=== PATIENT | male | born 1945 | race Caucasian/White ===

== ENCOUNTER 2022-06-07 16:23 | Inpatient (IN) | payer OTHER ==
--- OUTSIDE RECORDS SUMMARY | 2022-06-07 16:33 | XMS REPORT | Continuity of Care Document ---
:1945 Author Organization [facility] t Address [address] [place] [address] Care Team Providers Name Role Phone Kia Lloyd DO Primary Care Physician RAMYA WILL Attending Clinician Unavailable Tamra Kelley Attending Clinician Unavailable Ramya Will Attending Clinician Hadley David Attending Clinician Kia Lloyd Attending Clinician THEODORE POOLE Attending Clinician Unavailable ALYSIA VELASCO Attending Clinician Unavailable Jose Manuel Solitario Attending Clinician VINCENZO BISHOP M.D. Attending Clinician Unavailable VISIT, NURSE [facility] XRAY Attending Clinician Unavailable CRYSTAL NARANJO NP Attending Clinician Unavailable Raju_P Attending Clinician Unavailable Vincenzo Bishop Attending Clinician Justice Niño Attending Clinician Kamaljit [place] Attending Clinician ALYSIA VELASCO Admitting Clinician Unavailable Raju_P Admitting Clinician Unavailable Ramya Will Admitting Clinician Vincenzo Bishop Admitting Clinician Payers Payer Name Policy Type Policy Number Effective Date Expiration Date S [place] [address] [id number] Common Spi rit Life - [facility] MEDICARE MB [id number] [facility] NOVITAS - [facility] MEDICARE MB [id number] [facility] NOVITAS - [facility] MEDICARE B-[place]: [id number] 2010 NOVITAS 00:00:00 SOLUTIONS PRECIOUSMICHELLE [id number] 2011 00:00:00 Problems Condition Condition Condition Status Onset Resolution Last Treating Co mments Source Name Details Category Date Date Treatment Clinician Date I50.9 I10 I50.9 I10 Diagnosis Active 2021-052022-05-02 Memoria I25.10 I25.10 1- 08:40:00 l Active 00:00: Dario 04/07/2022 00 [facility] [place] SCREENING Diagnosis Active 2020-09-17 Memoria - Z12.11 SCREENING -14 11:40:00 l - Z12.11 00:00: Dario Active 00 09/09/2020 [facility] [place] I20.0 - I20.0 - Diagnosis Active 2017-06-07 Memoria UNSTABLE UNSTABLE 1-10 15:55:00 l ANGINA ANGINA 00:01: Dario I25.10 - I25.10 - 00 ATHSCL ATHSCL Active 06/07/2017 MH [facility] [place] I25.10, I25.10, Diagnosis Active 2016-07-05 Memoria I20.0 I20.0 - 08:37:00 l Active 00:00: Kimberly 07/05/2016 00 [place] Gastroente Gastroent Problem Active 2021-04-09 Memoria ritis eritis -14 02:39:44 l (disorder) (disorder) 00:00: Reyes jimenezann Active 00 12/09/2014 Problem 04/09/2021 Data migrated from [facility] on 12/31/14. [facility] [place] UTI UTI Diagnosis Active 2013-052014-05-29 Mem oria Active 06-29 15:43:00 l 04/28/2014 00:00: Amos dhillon [place] Urinary Urinary Problem Active 2013-052021-04-09 M reese incontinen incontinen 06-25 02:39:44 l ce ce 00:00: Dario (finding) (finding) 00 Active 04/25/2014 Problem 04/09/2021 Data migrated from [employer] on 10/25/14. [facility] [place] KNEE PAIN KNEE PAIN Diagnosis Active 2013-052014-06-17 Memoria RIGHT-719. RIGHT-719. 0- 07:03:00 l 46, 46, 00:00: Dario DEGENERATI DEGENERATI 00 VE BINTA VE BINTA Active 03/12/2014 [place] Impotence Impotence Problem Active 2022-01-09 Memoria of organic of organic 8 02:21:52 l origin origin 00:00: Dario (disorder) (disorder) 00 Active 01/21/2014 Problem 01/09/2022 Data migrated from [facility] on 10/25/14. [facility] [place] Presbyopia Presbyopi Problem Active 2022-01-09 Memoria (disorder) a 4-03 02:21:52 l (disorder) 00:00: Amos dhillon Active 00 08/29/2013 Problem 01/09/2022 Data migrated from [facility] on 10/25/14. [facility] [place] OSTEOARTHR OSTEOARTH Diagnosis Active 2012-052013-06-04 Memoria ITIS KNEE RITIS KNEE 2- 16:03:00 l LEFT-715.9 LEFT-715.9 00:00: Reyes torrez 6-SCIOP 6-SCIOP 00 Active 05/07/2013 [place] 715.96 - 715.96 - Diagnosis Active 2012-052013-05-08 Memoria OSTEOARTHR OSTEOARTHR 2- 10:49:00 l OS NO OS NO 00:01: Dario Active 00 05/06/2013 [facility] Bilateral Bilateral Problem Active 2012-052022-01-09 Memoria neural neural 0-25 02:21:52 l hearing hearing 00:00: Dario loss loss 00 (disorder) (disorder) Active 03/22/2013 Problem 01/09/2022 Data migrated from [employer] on 10/25/14. [facility] [place] Anxiety Anxiety Problem Active 2012-052022-01-09 M emoria disorder disorder 0-11 02:21:52 l (disorder) (disorder) 00:00: He rmann Active 00 03/08/2013 Problem 01/09/2022 Data migrated from [employer] on 10/25/14. [facility] [place] Cramp in Cramp in Problem Active 2021-04-09 Memoria lower limb lower limb -14 02:39:44 l (finding) (finding) 00:00: Herm fabio Active 00 11/09/2012 Problem 04/09/2021 Data migrated from [employer] on 10/25/14. [facility] [place] Arthritis Arthritis Problem Active 2022-01-09 Memoria of knee of knee 09-17 02:21:52 l (disorder) (disorder) 00:00: He rmann Active 00 09/17/2012 Problem 01/09/2022 Data migrated from [employer] on 10/25/14. [facility] [place] Benign Benign Problem Active 2022-01-09 Loyd sami prostatic prostatic 4- 02:21:52 l hyperplasi hyperplasi 00:00: He rmann a a 00 (disorder) (disorder) Active 08/31/2012 Problem 01/09/2022 Data migrated from [employer] [facility] [facility] 10[facility]25/14[facility] [place] [place] Knee pain Knee pain Problem Active 2021-04-09 Memoria (finding) (finding) 4- 02:39:44 l Active 00:00: Kimberly 08/31/2012 00 Problem 04/09/2021 Data migrated from [employer] on 10/25/14. [facility] [place] Polyp of Polyp of Problem Active 2011-052021-04-09 Memoria large large 1-19 02:39:44 l intestine intestine 00:00: Herm fabio (disorder) (disorder) 00 Active 04/16/2012 Problem 04/09/2021 Data migrated from [employer] on 10/25/14. [facility] [place] Benign Benign Problem Active 2011-052022-05-14 Loyd sami hypertensi hypertensi 0-05 11:19:31 l on on 00:00: Dario (disorder) (disorder) 00 Active 03/02/2012 Problem 05/14/2022 Data migrated from [employer] on 10/25/14. [facility] [place] Gout Gout Problem Active 2011-052022-05-14 Memor ia (disorder) (disorder) 0-05 11:19:31 l Active 00:00: Dario 03/02/2012 00 Problem 05/14/2022 Data migrated from [employer] on 10/25/14. [facility] [place] Hyperlipid Hyperlipi Problem Active 2011-052016-07-08 Memoria emia demia 0-05 03:31:09 l (disorder) (disorder) 00:00: He rmann Active 00 03/02/2012 Problem 07/08/2016 Data migrated from [employer] on 10/25/14. [place] Sleep Sleep Problem Resolve 2022-01-09 Loyd sami apnea apnea d 02:21:52 l (finding) (finding) Herm fabio Resolved Problem 01/09/2022 [facility] [place] Hyperchole Hyperchol Problem Resolve 2022-01-09 Memoria sterolemia esterolemi d 02:21:52 l (disorder) a Amos n (disorder) Resolved Problem 01/09/2022 [facility] [place] Irritable Irritable Problem Resolve 2022-01-09 Memoria colon colon d 02:21:52 l (disorder) (disorder) He rmann Resolved Problem 01/09/2022 [facility], [facility] [place] Gastroesop Gastroeso Problem Active 2022-01-09 Memoria hageal phageal 02:21:52 l reflux reflux Kimberly disease disease (disorder) (disorder) Active Problem 01/09/2022 Data migrated from [employer] on 10/25/14. [facility], [facility] [place], [facility] [place] Body mass Body mass Problem Active 2022-05-14 Memoria index 30+ index 30+ 11:19:31 l - obesity - obesity Herm fabio (finding) (finding) Active Problem 05/14/2022 [facility], [facility] [place] Bronchitis Bronchiti Problem Active 2021-04-09 Memoria (disorder) s 02:39:44 l (disorder) Amos n Active Problem 04/09/2021 [facility], [facility] [place] Coronary Coronary Problem Active 2022-05-14 Memoria arterioscl arterioscl 11:19:31 l erosis erosis Dario (disorder) (disorder) Active Problem 05/14/2022 Data migrated from [facility] on 10/25/14. 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 11:19:31 l of the of the Dario heart heart (disorder) (disorder) Active Problem 05/14/2022 [facility], [facility] [place] Drug Drug Problem Active 2021-04-09 Memor ia therapy therapy 02:39:44 l finding finding Dario (finding) (finding) Active Problem 04/09/2021 [facility], [facility] [place] Edema of Edema of Problem Active 2022-05-14 Memoria lower lower 11:19:31 l extremity extremity Herm fabio (finding) (finding) Active Problem 05/14/2022 [facility], [place] Large Large Problem Active 2021-04-09 Memor ia prostate prostate 02:39:44 l (finding) (finding) Herm fabio Active Problem 04/09/2021 [facility], [facility] [place], [facility], [place] Hand pain Hand pain Problem Active 2021-04-09 Memoria (finding) (finding) 02:39:44 l Active Dario Problem 04/09/2021 [facility], [place] Sacroiliac Sacroilia Problem Active 2021-04-09 Memoria joint c joint 02:39:44 l inflamed inflamed Amos n (disorder) (disorder) Active Problem 04/09/2021 [facility], [place] Mixed Mixed Problem Active 2022-05-14 Loyd sami hyperlipid hyperlipid 11:19:31 l abel roman Dario (disorder) (disorder) Active Problem 05/14/2022 [facility] [place] Osteoporos Osteoporo Problem Active 2022-05-14 Memoria is sis 11:19:31 l (disorder) (disorder) He rmann Active Problem 05/14/2022 [facility], [facility] [place] Pain in Pain in Problem Active 2021-04-09 Me moria elbow elbow 02:39:44 l (finding) (finding) Herm fabio Active Problem 04/09/2021 [facility], [place] Pain in Pain in Problem Active 2021-04-09 Me moria wrist wrist 02:39:44 l (finding) (finding) Herm fabio Active Problem 04/09/2021 [facility] [place] 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:39:44 l syndrome syndrome Amos n (disorder) (disorder) Active Problem 04/09/2021 [facility] [place] Screening Screening Problem Active 2022-05-14 Memoria status status 11:19:31 l (finding) (finding) Herm fabio Active Problem 05/14/2022 [facility], [facility] [place] Shoulder Shoulder Problem Active 2021-04-09 Memoria pain pain 02:39:44 l (finding) (finding) Herm fabio Active Problem 04/09/2021 [facility], [place] Skin Skin Problem Active 2021-04-09 Memor ia lesion lesion 02:39:44 l (disorder) (disorder) He rmann Active Problem 04/09/2021 [facility] [place] Finding of Finding Problem Active 2022-05-14 Memoria enzyme of enzyme 11:19:31 l level level Dario (finding) (finding) Active Problem 05/14/2022 [facility] [place] Prediabete Prediabet Problem Active 2022-05-14 Memoria s es 11:19:31 l (finding) (finding) Herm fabio Active Problem 05/14/2022 [facility] [place] Fall from Fall from Problem Active 2017-11-17 Memoria building building 02:06:33 l (finding) (finding) Herm fabio Active Problem 11/17/2017 [facility], [place] History of History Problem Active 2022-05-14 Memoria polyp of of polyp 11:19:31 l colon of colon Dario (situation (situation ) ) Active Problem 05/14/2022 [facility], [facility] [place] Parkinson' Parkinson Problem Active 2022-05-14 Memoria s disease 's disease 11:19:31 l (disorder) (disorder) He rmann Active Problem 05/14/2022 [facility], [facility] [place] Hypertensi Hypertens Problem Active 2014-06-13 Memoria ve bola 08:03:20 l disorder, disorder, Herm fabio systemic systemic arterial arterial (disorder) (disorder) Active Problem 06/13/2014 [facility] [place], [facility], [place] Acute Acute Problem Active 2022-04-09 Memor ia congestive congestive 05:07:57 l heart heart Kimberly failure failure (disorder) (disorder) Active Problem 04/09/2022 Medical Group ENCOUNTER ENCOUNTER Diagnosis Active 2020-09-17 Memoria FOR FOR 11:40:00 l SCREENING SCREENING Herm fabio FOR FOR MALIGNANT MALIGNANT NE NE Active [place] M79.605 - M79.605 - Diagnosis Active 2021-08-18 Memoria PAIN IN PAIN IN 11:00:00 l LEFT LEG LEFT LEG Amos n Active [facility] [place] URIN TRACT URIN Diagnosis Active 2014-04-29 Memoria INFECTION TRACT 16:45:00 l NOS INFECTION Kimberly NOS Active [place] JOINT JOINT Diagnosis Active 2014-06-17 Me moria PAIN-L/LEG PAIN-L/LEG 07:03:00 l Active Dario [place] ABNORMAL ABNORMAL Diagnosis Active 2022-05-02 Memoria ELECTROCAR ELECTROCAR 08:40:00 l DIOGRAM DIOGRAM Kimberly [ECG] [ECG] [EKG] [EKG] Active [place] Status Status Problem Active [facility] post left post left Phys ici knee knee ans replacemen replacemen t t Osteoarthr Osteoarthr Problem Active U T itis of itis of Physici hips, hips, ans bilateral bilateral [id number] OAB Problem Common (overactiv Spirit e bladder) [facility] [id number] Urge Problem Common incontinen Spirit ce [facility] [id number] Detrusor Problem Comm on instabilit Spirit y [facility] Frequency Frequency Problem Com mon Spirit [facility] [id number] Voiding Problem Commo n dysfunctio Spirit n [facility] Malignant Malignant Problem Com mon tumor of neoplasm Spirit prostate of [facility] prostate [facility] Incontinen Incontinen Problem C ommon ce [facility] [id number] S/P Problem Common radiation Spirit therapy [facility] [id number] Detrusor Problem Comm on dysfunctio Spirit n [facility] [id number] Bilateral Problem Comm on nephrolith Spirit iasis [facility] [id number] Functional Problem Co mmon urinary Spirit incontinen - [facility] [id number] Lower Problem Common urinary Spirit tract - [facility] symptoms ([facility] [id number] Primary Problem Common malignant Spirit neoplasm - [facility] with high Medical risk of Center recurrence due to [place] score of 8 to 10 and PSA greater than 20 [id number] Other Problem Commo n [id number] stricture Spirit of bulbous - [facility] urethra in [facility] Urinary Acute Problem Common tract lower UTI Spirit infectious - [facility] disease [facility] Essential Essential Diagnosis 2021-052022-05-14 2022-05-14 Memoria hypertensi hypertensi 07-12 11:19:31 11:19:31 l on on 20:28: Dario (disorder) (disorder) 00 05/11/2022 Diagnosis 05/14/2022 Medical Group Atheroscle Atheroscl Diagnosis 2021-052022-05-14 2022-05-14 Memoria rosis of erosis of 07-12 11:19:31 11:19:31 l coronary coronary 20:28: Amos n artery artery 00 (disorder) (disorder) 05/11/2022 Diagnosis 05/14/2022 Medical Group Angina Angina Diagnosis 2021-052022-05-142022-05-14 Memoria (disorder) (disorder) 2- 11:19:31 11:19:31 l 05/11/2022 20:28: Amos n Diagnosis 00 05/14/2022 Medical Group Diastolic Diastolic Diagnosis 2021-052022-05-14 2022-05-14 Memoria heart heart 2- 11:19:31 11:19:31 l failure failure 20:28: Dario (disorder) (disorder) 00 05/11/2022 Diagnosis 05/14/2022 [facility], [facility] [place] Localized Localized Diagnosis 2021-052022-05-14 2022-05-14 Memoria edema edema - 11:19:31 11:19:31 l (finding) (finding) 20:28: Edwin mccarthy 05/11/2022 00 Diagnosis 05/14/2022 [facility] Heart Heart Diagnosis 2021-052022-04-07 2022-04-07 Memoria failure failure 06-04 03:42:41 03:42:41 l (disorder) (disorder) 17:34: Reyes torrez 04/04/2022 00 Diagnosis 04/07/2022 Medical Group Preoperati Preoperat Problem Resolve 2022-01-09 2022-01-09 Memoria ve bola d - 02:21:52 02:21:52 l cardiovasc cardiovasc 00:00: He lore macias 00 examinatio examinatio n n (procedure (procedure ) ) Resolved 06/05/2013 Problem 01/09/2022 Data migrated from [employer] on 12/13/14. [facility] [place] Preoperati Preoperat Problem Resolve 2022-01-09 2022-01-09 Memoria ve bola d 06-05 02:21:52 02:21:52 l procedures procedures 00:00: He lore (procedure (procedure 00 ) ) Resolved 06/05/2013 Problem 01/09/2022 Data migrated from [employer] on 12/13/14. [facility], [facility] [place] Pneumonia Pneumonia Problem Resolve 2012-1 2022-01-09 2022-01-09 Memoria (disorder) (disorder) d 2- 02:21:52 02:21:52 l Resolved 00:00: Kimberly 05/14/2012 00 Problem 01/09/2022 Data migrated from [facility] on 12/13/14. [facility], [facility] [place] Fracture Fracture Problem Resolve 1964-0 2022-01-09 2022-01-09 Memoria of bone of bone d 1- 02:21:52 02:21:52 l (disorder) (disorder) 00:00: He rmann Resolved 00 05/29/1963 Problem 01/09/2022 vertebral fracture; wore brace; resolved; no issues [facility], [facility] [place] History of Past Illness Condition Condition Condition Status Onset Resolution Last Treating Co mments Source Name Details Category Date Date Treatment Clinician Date Malignant Malignant Problem 2022-01-09 2022-01-09 Memoria neoplasm neoplasm 01-06 02:21:52 02:21:52 l of of 15:29: Dario prostate prostate 00 01/06/2022 01/09/2022 Medical Group Morbid Morbid Problem 2022-01-09 2022-01-09 Memoria (severe) (severe) 01-06 02:21:52 02:21:52 l obesity obesity 15:29: Dario due to due to 00 excess excess calories calories 01/06/2022 01/09/2022 [facility], [place] Age-relate Problem 2022-01-09 2022-01-09 Memoria d Age-relate 01-06 02:21:52 02:21:52 l osteoporos d 15:29: Amos n is without osteoporos 00 current is without pathologic current al pathologic fracture al fracture 01/06/2022 01/09/2022 Medical Group Body mass Body mass Problem 2022-01-09 2022-01-09 Memoria index index 01-06 02:21:52 02:21:52 l (BMI) (BMI) 15:29: Kimberly 39.0-39.9, 39.0-39.9, 00 adult adult [facility]06/2022 [facility] [place] Gastro-eso Gastro-es Problem 2022-01-09 2022-01-09 Memoria phageal ophageal 01-06 02:21:52 02:21:52 l reflux reflux 15:25: Dario disease disease 00 without without esophagiti esophagiti s s 01/06/2022 01/09/2022 Medical Group Atheroscle Atheroscl Problem 2022-01-09 2022-01-09 Memoria rotic erotic 01-06 02:21:52 02:21:52 l heart heart 15:24: Kimberly disease of disease of 00 [place] coronary coronary artery artery without without angina angina pectoris pectoris 01/06/2022 01/09/2022 Medical Group Parkinson' Parkinson Problem 2022-01-09 2022-01-09 Memoria s disease 's disease 01-06 02:21:52 02:21:52 l 01/06/2022 15:24: Amos n 01/09/2022 00 Medical Group Mixed Mixed Problem 2022-01-09 2022-01-09 Memoria hyperlipid hyperlipid 01-06 02:21:52 02:21:52 l emia emia 15:24: Dario 01/06/2022 00 01/09/2022 Medical Group Prediabete Prediabet Problem 2022-01-09 2022-01-09 Memoria s es 01-06 02:21:52 02:21:52 l 01/06/2022 15:24: Amos n 01/09/2022 00 Medical Group Unspecifie Unspecifi Problem 2022-01-09 2022-01-09 Memoria d ed 01-06 02:21:52 02:21:52 l diastolic diastolic 15:23: Herm fabio (congestiv (congestiv 00 e) heart e) heart failure failure 01/06/2022 01/09/2022 Medical Group Essential Problem 2022-01-09 2022-01-09 Memoria (primary) Essential 01-06 02:21:52 02:21:52 l hypertensi (primary) 15:23: Her barbosa on hypertensi 00 on 01/06/2022 01/09/2022 [facility], [place] Hypertensi Hypertens Problem 2022-01-09 2022-01-09 Memoria ve heart bola heart 01-06 02:21:52 02:21:52 l disease disease 15:23: Dario with heart with heart 00 failure failure 01/06/2022 Medical Group Localized Localized Problem 2021-10-07 2021-10-07 Memoria edema edema 10-04 01:32:40 01:32:40 l 10/04/2021 16:48: Amos n 10/07/2021 00 Medical Group Cellulitis Celluliti Problem 2021-08-20 2021-08-20 Memoria of left s of left 08-17 01:10:44 01:10:44 l lower limb lower limb 16:35: He lore 08/17/2021 00 08/20/2021 Medical Group Pain in Pain in Problem 2021-08-13 2021-08-13 Memoria left leg left leg 08-10 01:02:02 01:02:02 l 08/10/2021 14:52: Amos n 08/13/2021 00 Medical Group Other Other Problem 2021-08-13 2021-08-13 M emoria specified specified 08-10 01:02:02 01:02:02 l soft soft 14:52: Dario tissue tissue 00 disorders disorders 08/10/2021 08/13/2021 Medical Group Angina Angina Problem 2020-052021-04-09 2021-04-09 Memoria pectoris, pectoris, 06-06 02:39:40 02:39:40 l unspecifie unspecifie 21:06: He lore d d 00 04/06/2021 04/09/2021 Medical Group Atheroscle Atheroscl Problem 2017-2017-09-19 2017-09-19 Memoria rotic erotic 06-24 14:20:58 14:20:58 l heart heart 05:47: Dario disease of disease of 02 [place] coronary coronary artery artery with with unstable unstable angina angina pectoris pectoris 06/24/2017 09/19/2017 [facility] [place] Allergies, Adverse Reactions, Alerts Allergy Allergy Status Severity Reaction(s) Onset Inactive Treating Comm ents Source Name Type Date Date Clinician roya pryor Active J Luis Bishop Social History Social Habit Start Date Stop Date Quantity Comments Source History of Tobacco [facility] - Use [facility] Social History 2022-05-12 2022-05-12 [facility] 23:52:45 23:52:45 Social History 2020-08-27 2020-08-27 [facility] 18:57:43 18:57:43 Smoking Status Start Date Stop Date Source Tobacco smoking consumption unknown [facility] Tobacco smoking status [facility] Medications Ordered Filled Start Stop Current Ordering Indication Dosage Frequency Signature Comments Components Source Medication Medication Date Date Medication? Clinician (SIG) Name Name Nitrofurant Nitrofurant 2021-05- No Nitrofuran oin Monohyd oin Monohyd 06-20 toin Macro 100 Macro 100 00:00: 00:00 Monohyd MG MG 00 :00 Macro 100 MG Nitrofurant Nitrofurant 2021-05- No Nitrofuran oin Monohyd oin Monohyd 06-20 toin Macro 100 Macro 100 00:00: 00:00 Monohyd MG MG 00 :00 Macro 100 MG Nitrofurant Nitrofurant 2021-05- No Nitrofuran oin Monohyd oin Monohyd 06-20 toin Macro 100 Macro 100 00:00: 00:00 Monohyd MG MG 00 :00 Macro 100 MG loperamide 2021-05 Yes 2 mg = 1 Mem oria 2 mg oral 07 tab, PO, l tablet 17:27: PRN, PRN Loose Stools, 0 Refill(s) acetaminoph 2021-05 Yes 500 mg, Mem oria en 1-07 PRN, 0 l 17:26: Refill(s) Dario 00 Cephalexin Cephalexin 2021-05- No 1{capsu TID Cephalexin 500 MG 500 MG 0-18 10-25 le} 500 MG 00:00: 00:00 00 :00 pravastatin Yes = 1 tab, Me moria 20 mg oral 9-29 PO, Daily, l tablet 21:43: # 90 tab, Amos n 00 4 Refill(s), Pharmacy: [facility], 182.88, cm, 01/06/22 9:51:00 CDT, Height, 130.455, kg, 01/06/22 10:28:00 CDT, Weight lisinopril 2021-0 Yes = 1 tab, Mem oria 10 mg oral 9-29 PO, Daily, l tablet 21:43: # 90 tab, Amos n 00 4 Refill(s), Pharmacy: [facility], 182.88, cm, 01/06/22 9:51:00 CDT, Height, 130.455, kg, 01/06/22 10:28:00 CDT, Weight Trospium Trospium 2021-0 2023- No QD Trospium Chloride ER Chloride ER 8-10 03-08 Chloride 60 MG 60 MG 00:00: 00:00 ER 60 MG 00 :00 Trospium Trospium 2021-0 2023- No QD Trospium Chloride ER Chloride ER 8-10 03-08 Chloride 60 MG 60 MG 00:00: 00:00 ER 60 MG 00 :00 Trospium Trospium 2021-0 2023- No QD Trospium Chloride ER Chloride ER 8-10 03-08 Chloride 60 MG 60 MG 00:00: 00:00 ER 60 MG 00 :00 Trospium Trospium 2-0 2023- No QD Trospium Chloride ER Chloride ER 8-10 03-08 Chloride 60 MG 60 MG 00:00: 00:00 ER 60 MG 00 :00 Trospium Trospium 2022-0 2023- No QD Trospium Chloride ER Chloride ER 8-10 03-08 Chloride 60 MG 60 MG 00:00: 00:00 ER 60 MG 00 :00 Trospium Trospium 2022-0 2023- No QD Trospium Chloride ER Chloride ER 8-10 03-08 Chloride 60 MG 60 MG 00:00: 00:00 ER 60 MG 00 :00 Trospium Trospium 2022-0 2023- No QD Trospium Chloride ER Chloride ER 8-10 03-08 Chloride 60 MG 60 MG 00:00: 00:00 ER 60 MG 00 :00 furosemide 2-0 Yes = 1 tab, Mem oria 20 mg oral 7-29 PO, Daily, l tablet 13:11: PRN Kimberly 00 NEEDED FOR EDEMA, # 90 tab, 4 Refill(s), Pharmacy: [facility], 182.88, cm, 10/04/21 11:22:00 CDT, Height, 130.909, kg, 10/04/21 11:32:00 CDT, Weight carvedilol Yes = 1 tab, Mem oria 3.125 mg 6-29 PO, BID, # l oral tablet 00:52: 180 tab, 1 Kimberly 00 Refill(s), Pharmacy: [facility], 182.88, cm, 10/04/21 11:22:00 CDT, Height, 130.909, kg, 10/04/21 11:32:00 CDT, Weight Imdur 30 mg Yes 30 mg = 1 M emoria oral 5-07 tab, PO, l tablet, 04:31: QAM, # 90 Gretta nn extended 00 tab, 3 release Refill(s), Pharmacy: [facility], 182.88, cm, 08/17/21 11:03:00 CDT, Height, 128.636, kg, 08/17/21 11:03:00 CDT, Weight VESIcare 10 VESIcare 10 2021- No 1{table QD VESIcare MG MG 4-27 10-24 t} 10 MG 00:00: 00:00 00 :00 VESIcare 10 VESIcare 10 2021- No 1{table QD VESIcare MG MG 4-27 10-24 t} 10 MG 00:00: 00:00 00 :00 VESIcare 10 VESIcare 10 2021- No 1{table QD VESIcare MG MG 4-27 10-24 t} 10 MG 00:00: 00:00 00 :00 VESIcare 10 VESIcare 10 2021- No 1{table QD VESIcare MG MG 4-27 10-24 t} 10 MG 00:00: 00:00 00 :00 VESIcare 10 VESIcare 10 2021- No 1{table QD VESIcare MG MG 4-27 10-24 t} 10 MG 00:00: 00:00 00 :00 VESIcare 10 VESIcare 10 2021- No 1{table QD VESIcare MG MG 4-27 10-24 t} 10 MG 00:00: 00:00 00 :00 VESIcare 10 VESIcare 10 2021-2021- No 1{table QD VESIcare MG MG 4-27 10-24 t} 10 MG 00:00: 00:00 00 :00 VESIcare 10 VESIcare 10 2021-2021- No 1{table QD VESIcare MG MG 4-27 10-24 t} 10 MG 00:00: 00:00 00 :00 VESIcare 10 VESIcare 10 2021- No 1{table QD VESIcare MG MG 4-27 10-24 t} 10 MG 00:00: 00:00 00 :00 VESIcare 10 VESIcare 10 2021-2021- No 1{table QD VESIcare MG MG 4-27 10-24 t} 10 MG 00:00: 00:00 00 :00 VESIcare 10 VESIcare 10 2021- No 1{table QD VESIcare MG MG 4-27 10-24 t} 10 MG 00:00: 00:00 00 :00 VESIcare 10 VESIcare 10 2021- No 1{table QD VESIcare MG MG 4-27 10-24 t} 10 MG 00:00: 00:00 00 :00 VESIcare 10 VESIcare 10 2021-0 2021- No 1{table QD VESIcare MG MG 4-27 10-24 t} 10 MG 00:00: 00:00 00 :00 VESIcare 10 VESIcare 10 2021- No 1{table QD VESIcare MG MG 4-27 10-24 t} 10 MG 00:00: 00:00 00 :00 Sulfamethox 2021-0 Yes 1 tab, PO, Memoria azole 800 3-22 Q12H, X 5 l MG / 16:36: day, # 10 Kimberly Trimethopri 00 tab, 0 m 160 MG Refill(s), Oral Tablet Pharmacy: [Bactrim] [facility], 182.88, cm, 08/17/21 11:03:00 CDT, Height, 128.636, kg, 08/17/21 11:03:00 CDT, Weight cephalexin Yes 500 mg = 1 M emoria 500 mg oral 3-15 tab, PO, l tablet 14:55: QID, X 7 Dario 00 day, # 28 tab, 0 Refill(s), Pharmacy: [facility], 182.88, cm, 08/10/21 9:25:00 CDT, Height, 130, kg, 08/10/21 9:25:00 CDT, Weight hydrochloro 0 Yes 1 tab, PO, Memoria thiazide-li 2-28 Daily, # l sinopril 19:18: 90 tab, 4 Herm fabio 12.5 mg-10 00 Refill(s), mg oral Pharmacy: tablet [facility], 182.88, cm, 07/08/21 11:25:00 OFFAL BALER, Height, 129.545, kg, 07/08/21 11:31:00 OFFAL BALER, Weight omeprazole 0 Yes = 1 cap, Mem oria 20 mg oral 2-10 PO, Daily, l delayed 18:03: # 90 cap, Gretta nn release 00 4 capsule Refill(s), Pharmacy: [facility], 182.88, cm, 07/08/21 11:25:00 OFFAL BALER, Height, 129.545, kg, 07/08/21 11:31:00 OFFAL BALER, Weight Carbidopa 2020-05 Yes 1 tab, PO, Me moria 25 MG / 09 BID, # 90 l Levodopa 20:20: tab, 0 Kimberly 100 MG Oral 00 Refill(s) Tablet carbidopa-l 2020-05 Yes 1 tab, PO, Memoria evodopa 25 - BID, # 90 l mg-100 mg 20:20: tab, 0 Amos n oral tablet 00 Refill(s) Levaquin Levaquin 2020- No 1{table QD Levaquin 500 MG 500 MG 01-20- t} 500 MG 00:00: 00:00 00 :00 Amoxicillin Amoxicillin 0 2020- No 1{table BID Amoxicilli -Pot -Pot 01-06 t} n-Pot Clavulanate Clavulanate 00:00: 00:00 Clavulanat 875-125 MG 875-125 MG 00 :00 e 875-125 MG VESIcare 5 VESIcare 5 2020-0 2021- No 2{capsu QD VESIcare 5 MG MG 5-13 09-05 les} MG 00:00: 00:00 00 :00 VESIcare 5 VESIcare 5 2020-0 2022- No 2{capsu QD VESIcare 5 MG MG 5-13 09-05 les} MG 00:00: 00:00 00 :00 VESIcare 5 VESIcare 5 2020-0 202- No 1{table QD VESIcare 5 MG MG 5-13 05-08 t} MG 00:00: 00:00 00 :00 VESIcare 5 VESIcare 5 2020-0 2021- No 1{table QD VESIcare 5 MG MG 5-13 05-08 t} MG 00:00: 00:00 00 :00 VESIcare 5 VESIcare 5 2020-0 2021- No 1{table QD VESIcare 5 MG MG 5-13 05-08 t} MG 00:00: 00:00 00 :00 Furosemide 2020-0 Yes 20 mg = 1 Me moria 20 MG Oral 5-12 tab, PO, l Tablet 16:36: Daily, PRN Gretta nn 00 Edema, # 90 tab, 3 Refill(s), Pharmacy: [facility], 182.88, cm, 10/07/20 11:07:00 CDT, Height, 135.455, kg, 10/07/20 11:07:00 CDT, Weight Nitroglycer Yes 0.4 mg = 1 Memoria in 0.4 MG 5-12 tab, SL, l Sublingual 16:34: Q5Min, PRN H ermann Tablet 00 Chest Pain, Give up to 3 doses. Call 911 if pain persists., # 100 tab, 1 Refill(s), Pharmacy: [facility], 182.88, cm, 10/07/20 11:07:00 CDT, Height, 135.455, kg, 10/07/20 11:07:00 CDT, Weight nitroglycer Yes 0.4 mg = 1 Memoria in 0.4 mg 5-12 tab, SL, l sublingual 16:34: Q5Min, PRN H ermann tablet 00 Chest Pain, Give up to 3 doses. Call 911 if pain persists., # 100 tab, 1 Refill(s), Pharmacy: [facility], 182.88, cm, 10/07/20 11:07:00 CDT, Height, 135.455, kg, 10/07/20 11:07:00 CDT, Weight carvedilol 0 Yes = 1 tab, Mem oria 3.125 mg 5-12 PO, BID, # l oral tablet 16:33: 180 tab, 3 Kimberly 00 Refill(s), Pharmacy: [facility], 182.88, cm, 10/07/20 11:07:00 CDT, Height, 135.455, kg, 10/07/20 11:07:00 CDT, Weight Imdur 30 mg Yes 30 mg = 1 M emoria oral 5-12 tab, PO, l tablet, 16:33: QAM, # 90 Gretta nn extended 00 tab, 3 release Refill(s), Pharmacy: [facility], 182.88, cm, 10/07/20 11:07:00 CDT, Height, 135.455, kg, 10/07/20 11:07:00 CDT, Weight Hydrochloro 0 Yes 1 tab, PO, Memoria thiazide 5-12 Daily, # l 12.5 MG / 16:33: 90 tab, 3 Her barbosa Lisinopril 00 Refill(s), 10 MG Oral Pharmacy: Tablet [facility], 182.88, cm, 10/07/20 11:07:00 CDT, Height, 135.455, kg, 10/07/20 11:07:00 CDT, Weight lisinopril 0 Yes = 1 tab, Mem oria 10 mg oral 5-12 PO, Daily, l tablet 16:33: # 90 tab, Amos n 00 3 Refill(s), Pharmacy: [facility], 182.88, cm, 10/07/20 11:07:00 CDT, Height, 135.455, kg, 10/07/20 11:07:00 CDT, Weight pravastatin 2021-0 Yes = 1 tab, Me moria 20 mg oral 5-12 PO, Daily, l tablet 16:33: # 90 tab, Amos n 00 3 Refill(s), Pharmacy: [facility], 182.88, cm, 10/07/20 11:07:00 CDT, Height, 135.455, kg, 10/07/20 11:07:00 CDT, Weight lidocaine No Route: IV, Me moria (ANES) 4-22 Drug form: l 17:36: INJ, ONCE, Dario 00 Stop date: 09/17/20 12:36:00 CDT propofol No Route: IV, Mem oria (ANES) 10 4-22 Drug form: l mg 17:18: INJ, Start Dario 00 date: 09/17/20 12:18:00 CDT, Stop date: 09/17/20 13:18:00 CDT Lactated No Route: IV, Mem oria Ringers 4-22 Total l Injection 17:09: Volume: Gretta nn IV (ANES) 00 1,000, 1000 mL Start date: 09/17/20 12:09:00 CDT, Stop date: 09/17/20 13:09:00 CDT Lactulose Yes 133.3333 Loyd sami 667 MG/ML 4-13 gm = 200 l Oral 16:57: mL, PO, Dario Solution 00 ONCE, drink at 4pm, day before procedure, # 200 mL, 0 Refill(s), Pharmacy: [facility], 185.42, cm, 09/08/20 11:40:00 CDT, Height, 137.727, kg, 09/08/20 11:40:00 CDT, Weight solifenacin Yes 5 mg = 1 Me moria 5 mg oral 4-01 tab, PO, l tablet 19:10: Daily, # Kimberly 00 30 tab, 1 Refill(s) allopurinol 2019-05 Yes = 1 tab, Me moria 300 mg oral 0-22 PO, Daily, l tablet 14:37: # 90 tab, Amos n 00 1 Refill(s), Pharmacy: [facility], 180.34, cm, 10/03/19 15:02:00 CDT, Height, 138.182, kg, 10/03/19 15:02:00 CDT, Weight omeprazole 2020-0 Yes = 1 cap, Mem oria 20 mg oral 7-20 PO, Daily, l delayed 23:06: # 90 cap, Gretta nn release 00 3 capsule Refill(s), Pharmacy: [facility] [place], 180.34, cm, 10/03/19 15:02:00 CDT, Height, 138.182, kg, 10/03/19 15:02:00 CDT, Weight pravastatin 2019-0 Yes = 1 tab, Me moria 20 mg oral 7-20 PO, Daily, l tablet 23:06: # 90 tab, Amos n 00 3 Refill(s), Pharmacy: [facility] [place], 180.34, cm, 10/03/19 15:02:00 CDT, Height, 138.182, kg, 10/03/19 15:02:00 CDT, Weight Nitroglycer 2019-0 Yes 0.4 mg = 1 Memoria in 0.4 MG 5-13 tab, SL, l Sublingual 14:33: Q5Min, PRN H ermann Tablet 00 Chest Pain, Give up to 3 doses. Call 911 if pain persists., # 100 tab, 1 Refill(s), Pharmacy: [facility] #[id number] lisinopril 2020-0 Yes = 1 tab, Mem oria 10 mg oral 5-13 PO, Daily, l tablet 13:46: # 90 tab, Amos n 54 Refill(s) 3, Pharmacy: [facility] #[id number] lisinopril 2020-0 No = 1 tab, Mem oria 10 mg oral 5-13 PO, Daily, l tablet 13:45: # 90 tab, Amos n 58 Refill(s) 3, Pharmacy: [facility][id number] gabapentin 2020-0 Yes 900 mg, Loyd sami 5-07 PO, 0 l 20:06: Refill(s) Dario 00 gabapentin 2020-0 Yes 600 mg, Loyd sami 5-07 PO, 0 l 20:06: Refill(s) Dario Acetaminoph 2019-1 Yes 1 tab, PO, Memoria en 300 MG / 0-17 Q4H, PRN l Codeine 21:15: Pain, X 7 Gretta nn Phosphate 00 day, # 42 30 MG Oral tab, 0 Tablet Refill(s) [Tylenol with Codeine #3] multivitami 2019-0 Yes 1 tab, PO, Memoria n with 5-01 Daily, 0 l minerals 15:24: Refill(s) Herm fabio 00 Imdur 30 mg 2019- Yes 30 mg = 1 M emoria oral 2-20 tab, PO, l tablet, 18:18: QAM, # 90 Gretta nn extended 00 tab, 3 release Refill(s), Pharmacy: [facility][id number] Alendronic 2019- Yes 70 mg = 1 Me moria acid 70 MG 1-18 tab, PO, l Oral Tablet 17:30: Q7D, take H ermann [Fosamax] 00 with 6-8 oz plain water, at least 30 minutes before first food, beverage, or medication of the day, # 12 tab, 3 Refill(s), Pharmacy: [facility] #[id number] Hydrochloro 2017-05 Yes = 1 tab, Me moria thiazide 2-13 PO, Daily, l 12.5 MG / 14:39: # 90 tab, Her barbosa Lisinopril 56 Refill(s) 10 MG Oral 3, Tablet Pharmacy: [facility] #[id number] meloxicam 2017-05 No = 1 tab, Loyd sami 7.5 mg oral 2-10 PO, Daily, l tablet 14:56: # 30 tab, Amos n 39 Pharmacy: [facility] #[id number] meloxicam 2017-05 No 7.5 mg = 1 Me moria 7.5 mg oral 1-13 tab, PO, l tablet 20:57: Daily, # Dario 00 30 tab, 0 Refill(s), Pharmacy: [facility] #[id number] {2017-05 No See Memoria (Methylpred 1-13 Instructio l nisolone 4 20:57: ns, PO, Herm fabio MG Oral 00 Take by Tablet mouth as [Medrol]) } directed Pack on label., [Medrol # 1 Pack, Dosepak] 0 Refill(s), Pharmacy: [facility][id number] Acetaminoph 2017-05 No 1 - 2 tab, Memoria en 300 MG / 1-13 PO, Q6H, l Codeine 20:57: PRN Pain, Gretta nn Phosphate 00 X 4 day, # 30 MG Oral 32 tab, 0 Tablet Refill(s) [Tylenol with Codeine #3] carvedilol 2017-05 Yes 3.125 mg = M emoria 3.13 MG 0-16 1 tab, PO, l Oral Tablet 14:25: BID, # 180 Dario [Coreg] 00 tab, 3 Refill(s), Pharmacy: [facility] #[id number] omeprazole 2017-05 Yes See Memoria 20 mg oral 0-16 Instructio l delayed 13:49: ns, # 30 Amos n release 07 unknown capsule unit, Refill(s) 11, TAKE 1 CAPSULE BY MOUTH EVERY DAY., Pharmacy: [facility] #[id number] allopurinol 2017-05 Yes See Memori a 300 mg oral 0-05 Instructio l tablet 13:57: ns, # 90 Dario 53 tab, Refill(s) 3, TAKE 1 TABLET BY MOUTH EVERY DAY, Pharmacy: [facility] #[id number] Nitroglycer Yes 0.4 mg = 1 Memoria in 0.4 MG 9-27 tab, SL, l Sublingual 17:00: Q5Min, PRN H ermann Tablet 34 Chest Pain, Give up to 3 doses. Call 911 if pain persists., # 25 tab, 10 Refill(s), Pharmacy: [facility] #[id number] pravastatin Yes See Memori a 20 mg oral 7-02 Instructio l tablet 13:58: ns, # 30 Kimberly 39 tab, Refill(s) 11, TAKE 1 TABLET BY MOUTH EVERY DAY, Pharmacy: [facility] #[id number] omeprazole No See Memoria 20 mg oral 6-26 Instructio l delayed 19:10: ns, TAKE 1 Herm fabio release 17 CAPSULE BY capsule MOUTH EVERY DAY., # 90 cap, 3 Refill(s), Pharmacy: [facility] #[id number] carvedilol Yes 3.125 mg = M emoria 3.13 MG 6-18 1 tab, PO, l Oral Tablet 13:47: BID, # 60 H ermann [Coreg] 00 tab, 3 Refill(s), Pharmacy: [facility] #[id number] lisinopril Yes 10 mg = 1 Me moria 10 mg oral 4-24 tab, PO, l tablet 19:12: Daily, # Dario 00 90 tab, 3 Refill(s), Pharmacy: [facility] #[id number] tramadol Yes 50 mg = 1 Loyd sami hydrochlori 4-23 tab, PO, l de 50 MG 20:06: Q4H, PRN Gretta nn Oral Tablet 00 Pain, X 10 day, # 60 tab, 0 Refill(s) omeprazole No See Memoria 20 mg oral 4-18 Instructio l delayed 18:54: ns, TAKE 1 Herm fabio release 00 CAPSULE BY capsule MOUTH EVERY DAY., # 30 caplet, 3 Refill(s), Pharmacy: [facility] #[id number] pravastatin No See Memori a 20 mg oral 4-18 Instructio l tablet 18:54: ns, TAKE 1 Gretta nn 00 TABLET BY MOUTH EVERY DAY, # 30 tab, 3 Refill(s), Pharmacy: [facility] #[id number] Imdur 30 mg Yes 30 mg = 1 M emoria oral 2-26 tab, PO, l tablet, 17:55: QAM, # 30 Gretta nn extended 00 tab, 11 release Refill(s), Pharmacy: [facility] [id number] lisinopril Yes 10 mg = 1 Me moria 10 mg oral 1-16 tab, PO, l tablet 16:38: Daily, # Dario 00 90 tab, 0 Refill(s), Pharmacy: [facility] [id number] carvedilol Yes 3.125 mg = M emoria 3.13 MG 1-16 1 tab, PO, l Oral Tablet 16:38: BID, # 60 H ermann [Coreg] 00 tab, 3 Refill(s), Pharmacy: [facility] [id number] loperamide Yes 2 mg = 1 Mem oria 2 mg oral 1-16 tab, PO, l tablet 14:33: Q4H, PRN Dario 00 Loose Stools, # 60 tab, 0 Refill(s) loratadine No 10 mg = 1 Me moria 10 mg oral 1-16 tab, PO, l tablet 14:33: Daily, PRN Gretta nn 00 as needed for allergy symptoms, 0 Refill(s) cetirizine No 10 mg = 1 Me moria 10 mg oral 1-16 tab, PO, l tablet 14:33: Daily, PRN Gretta nn 00 as needed for allergy symptoms, 0 Refill(s) Diphenhydra No 25 mg, PRN Memoria mine 1-16 as needed l 14:33: for Dario 00 allergy symptoms, 0 Refill(s) Valium No 5 mg, Memoria 1-16 Route: PO, l 14:32: ONCE, Kimberly 00 Dosing Weight 136.364, kg, Start date: 06/13/17 8:32:00 OFFAL BALER, Stop date: 06/13/17 8:32:00 OFFAL BALER Sodium No 1,000 mL, Memori a Chloride -16 Rate: 250 l 0.9% IV 14:32: ml/hr, Kimberly 1,000 mL 00 Infuse over: 4 hr, Route: IV, Dosing Weight 136.364 kg, Total Volume: 1,000, Start date: 06/13/17 8:32:00 OFFAL BALER, Duration: 1 doses or times, Stop date: 06/13/17 12:31:00 OFFAL BALER, 2.68, m2 Potassium 2016-05 Yes 0 Memoria Acetate 2-14 Refill(s) l 17:48: Kimberly 00 Vitamin C 2016-05 Yes Daily, 0 Loyd sami 2-14 Refill(s) l 17:48: Dario 00 Vitamin D3 2016-05 Yes 0 Memoria 2-14 Refill(s) l 17:48: Dario 00 magnesium 2016-05 Yes = 1 cap, Loyd sami carbonate 2-14 PO, Daily, l 17:48: # 30 cap, Kimberly 00 0 Refill(s) Imdur No Notes: Memoria 2-08 (Same l 15:00: as:Imdur) "Do Not Crush" Take on empty stomach/ full glass of water. Do not crush 24 HR Yes 30 mg, PO, Memori a Isosorbide 2-07 QAM, # 30 l Mononitrate 18:48: tab, 11 Her barbosa 30 MG 00 Refill(s), Extended Pharmacy: [facility] [Imdur] 20080 potassium No 1 appl, Memor ia nitrate 250 2-07 Route: l MG/ML / 18:14: TOP, ONCE, Herm fabio Silver 00 Drug form: Nitrate 750 STIC, MG/ML Priority: Medicated Stat, Pad Start date: 07/05/16 12:14:00 OFFAL BALER, Stop date: 07/05/16 12:14:00 OFFAL BALER Sodium 2016- No 250 mL, Memoria Chloride 2-07 250 ml/hr, l 0.154 16:00: Infuse Dario MEQ/ML 00 Over: 1 Injectable hr, Route: Solution IV, 250, Drug form: INJ, ONCALL, Priority: Routine, Dosing Weight 134.091 kg, Start date: 07/05/16 10:00:00 OFFAL BALER, Duration: 1 doses or times Sodium 2016- No 750 mL, Memoria Chloride 07-05 Rate: 75 l 0.154 15:17: ml/hr, Kimberly MEQ/ML 00 Infuse Injectable over: 10 Solution hr, Route: IV, Dosing Weight 134.091 kg, Total Volume: 750, Start date: 07/05/16 9:17:00 OFFAL BALER, Duration: 24 hr, Stop date: 07/06/16 9:16:00 OFFAL BALER ProAir HFA Yes 2 puff, Loyd sami 90 mcg/inh 05 INHALER, l inhalation 18:43: Q4H, PRN Her barbosa aerosol 00 wheezing, with coughing, adapter or shortness of breath, use with spacer chamber, # 1 ea, 1 Refill(s), Pharmacy: [facility] [id number] aspirin 81 Yes 81 mg = 1 Me moria mg tablet, 01-27 tab, PO, l enteric 16:34: Daily, # Amos n coated 00 90 tab, 3 Refill(s) Enoxaparin No Notes: Memor ia 1-15 (Same as: l 15:00: Lovenox) Dario 00 acetaminoph No Notes: Max Memoria en 1-15 acetaminop l 01:00: hen 4000 Kimberly 00 mg/day (4 gm/day). (Same as: Tylenol Extra Strength) K-Dur 20 No Notes: Memoria 1-14 (Same as: l 15:34: K-Dur 20) Kimberly 00 "Do Not Crush" With food and full glass of water Protonix No Notes: Memoria 1-14 Tablet l 15:00: should not Dario 00 be chewed or crushed. (Same as: Protonix) tamsulosin No Notes: Memor ia 1-14 (Same As: l 15:00: Flomax) Dario "Do Not Crush" Allopurinol No Notes: Loyd sami 1-14 (Same as: l 15:00: Zyloprim) Kimberly 00 Docusate No Notes: Memoria Sodium 100 1-14 (Same as: l MG Oral 15:00: Colace) Dario Capsule 00 (Do Not [Colace] Crush) Ondansetron No Notes: Loyd sami 1-14 (Same as: l 06:00: Zofran) Kimberly Saline No Notes: Memoria Flush 0.9% 1-14 (Same as: l 03:00: BD Kimberly 00 Posiflush) Pravastatin No Notes: Loyd sami 1-14 (Same as: l 03:00: Pravachol) Dario 00 10 ML No Notes: Memoria Cefazolin 1-14 (Same As: l 100 MG/ML 02:00: Amos Bruce Prefilled 00 Kefzol) Syringe Acetaminoph No Notes: Loyd sami en 1-14 Infuse l 01:00: over 15 minutes Do not exceed 4gm/day of acetaminop hen Albuterol No Notes: Memori a 0.833 MG/ML -14 (Same as: l / 00:23: Duoneb) Kimberly Ipratropium 00 [place] 0.167 MG/ML Inhalant Solution [DuoNeb] Hydralazine No Notes: Loyd sami 1-14 (Same as: l 00:23: Apresoline ) Push over 5 minutes Milk of No Notes: Memoria Magnesia 1-14 (Same as: l 00:23: Milk of Magnesia, MOM) Bisacodyl No Notes: Memori a 1-14 (Same As: l 00:23: Dulcolax, Dario 00 Bisco-Lax) Simethicone No Notes: Loyd sami 1-14 (Same as: l 00:23: Mylicon) Aluminum No Notes: Memoria Hydroxide 1-14 (aluminum l 40 MG/ML / 00:23: hydroxide- H ermann Magnesium 00 magnesium Hydroxide hyd-simeth 40 MG/ML / icone Simethicone 200-200-20 4 MG/ML mg/5ml 30 Oral ml ud ANNAMARIA) Suspension Ondansetron No Notes: Loyd sami 1-14 (Same as: l 00:23: Zofran) gabapentin No Notes: Memor ia 1-14 (Same as: l 00:00: Neurontin) Ketorolac No 4 days Memor ia 1-14 l 00:00: Acetaminoph No 1,000 mg, M emoria en 06-11 Route: PO, l 00:00: Q6Edwin Holden Dosing Weight 131.455, kg, Start date: 06/10/14 18:00:00, Duration: 30 day, Stop date: 07/10/14 12:00:00 Naloxone No Notes: Memoria 1-13 Same as l 23:07: Narcan Aluminum No Notes: Memoria Hydroxide 1-13 (aluminum l 40 MG/ML / 23:07: hydroxide- H ermann Magnesium 00 magnesium Hydroxide hyd-simeth 40 MG/ML / icone Simethicone 200-200-20 4 MG/ML mg/5ml 30 Oral ml ud ANNAMARIA) Suspension Nalbuphine No Notes: Memor ia 1-13 (Same As: l 23:07: Nubain) Diphenhydra No Notes: Loyd sami mine 1-13 (Same as: l 23:07: Benadryl) Bisacodyl No Notes: Memori a 1-13 (Same As: l 23:07: Dulcolax, Bisco-Lax) Celebrex No Notes: Memoria 1-13 NSAID. l 23:00: Please Kimberly 00 check indication . Not for seizure. (Same As: CeleBREX ) ferrous No Notes: Memoria sulfate 1-13 Give with l 23:00: food. "Do Not Crush" Diphenhydra No Notes: Loyd sami mine 1-13 (Same as: l 20:48: Benadryl) Ondansetron No Notes: Loyd sami 1-13 (Same as: l 20:48: Zofran) Ketorolac No 30 mg, Memori a 1- Route: l 20:48: IVP, ONCE, Dosing Weight 131.455, kg, Start date: 06/10/14 14:48:00, Duration: 1 doses or times, Stop date: 06/10/14 14:48:00 Oxycodone No Notes: Memori a 1-13 (Same as: l 20:48: Roxicodone ) Morphine No Notes: Memoria 1-13 (Same l 20:48: as:MORPhin e Sulfate) Labetalol No Notes: Memori a 1-13 (Same as: l 20:48: Normodyne, Trandate) Push over 2 minutes Give bolus over 2-3 minutes. Acetaminoph No Notes: Loyd sami en 1-13 Infuse l 20:48: over 15 minutes Do not exceed 4gm/day of acetaminop hen Naloxone No Notes: Memoria 1-13 Same as l 20:48: Narcan Meperidine No Notes: Memor ia 1-13 (Same as: l 20:48: Demerol) "Use Precaution in Elderly, Seizure disorders, and Renal impairment " Flumazenil No Notes: Memor ia 1-13 (Same as: l 20:48: Romazicon) Fentanyl No Notes: Memoria 1-13 (Same as: l 20:48: Sublimaze) Preservati ve free. ropivacaine No Notes: Loyd sami 1-13 Same as: l 20:48: Naropin Saline No Notes: Memoria Flush 0.9% 06-10 (Same as: l 20:10: BD Posiflush) Magnesium No Notes: Memori a Hydroxide - (Same as: l 20:10: Milk of Magnesia, MOM) Reglan No Notes: Memoria 1-13 (Same as: l 20:10: Reglan) Fleet Enema No 133 ml, Mem oria 06-10 Route: CA, l 20:10: Drug Form: Dario ODILIA, Dosing Weight 131.455, kg, ONCE, PRN as needed for constipati on, Start date: 06/10/14 14:10:00 D5W 1/2NS + No Notes: Loyd sami KCL 20mEq/L 06-10 PREMIX IV l 1000ml 20:10: - Do Not Kimberly (Premix) 00 Alter 1,000 mL Diphenhydra No 25 mg, 1 Me moria mine 06-10 tab, l 20:10: Route: PO, Kimberly 00 Drug form: TAB, Q6H, Dosing Weight 131.455, kg, PRN Itching, Start date: 06/10/14 14:10:00, Duration: 30 day, Stop date: 07/10/14 14:09:00 Ondansetron No Notes: Loyd sami 06-10 (Same as: l 20:10: Zofran) Temazepam No Notes: Memori a 06-10 (Same As: l 20:10: Restoril) Lidocaine No Notes: Memori a Hydrochlori 06-10 Preservati l de 10 MG/ML 18:00: ve free. He rmann Injectable (Same as: Solution Xylocaine MPF) Calcium No 1,000 mL, Memor ia Chloride 06-10 Rate: 25 l 0.0014 17:12: ml/hr, Kimberly MEQ/ML / 00 Infuse Potassium over: 40 Chloride hr, Route: 0.004 IV, Dosing MEQ/ML / Weight Sodium 126.364 Chloride kg, Total 0.103 Volume: MEQ/ML / 1,000, Sodium Start Lactate date: 0.028 06/10/14 MEQ/ML 11:12:00, Injectable Duration: Solution 30 day, Stop date: 07/10/14 11:11:00 Neurontin No Notes: Memori a 1-13 (Same as: l 12:00: Neurontin) Ancef No Notes: Memoria 1-13 Same as: l 12:00: Ancef Lactated No 1,000 mL, Loyd sami Ringers - Rate: 100 l Injection 12:00: ml/hr, Amos n IV 1,000 mL 00 Infuse over: 10 hr, Route: IV, Dosing Weight 126.364 kg, Total Volume: 1,000, Start date: 06/10/14 6:00:00, Stop date: 06/10/14 23:59:00 ropivacaine No Notes: Memoria 1-13 NOT FOR IV l 12:00: use Ropivacain e 5 mg/mL (49.25 mL) Epinephrin e 1 mg/mL (0.5 mL) Clonidine 0.1 mg/mL (0.8 mL) Ketorolac 30 mg/mL (1 mL) Normal Saline 48.45 mL Cyklokapron No Notes: Loyd sami + Sodium - (Same As: l Chloride 12:00: Cyklokapro Her barbosa 0.9% IV 100 00 n) mL BD No Notes: Memoria Posiflush - (Same as: l SF 12:00: BD Posiflush) CeleBREX No Notes: Memoria - NSAID. l 12:00: Please check indication . Not for seizure. (Same As: CeleBREX ) oxyCONTIN No Notes: Do Mem oria - not crush l 12:00: or chew. (Same as: OxyContin) Pravastatin 2013-05 No Notes: Loyd sami 2-03 (Same as: l 03:00: Pravachol) Diphenhydra 2013-05 No 25 mg, 1 Me moria mine 2-03 tab, l 03:00: Route: PO, Drug form: TAB, Bedtime, Dosing Weight 126.364, kg, Start date: 04/29/14 21:00:00, Duration: 30 day, Stop date: 05/28/14 21:00:00 Lidocaine 2013-05 No Notes: Memori a Hydrochlori -02 (Same as: l de 10 MG/ML 22:00: Xylocaine) Dario Injectable 00 Solution ertapenem 2013-05 Yes 1 gm, IV, Mem oria 313 MG/ML 2-02 Q24H, # 12 l Injectable 20:37: bag, 0 Gretta nn Solution 00 Refill(s) [Invanz] Omeprazole 2013-05 No 20 mg, Memor ia 02 Route: PO, l 15:00: Drug form: Kimberly 00 DRC, Daily, Dosing Weight 126.364, kg, Start date: 04/29/14 9:00:00, Duration: 30 day, Stop date: 05/28/14 9:00:00 Fish Oil 2013-05 No Notes: Memoria 2- (Same as: l 15:00: MaxEPA, Kimberly Ringold 3 fish oil ) Non-Formul michael Drug Hydrochloro 2013-05 No 1 tab, Loyd sami thiazide 202 Route: PO, l 12.5 MG / 15:00: Drug Form: Reyes lore Lisinopril 00 TAB, 10 MG Oral Dosing Tablet Weight 126.364, kg, Daily, Start date: 04/29/14 9:00:00, Duration: 30 day, Stop date: 05/28/14 9:00:00 Cefuroxime 2013-05 No 500 mg, 1 Me moria 500 MG Oral 2-02 tab, l Tablet 15:00: Route: PO, Gretta nn 00 Drug form: TAB, Q12H, Dosing Weight 126.364, kg, Start date: 04/29/14 9:00:00, Duration: 30 day, Stop date: 05/28/14 21:00:00 Allopurinol 2013-05 No Notes: Loyd sami 2-02 (Same as: l 15:00: Zyloprim) Kimberly 00 Prinivil 2013-05 No Notes: Memoria 2-02 (Same as: l 15:00: Prinivil, Dario 00 Zestril) hydrochloro 2013-05 No Notes: Loyd sami thiazide 25 2-02 (Same as: l mg oral 15:00: Hydrodiuri Herm fabio tablet 00 l) With food. tamsulosin 2013-05 No Notes: Memor ia 2-02 (Same As: l 15:00: Flomax) Dario 00 "Do Not Crush" Pyridium 2013-05 No Notes: Memoria 2-02 Give with l 14:30: meals. Kimberly 00 (Same as: Pyridium) Protonix 2013-05 No Notes: Memoria 2-02 Tablet l 13:30: should not Dario 00 be chewed or crushed. (Same as: Protonix) Acetaminoph 2013-05 No Notes: Do M emoria en 325 MG / 2- not exceed l Hydrocodone 03:58: 4gm/day of Kimberly Bitartrate 00 acetaminop 10 MG Oral hen. (Same Tablet as: [place] 325/10) Acetaminoph 2013-05 No Notes: Loyd sami en 325 MG / 2- (Same as: l Hydrocodone 03:58: [place] Gretta nn Bitartrate 00 325/5) Do 5 MG Oral not exceed Tablet 4gm/day of acetaminop hen. Morphine 2013-05 No Notes: Memoria 2-02 (Same l 03:58: as:MORPhin Dario 00 e Sulfate) Acetaminoph 2013-05 No Notes: Do M emoria en 2-02 not exceed l 03:58: 4 gm/day. Kimberly 00 (Same as: Tylenol) Ondansetron 2013-05 No Notes: Loyd sami 2-02 (Same as: l 03:58: Zofran) Kimberly 00 Invanz 2013-05 No Notes: Memoria 2-02 (Same as: l 00:00: INVanz) Kimberly 00 Refrigerat e. NOT COMPATIBLE WITH D5W. Stable in refrigerat or for 24 hours. 24 HR 2013-05 Yes 50 mg = 1 Memoria mirabegron 2-01 tab, PO, l 50 MG 23:50: Daily, 0 Dario Extended 00 Refill(s) Release Tablet [Myrbetriq] tamsulosin 2013-05 Yes 0.4 mg = 1 M emoria 0.4 mg oral 2-01 cap, PO, l capsule 23:48: Daily, # Amos n 00 30 cap, 0 Refill(s) Cefuroxime 2013-05 No 500 mg = 1 M emoria 500 MG Oral 1-28 tab, PO, l Tablet 23:50: Q12H, # 20 Gretta nn 00 tab, 0 Refill(s) Cyklokapron 2013-05 No Notes: Loyd sami 1-18 (Same As: l 12:00: Cyklokapro Kimberly 00 n) CeleBREX 2013-05 No Notes: Memoria 1-18 NSAID. l 12:00: Please Kimberly 00 check indication . Not for seizure. (Same As: CeleBREX ) oxyCONTIN 2013-05 No Notes: Do Mem oria -18 not crush l 12:00: or chew. Kimberly 00 (Same as: OxyContin) Neurontin 2013-05 No Notes: Memori a 1-18 (Same as: l 12:00: Neurontin) Dario 00 Ancef 2013-05 No Notes: Memoria 1-18 Same as: l 12:00: Ancef BD Normal 2013-05 No Notes: Memori a Saline -18 (Same as: l Flush 12:00: BD Dario 00 Posiflush) Lactated 2013-05 No 1,000 mL, Loyd sami Ringers 18 Rate: 100 l Injection 12:00: ml/hr, Amos n IV 1000 mL 00 Infuse over: 10 hr, Route: IV, Dosing Weight 129.091 kg, Total Volume: 1,000, Start date: 04/15/14 6:00:00, Duration: 30 day, Stop date: 07/14/14 5:59:00 ropivacaine 2013-05 No Notes: Memoria 1-18 NOT FOR IV l 12:00: use Dario 00 Ropivacain e 5 mg/mL (49.25 mL) Epinephrin e 1 mg/mL (0.5 mL) Clonidine 0.08 mg/mL (0.8 mL) Ketorolac 30 mg/mL (1 mL) Normal Saline 48.45 mL Allergy 25 2013-05 No 25 mg = 1 Me moria mg oral 1-11 tab, PO, l tablet 20:11: Bedtime, 0 Gretta nn 00 Refill(s) Hydrochloro 2013-05 Yes 1 tab, PO, Memoria thiazide 1-11 Daily, # l 12.5 MG / 19:57: 30 tab, 0 Her barbosa Lisinopril 00 Refill(s) 10 MG Oral Tablet meloxicam 2013-05 No 7.5 mg = 1 Me moria 7.5 mg oral 1-11 tab, PO, l tablet 19:56: Daily, # Kimberly 00 30 tab, 0 Refill(s) Fish Oil 2012-05 Yes 1,000 mg = Mem oria 1000 mg 2-19 1 cap, PO, l oral 21:13: Daily, 0 Kimberly capsule 00 Refill(s) Loperamide Loperamide No 1{capsu QID Loperamide HCl 2 MG HCl 2 MG le_as_n HCl 2 MG eeded} Vitamin D Vitamin D No 1{capsu QD Vitamin D 50 MCG 50 MCG le} 50 MCG (1999) (1999) (1999) Lisinopril- Lisinopril- No 1{table QD Lisinopril hydroCHLORO hydroCHLORO t} -hydroCHLO thiazide thiazide ROthiazide 10-12.5 MG 10-12.5 MG 10-12.5 MG diphenhydrA diphenhydrA No 1{capsu QD diphenhydr MINE HCl 25 MINE HCl 25 le_at_b AMINE HCl MG MG edtime_ 25 MG as_need ed} Pravastatin Pravastatin No 1{table QD Pravastati Sodium 20 Sodium 20 t} n Sodium MG MG 20 MG Loratadine Loratadine No 1{table QD Loratadine 10 MG 10 MG t} 10 MG Vitamin C Vitamin C No Vitamin C 500 MG 500 MG 500 MG Lisinopril Lisinopril No 1{table QD Lisinopril 10 MG 10 MG t} 10 MG Gabapentin Gabapentin No 1{table QD Gabapentin 600 MG 600 MG t} 600 MG Magnesium Magnesium No 1{table QD Magnesium 250 MG 250 MG t_with_ 250 MG a_meal} AZO Bladder AZO Bladder No AZO Control Control Bladder Control Carvedilol Carvedilol No 1{table BID Carvedilol 3.125 MG 3.125 MG t_with_ 3.125 MG food} Loperamide Loperamide No 1{capsu QID Loperamide HCl 2 MG HCl 2 MG le_as_n HCl 2 MG eeded} Aspirin 81 Aspirin 81 No 1{table QD Aspirin 81 81 MG 81 MG t} 81 MG Lisinopril Lisinopril No 1{table QD Lisinopril 10 MG 10 MG t} 10 MG Loratadine Loratadine No 1{table QD Loratadine 10 MG 10 MG t} 10 MG Vitamin D Vitamin D No 1{capsu QD Vitamin D 50 MCG 50 MCG le} 50 MCG (1999) (1999) (1999) Lisinopril- Lisinopril- No 1{table QD Lisinopril hydroCHLORO hydroCHLORO t} -hydroCHLO thiazide thiazide ROthiazide 10-12.5 MG 10-12.5 MG 10-12.5 MG Gabapentin Gabapentin No 1{table QD Gabapentin 600 MG 600 MG t} 600 MG Multi Multi No 1{table QD Multi Vitamin - Vitamin - t} Vitamin - Allopurinol Allopurinol No 1{table QD Allopurino 300 MG 300 MG t} l 300 MG Fish Oil Fish Oil No 1{capsu QD Fish Oil 1360 MG 1360 MG le} 1360 MG Omeprazole Omeprazole No QD Omeprazole 20 MG 20 MG 20 MG Pravastatin Pravastatin No 1{table QD Pravastati Sodium 20 Sodium 20 t} n Sodium MG MG 20 MG Isosorbide Isosorbide No 1{table QD Isosorbide Mononitrate Mononitrate t_in_th Mononitrat ER 30 MG ER 30 MG e_morni e ER 30 MG ng} Vitamin C Vitamin C No Vitamin C 500 MG 500 MG 500 MG diphenhydrA diphenhydrA No 1{capsu QD diphenhydr MINE HCl 25 MINE HCl 25 le_at_b AMINE HCl MG MG edtime_ 25 MG as_need ed} Magnesium Magnesium No 1{table QD Magnesium 250 MG 250 MG t_with_ 250 MG a_meal} Lisinopril Lisinopril No 1{table QD Lisinopril 10 MG 10 MG t} 10 MG Vitamin D Vitamin D No 1{capsu QD Vitamin D 50 MCG 50 MCG le} 50 MCG (1999) (1999) (1999) Isosorbide Isosorbide No 1{table QD Isosorbide Mononitrate Mononitrate t_in_th Mononitrat ER 30 MG ER 30 MG e_morni e ER 30 MG ng} Aspirin 81 Aspirin 81 No 1{table QD Aspirin 81 81 MG 81 MG t} 81 MG AZO Bladder AZO Bladder No AZO Control Control Bladder Control Loperamide Loperamide No 1{capsu QID Loperamide HCl 2 MG HCl 2 MG le_as_n HCl 2 MG eeded} Carvedilol Carvedilol No 1{table BID Carvedilol 3.125 MG 3.125 MG t_with_ 3.125 MG food} diphenhydrA diphenhydrA No 1{capsu QD diphenhydr MINE HCl 25 MINE HCl 25 le_at_b AMINE HCl MG MG edtime_ 25 MG as_need ed} Loratadine Loratadine No 1{table QD Loratadine 10 MG 10 MG t} 10 MG Multi Multi No 1{table QD Multi Vitamin - Vitamin - t} Vitamin - Vitamin C Vitamin C No Vitamin C 500 MG 500 MG 500 MG Fish Oil Fish Oil No 1{capsu QD Fish Oil 1360 MG 1360 MG le} 1360 MG Magnesium Magnesium No 1{table QD Magnesium 250 MG 250 MG t_with_ 250 MG a_meal} Allopurinol Allopurinol No 1{table QD Allopurino 300 MG 300 MG t} l 300 MG Pravastatin Pravastatin No 1{table QD Pravastati Sodium 20 Sodium 20 t} n Sodium MG MG 20 MG Omeprazole Omeprazole No QD Omeprazole 20 MG 20 MG 20 MG Gabapentin Gabapentin No 1{table QD Gabapentin 600 MG 600 MG t} 600 MG Lisinopril- Lisinopril- No 1{table QD Lisinopril hydroCHLORO hydroCHLORO t} -hydroCHLO thiazide thiazide ROthiazide 10-12.5 MG 10-12.5 MG 10-12.5 MG Carvedilol Carvedilol No 1{table BID Carvedilol 3.125 MG 3.125 MG t_with_ 3.125 MG food} Omeprazole Omeprazole No QD Omeprazole 20 MG 20 MG 20 MG Magnesium Magnesium No 1{table QD Magnesium 250 MG 250 MG t_with_ 250 MG a_meal} Allopurinol Allopurinol No 1{table QD Allopurino 300 MG 300 MG t} l 300 MG AZO Bladder AZO Bladder No AZO Control Control Bladder Control Fish Oil Fish Oil No 1{capsu QD Fish Oil 1360 MG 1360 MG le} 1360 MG Vitamin C Vitamin C No Vitamin C 500 MG 500 MG 500 MG Pravastatin Pravastatin No 1{table QD Pravastati Sodium 20 Sodium 20 t} n Sodium MG MG 20 MG Vitamin D Vitamin D No 1{capsu QD Vitamin D 50 MCG 50 MCG le} 50 MCG (1999) (1999) (1999) Loratadine Loratadine No 1{table QD Loratadine 10 MG 10 MG t} 10 MG Aspirin 81 Aspirin 81 No 1{table QD Aspirin 81 81 MG 81 MG t} 81 MG Gabapentin Gabapentin No 1{table QD Gabapentin 600 MG 600 MG t} 600 MG Isosorbide Isosorbide No 1{table QD Isosorbide Mononitrate Mononitrate t_in_th Mononitrat ER 30 MG ER 30 MG e_morni e ER 30 MG ng} Multi Multi No 1{table QD Multi Vitamin - Vitamin - t} Vitamin - Lisinopril Lisinopril No 1{table QD Lisinopril 10 MG 10 MG t} 10 MG Lisinopril- Lisinopril- No 1{table QD Lisinopril hydroCHLORO hydroCHLORO t} -hydroCHLO thiazide thiazide ROthiazide 10-12.5 MG 10-12.5 MG 10-12.5 MG diphenhydrA diphenhydrA No 1{capsu QD diphenhydr MINE HCl 25 MINE HCl 25 le_at_b AMINE HCl MG MG edtime_ 25 MG as_need ed} Loperamide Loperamide No 1{capsu QID Loperamide HCl 2 MG HCl 2 MG le_as_n HCl 2 MG eeded} Lisinopril- Lisinopril- No 1{table QD Lisinopril hydroCHLORO hydroCHLORO t} -hydroCHLO thiazide thiazide ROthiazide 10-12.5 MG 10-12.5 MG 10-12.5 MG Vitamin C Vitamin C No Vitamin C 500 MG 500 MG 500 MG Pravastatin Pravastatin No 1{table QD Pravastati Sodium 20 Sodium 20 t} n Sodium MG MG 20 MG AZO Bladder AZO Bladder No AZO Control Control Bladder Control Vitamin D Vitamin D No 1{capsu QD Vitamin D 50 MCG 50 MCG le} 50 MCG (1999) (1999) (1999) Aspirin 81 Aspirin 81 No 1{table QD Aspirin 81 81 MG 81 MG t} 81 MG Magnesium Magnesium No 1{table QD Magnesium 250 MG 250 MG t_with_ 250 MG a_meal} Allopurinol Allopurinol No 1{table QD Allopurino 300 MG 300 MG t} l 300 MG Fish Oil Fish Oil No 1{capsu QD Fish Oil 1360 MG 1360 MG le} 1360 MG Gabapentin Gabapentin No 1{table QD Gabapentin 600 MG 600 MG t} 600 MG diphenhydrA diphenhydrA No 1{capsu QD diphenhydr MINE HCl 25 MINE HCl 25 le_at_b AMINE HCl MG MG edtime_ 25 MG as_need ed} Carvedilol Carvedilol No 1{table BID Carvedilol 3.125 MG 3.125 MG t_with_ 3.125 MG food} Isosorbide Isosorbide No 1{table QD Isosorbide Mononitrate Mononitrate t_in_th Mononitrat ER 30 MG ER 30 MG e_morni e ER 30 MG ng} Loratadine Loratadine No 1{table QD Loratadine 10 MG 10 MG t} 10 MG Lisinopril Lisinopril No 1{table QD Lisinopril 10 MG 10 MG t} 10 MG Omeprazole Omeprazole No QD Omeprazole 20 MG 20 MG 20 MG Loperamide Loperamide No 1{capsu QID Loperamide HCl 2 MG HCl 2 MG le_as_n HCl 2 MG eeded} Multi Multi No 1{table QD Multi Vitamin - Vitamin - t} Vitamin - Lisinopril Lisinopril No 1{table QD Lisinopril 10 MG 10 MG t} 10 MG Vitamin D Vitamin D No 1{capsu QD Vitamin D 50 MCG 50 MCG le} 50 MCG (1999) (1999) (1999) Isosorbide Isosorbide No 1{table QD Isosorbide Mononitrate Mononitrate t_in_th Mononitrat ER 30 MG ER 30 MG e_morni e ER 30 MG ng} Omeprazole Omeprazole No QD Omeprazole 20 MG 20 MG 20 MG AZO Bladder AZO Bladder No AZO Control Control Bladder Control Multi Multi No 1{table QD Multi Vitamin - Vitamin - t} Vitamin - Loperamide Loperamide No 1{capsu QID Loperamide HCl 2 MG HCl 2 MG le_as_n HCl 2 MG eeded} Fish Oil Fish Oil No 1{capsu QD Fish Oil 1360 MG 1360 MG le} 1360 MG Vitamin C Vitamin C No Vitamin C 500 MG 500 MG 500 MG diphenhydrA diphenhydrA No 1{capsu QD diphenhydr MINE HCl 25 MINE HCl 25 le_at_b AMINE HCl MG MG edtime_ 25 MG as_need ed} Carvedilol Carvedilol No 1{table BID Carvedilol 3.125 MG 3.125 MG t_with_ 3.125 MG food} Gabapentin Gabapentin No 1{table QD Gabapentin 600 MG 600 MG t} 600 MG Magnesium Magnesium No 1{table QD Magnesium 250 MG 250 MG t_with_ 250 MG a_meal} Loratadine Loratadine No 1{table QD Loratadine 10 MG 10 MG t} 10 MG Pravastatin Pravastatin No 1{table QD Pravastati Sodium 20 Sodium 20 t} n Sodium MG MG 20 MG Aspirin 81 Aspirin 81 No 1{table QD Aspirin 81 81 MG 81 MG t} 81 MG Allopurinol Allopurinol No 1{table QD Allopurino 300 MG 300 MG t} l 300 MG Lisinopril- Lisinopril- No 1{table QD Lisinopril hydroCHLORO hydroCHLORO t} -hydroCHLO thiazide thiazide ROthiazide 10-12.5 MG 10-12.5 MG 10-12.5 MG Lisinopril Lisinopril No 1{table QD Lisinopril 10 MG 10 MG t} 10 MG Vitamin D Vitamin D No 1{capsu QD Vitamin D 50 MCG 50 MCG le} 50 MCG (1999) (1999) (1999) Isosorbide Isosorbide No 1{table QD Isosorbide Mononitrate Mononitrate t_in_ Mononitrat ER 30 MG ER 30 MG e_morni e ER 30 MG ng} Omeprazole Omeprazole No QD Omeprazole 20 MG 20 MG 20 MG AZO Bladder AZO Bladder No AZO Control Control Bladder Control Multi Multi No 1{table QD Multi Vitamin - Vitamin - t} Vitamin - Loperamide Loperamide No 1{capsu QID Loperamide HCl 2 MG HCl 2 MG le_as_n HCl 2 MG eeded} Fish Oil Fish Oil No 1{capsu QD Fish Oil 1360 MG 1360 MG le} 1360 MG Vitamin C Vitamin C No Vitamin C 500 MG 500 MG 500 MG diphenhydrA diphenhydrA No 1{capsu QD diphenhydr MINE HCl 25 MINE HCl 25 le_at_b AMINE HCl MG MG edtime_ 25 MG as_need ed} Carvedilol Carvedilol No 1{table BID Carvedilol 3.125 MG 3.125 MG t_with_ 3.125 MG food} Gabapentin Gabapentin No 1{table QD Gabapentin 600 MG 600 MG t} 600 MG Magnesium Magnesium No 1{table QD Magnesium 250 MG 250 MG t_with_ 250 MG a_meal} Loratadine Loratadine No 1{table QD Loratadine 10 MG 10 MG t} 10 MG Pravastatin Pravastatin No 1{table QD Pravastati Sodium 20 Sodium 20 t} n Sodium MG MG 20 MG Aspirin 81 Aspirin 81 No 1{table QD Aspirin 81 81 MG 81 MG t} 81 MG Allopurinol Allopurinol No 1{table QD Allopurino 300 MG 300 MG t} l 300 MG Lisinopril- Lisinopril- No 1{table QD Lisinopril hydroCHLORO hydroCHLORO t} -hydroCHLO thiazide thiazide ROthiazide 10-12.5 MG 10-12.5 MG 10-12.5 MG Lisinopril Lisinopril No 1{table QD Lisinopril 10 MG 10 MG t} 10 MG Vitamin D Vitamin D No 1{capsu QD Vitamin D 50 MCG 50 MCG le} 50 MCG (1999) (1999) (1999) Isosorbide Isosorbide No 1{table QD Isosorbide Mononitrate Mononitrate t_in_th Mononitrat ER 30 MG ER 30 MG e_morni e ER 30 MG ng} Omeprazole Omeprazole No QD Omeprazole 20 MG 20 MG 20 MG AZO Bladder AZO Bladder No AZO Control Control Bladder Control Multi Multi No 1{table QD Multi Vitamin - Vitamin - t} Vitamin - Loperamide Loperamide No 1{capsu QID Loperamide HCl 2 MG HCl 2 MG le_as_n HCl 2 MG eeded} Fish Oil Fish Oil No 1{capsu QD Fish Oil 1360 MG 1360 MG le} 1360 MG Vitamin C Vitamin C No Vitamin C 500 MG 500 MG 500 MG diphenhydrA diphenhydrA No 1{capsu QD diphenhydr MINE HCl 25 MINE HCl 25 le_at_b AMINE HCl MG MG edtime_ 25 MG as_need ed} Carvedilol Carvedilol No 1{table BID Carvedilol 3.125 MG 3.125 MG t_with_ 3.125 MG food} Gabapentin Gabapentin No 1{table QD Gabapentin 600 MG 600 MG t} 600 MG Magnesium Magnesium No 1{table QD Magnesium 250 MG 250 MG t_with_ 250 MG a_meal} Loratadine Loratadine No 1{table QD Loratadine 10 MG 10 MG t} 10 MG Pravastatin Pravastatin No 1{table QD Pravastati Sodium 20 Sodium 20 t} n Sodium MG MG 20 MG Aspirin 81 Aspirin 81 No 1{table QD Aspirin 81 81 MG 81 MG t} 81 MG Allopurinol Allopurinol No 1{table QD Allopurino 300 MG 300 MG t} l 300 MG Lisinopril- Lisinopril- No 1{table QD Lisinopril hydroCHLORO hydroCHLORO t} -hydroCHLO thiazide thiazide ROthiazide 10-12.5 MG 10-12.5 MG 10-12.5 MG Lisinopril Lisinopril No 1{table QD Lisinopril 10 MG 10 MG t} 10 MG Vitamin D Vitamin D No 1{capsu QD Vitamin D 50 MCG 50 MCG le} 50 MCG (1999 UT) (1999) (1999) Isosorbide Isosorbide No 1{table QD Isosorbide Mononitrate Mononitrate t_in_th Mononitrat ER 30 MG ER 30 MG e_morni e ER 30 MG ng} Omeprazole Omeprazole No QD Omeprazole 20 MG 20 MG 20 MG AZO Bladder AZO Bladder No AZO Control Control Bladder Control Multi Multi No 1{table QD Multi Vitamin - Vitamin - t} Vitamin - Loperamide Loperamide No 1{capsu QID Loperamide HCl 2 MG HCl 2 MG le_as_n HCl 2 MG eeded} Fish Oil Fish Oil No 1{capsu QD Fish Oil 1360 MG 1360 MG le} 1360 MG Vitamin C Vitamin C No Vitamin C 500 MG 500 MG 500 MG diphenhydrA diphenhydrA No 1{capsu QD diphenhydr MINE HCl 25 MINE HCl 25 le_at_b AMINE HCl MG MG edtime_ 25 MG as_need ed} Carvedilol Carvedilol No 1{table BID Carvedilol 3.125 MG 3.125 MG t_with_ 3.125 MG food} Gabapentin Gabapentin No 1{table QD Gabapentin 600 MG 600 MG t} 600 MG Magnesium Magnesium No 1{table QD Magnesium 250 MG 250 MG t_with_ 250 MG a_meal} Loratadine Loratadine No 1{table QD Loratadine 10 MG 10 MG t} 10 MG Pravastatin Pravastatin No 1{table QD Pravastati Sodium 20 Sodium 20 t} n Sodium MG MG 20 MG Aspirin 81 Aspirin 81 No 1{table QD Aspirin 81 81 MG 81 MG t} 81 MG Allopurinol Allopurinol No 1{table QD Allopurino 300 MG 300 MG t} l 300 MG Lisinopril- Lisinopril- No 1{table QD Lisinopril hydroCHLORO hydroCHLORO t} -hydroCHLO thiazide thiazide ROthiazide 10-12.5 MG 10-12.5 MG 10-12.5 MG Lisinopril Lisinopril No 1{table QD Lisinopril 10 MG 10 MG t} 10 MG Vitamin D Vitamin D No 1{capsu QD Vitamin D 50 MCG 50 MCG le} 50 MCG (1999) (1999) (1999) Isosorbide Isosorbide No 1{table QD Isosorbide Mononitrate Mononitrate t_in_th Mononitrat ER 30 MG ER 30 MG e_morni e ER 30 MG ng} Omeprazole Omeprazole No QD Omeprazole 20 MG 20 MG 20 MG AZO Bladder AZO Bladder No AZO Control Control Bladder Control Multi Multi No 1{table QD Multi Vitamin - Vitamin - t} Vitamin - Loperamide Loperamide No 1{capsu QID Loperamide HCl 2 MG HCl 2 MG le_as_n HCl 2 MG eeded} Fish Oil Fish Oil No 1{capsu QD Fish Oil 1360 MG 1360 MG le} 1360 MG Vitamin C Vitamin C No Vitamin C 500 MG 500 MG 500 MG diphenhydrA diphenhydrA No 1{capsu QD diphenhydr MINE HCl 25 MINE HCl 25 le_at_b AMINE HCl MG MG edtime_ 25 MG as_need ed} Carvedilol Carvedilol No 1{table BID Carvedilol 3.125 MG 3.125 MG t_with_ 3.125 MG food} Gabapentin Gabapentin No 1{table QD Gabapentin 600 MG 600 MG t} 600 MG Magnesium Magnesium No 1{table QD Magnesium 250 MG 250 MG t_with_ 250 MG a_meal} Loratadine Loratadine No 1{table QD Loratadine 10 MG 10 MG t} 10 MG Pravastatin Pravastatin No 1{table QD Pravastati Sodium 20 Sodium 20 t} n Sodium MG MG 20 MG Aspirin 81 Aspirin 81 No 1{table QD Aspirin 81 81 MG 81 MG t} 81 MG Allopurinol Allopurinol No 1{table QD Allopurino 300 MG 300 MG t} l 300 MG Lisinopril- Lisinopril- No 1{table QD Lisinopril hydroCHLORO hydroCHLORO t} -hydroCHLO thiazide thiazide ROthiazide 10-12.5 MG 10-12.5 MG 10-12.5 MG Lisinopril Lisinopril No 1{table QD Lisinopril 10 MG 10 MG t} 10 MG Vitamin D Vitamin D No 1{capsu QD Vitamin D 50 MCG 50 MCG le} 50 MCG (1999) (1999) (1999) Isosorbide Isosorbide No 1{table QD Isosorbide Mononitrate Mononitrate t_in_th Mononitrat ER 30 MG ER 30 MG e_morni e ER 30 MG ng} Omeprazole Omeprazole No QD Omeprazole 20 MG 20 MG 20 MG AZO Bladder AZO Bladder No AZO Control Control Bladder Control Multi Multi No 1{table QD Multi Vitamin - Vitamin - t} Vitamin - Loperamide Loperamide No 1{capsu QID Loperamide HCl 2 MG HCl 2 MG le_as_n HCl 2 MG eeded} Fish Oil Fish Oil No 1{capsu QD Fish Oil 1360 MG 1360 MG le} 1360 MG Vitamin C Vitamin C No Vitamin C 500 MG 500 MG 500 MG diphenhydrA diphenhydrA No 1{capsu QD diphenhydr MINE HCl 25 MINE HCl 25 le_at_b AMINE HCl MG MG edtime_ 25 MG as_need ed} Carvedilol Carvedilol No 1{table BID Carvedilol 3.125 MG 3.125 MG t_with_ 3.125 MG food} Gabapentin Gabapentin No 1{table QD Gabapentin 600 MG 600 MG t} 600 MG Magnesium Magnesium No 1{table QD Magnesium 250 MG 250 MG t_with_ 250 MG a_meal} Loratadine Loratadine No 1{table QD Loratadine 10 MG 10 MG t} 10 MG Pravastatin Pravastatin No 1{table QD Pravastati Sodium 20 Sodium 20 t} n Sodium MG MG 20 MG Aspirin 81 Aspirin 81 No 1{table QD Aspirin 81 81 MG 81 MG t} 81 MG Allopurinol Allopurinol No 1{table QD Allopurino 300 MG 300 MG t} l 300 MG Lisinopril- Lisinopril- No 1{table QD Lisinopril hydroCHLORO hydroCHLORO t} -hydroCHLO thiazide thiazide ROthiazide 10-12.5 MG 10-12.5 MG 10-12.5 MG Lisinopril Lisinopril No 1{table QD Lisinopril 10 MG 10 MG t} 10 MG Vitamin D Vitamin D No 1{capsu QD Vitamin D 50 MCG 50 MCG le} 50 MCG (1999) (1999) (1999) Isosorbide Isosorbide No 1{table QD Isosorbide Mononitrate Mononitrate t_in_th Mononitrat ER 30 MG ER 30 MG e_morni e ER 30 MG ng} Omeprazole Omeprazole No QD Omeprazole 20 MG 20 MG 20 MG AZO Bladder AZO Bladder No AZO Control Control Bladder Control Multi Multi No 1{table QD Multi Vitamin - Vitamin - t} Vitamin - Loperamide Loperamide No 1{capsu QID Loperamide HCl 2 MG HCl 2 MG le_as_n HCl 2 MG eeded} Fish Oil Fish Oil No 1{capsu QD Fish Oil 1360 MG 1360 MG le} 1360 MG Vitamin C Vitamin C No Vitamin C 500 MG 500 MG 500 MG diphenhydrA diphenhydrA No 1{capsu QD diphenhydr MINE HCl 25 MINE HCl 25 le_at_b AMINE HCl MG MG edtime_ 25 MG as_need ed} Carvedilol Carvedilol No 1{table BID Carvedilol 3.125 MG 3.125 MG t_with_ 3.125 MG food} Gabapentin Gabapentin No 1{table QD Gabapentin 600 MG 600 MG t} 600 MG Magnesium Magnesium No 1{table QD Magnesium 250 MG 250 MG t_with_ 250 MG a_meal} Loratadine Loratadine No 1{table QD Loratadine 10 MG 10 MG t} 10 MG Pravastatin Pravastatin No 1{table QD Pravastati Sodium 20 Sodium 20 t} n Sodium MG MG 20 MG Aspirin 81 Aspirin 81 No 1{table QD Aspirin 81 81 MG 81 MG t} 81 MG Allopurinol Allopurinol No 1{table QD Allopurino 300 MG 300 MG t} l 300 MG Lisinopril- Lisinopril- No 1{table QD Lisinopril hydroCHLORO hydroCHLORO t} -hydroCHLO thiazide thiazide ROthiazide 10-12.5 MG 10-12.5 MG 10-12.5 MG Lisinopril Lisinopril No 1{table QD Lisinopril 10 MG 10 MG t} 10 MG Vitamin D Vitamin D No 1{capsu QD Vitamin D 50 MCG 50 MCG le} 50 MCG (1999) (1999) (1999) Isosorbide Isosorbide No 1{table QD Isosorbide Mononitrate Mononitrate t_in_th Mononitrat ER 30 MG ER 30 MG e_morni e ER 30 MG ng} Omeprazole Omeprazole No QD Omeprazole 20 MG 20 MG 20 MG AZO Bladder AZO Bladder No AZO Control Control Bladder Control Multi Multi No 1{table QD Multi Vitamin - Vitamin - t} Vitamin - Loperamide Loperamide No 1{capsu QID Loperamide HCl 2 MG HCl 2 MG le_as_n HCl 2 MG eeded} Fish Oil Fish Oil No 1{capsu QD Fish Oil 1360 MG 1360 MG le} 1360 MG Vitamin C Vitamin C No Vitamin C 500 MG 500 MG 500 MG diphenhydrA diphenhydrA No 1{capsu QD diphenhydr MINE HCl 25 MINE HCl 25 le_at_b AMINE HCl MG MG edtime_ 25 MG as_need ed} Carvedilol Carvedilol No 1{table BID Carvedilol 3.125 MG 3.125 MG t_with_ 3.125 MG food} Gabapentin Gabapentin No 1{table QD Gabapentin 600 MG 600 MG t} 600 MG Magnesium Magnesium No 1{table QD Magnesium 250 MG 250 MG t_with_ 250 MG a_meal} Loratadine Loratadine No 1{table QD Loratadine 10 MG 10 MG t} 10 MG Pravastatin Pravastatin No 1{table QD Pravastati Sodium 20 Sodium 20 t} n Sodium MG MG 20 MG Aspirin 81 Aspirin 81 No 1{table QD Aspirin 81 81 MG 81 MG t} 81 MG Allopurinol Allopurinol No 1{table QD Allopurino 300 MG 300 MG t} l 300 MG Lisinopril- Lisinopril- No 1{table QD Lisinopril hydroCHLORO hydroCHLORO t} -hydroCHLO thiazide thiazide ROthiazide 10-12.5 MG 10-12.5 MG 10-12.5 MG Lisinopril Lisinopril No 1{table QD Lisinopril 10 MG 10 MG t} 10 MG Vitamin D Vitamin D No 1{capsu QD Vitamin D 50 MCG 50 MCG le} 50 MCG (1999) (1999) (1999) Isosorbide Isosorbide No 1{table QD Isosorbide Mononitrate Mononitrate t_in_th Mononitrat ER 30 MG ER 30 MG e_morni e ER 30 MG ng} Omeprazole Omeprazole No QD Omeprazole 20 MG 20 MG 20 MG AZO Bladder AZO Bladder No AZO Control Control Bladder Control Multi Multi No 1{table QD Multi Vitamin - Vitamin - t} Vitamin - Loperamide Loperamide No 1{capsu QID Loperamide HCl 2 MG HCl 2 MG le_as_n HCl 2 MG eeded} Fish Oil Fish Oil No 1{capsu QD Fish Oil 1360 MG 1360 MG le} 1360 MG Vitamin C Vitamin C No Vitamin C 500 MG 500 MG 500 MG diphenhydrA diphenhydrA No 1{capsu QD diphenhydr MINE HCl 25 MINE HCl 25 le_at_b AMINE HCl MG MG edtime_ 25 MG as_need ed} Carvedilol Carvedilol No 1{table BID Carvedilol 3.125 MG 3.125 MG t_with_ 3.125 MG food} Gabapentin Gabapentin No 1{table QD Gabapentin 600 MG 600 MG t} 600 MG Magnesium Magnesium No 1{table QD Magnesium 250 MG 250 MG t_with_ 250 MG a_meal} Loratadine Loratadine No 1{table QD Loratadine 10 MG 10 MG t} 10 MG Pravastatin Pravastatin No 1{table QD Pravastati Sodium 20 Sodium 20 t} n Sodium MG MG 20 MG Aspirin 81 Aspirin 81 No 1{table QD Aspirin 81 81 MG 81 MG t} 81 MG Allopurinol Allopurinol No 1{table QD Allopurino 300 MG 300 MG t} l 300 MG Lisinopril- Lisinopril- No 1{table QD Lisinopril hydroCHLORO hydroCHLORO t} -hydroCHLO thiazide thiazide ROthiazide 10-12.5 MG 10-12.5 MG 10-12.5 MG Magnesium Magnesium No 1{table QD Magnesium 250 MG 250 MG t_with_ 250 MG a_meal} Pravastatin Pravastatin No 1{table QD Pravastati Sodium 20 Sodium 20 t} n Sodium MG MG 20 MG Loperamide Loperamide No 1{capsu QID Loperamide HCl 2 MG HCl 2 MG le_as_n HCl 2 MG eeded} Loratadine Loratadine No 1{table QD Loratadine 10 MG 10 MG t} 10 MG Isosorbide Isosorbide No 1{table QD Isosorbide Mononitrate Mononitrate t_in_th Mononitrat ER 30 MG ER 30 MG e_morni e ER 30 MG ng} Vitamin C Vitamin C No Vitamin C 500 MG 500 MG 500 MG Lisinopril Lisinopril No 1{table QD Lisinopril 10 MG 10 MG t} 10 MG Aspirin 81 Aspirin 81 No 1{table QD Aspirin 81 81 MG 81 MG t} 81 MG Multi Multi No 1{table QD Multi Vitamin - Vitamin - t} Vitamin - Allopurinol Allopurinol No 1{table QD Allopurino 300 MG 300 MG t} l 300 MG Gabapentin Gabapentin No 1{table QD Gabapentin 600 MG 600 MG t} 600 MG Carvedilol Carvedilol No 1{table BID Carvedilol 3.125 MG 3.125 MG t_with_ 3.125 MG food} Lisinopril- Lisinopril- No 1{table QD Lisinopril hydroCHLORO hydroCHLORO t} -hydroCHLO thiazide thiazide ROthiazide 10-12.5 MG 10-12.5 MG 10-12.5 MG Omeprazole Omeprazole No QD Omeprazole 20 MG 20 MG 20 MG Fish Oil Fish Oil No 1{capsu QD Fish Oil 1360 MG 1360 MG le} 1360 MG AZO Bladder AZO Bladder No AZO Control Control Bladder Control diphenhydrA diphenhydrA No 1{capsu QD diphenhydr MINE HCl 25 MINE HCl 25 le_at_b AMINE HCl MG MG edtime_ 25 MG as_need ed} Vitamin D Vitamin D No 1{capsu QD Vitamin D 50 MCG 50 MCG le} 50 MCG (1999) (1999) (1999) Magnesium Magnesium No 1{table QD Magnesium 250 MG 250 MG t_with_ 250 MG a_meal} Pravastatin Pravastatin No 1{table QD Pravastati Sodium 20 Sodium 20 t} n Sodium MG MG 20 MG Loperamide Loperamide No 1{capsu QID Loperamide HCl 2 MG HCl 2 MG le_as_n HCl 2 MG eeded} Loratadine Loratadine No 1{table QD Loratadine 10 MG 10 MG t} 10 MG Isosorbide Isosorbide No 1{table QD Isosorbide Mononitrate Mononitrate t_in_th Mononitrat ER 30 MG ER 30 MG e_morni e ER 30 MG ng} Vitamin C Vitamin C No Vitamin C 500 MG 500 MG 500 MG Lisinopril Lisinopril No 1{table QD Lisinopril 10 MG 10 MG t} 10 MG Aspirin 81 Aspirin 81 No 1{table QD Aspirin 81 81 MG 81 MG t} 81 MG Multi Multi No 1{table QD Multi Vitamin - Vitamin - t} Vitamin - Allopurinol Allopurinol No 1{table QD Allopurino 300 MG 300 MG t} l 300 MG Gabapentin Gabapentin No 1{table QD Gabapentin 600 MG 600 MG t} 600 MG Carvedilol Carvedilol No 1{table BID Carvedilol 3.125 MG 3.125 MG t_with_ 3.125 MG food} Lisinopril- Lisinopril- No 1{table QD Lisinopril hydroCHLORO hydroCHLORO t} -hydroCHLO thiazide thiazide ROthiazide 10-12.5 MG 10-12.5 MG 10-12.5 MG Omeprazole Omeprazole No QD Omeprazole 20 MG 20 MG 20 MG Fish Oil Fish Oil No 1{capsu QD Fish Oil 1360 MG 1360 MG le} 1360 MG AZO Bladder AZO Bladder No AZO Control Control Bladder Control diphenhydrA diphenhydrA No 1{capsu QD diphenhydr MINE HCl 25 MINE HCl 25 le_at_b AMINE HCl MG MG edtime_ 25 MG as_need ed} Vitamin D Vitamin D No 1{capsu QD Vitamin D 50 MCG 50 MCG le} 50 MCG (1999) (1999) (1999) Magnesium Magnesium No 1{table QD Magnesium 250 MG 250 MG t_with_ 250 MG a_meal} Pravastatin Pravastatin No 1{table QD Pravastati Sodium 20 Sodium 20 t} n Sodium MG MG 20 MG Loperamide Loperamide No 1{capsu QID Loperamide HCl 2 MG HCl 2 MG le_as_n HCl 2 MG eeded} Loratadine Loratadine No 1{table QD Loratadine 10 MG 10 MG t} 10 MG Isosorbide Isosorbide No 1{table QD Isosorbide Mononitrate Mononitrate t_in_th Mononitrat ER 30 MG ER 30 MG e_morni e ER 30 MG ng} Vitamin C Vitamin C No Vitamin C 500 MG 500 MG 500 MG Lisinopril Lisinopril No 1{table QD Lisinopril 10 MG 10 MG t} 10 MG Aspirin 81 Aspirin 81 No 1{table QD Aspirin 81 81 MG 81 MG t} 81 MG Multi Multi No 1{table QD Multi Vitamin - Vitamin - t} Vitamin - Allopurinol Allopurinol No 1{table QD Allopurino 300 MG 300 MG t} l 300 MG Gabapentin Gabapentin No 1{table QD Gabapentin 600 MG 600 MG t} 600 MG Carvedilol Carvedilol No 1{table BID Carvedilol 3.125 MG 3.125 MG t_with_ 3.125 MG food} Lisinopril- Lisinopril- No 1{table QD Lisinopril hydroCHLORO hydroCHLORO t} -hydroCHLO thiazide thiazide ROthiazide 10-12.5 MG 10-12.5 MG 10-12.5 MG Omeprazole Omeprazole No QD Omeprazole 20 MG 20 MG 20 MG Fish Oil Fish Oil No 1{capsu QD Fish Oil 1360 MG 1360 MG le} 1360 MG AZO Bladder AZO Bladder No AZO Control Control Bladder Control diphenhydrA diphenhydrA No 1{capsu QD diphenhydr MINE HCl 25 MINE HCl 25 le_at_b AMINE HCl MG MG edtime_ 25 MG as_need ed} Vitamin D Vitamin D No 1{capsu QD Vitamin D 50 MCG 50 MCG le} 50 MCG (1999) (1999 UT) (1999 UT) Vitamin D Vitamin D No 1{capsu QD Vitamin D 50 MCG 50 MCG le} 50 MCG (1999) (1999) (2000 UT) Lisinopril- Lisinopril- No 1{table QD Lisinopril hydroCHLORO hydroCHLORO t} -hydroCHLO thiazide thiazide ROthiazide 10-12.5 MG 10-12.5 MG 10-12.5 MG Vitamin C Vitamin C No Vitamin C 500 MG 500 MG 500 MG Lisinopril Lisinopril No 1{table QD Lisinopril 10 MG 10 MG t} 10 MG Omeprazole Omeprazole No QD Omeprazole 20 MG 20 MG 20 MG Multi Multi No 1{table QD Multi Vitamin - Vitamin - t} Vitamin - Gabapentin Gabapentin No 1{table QD Gabapentin 600 MG 600 MG t} 600 MG Allopurinol Allopurinol No 1{table QD Allopurino 300 MG 300 MG t} l 300 MG Fish Oil Fish Oil No 1{capsu QD Fish Oil 1360 MG 1360 MG le} 1360 MG Isosorbide Isosorbide No 1{table QD Isosorbide Mononitrate Mononitrate t_in_th Mononitrat ER 30 MG ER 30 MG e_morni e ER 30 MG ng} AZO Bladder AZO Bladder No AZO Control Control Bladder Control Loratadine Loratadine No 1{table QD Loratadine 10 MG 10 MG t} 10 MG Pravastatin Pravastatin No 1{table QD Pravastati Sodium 20 Sodium 20 t} n Sodium MG MG 20 MG diphenhydrA diphenhydrA No 1{capsu QD diphenhydr MINE HCl 25 MINE HCl 25 le_at_b AMINE HCl MG MG edtime_ 25 MG as_need ed} Loperamide Loperamide No 1{capsu QID Loperamide HCl 2 MG HCl 2 MG le_as_n HCl 2 MG eeded} Aspirin 81 Aspirin 81 No 1{table QD Aspirin 81 81 MG 81 MG t} 81 MG Carvedilol Carvedilol No 1{table BID Carvedilol 3.125 MG 3.125 MG t_with_ 3.125 MG food} Magnesium Magnesium No 1{table QD Magnesium 250 MG 250 MG t_with_ 250 MG a_meal} Lisinopril Lisinopril No 1{table QD Lisinopril 10 MG 10 MG t} 10 MG Vitamin D Vitamin D No 1{capsu QD Vitamin D 50 MCG 50 MCG le} 50 MCG (1999) (1999) (2000 UT) Isosorbide Isosorbide No 1{table QD Isosorbide Mononitrate Mononitrate t_in_th Mononitrat ER 30 MG ER 30 MG e_morni e ER 30 MG ng} Vitamin C Vitamin C No Vitamin C 500 MG 500 MG 500 MG AZO Bladder AZO Bladder No AZO Control Control Bladder Control Loratadine Loratadine No 1{table QD Loratadine 10 MG 10 MG t} 10 MG Loperamide Loperamide No 1{capsu QID Loperamide HCl 2 MG HCl 2 MG le_as_n HCl 2 MG eeded} Allopurinol Allopurinol No 1{table QD Allopurino 300 MG 300 MG t} l 300 MG Omeprazole Omeprazole No QD Omeprazole 20 MG 20 MG 20 MG Gabapentin Gabapentin No 1{table QD Gabapentin 600 MG 600 MG t} 600 MG Multi Multi No 1{table QD Multi Vitamin - Vitamin - t} Vitamin - Aspirin 81 Aspirin 81 No 1{table QD Aspirin 81 81 MG 81 MG t} 81 MG Magnesium Magnesium No 1{table QD Magnesium 250 MG 250 MG t_with_ 250 MG a_meal} Pravastatin Pravastatin No 1{table QD Pravastati Sodium 20 Sodium 20 t} n Sodium MG MG 20 MG Carvedilol Carvedilol No 1{table BID Carvedilol 3.125 MG 3.125 MG t_with_ 3.125 MG food} diphenhydrA diphenhydrA No 1{capsu QD diphenhydr MINE HCl 25 MINE HCl 25 le_at_b AMINE HCl MG MG edtime_ 25 MG as_need ed} Fish Oil Fish Oil No 1{capsu QD Fish Oil 1360 MG 1360 MG le} 1360 MG Lisinopril- Lisinopril- No 1{table QD Lisinopril hydroCHLORO hydroCHLORO t} -hydroCHLO thiazide thiazide ROthiazide 10-12.5 MG 10-12.5 MG 10-12.5 MG Lisinopril Lisinopril No 1{table QD Lisinopril 10 MG 10 MG t} 10 MG Vitamin D Vitamin D No 1{capsu QD Vitamin D 50 MCG 50 MCG le} 50 MCG (1999 UT) (1999 UT) (1999) Isosorbide Isosorbide No 1{table QD Isosorbide Mononitrate Mononitrate t_in_th Mononitrat ER 30 MG ER 30 MG e_morni e ER 30 MG ng} Vitamin C Vitamin C No Vitamin C 500 MG 500 MG 500 MG AZO Bladder AZO Bladder No AZO Control Control Bladder Control Loratadine Loratadine No 1{table QD Loratadine 10 MG 10 MG t} 10 MG Loperamide Loperamide No 1{capsu QID Loperamide HCl 2 MG HCl 2 MG le_as_n HCl 2 MG eeded} Allopurinol Allopurinol No 1{table QD Allopurino 300 MG 300 MG t} l 300 MG Omeprazole Omeprazole No QD Omeprazole 20 MG 20 MG 20 MG Gabapentin Gabapentin No 1{table QD Gabapentin 600 MG 600 MG t} 600 MG Multi Multi No 1{table QD Multi Vitamin - Vitamin - t} Vitamin - Aspirin 81 Aspirin 81 No 1{table QD Aspirin 81 81 MG 81 MG t} 81 MG Magnesium Magnesium No 1{table QD Magnesium 250 MG 250 MG t_with_ 250 MG a_meal} Pravastatin Pravastatin No 1{table QD Pravastati Sodium 20 Sodium 20 t} n Sodium MG MG 20 MG Carvedilol Carvedilol No 1{table BID Carvedilol 3.125 MG 3.125 MG t_with_ 3.125 MG food} diphenhydrA diphenhydrA No 1{capsu QD diphenhydr MINE HCl 25 MINE HCl 25 le_at_b AMINE HCl MG MG edtime_ 25 MG as_need ed} Fish Oil Fish Oil No 1{capsu QD Fish Oil 1360 MG 1360 MG le} 1360 MG Lisinopril- Lisinopril- No 1{table QD Lisinopril hydroCHLORO hydroCHLORO t} -hydroCHLO thiazide thiazide ROthiazide 10-12.5 MG 10-12.5 MG 10-12.5 MG Lisinopril Lisinopril No 1{table QD Lisinopril 10 MG 10 MG t} 10 MG Vitamin D Vitamin D No 1{capsu QD Vitamin D 50 MCG 50 MCG le} 50 MCG (1999 UT) (1999 UT) (1999) Isosorbide Isosorbide No 1{table QD Isosorbide Mononitrate Mononitrate t_in_th Mononitrat ER 30 MG ER 30 MG e_morni e ER 30 MG ng} Vitamin C Vitamin C No Vitamin C 500 MG 500 MG 500 MG AZO Bladder AZO Bladder No AZO Control Control Bladder Control Loratadine Loratadine No 1{table QD Loratadine 10 MG 10 MG t} 10 MG Loperamide Loperamide No 1{capsu QID Loperamide HCl 2 MG HCl 2 MG le_as_n HCl 2 MG eeded} Allopurinol Allopurinol No 1{table QD Allopurino 300 MG 300 MG t} l 300 MG Omeprazole Omeprazole No QD Omeprazole 20 MG 20 MG 20 MG Gabapentin Gabapentin No 1{table QD Gabapentin 600 MG 600 MG t} 600 MG Multi Multi No 1{table QD Multi Vitamin - Vitamin - t} Vitamin - Aspirin 81 Aspirin 81 No 1{table QD Aspirin 81 81 MG 81 MG t} 81 MG Magnesium Magnesium No 1{table QD Magnesium 250 MG 250 MG t_with_ 250 MG a_meal} Pravastatin Pravastatin No 1{table QD Pravastati Sodium 20 Sodium 20 t} n Sodium MG MG 20 MG Carvedilol Carvedilol No 1{table BID Carvedilol 3.125 MG 3.125 MG t_with_ 3.125 MG food} diphenhydrA diphenhydrA No 1{capsu QD diphenhydr MINE HCl 25 MINE HCl 25 le_at_b AMINE HCl MG MG edtime_ 25 MG as_need ed} Fish Oil Fish Oil No 1{capsu QD Fish Oil 1360 MG 1360 MG le} 1360 MG Lisinopril- Lisinopril- No 1{table QD Lisinopril hydroCHLORO hydroCHLORO t} -hydroCHLO thiazide thiazide ROthiazide 10-12.5 MG 10-12.5 MG 10-12.5 MG Isosorbide Isosorbide No 1{table QD Isosorbide Mononitrate Mononitrate t_in_th Mononitrat ER 30 MG ER 30 MG e_morni e ER 30 MG ng} Magnesium Magnesium No 1{table QD Magnesium 250 MG 250 MG t_with_ 250 MG a_meal} Fish Oil Fish Oil No 1{capsu QD Fish Oil 1360 MG 1360 MG le} 1360 MG Allopurinol Allopurinol No 1{table QD Allopurino 300 MG 300 MG t} l 300 MG Potassium Potassium No 1{table QD Potassium 99 MG 99 MG t} 99 MG Omeprazole Omeprazole No QD Omeprazole 20 MG 20 MG 20 MG Aspirin 81 Aspirin 81 No 1{table QD Aspirin 81 81 MG 81 MG t} 81 MG Carvedilol Carvedilol No 1{table BID Carvedilol 3.125 MG 3.125 MG t_with_ 3.125 MG food} AZO Bladder AZO Bladder No AZO Control Control Bladder Control Loperamide Loperamide No 1{capsu QID Loperamide HCl 2 MG HCl 2 MG le_as_n HCl 2 MG eeded} Vitamin D Vitamin D No 1{capsu QD Vitamin D 50 MCG 50 MCG le} 50 MCG (1999) (1999) (1999) Lisinopril- Lisinopril- No 1{table QD Lisinopril hydroCHLORO hydroCHLORO t} -hydroCHLO thiazide thiazide ROthiazide 10-12.5 MG 10-12.5 MG 10-12.5 MG diphenhydrA diphenhydrA No 1{capsu QD diphenhydr MINE HCl 25 MINE HCl 25 le_at_b AMINE HCl MG MG edtime_ 25 MG as_need ed} Vitamin C Vitamin C No Vitamin C 500 MG 500 MG 500 MG Loratadine Loratadine No 1{table QD Loratadine 10 MG 10 MG t} 10 MG Multi Multi No 1{table QD Multi Vitamin - Vitamin - t} Vitamin - Lisinopril Lisinopril No 1{table QD Lisinopril 10 MG 10 MG t} 10 MG Gabapentin Gabapentin No 1{table QD Gabapentin 600 MG 600 MG t} 600 MG Pravastatin Pravastatin No 1{table QD Pravastati Sodium 20 Sodium 20 t} n Sodium MG MG 20 MG Potassium Potassium No 1{table QD Potassium 99 MG 99 MG t} 99 MG Isosorbide Isosorbide No 1{table QD Isosorbide Mononitrate Mononitrate t_in_th Mononitrat ER 30 MG ER 30 MG e_morni e ER 30 MG ng} Aspirin 81 Aspirin 81 No 1{table QD Aspirin 81 81 MG 81 MG t} 81 MG Allopurinol Allopurinol No 1{table QD Allopurino 300 MG 300 MG t} l 300 MG Fish Oil Fish Oil No 1{capsu QD Fish Oil 1360 MG 1360 MG le} 1360 MG Omeprazole Omeprazole No QD Omeprazole 20 MG 20 MG 20 MG Multi Multi No 1{table QD Multi Vitamin - Vitamin - t} Vitamin - Carvedilol Carvedilol No 1{table BID Carvedilol 3.125 MG 3.125 MG t_with_ 3.125 MG food} AZO Bladder AZO Bladder No AZO Control Control Bladder Control Immunizations Ordered Immunization Filled Immunization Date Status Commen ts Source Name Name Janeth 2021-04-21 Completed [facility] [id number] 00:00:00 [facility] influenza virus 2021-02-15 Completed [facility], inactivated 00:00:00 [facility] fabio [id number] 2020-07-25 Completed [facility] [id number]<kelley 20:22:00 [facility] fabio p>1</sup> [id number] 2020-06-27 Completed [facility] [id number]<kelley 21:53:00 [facility] fabio p>2</sup> influenza virus 2019-04-04 Completed [facility], inactivated 18:18:00 [facility] fabio influenza virus 2018-03-02 Completed [facility], inactivated 19:15:00 [facility] fabio influenza virus 2018-02-28 Completed [facility], 16:08:00 [facility] inactivated<sup>1</s up> influenza virus 2018-02-28 Completed [facility], 16:08:00 [facility] inactivated<sup>3</s up> influenza virus 2018-02-28 Completed [facility], 16:01:00 [facility] inactivated<sup>2</s up> influenza virus 2018-02-28 Completed [facility], 16:01:00 [facility] inactivated<sup>4</s up> influenza virus 2017-04-07 Completed [facility], inactivated 17:32:00 [facility] fabio influenza virus 2016-02-10 Completed [facility], inactivated 16:31:00 [facility] fabio influenza virus 2015-03-18 Completed [facility], inactivated 17:02:00 [facility] fabio pneumococcal 2014-04-01 Completed [facility] 23-valent 06:00:00 [facility] vaccine<sup>5</sup> influenza virus 2014-04-01 Completed [facility], 06:00:00 [facility] inactivated<sup>3</s up> pneumococcal 2014-04-01 Completed [facility] 23-valent 06:00:00 [facility] vaccine<sup>3</sup> influenza virus 2014-04-01 Completed [facility], 06:00:00 [facility] inactivated<sup>1</s up> pneumococcal 2014-04-01 Completed [facility] 23-valent 06:00:00 [facility] vaccine<sup>4</sup> influenza virus 2014-04-01 Completed [facility] vaccine, 06:00:00 [facility] inactivated<sup>2</s up> influenza virus 2014-04-01 Completed [facility], 06:00:00 [facility] inactivated<sup>5</s up> pneumococcal 2014-04-01 Completed [facility] 23-valent 06:00:00 [facility] vaccine<sup>7</sup> influenza virus 2013-03-08 Completed [facility] vaccine, 05:00:00 [facility] inactivated<sup>4</s up> influenza virus 2013-03-08 Completed [facility], 05:00:00 [facility] inactivated<sup>2</s up> influenza virus 2013-03-08 Completed [facility], 05:00:00 [facility] inactivated<sup>3</s up> influenza virus 2013-03-08 Completed [facility], 05:00:00 [facility] inactivated<sup>6</s up> diphtheria/pertussis 2012-03-02 Completed [facility] , acel/tetanus 15:14:59 [facility] adult<sup>6</sup> diphtheria/pertussis 2012-03-02 Completed [facility] , acel/tetanus 15:14:59 [facility] adult<sup>4</sup> diphtheria/pertussis 2012-03-02 Completed [facility] , acel/tetanus 15:14:59 [facility] adult<sup>1</sup> diphtheria/pertussis 2012-03-02 Completed [facility] , acel/tetanus 15:14:59 [facility] adult<sup>8</sup> tetanus-diphtheria 2012-03-02 Completed [facility] toxoids<sup>7</sup> 14:55:11 Gretta nn tetanus-diphtheria 2012-03-02 Completed [facility] toxoids<sup>5</sup> 14:55:11 Gretta nn tetanus-diphtheria 2012-03-02 Completed [facility] toxoids<sup>9</sup> 14:55:11 Gretta nn Vital Signs Vital Name Observation Time Observation Value Comments Source height 2022-01-05 10:00:00 71 [in_i] [facility] weight 2022-01-05 10:00:00 289.8 [lb_av] [facility] temperature 2022-01-05 10:00:00 97.3 [degF] [facility] bmi 2022-01-05 10:00:00 40.41 kg/m2 [facility] oximetry 2022-01-05 10:00:00 98 % [facility] respiratory rate 2022-01-05 10:00:00 16 /min [facility] blood pressure 2022-01-05 10:00:00 145 mm[Hg] [facility] - systolic [facility] blood pressure 2022-01-05 10:00:00 78 mm[Hg] [facility] - diastolic [facility] height 2021-08-04 11:15:00 71 [in_i] [facility] weight 2021-08-04 11:15:00 285 [lb_av] [facility] temperature 2021-08-04 11:15:00 98.0 [degF] [facility] bmi 2021-08-04 11:15:00 39.75 kg/m2 [facility] oximetry 2021-08-04 11:15:00 92 % [facility] respiratory rate 2021-08-04 11:15:00 18 /min [facility] blood pressure 2021-08-04 11:15:00 123 mm[Hg] [facility] blood pressure 2021-08-04 11:15:00 67 mm[Hg] [facility] - diastolic [facility] height 2021-05-06 11:00:00 71 [in_i] [facility] weight 2021-05-06 11:00:00 285 [lb_av] [facility] - [facility] temperature 2021-05-06 11:00:00 97.6 [degF] [facility] bmi 2021-05-06 11:00:00 39.75 kg/m2 [facility] oximetry 2021-05-06 11:00:00 96 % [facility] 2021-05-06 11:00:00 18 /min [facility] blood pressure 2021-05-06 11:00:00 128 mm[Hg] [facility] - systolic [facility] blood pressure 2021-05-06 11:00:00 66 mm[Hg] [facility] - diastolic [facility] height 2021-01-28 10:00:00 71 [in_i] [facility] weight 2021-01-28 10:00:00 295.0 [lb_av] [facility] temperature 2021-01-28 10:00:00 97 [degF] [facility] bmi 2021-01-28 10:00:00 41.14 kg/m2 [facility] oximetry 2021-01-28 10:00:00 93 % [facility] 2021-01-28 10:00:00 136 mm[Hg] [facility] - systolic [facility] blood pressure 2021-01-28 10:00:00 66 mm[Hg] [facility] - diastolic [facility] height 2021-01-06 13:30:00 71 [in_i] [facility] 2021-01-06 13:30:00 289.4 [lb_av] [facility] temperature 2021-01-06 13:30:00 97.7 [degF] [facility] bmi 2021-01-06 13:30:00 40.36 kg/m2 [facility] oximetry 2021-01-06 13:30:00 93 % [facility] - [facility] blood pressure 2021-01-06 13:30:00 137 mm[Hg] [facility] - systolic [facility] blood pressure 2021-01-06 13:30:00 72 mm[Hg] [facility] - diastolic [facility] Heart Rate 2022-05-11 20:05:00 [facility] Systolic (mm Hg) 2022-05-11 20:05:00 [facility] Diastolic (mm Hg) 2022-05-11 20:05:00 [facility] D[facility] Height 2022-05-11 20:05:00 6 [ft_i] [facility] Weight 2022-05-11 20:05:00 [facility] BMI Calculated 2022-05-11 20:05:00 [facility] Heart Rate 2022-04-04 17:23:00 [facility] Systolic (mm Hg) 2022-04-04 17:23:00 [facility] Dario Diastolic (mm Hg) 2022-04-04 17:23:00 [facility] D[facility] Height 2022-04-04 17:23:00 6 [ft_i] [facility] Weight 2022-04-04 17:23:00 [facility] BMI Calculated 2022-04-04 17:23:00 [facility] Weight 2022-01-06 14:51:00 [facility] BMI Calculated 2022-01-06 14:51:00 [facility] Height 2022-01-06 14:51:00 182.88 cm [facility] Heart Rate 2022-01-06 14:51:00 [facility] Respitory Rate 2022-01-06 14:51:00 [facility] Systolic (mm Hg) 2022-01-06 14:51:00 [facility] rial Dario Diastolic (mm Hg) 2022-01-06 14:51:00 [facility] D[facility] Height 2021-10-04 16:22:00 182.88 cm [facility] Weight 2021-10-04 16:22:00 [facility] BMI Calculated 2021-10-04 16:22:00 [facility] Heart Rate 2021-10-04 16:22:00 [facility] Systolic (mm Hg) 2021-10-04 16:22:00 [facility] rial Dario Diastolic (mm Hg) 2021-10-04 16:22:00 [facility] Heart Rate 2021-08-17 16:03:00 [facility] Respitory Rate 2021-08-17 16:03:00 [facility] Systolic (mm Hg) 2021-08-17 16:03:00 [facility] rial Dario Diastolic (mm Hg) 2021-08-17 16:03:00 [facility] Height 2021-08-17 16:03:00 182.88 cm [facility] Weight 2021-08-17 16:03:00 [facility] BMI Calculated 2021-08-17 16:03:00 [facility] Heart Rate 2021-08-10 14:25:00 [facility] Respitory Rate 2021-08-10 14:25:00 [facility] Systolic (mm Hg) 2021-08-10 14:25:00 [facility] rial Dario Diastolic (mm Hg) 2021-08-10 14:25:00 [facility] D[facility] Height 2021-08-10 14:25:00 182.88 cm [facility] Weight 2021-08-10 14:25:00 [facility] BMI Calculated 2021-08-10 14:25:00 [facility] Height 2021-07-08 17:25:00 182.88 cm [facility] Heart Rate 2021-07-08 17:25:00 [facility] Respitory Rate 2021-07-08 17:25:00 [facility] Systolic (mm Hg) 2021-07-08 17:25:00 L[facility] rial Dario Diastolic (mm Hg) 2021-07-08 17:25:00 [facility] D[facility] Weight 2021-07-08 17:25:00 [facility] BMI Calculated 2021-07-08 17:25:00 [facility] Heart Rate 2021-04-06 20:15:00 [facility] Systolic (mm Hg) 2021-04-06 20:15:00 L[facility] rial Dario Diastolic (mm Hg) 2021-04-06 20:15:00 [facility] D[facility] Height 2021-04-06 20:15:00 182.88 cm [facility] Weight 2021-04-06 20:15:00 [facility] BMI Calculated 2021-04-06 20:15:00 [facility] Systolic (mm Hg) 2020-10-07 16:07:00 [facility] rial Dario Diastolic (mm Hg) 2020-10-07 16:07:00 [facility] Dario Heart Rate 2020-10-07 16:07:00 [facility] Height 2020-10-07 16:07:00 182.88 cm [facility] Weight 2020-10-07 16:07:00 [facility] BMI Calculated 2020-10-07 16:07:00 [facility] Height 2020-09-15 16:34:00 185.42 cm [facility] Weight 2020-09-15 16:34:00 [facility] BMI Calculated 2020-09-15 16:34:00 [facility] Systolic (mm Hg) 2020-09-08 16:40:00 Loyd rial Kimberly Diastolic (mm Hg) 2020-09-08 16:40:00 [facility] Dario Heart Rate 2020-09-08 16:40:00 [facility] Height 2020-09-08 16:40:00 185.42 cm [facility] Weight 2020-09-08 16:40:00 [facility] BMI Calculated 2020-09-08 16:40:00 [facility] Systolic (mm Hg) 2020-08-27 19:05:00 L[facility] rial Dario Diastolic (mm Hg) 2020-08-27 19:05:00 [facility] Dario Heart Rate 2020-08-27 19:05:00 [facility] Respitory Rate 2020-08-27 19:05:00 [facility] Height 2020-08-27 19:05:00 182.88 cm [facility] Weight 2020-08-27 19:05:00 [facility] BMI Calculated 2020-08-27 19:05:00 [facility] Systolic (mm Hg) 2020-04-08 17:20:00 Loyd rial Dario Diastolic (mm Hg) 2020-04-08 17:20:00 [facility] Heart Rate 2020-04-08 17:20:00 [facility] Height 2020-04-08 17:20:00 185.42 cm [facility] Weight 2020-04-08 17:20:00 [facility] BMI Calculated 2020-04-08 17:20:00 [facility] Systolic (mm Hg) 2019-10-03 20:02:00 Loyd rial Kimberly Diastolic (mm Hg) 2019-10-03 20:02:00 [facility] D[facility] Heart Rate 2019-10-03 20:02:00 [facility] Height 2019-10-03 20:02:00 180.34 cm [facility] Weight 2019-10-03 20:02:00 [facility] BMI Calculated 2019-10-03 20:02:00 [facility] Systolic (mm Hg) 2019-04-04 17:53:00 Loyd rial Kimberly Diastolic (mm Hg) 2019-04-04 17:53:00 [facility] Dario Heart Rate 2019-04-04 17:53:00 [facility] Height 2019-04-04 17:53:00 180.34 cm [facility] Weight 2019-04-04 17:53:00 [facility] BMI Calculated 2019-04-04 17:53:00 [facility] Systolic (mm Hg) 2019-03-14 20:01:00 Loyd rial Kimberly Diastolic (mm Hg) 2019-03-14 20:01:00 [facility] Heart Rate 2019-03-14 20:01:00 [facility] Temperature Oral (F) 2019-03-14 20:01:00 98.0 F [facility] Weight 2019-03-14 20:01:00 [facility] Weight 2018-09-26 15:18:00 [facility] BMI Calculated 2018-09-26 15:18:00 [facility] Height 2018-09-26 15:18:00 180.34 cm [facility] Temperature Oral (F) 2018-09-26 15:18:00 97.8 F [facility] Heart Rate 2018-09-26 15:18:00 [facility] Systolic (mm Hg) 2018-09-26 15:18:00 Loyd rial Dario Diastolic (mm Hg) 2018-09-26 15:18:00 [facility] BMI Calculated 2018-08-23 16:31:00 [facility] Weight 2018-08-23 16:31:00 [facility] Systolic (mm Hg) 2018-08-23 16:31:00 Loyd [facility] Dario Diastolic (mm Hg) 2018-08-23 16:31:00 [facility] Height 2018-08-23 16:31:00 180.34 cm [facility] Heart Rate 2018-08-23 16:31:00 [facility] Weight 2018-06-15 17:07:00 [facility] Heart Rate 2018-06-15 17:07:00 [facility] Respitory Rate 2018-06-15 17:07:00 [facility] Temperature Oral (F) 2018-06-15 17:07:00 98.3 F [facility] Systolic (mm Hg) 2018-06-15 17:07:00 Loyd rial Kimberly Diastolic (mm Hg) 2018-06-15 17:07:00 [facility]ario Weight 2018-04-10 20:18:00 [facility] Height 2018-04-10 20:18:00 181.61 cm [facility] BMI Calculated 2018-04-10 20:18:00 Memori al Kimberly Temperature Oral (F) 2018-04-10 20:18:00 98.3 F [facility] Heart Rate 2018-04-10 20:18:00 [facility] Respitory Rate 2018-04-10 20:18:00 [facility] Kimberly Systolic (mm Hg) 2018-04-10 20:18:00 Loyd rial Dario Diastolic (mm Hg) 2018-04-10 20:18:00 [facility] Dario BMI Calculated 2018-02-22 16:51:00 [facility] al Kimberly Height 2018-02-22 16:51:00 185.42 cm [facility] Weight 2018-02-22 16:51:00 [facility] Heart Rate 2018-02-22 16:51:00 [facility] Systolic (mm Hg) 2018-02-22 16:51:00 Loyd rial Kimberly Diastolic (mm Hg) 2018-02-22 16:51:00 Mem o[facility] Kimberly BMI Calculated 2017-09-18 18:25:00 Memori al Kimberly Weight 2017-09-18 18:25:00 [facility] Height 2017-09-18 18:25:00 185.42 cm [facility] Heart Rate 2017-09-18 18:25:00 [facility] Respitory Rate 2017-09-18 18:25:00 Mem[facility] al Dario Temperature Oral (F) 2017-09-18 18:25:00 98.2 F [facility] Systolic (mm Hg) 2017-09-18 18:25:00 Loyd rial Dario Diastolic (mm Hg) 2017-09-18 18:25:00 Mem o[facility] Kimberly BMI Calculated 2017-06-29 18:36:00 Memori al Kimberly Weight 2017-06-29 18:36:00 [facility] Systolic (mm Hg) 2017-06-29 18:36:00 Loyd rial Dario Diastolic (mm Hg) 2017-06-29 18:36:00 Mem orial Kimberly Heart Rate 2017-06-29 18:36:00 [facility] Height 2017-06-29 18:36:00 185.42 cm [facility] BMI Calculated 2017-06-13 14:12:00 [facility] Kimberly Weight 2017-06-13 14:12:00 [facility] Height 2017-06-13 14:12:00 185.42 cm [facility] Systolic (mm Hg) 2017-06-13 14:11:00 Loyd rial Dario Diastolic (mm Hg) 2017-06-13 14:11:00 Mem o[facility] Kimberly Respitory Rate 2017-06-13 14:11:00 Memori al Dario Heart Rate 2017-06-13 14:11:00 [facility] Temperature Oral (F) 2017-06-13 14:11:00 97.6 F [facility] Weight 2017-05-11 17:44:00 [facility] Temperature Oral (F) 2017-05-11 17:44:00 98.1 F [facility] Heart Rate 2017-05-11 17:44:00 [facility] Systolic (mm Hg) 2017-05-11 17:44:00 Loyd rial Dario Diastolic (mm Hg) 2017-05-11 17:44:00 Mem orial Kimberly Temperature Oral (F) 2016-07-05 14:50:00 97.6 F [facility] Respitory Rate 2016-07-05 14:50:00 [facility] Kimberly Systolic (mm Hg) 2016-07-05 14:50:00 Loyd rial Kimberly Diastolic (mm Hg) 2016-07-05 14:50:00 [facility] o[facility] Dario Weight 2016-07-05 14:47:00 [facility] Height 2016-07-05 14:47:00 185.42 cm [facility] BMI Calculated 2016-07-05 14:47:00 Mem[facility] Dario Systolic (mm Hg) 2014-06-11 21:12:00 Loyd rial Kimberly Respitory Rate 2014-06-11 21:12:00 Memori al Dario Heart Rate 2014-06-11 21:12:00 [facility] Diastolic (mm Hg) 2014-06-11 21:12:00 Mem orial Kimberly Heart Rate 2014-06-11 17:13:00 [facility] Respitory Rate 2014-06-11 17:13:00 Memori al Dario Systolic (mm Hg) 2014-06-11 17:13:00 Loyd rial Dario Diastolic (mm Hg) 2014-06-11 17:13:00 Mem orial Kimberly Temperature Oral (F) 2014-06-11 17:13:00 98.4 F [facility] Temperature Oral (F) 2014-06-11 14:03:00 97.6 F [facility] Diastolic (mm Hg) 2014-06-11 14:03:00 Mem orial Kimberly Systolic (mm Hg) 2014-06-11 14:03:00 Loyd rial Kimberly Respitory Rate 2014-06-11 14:03:00 Memori al Kimberly Heart Rate 2014-06-11 14:03:00 [facility] Temperature Oral (F) 2014-06-11 09:41:00 97.8 F [facility] BMI Calculated 2014-06-10 23:14:00 Mem[facility] al Kimberly Weight 2014-06-10 23:14:00 [facility] Height 2014-06-10 23:14:00 185.42 cm [facility] BMI Calculated 2014-06-10 18:43:00 Memori al Kimberly Weight 2014-06-10 18:43:00 [facility] Diastolic (mm Hg) 2014-04-30 22:43:00 Mem orial Kimberly Heart Rate 2014-04-30 22:43:00 [facility] Temperature Oral (F) 2014-04-30 22:43:00 97.6 F [facility] Respitory Rate 2014-04-30 22:43:00 Memori al Dario Systolic (mm Hg) 2014-04-30 22:43:00 Loyd rial Dario Respitory Rate 2014-04-30 18:31:00 Memori al Dario Systolic (mm Hg) 2014-04-30 18:31:00 Loyd rial Kimberly Heart Rate 2014-04-30 18:31:00 [facility] Diastolic (mm Hg) 2014-04-30 18:31:00 Mem orial Kimberly Temperature Oral (F) 2014-04-30 18:31:00 98.3 F [facility] Diastolic (mm Hg) 2014-04-30 14:24:00 Mem orial Dario Systolic (mm Hg) 2014-04-30 14:24:00 Loyd rial Dario Heart Rate 2014-04-30 14:24:00 [facility] Temperature Oral (F) 2014-04-30 14:24:00 97.4 F [facility] Respitory Rate 2014-04-30 14:24:00 Mem[facility] al Dario BMI Calculated 2014-04-28 23:23:00 Mem[facility] al Kimberly Weight 2014-04-28 23:23:00 [facility] Height 2014-04-28 23:23:00 185.42 cm [facility] Height 2014-04-08 19:28:00 185.42 cm [facility] Procedures Procedure Date / Time Performed Performing Clinician Braden timmy Cardiac catheterisation, 2017-06-13 06:00:00 Mem orial Dario left heart Arthroplasty of 2014-06-10 06:00:00 [facility] knee<sup>1</sup> Lithotripsy of kidney 2014-02-26 05:00:00 Memori al Dario Arthroplasty of knee 2013-06-11 06:00:00 Nolviaoria l Kimberly Stent placement [facility] Kimberly Arthroscopy of shoulder [facility] Appendectomy [facility] Kimberly Arthroscopy of knee [facility] Plan of Care Planned Activity Planned Date Details Comments Source Future Scheduled 2022-05-12 Hepatitis C screening [facility] Test 01:19:24 (procedure) [code = 380857974] Future Scheduled 2022-05-12 COLONOSCOPY SCREENING [facility] Test 01:19:24 [code = COLONOSCOPY SCREENING] Future Scheduled 2022-05-12 SHINGLES VACCINES (1 [facility] Test 01:19:24 of 2) [code = SHINGLES VACCINES (1 of 2)] Future Scheduled 2022-05-12 65+ [facility] 01:19:24 VACCINE (1 - PCV) [code = 65+ PNEUMOCOCCAL VACCINE (1 - PCV)] Future Scheduled 2022-05-12 COVID-19 VACCINE (3 - [facility] Test 01:19:24 Booster for Moderna series) [code = COVID-19 VACCINE (3 - Booster for Moderna series)] Future Scheduled 2022-05-12 INFLUENZA VACCINE [facility] Test 01:19:24 [code = INFLUENZA VACCINE] Future Scheduled 2022-03-31 SHINGLES VACCINES (1 [facility] Test 05:11:40 of 2) [code = SHINGLES VACCINES (1 of 2)] Future Scheduled 2022-03-31 65+ [facility] Test 05:11:40 VACCINE (1 - PCV) [code = 65+ PNEUMOCOCCAL VACCINE (1 - PCV)] Future Scheduled 2022-03-31 COVID-19 VACCINE (3 - [facility] Test 05:11:40 Booster for Moderna series) [code = COVID-19 VACCINE (3 - Booster for Moderna series)] Future Scheduled 2022-03-31 INFLUENZA VACCINE Method [facility] Test 05:11:40 [code = INFLUENZA VACCINE] Future Scheduled 2022-03-31 HEPATITIS B VACCINES [facility] Test 05:11:40 (1 of 3 - 3-dose series) [code = HEPATITIS B VACCINES (1 of 3 - 3-dose series)] Future Scheduled 2022-03-[address] [facility] Test 05:11:40 (procedure) [code = [id number]] Future Scheduled 2022-03-[address] [facility] Test 05:11:40 [code = COLONOSCOPY SCREENING] Future Scheduled 2022-03-31 SHINGLES VACCINES (1 [facility] Test 05:11:40 of 2) [code = SHINGLES VACCINES (1 of 2)] Future Scheduled 2022-03-31 65+ [facility] Test 05:11:40 VACCINE (1 - PCV) [code = 65+ PNEUMOCOCCAL VACCINE (1 - PCV)] Future Scheduled 2022-03-31 COVID-19 VACCINE (3 - [facility] Test 05:11:40 Booster for Moderna series) [code = COVID-19 VACCINE (3 - Booster for Moderna series)] Future Scheduled 2022-03-31 [facility]FLUENZA VACCINE [facility] Test 05:11:40 [code = INFLUENZA VACCINE] Future Scheduled 2022-03-31 HEPATITIS B VACCINES [facility] Test 05:11:40 (1 of 3 - 3-dose series) [code = HEPATITIS B VACCINES (1 of 3 - 3-dose series)] Future Scheduled 2022-03-31 Hepatitis C screening [facility] Test 05:11:40 (procedure) [code = [id number]] Future Scheduled 2022-03-31 COLONOSCOPY SCREENING [facility] Test 05:11:40 [code = COLONOSCOPY SCREENING] Encounters Start End Encounter Admission Attending Care Care Encounter Source Date/Time Date/Time Type Type Clinicians Facility Department ID 2022-06-07 Preadmit nullFlavo [id number] Memoria 16:26:09 r [place] 00 l Dario 2022-04-29 Outpatient YANG, RIKI CAR [id number] MH FB 09:43:18 MAJID 2022-04-18 Outpatient STLMLC STLMLC [id number] Common 12:06:01 [id number] [facility] 2021-06-23 Outpatient STLMLC STLMLC [id number] Common 12:35:51 [id number] [facility] 2021-06-23 Outpatient Tamra Kelley STLMLC STLMLC [id number] Common 11:57:26 [id number] [facility] 2022-11-11 2022-11-11 Outpatient JOCELINE CAR [id number] Memoria 11:45:00 11:45:00 52 l Dario 2022-07-11 2022-07-11 Outpatient JOCELINE CAR [id number] Memoria 11:00:00 11:00:00 49 l Dario 2022-05-11 2022-05-12 Outpatient JOCELINE CALIXTO [id number] Memoria 20:15:00 05:59:59 [facility]iology 50 l [place] [facility] 2022-05-11 Outpatient DURGA Will [id number] 14:15:00 23:59:59 Majid Salomón 51 2022-05-11 2022-05-11 Outpatient MHIE JOSSEIE [id number] Memoria 14:15:00 14:15:00 51 l Dario 2022-04-18 2022-04-18 [facility]ICE [facility] [id number] Co mmon 00:00:00 00:00:00 VISIT Lei JIMENEZ PT - CHI LEVEL 1 [facility] 2022-04-06 2022-04-07 [place] [id number] Memoria 19:30:00 05:59:59 r Cardiology 49 l [place] Gretta [facility] 2022-04-06 2022-04-06 Outpatient Yang, MG MG [id number] 13:30:00 23:59:59 Ramya Lorenzana 50 2022-04-05 2022-04-06 Between nullFlavo MG [id number] Memoria 14:11:23 14:11:23 Visit r Cardiology 39 l [place] Gretta [facility] 2022-04-05 2022-04-06 Between nullFlavo MG [id number] Memoria 13:57:24 13:57:24 Visit r Primary 38 l Care Sugar Gretta [facility] 2022-04-06 2022-04-06 Outpatient JOSSEIE JOSSEIE [id number] Memoria 13:30:00 13:30:00 50 cesilia Bishop 2022-04-05 2022-04-06 Outpatient MG MG [id number] 08:11:23 08:11:23 39 2022-04-05 2022-04-06 Outpatient MG MG [id number] 07:57:24 07:57:24 39 2022-04-04 2022-04-05 [place] [id number] Memoria 17:15:00 05:59:59 r Cardiology 48 l [place] Gretta [facility] 2022-04-04 2022-04-04 Outpatient Yang, MG MG [id number] 11:15:00 23:59:59 Ramya Lorenzana 47 2022-04-04 2022-04-04 Outpatient MHIE JOSSEIE [id number] Memoria 11:15:00 11:15:00 48 cesilia Bishop 2022-03-10 2022-03-10 ([place]) Nurse STLMLC STLMLC [id number] Common 00:00:00 00:00:00 Visit [facility] 2022-01-06 2022-01-07 Outpatient nullFlavo [facility] [id number] Memoria 15:00:00 04:59:59 r Primary 44 l Care [place] 2022-01-06 2022-01-06 Outpatient David, MG [facility] [id number] 10:00:00 23:59:59 Hadley 45 2022-01-06 2022-01-06 Outpatient MHIE [facility] [id number] Memoria 10:00:00 10:00:00 45 l Dario 2022-01-05 2022-01-05 OFFICE STLMLC STLMLC [id number] Co mmon 00:00:00 00:00:00 VISIT EST Spir it PT LEVEL 3 [facility] 2021-12-29 2021-12-29 ([place]) Nurse STLMLC STLMLC [id number] Common 00:00:00 00:00:00 Visit [facility] 2021-12-21 2021-12-21 ([place]) Nurse STLMLC STLMLC [id number] Common 00:00:00 00:00:00 Visit [facility] 2021-12-15 2021-12-15 OFFICE STLMLC STLMLC [id number] Co mmon 00:00:00 00:00:00 VISIT [facility] PT [facility] LEVEL 1 [facility] 2021-12-07 2021-12-07 ([place]) Nurse STLMLC STLMLC [id number] Common 00:00:00 00:00:00 Visit [facility] 2021-11-02 2021-11-02 ([place]) Nurse STLMLC STLMLC [id number] Common 00:00:00 00:00:00 Visit [facility] 2021-10-26 2021-10-26 ([place]) Nurse STLMLC STLMLC [id number] Common 00:00:00 00:00:00 Visit [facility] 2021-10-20 2021-10-20 ([place]) Nurse STLMLC STLMLC [id number] Common 00:00:00 00:00:00 Visit [facility] 2021-10-12 2021-10-12 OFFICE STLMLC STLC [id number] Co mmon 00:00:00 00:00:[address] [facility] 1 [facility] 2021-10-04 2021-10-05 Outpatient nullFlavo [facility] [id number] Memoria 16:15:00 04:59:59 r Cardiology 42 l [place] Gretta [facility] 2021-10-05 2021-10-05 ([place]) [facility] [id number] Common 00:00:00 00:00:00 Visit [facility] 2021-10-04 2021-10-04 Outpatient Yang, [facility] [id number] 11:15:00 23:59:59 Majid Salomón 43 2021-10-04 2021-10-04 Outpatient JOSSEIE [facility] [id number] Memoria 11:15:00 11:15:00 43 l Kimberly 2021-09-28 2021-09-28 ([place]) Nurse [facility] [id number] Common 00:00:00 00:00:00 Visit [facility] 2021-09-21 2021-09-21 (TEL) STLMLC [facility] [id number] Co mmon 00:00:00 00:00:00 [facility] 2021-09-21 2021-09-21 ([place] Nurse [facility] [id number] Common 00:00:00 00:00:00 Visit [facility] 2021-09-14 2021-09-14 ([place] Nurse [facility] STLC [id number] Common 00:00:00 00:00:00 Visit [facility] 2021-09-07 2021-09-07 ([place] Nurse [facility] [id number] Common 00:00:00 00:00:00 Visit [facility] 2021-08-17 2021-08-18 Outpatient nullFlavo [facility] [id number] Memoria 16:00:00 04:59:59 r Primary 46 l Care [place] 2021-08-17 2021-08-17 Outpatient David, [facility] [id number] 11:00:00 23:59:59 Hadley 46 2021-08-17 2021-08-17 Outpatient JOSSENICOL [facility] [id number] Memoria 11:00:00 11:00:00 47 l Dario 2021-08-10 2021-08-11 Between nullFlavo [facility] [id number] Memoria 23:20:30 23:20:30 Visit r Primary 37 l Care Sugar Gretta [facility] 2021-08-10 2021-08-11 Outpatient [facility] [id number] 18:20:30 18:20:30 38 2021-08-10 2021-08-11 Outpatient nullFlavo [facility] [id number] Memoria 14:20:00 04:59:59 r Primary 45 l Care Sugar Gretta [facility] 2021-08-10 2021-08-11 Outpt Diag nullFlavo [facility] [id number] Memoria 20:58:00 04:59:00 Services r Outpatient 06 l Imaging Dario [place] 2021-08-10 2021-08-11 Outpt Diag nullFlavo [facility] [id number] Memoria 15:31:00 04:59:00 Services r Outpatient 05 l Imaging Dario [place] 2021-08-10 2021-08-10 Outpatient Joann, [facility] [id number] 09:20:00 23:59:59 Hadley 45 2021-08-10 2021-08-10 Outpatient David, MH29 [id number] 15:58:00 23:59:00 Hadley 06 2021-08-10 2021-08-10 Outpatient David, MH29 29 [id number] 10:31:00 23:59:00 Hadley 05 2021-08-10 2021-08-10 Outpatient NICOL [facility] [id number] Memoria 09:20:00 09:20:00 46 l Kimberly 2021-08-04 2021-08-04 OFFICE STLMLC STLMLC [id number] Co mmon 00:00:00 00:00:00 VISIT Spirit ESTAB PT - CHI LEVEL 2 [facility] 2021-07-08 2021-07-09 Outpatient nullFlavo [facility] [id number] Memoria 17:00:00 05:59:59 r Primary 43 l Care Sugar Gretta [facility] 2021-07-08 2021-07-08 Outpatient Gabino, [facility] [id number] 11:00:00 23:59:59 Kia 43 Aries 2021-07-08 2021-07-08 Outpatient JOCELINE CAR [id number] Memoria 11:00:00 11:00:00 44 l Dario 2021-05-06 2021-05-06 OFFICE STLMLC STLMLC [id number] Co mmon 00:00:00 00:00:00 VISIT EST Spir it PT LEVEL 3 - CHI [facility] 2021-04-06 2021-04-07 Outpatient nullFlavo [facility] [id number] Memoria 20:15:00 05:59:59 r Cardiology 41 l [place] Gretta [facility] 2021-04-06 2021-04-07 Outpatient nullFlavo [facility] [id number] Memoria 19:30:00 05:59:59 r Cardiology 40 l [place] Gretta [facility] 2021-04-06 2021-04-06 Outpatient Yang, [facility] [id number] 14:15:00 23:59:59 Majid Salomón 42 2021-04-06 2021-04-06 Outpatient Yang, [facility] [id number] 13:30:00 23:59:59 Majid Salomón 40 2021-04-06 2021-04-06 Outpatient JOCELINE CAR [id number] Memoria 14:15:00 14:15:00 42 l Dario 2021-04-06 2021-04-06 Outpatient JOCELINE CAR [id number] Memoria 13:30:00 13:30:00 41 l Dario 2021-03-24 2021-03-24 [facility] [id number] [place] 00:00:00 00:00:00 THEODORE [address] 2021-03-24 2021-03-24 [facility] [id number] [place] [id number] 00:00:00 00:00:00 THEODORE [address] 2021-01-28 2021-01-28 OFFICE STLMLC STLMLC [id number] Co mmon 00:00:00 00:00:00 VISIT Spirit ESTAB PT - CHI LEVEL 1 [facility] 2021-01-20 2021-01-20 (TEL) STLMLC STLMLC [id number] Co mmon 00:00:00 00:00:00 Spirit - CHI [facility] 2021-01-06 2021-01-06 OFFICE STLMLC STLMLC [id number] Co mmon 00:00:00 00:00:00 VISIT Spirit ESTAB PT - CHI LEVEL 4 [facility] 2020-10-07 2020-10-08 Outpatient nullFlavo [facility] [id number] Memoria 16:15:00 04:59:59 r Cardiology 37 l [place] Gretta [facility] 2020-10-08 2020-10-08 Outpatient STLMLC STLC [id number] Common 00:00:00 00:00:00 Spirit - CHI [facility] 2020-10-07 2020-10-07 Outpatient Yang, MHMG [facility] [id number] 11:15:00 23:59:59 Majid Salomón 37 2020-10-07 2020-10-07 Outpatient MHIE [facility] [id number] Memoria 11:15:00 11:15:00 38 l Dario 2020-09-17 2020-09-17 Bedded [facility] [id number] Memoria 15:55:00 18:26:00 Outpatient r Dario 36 l [place] Gretta 2020-09-17 2020-09-17 Outpatient KRISTA, MHFB MHFB [id number] [id number] 10:55:00 13:26:00 NADIM 2020-09-17 2020-09-17 Outpatient MHSL MHSL [id number] 10:55:00 13:26:00 36 2020-09-17 2020-09-17 Outpatient MHSL MHSL [id number] 10:55:00 13:26:00 36 2020-09-08 2020-09-09 Outpatient nullFlavo [facility] [id number] Memoria 16:10:00 04:59:59 r Gastroenter 39 l ology Sugar Herm fabio [facility] 2020-09-08 2020-09-08 Outpatient Yang, MG [facility] [id number] 11:10:00 23:59:59 Majid Salomón 39 2020-09-08 2020-09-08 Outpatient JOCELINE CAR [id number] Memoria 11:10:00 11:10:00 39 l Dario 2020-08-28 2020-08-29 Between nullFlavo MG [id number] Memoria 12:59:46 12:59:46 Visit r Primary 35 l Care Sugar Gretta [facility] 2020-08-28 2020-08-29 Outpatient MG [facility] [id number] 07:59:46 07:59:46 35 2020-08-27 2020-08-28 Outpatient nullFlavo [facility] [id number] Memoria 19:00:00 04:59:59 r Primary 38 l Care Sugar Gretta [facility] 2020-08-27 2020-08-27 Outpatient Gabino, [facility] [id number] 14:00:00 23:59:59 Kia 38 Guitar 2020-08-27 2020-08-27 Outpatient JOCELINE CAR [id number] Memoria 14:00:00 14:00:00 39 l Dario 2020-08-27 2020-08-27 Outpatient STLMLC STLMLC [id number] Common 00:00:00 00:00:00 [facility] 2020-07-30 2020-07-30 Outpatient STLMLC STLMLC [id number] Common 00:00:00 00:00:00 [facility] 2020-04-08 2020-04-09 Outpatient nullFlavo [facility] [id number] Memoria 17:15:00 05:59:59 r Cardiology 36 l [place] Gretta [facility] 2020-04-08 2020-04-08 Outpatient Yang, MG [facility] [id number] 11:15:00 23:59:59 Majid Salomón 36 2020-04-08 2020-04-08 Outpatient JOCELINE CAR [id number] Memoria 11:15:00 11:15:00 37 l Dario 2020-03-18 2020-03-18 Outpatient STLMLC STLMLC [id number] Common 00:00:00 00:00:00 [facility] 2020-03-16 2020-03-16 Outpatient MHIE MHIE [id number] Memoria 13:00:00 13:00:00 36 cesilia Bishop 2019-12-16 2019-12-18 Phone nullFlavo [id number] Memoria 13:25:19 04:59:59 Message r Medicine 17 cesilia Bishop 2019-12-16 2019-12-17 Outpatient MHMG MHMG [id number] 08:25:19 23:59:59 16 2019-10-07 2019-10-09 Phone nullFlavo MG [id number] Memoria 17:07:51 04:59:59 Message r Cardiology 15 cesilia Bishop 2019-10-07 2019-10-08 Outpatient MHMG MHMG [id number] 12:07:51 23:59:59 15 2019-10-03 2019-10-04 [place] [id number] Memoria 20:00:00 04:59:59 r Cardiology 34 cesilia Bishop 2019-10-03 2019-10-03 Outpatient Yang, MHMG MG [id number] 15:00:00 23:59:59 Majid Salomón 33 2019-10-03 2019-10-03 Outpatient MHIE MHIE [id number] Memoria 15:00:00 15:00:00 34 cesilia Bishop 2019-09-21 2019-09-22 Between nullFlavo [facility] [id number] Memoria 20:05:57 20:05:57 Visit r Medicine 30 cesilia Bishop 2019-09-21 2019-09-22 Outpatient MHMG MG [id number] 15:05:57 15:05:57 30 2019-09-12 2019-09-13 Outpatient nullFlavo [facility] Family 3 [id number] Memoria 16:00:00 04:59:59 r Medicine 35 cesilia Bishop 2019-09-12 2019-09-12 Outpatient Gabino, MHMG MG [id number] 11:00:00 23:59:59 Kia 34 Mosesitar 2019-09-12 2019-09-12 Ambulatory nullFlavo [facility] Family 3 [id number] Memoria 16:00:00 16:00:00 Pre-Reg r Medicine 33 cesilia Bishop 2019-09-12 2019-09-12 Outpatient MHIE MHIE [id number] Memoria 11:00:00 11:00:00 33 cesilia Bishop 2019-09-12 2019-09-12 Outpatient MHIE MHIE [id number] Memoria 11:00:00 11:00:00 35 cesilia Bishop 2019-09-12 2019-09-12 Outpatient Gabino, JOSSEMG MG [id number] 11:00:00 11:00:00 Kia Leyva Rogerviki 2019-04-04 2019-04-05 [place] [id number] Memoria 17:30:00 05:59:59 r Cardiology 30 cesilia Pinedaann 2019-04-04 2019-04-04 Outpatient Gabino, JOSSEMG MG [id number] 11:30:00 23:59:59 Kia Lopesniharikaviki 2019-04-04 2019-04-04 Ambulatory nullFlavo [facility] 3 [id number] Memoria 19:00:00 19:00:00 Pre-Reg r Medicine 30 cesilia Bishop 2019-04-04 2019-04-04 Outpatient Gabino, MG MG [id number] 13:00:00 13:00:00 Kia Carolyn Duranviki 2019-04-04 2019-04-04 Outpatient MHIE MHIE [id number] Memoria 11:30:00 11:30:00 30 cesilia PinedaKimberly 2019-04-02 2019-04-02 Outpatient MHIE MHIE [id number] Memoria 11:00:00 11:00:00 31 cesilia Dario 2019-03-14 2019-03-15 Outpatient nullFlavo [facility] 3 [id number] Memoria 20:15:00 04:59:59 r Medicine 31 cesilia Reaves Dario 2019-03-14 2019-03-14 Outpatient Gabino, MG MG [id number] 15:15:00 23:59:59 Kia Linh Aries 2019-03-14 2019-03-14 Outpatient MHIE MHIE [id number] Memoria 15:15:00 15:15:00 32 cesilia Dario 2019-03-04 2019-03-05 Between nullFlavo [facility] Family [id number] Memoria 21:22:53 21:22:53 Visit r Medicine 27 cesilia Bishop 2019-03-04 2019-03-05 Between nullFlavo [facility] Family [id number] Memoria 21:22:45 21:22:45 Visit r Medicine 26 cesilia Bishop 2019-03-04 2019-03-05 Outpatient MHMG MHMG [id number] 16:22:53 16:22:53 27 2019-03-04 2019-03-05 Outpatient MHMG MG [id number] 16:22:45 16:22:45 26 2019-01-10 2019-01-12 Phone nullFlavo [facility] Family [id number] Memoria 17:25:15 04:59:59 Message r Medicine 14 cesilia Bishop 2019-01-10 2019 Outpatient MHMG MG [id number] 12:25:15 23:59:59 14 2018-09-26 2018-09-27 Outpatient nullFlavo [facility] Family 3 [id number] Memoria 15:30:00 04:59:59 r Medicine 18 cesilia Bishop 2018-09-26 2018-09-26 Outpatient [place], [place] MG [id number] 10:30:00 23:59:59 Kia Chris 2018-09-26 2018-09-26 Outpatient MHIE MHIE [id number] Memoria 10:30:00 10:30:00 18 cesilia Bishop 2018-08-23 2018-08-24 [place] [id number] Memoria 16:30:00 04:59:59 r Cardiology 26 cesilia Bishop 2018-08-23 2018-08-23 Outpatient Yang, MG MG [id number] 11:30:00 23:59:59 Majid Salomón 26 2018-08-23 2018-08-23 Outpatient MHIE MHIE [id number] Memoria 11:30:00 11:30:00 26 cesilia Bishop 2018-07-18 2018-07-20 Phone nullFlavo MG [id number] Memoria 15:42:00 05:59:59 Message r Cardiology 13 [facility] 2018-07-18 2018-07-19 Outpatient MHMG MHMG [id number] 09:42:00 23:59:59 13 2018-06-15 2018-06-16 Outpatient nullFlavo MG Family 3 [id number] Memoria 17:00:00 05:59:59 r Medicine 28 cesilia Bishop 2018-06-15 2018-06-15 [facility] [id number] 11:00:00 23:59:59 Jose Manuel P 28 2018-06-15 2018-06-15 Outpatient MHIE MHIE [id number] Memoria 11:00:00 11:00:00 28 cesilia Bishop 2018-05-10 2018-05-12 Phone nullFlavo [facility] Family [id number] Memoria 14:04:00 05:59:59 Message r Medicine 12 cesilia Bishop 2018-05-10 2018-05-11 Outpatient [facility] [id number] 08:04:00 23:59:59 12 2018-04-10 2018-04-11 Outpatient nullFlavo MG Family 3 [id number] Memoria 20:15:00 05:59:59 r Medicine 27 cesilia Bishop 2018-04-10 2018-04-10 Outpatient Altaf [facility] [id number] 14:15:00 23:59:59 Jose Manuel P 27 2018-04-10 2018-04-10 Outpatient MHIE MHIE [id number] Memoria 14:15:00 14:15:00 27 cesilia Bishop 2018-03-12 2018-03-14 Phone nullFlavo MG [id number] Memoria 19:14:00 04:59:59 Message r Cardiology 11 cesilia Bishop 2018-03-12 2018-03-13 Outpatient [facility] [id number] 14:14:00 23:59:59 11 2018-03-02 2018-03-04 Phone nullFlavo [facility] Family [id number] Memoria 12:43:00 04:59:59 Message r Medicine 10 cesilia Bishop 2018-03-02 2018-03-03 Outpatient [facility] [id number] 07:43:00 23:59:59 10 2018-02-28 2018-03-02 Phone nullFlavo MG [id number] Memoria 15:52:00 04:59:59 Message r Cardiology 09 [place] G[facility] 2018-02-28 2018-03-01 Outpatient MHMG MHMG [id number] 10:52:00 23:59:59 2018-02-22 2018-02-23 [place] [id number] Memoria 16:30:00 04:59:59 r Cardiology 25 l Jelly Bishop 2018-02-22 2018-02-22 Outpatient Yang, MHMG MG [id number] 11:30:00 23:59:59 Majid Salomón 2018-02-22 2018-02-22 Outpatient MHIE MHIE [id number] Memoria 11:30:00 11:30:00 25 cesilia Bishop 2018-02-15 2018-02-15 [place] [id number] Memoria 18:30:00 18:30:00 Pre-Reg r Cardiology 24 l Jelly Bishop 2018-02-15 2018-02-15 Outpatient MHIE MHIE [id number] Memoria 13:30:00 13:30:00 24 cesilia Bishop 2018-02-15 2018-02-15 Outpatient Yang, MG MG [id number] 13:30:00 13:30:00 Majid Salomón 24 2017-11-13 2017-11-15 Phone nullFlavo MG [id number] Memoria 13:37:00 04:59:59 Message r Cardiology 08 cesilia Bishop 2017-11-13 2017-11-14 Outpatient MHMG MG [id number] 08:37:00 23:59:59 08 2017-11-01 2017-11-01 DONI Slade UTP [id number] [place] 14:15:00 14:15:00 t; VINCENZO BISHOP Phys ici MICHAEL, M.D. ans M.D. 2017-10-04 2017-10-04 DONI Slade UTP [id number] [place] 14:45:00 14:45:00 t; VINCENZO BISHOP Phys ici MICHAEL, M.D. ans M.D. 2017-09-19 2017-09-21 Phone nullFlavo MHMG [id number] Memoria 18:59:00 04:59:59 Message r Cardiology 07 cesilia Bishop 2017-09-19 2017-09-20 Outpatient MHMG MHMG [id number] 13:59:00 23:59:59 07 2017-09-20 2017-09-20 Appointmen DONI BISHOP UTP [id number] [place] 14:45:00 14:45:00 t; VINCENZO BISHOP Phys ici MICHAEL, M.D. ans M.D. 2017-09-18 2017-09-19 [place] [id number] Memoria 19:00:00 04:59:59 r Radiology 23 l Jelly Bishop 2017-09-18 2017-09-19 Outpatient nullFlavo MHMG Family 3 [id number] Memoria 18:30:00 04:59:59 r Medicine 21 l Jelly Bishop 2017-09-18 2017-09-18 Outpatient [facility], [facility] [id number] 14:00:00 23:59:[address] 23 XRAY 2017-09-18 2017-09-18 Outpatient Altaf, [facility] [id number] 13:30:00 23:59:59 Jose Manuel P 21 2017-09-18 2017-09-18 [place] [id number] Memoria 19:00:00 19:00:00 Pre-Reg r Radiology 22 l Jelly Bishop 2017-09-18 2017-09-18 Outpatient MHIE IE [id number] Memoria 14:00:00 14:00:00 22 cesilia Bishop 2017-09-18 2017-09-18 Outpatient MHIE MHIE [id number] Memoria 14:00:00 14:00:00 23 cesilia Bishop 2017-09-18 2017-09-18 Outpatient V[facility], [facility] [id number] 14:00:00 14:00:00 NURSE [address]WH 22 XRAY 2017-09-18 2017-09-18 Outpatient MHIE MHIE [id number] Memoria 13:30:00 13:30:00 21 cesilia Bishop 2017-07-24 2017-07-26 Phone nullFlavo MG [id number] Memoria 17:51:00 05:59:59 Message r Cardiology 06 cesilia Glynn [facility] 2017-07-24 2017-07-25 Outpatient MHMG MG [id number] 11:51:00 23:59:59 06 2017-07-24 2017-07-24 AppointDONI Delgado UTP [id number] [place] 10:45:00 10:45:00 t; 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, 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 NARANJO, ans 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, 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 2017-07-18 2017-07-18 Outpatient Raju_P MMG MMG [id number] [place] 03:18:00 03:18:00 [facility] 2017-06-29 2017-06-30 Outpatient nullFlavo [facility] [id number] Memoria 18:30:00 05:59:59 r Cardiology 20 l Jelly Bishop 2017-06-29 2017-06-29 Outpatient Yang, MG [facility] [id number] 12:30:00 23:59:59 Majfay Lorenzana 20 2017-06-29 2017-06-29 Outpatient IE IE [id number] Memoria 12:30:00 12:30:00 20 l Kimberly 2017-06-13 2017-06-13 Bedded nullFlavo [facility] [id number] Memoria 13:50:11 20:15:00 Outpatient r Kimberly 14 l [place] [facility] 2017-06-13 2017-06-13 Outpatient Yang, MHSL SL [id number] 07:50:11 14:15:00 Majid Salomón 14 2017-06-07 2017-06-08 Outpt Diag nullFlavo [facility] [id number] Memoria 21:45:00 05:59:00 Services r Outpatient 04 l [facility] Dario [place] 2017-06-07 2017-06-07 Outpatient Yang, MH29 [facility] [id number] 15:45:00 23:59:00 Majid Salomón 04 2017-05-11 2017-05-12 Outpatient nullFlavo [facility] [id number] Memoria 17:45:00 05:59:59 r Cardiology 19 l Jelly Dario 2017-05-11 2017-05-11 Outpatient Yang, MG [facility] [id number] 11:45:00 23:59:59 Majid Salomón 19 2017-05-11 2017-05-11 Outpatient MHIE IE [id number] Memoria 11:45:00 11:45:00 19 cesilia Bishop 2017-04-07 2017-04-07 Outpatient IE IE [id number] Memoria 11:00:00 11:00:00 17 cesilia Bishop 2017-01-26 2017-01-26 Outpatient MHIE MHIE [id number] Memoria 13:00:00 13:00:00 07 cesilia Bishop 2016-10-18 2016-10-18 Outpatient MHIE MHIE [id number] Memoria 13:15:00 13:15:00 16 cesilia Bishop 2016-07-12 2016-07-12 Outpatient MHIE MHIE [id number] Memoria 12:45:00 12:45:00 15 cesilia Bishop 2016-07-05 2016-07-05 Bedded [facility] [id number] Memoria 14:29:04 19:55:00 Outpatient r Dario 10 l [place] Gretta nn 2016-07-05 2016-07-05 Outpatient Yang, MHSL SL [id number] 08:29:04 13:55:00 Ramya Lorenzana 10 2016-06-30 2016-06-30 Outpatient MHIE MHIE [id number] Memoria 16:30:00 16:30:00 14 cesilia Bishop 2016-06-30 2016-06-30 Outpatient MHIE MHIE [id number] Memoria 16:30:00 16:30:00 13 cesilia Bishop 2016-06-30 2016-06-30 Outpatient MHIE MHIE [id number] Memoria 15:30:00 15:30:00 12 cesilia Bishop 2016-06-30 2016-06-30 Outpatient MHIE MHIE [id number] Memoria 15:00:00 15:00:00 11 cesilia Bishop 2016-06-02 2016-06-02 Outpatient MHIE MHIE [id number] Memoria 13:00:00 13:00:00 10 cesilia Bishop 2016-06-02 2016-06-02 Outpatient MHIE MHIE [id number] Memoria 13:00:00 13:00:00 09 cesilia Bishop 2016-06-02 2016-06-02 Outpatient MHIE MHIE [id number] Memoria 11:15:00 11:15:00 08 cesilia Bishop 2016-02-10 2016-02-10 Outpatient MHIE MHIE [id number] Memoria 11:00:00 11:00:00 06 cesilia Bishop 2016-01-28 2016-01-28 Outpatient MHIE MHIE [id number] Memoria 11:45:00 11:45:00 05 cesilia Bishop 2015-07-22 2015-07-22 Outpatient IE IE [id number] Memoria 10:45:00 10:45:00 01 cesilia Bishop 2015-05-26 2015-05-26 Outpatient MHIE MHIE [id number] Memoria 16:00:00 16:00:00 03 cesilia Bishop 2015-05-26 2015-05-26 Outpatient MHIE IE [id number] Memoria 16:00:00 16:00:00 04 cesilia Bishop 2015-05-26 2015-05-26 Outpatient MHIE MHIE [id number] Memoria 14:45:00 14:45:00 02 cesilia Bishop 2015-03-18 2015-03-18 Outpatient MHIE MHIE [id number] Memoria 10:45:00 10:45:00 00 cesilia Bishop 2014-06-10 2014-06-11 Inpatient [facility] [id number] Memoria 16:57:00 23:26:00 r Dario 01 l [place] Gretta nn 2014-06-10 2014-06-11 Outpatient Dario, 2.16.840. 2.16.840.1. 3 [id number] 10:57:00 17:26:00 Vincenzo 1.072032. [id number] 01 Fish 3.615.0.1 5.0.216 13 3973-12-01 2014-04-30 [id number] Memoria 23:00:00 23:55:00 Observatio r Dario 38 l n Patient [place] barbosa 2014-04-28 2014-04-30 Outpatient Niño, 2.16.840. 2.16.840.1. 3 [id number] 17:00:00 17:55:00 Justice R [id number]. [id number] 38 3.615.0.1 5.0.412 26 8018-11-11 2014-04-09 Outpt Diag [facility] [id number] Memoria 20:49:00 05:59:00 Services r Outpatient 03 l Imaging Dario [place] 2014-04-08 2014-04-08 Outpatient Ludy, 2.16.840. 2.16.840.1. 3 [id number] 14:49:00 23:59:00 Kamaljit 1.788560. [id number] 03 Hung 3.615.0.1 5.0.783 89 9584-09-15 2014-02-11 Outpt Diag nullFlavo [facility] [id number] Memoria 13:23:00 04:59:00 Services r Outpatient 02 l Imaging Kimberly [place] 2014-02-10 2014-02-10 Outpatient Mucher, 2.16.840. 2.16.840.1. 3 [id number] 08:23:00 23:59:00 Kamaljit 1.895783. [id number] 02 Hung 3.615.0.1 5.0.817 20 2460-08-20 2014-01-16 Outpt Diag nullFlavo [facility] [id number] Memoria 18:05:00 04:59:00 Services r Outpatient 01 l Imaging Soham Sebastian 2014-01-15 2014-01-15 Outpatient Dario, 2.16.840. 2.16.840.1. 3 [id number] 13:05:00 23:59:00 Vincenzo 1.628906. [id number] 01 Fish 3.615.0.1 5.0.652 83 4013-12-11 2013-05-08 Outpatient 2.16.840. 2.16.840.1. 3 [id number] [facility] 10:40:00 23:59:00 1.580233. [id number] 00 Outpati 3.615.0.1 5.0.101 ent 01 German ha 2013-05-08 2013-05-08 OD [facility] [id number] Memoria 10:40:00 10:40:00 00 l Kimberly Results Test Description Test Time Test Comments Results Result Comments Source CHEMISTRY 2022-04-04 18:04:00 Test Item Value Reference Range Interpretation Comme nts Glucose Lvl (test code = Glucose Lvl) 96 65-139 [facility] 18:04:00 Test Item Value Reference Range Interpretation Comments BUN (test code = BUN) 22 7-25 [facility]EnypsshIMGLLXKWQ2277-83-56 18:04:00 Test Item Value Reference Range Interpretation Comments Creatinine Lvl (test code = Creatinine 1.11 0.70-1.28 Lvl) [facility]supkbqSHKHHHLZZ7024-85-52 18:04:00 Test Item Value Reference Range Interpretation Comments eGFR (test code = eGFR) 69 [facility]TgjlwjkABBHOGXTY8521-85-66 18:04:00 Test Item Value Reference Range Interpretation Comments B/C Ratio (test code = B/C NOT APPLICABLE 622 Ratio) [place] 965082-11-07 18:04:00 Test Item Value Reference Range Interpretation Comments Sodium Lvl (test code = Sodium Lvl) 141 135-146 [place] 965082-11-07 18:04:00 Test Item Value Reference Range Interpretation Comments Potassium Lvl (test code = Potassium 4.3 3.5-5.3 Lvl) [facility]KlfehscXEBYEACNP0671-77-14 18:04:00 Test Item Value Reference Range Interpretation Comments Chloride Lvl (test code = Chloride Lvl) 100 98-110 [facility]CfszaztIRQBMTMYT6685-38-91 18:04:00 Test Item Value Reference Range Interpretation Comments CO2 (test code = CO2) 29 20-32 [place] 965082-11-07 18:04:00 Test Item Value Reference Range Interpretation Comments Calcium Lvl (test code = Calcium Lvl) 9.8 8.6-10.3 [facility]FsibtnbHVAWONOVZ9217-70-71 18:04:00 Test Item Value Reference Range Interpretation Comments Total Protein (test code = Total 7.3 6.1-8.1 Protein) [facility]ZfmfiweUEBVRLQIN7929-72-99 18:04:00 Test Item Value Reference Range Interpretation Comments Albumin Lvl (test code = Albumin Lvl) 4.3 3.6-5.1 [place] 965082-11-07 18:04:00 Test Item Value Reference Range Interpretation Comments Globulin (test code = Globulin) 3.0 1.9-3.7 [place] 578[address]-11-07 18:04:00 Test Item Value Reference Range Interpretation Comments A/G Ratio (test code = A/G Ratio) 1.4 1.0-2.5 [place] 965082-11-07 18:04:00 Test Item Value Reference Range Interpretation Comments Bili Total (test code = Bili Total) 0.6 0.2-1.2 [facility]OnubhupSQCZOGWAD8177-64-51 18:04:00 Test Item Value Reference Range Interpretation Comments Alk Phos (test code = Alk Phos) 124 35-144 [facility]XqyrxfsUMHYBDFZT5935-74-81 18:04:00 Test Item Value Reference Range Interpretation Comments ASPARTATE TRANSAMINASE (test code = 33 10-35 ASPARTATE TRANSAMINASE) [facility]UlgwcyaPJPQNPMHR6969-99-05 18:04:00 Test Item Value Reference Range Interpretation Comments ALANINE AMINOTRANSFERASE (test code = 25 9-46 ALANINE AMINOTRANSFERASE) [facility]ynxuztBVUXGJMIFQ1337-85-94 18:04:00 Test Item Value Reference Range Interpretation Comments WBC X 10x3 (test code = WBC X 10x3) 4.0 3.8-10.8 [place] 739952-11-07 18:04:00 Test Item Value Reference Range Interpretation Comments RBC X 10x6 (test code = RBC X 10x6) 4.16 4.20-5.80 [place] 739952-11-07 18:04:00 Test Item Value Reference Range Interpretation Comments Hgb (test code = Hgb) 13.5 13.2-17.1 [facility] HospitalCdsjtmhGMTHUZYLWZ6010-98-83 18:04:00 Test Item Value Reference Range Interpretation Comments Hct (test code = Hct) 39.7 38.5-50.0 [place] 739952-11-07 18:04:00 Test Item Value Reference Range Interpretation Comments MCV (test code = MCV) 95.4 80.0-100.0 [place] 739952-11-07 18:04:00 Test Item Value Reference Range Interpretation Comments MCH (test code = MCH) 32.5 pg 27.0-33.0 [place] 739952-11-07 18:04:00 Test Item Value Reference Range Interpretation Comments MCHC (test code = MCHC) 34.0 32.0-36.0 [place] 739952-11-07 18:04:00 Test Item Value Reference Range Interpretation Comments RDW (test code = RDW) 13.2 11.0-15.0 [place] 739952-11-07 18:04:00 Test Item Value Reference Range Interpretation Comments Platelet (test code = Platelet) 140 140-400 [facility] HospitalMjzkjzfLASMFPFWOR2423-72-02 18:04:00 Test Item Value Reference Range Interpretation Comments MPV (test code = MPV) 12.2 7.5-12.5 [facility] HospitalIcnrhilNVHHITTAYT7325-64-64 18:04:00 Test Item Value Reference Range Interpretation Comments Neutrophils # (test code = Neutrophils 2196 3554-6933 #) [facility] HospitalBpmspnyGCFQTYQXSR4195-97-33 18:04:00 Test Item Value Reference Range Interpretation Comments Lymphocytes # (test code = Lymphocytes 4257 422-4802 #) [facility] HospitalUnrmgnuDCXALSUDRM3013-44-94 18:04:00 Test Item Value Reference Range Interpretation Comments Monocytes # (test code = Monocytes #) 440 200-950 [facility] HospitalHayqsyoBMWQSVETVU1196-15-82 18:04:00 Test Item Value Reference Range Interpretation Comments Eosinophils # (test code = Eosinophils 180 15-500 #) [facility] HospitalLsyrpyqEVYPIWVCHI6303-41-30 18:04:00 Test Item Value Reference Range Interpretation Comments Basophils # (test code 32 See_Comment [Aut omated message] The = Basophils #) system which generated this result tra nsmitted reference range : <=200. The reference r ramiro was not used to int erpret this result as normal/abnormal . [facility] HospitalCdozbdbVDDXQMROJB8986-73-58 18:04:00 Test Item Value Reference Range Interpretation Comments Segs (test code = Segs) 54.9 [facility] HospitalIgdejfzPBTBUCMWTL5908-28-42 18:04:00 Test Item Value Reference Range Interpretation Comments Lymphocytes (test code = Lymphocytes) 28.8 [facility] HospitalMrshobaKACYAOWHKC8996-24-74 18:04:00 Test Item Value Reference Range Interpretation Comments Monocytes (test code = Monocytes) 11.0 [facility] HospitalPqqgwtzRZYHSNQSBO2563-09-07 18:04:00 Test Item Value Reference Range Interpretation Comments Eosinophils (test code = Eosinophils) 4.5 [facility] HospitalIhwfkqpERGBOSZMQC0104-21-12 18:04:00 Test Item Value Reference Range Interpretation Comments Basophils (test code = Basophils) 0.8 [facility]OUXYAZKJPL6854-56-53 16:38:00 Test Item Value Reference Range Interpretation Comments Coronavirus (COVID-19) Not Detected (09/15/20 DOROTHY (test code = 11:38 AM) Coronavirus (COVID-19) DOROTHY) [facility]2021-04-01 05:00:00 Test Item Value Reference Range Interpretation Comments Glucose Lvl (test code = Glucose Lvl) 107 65-139 [facility]2021-04-01 05:00:00 Test Item Value Reference Range Interpretation Comments BUN (test code = BUN) 17 7-25 [facility]2021-04-01 05:00:00 Test Item Value Reference Range Interpretation Comments Creatinine Lvl (test code = Creatinine 1.04 0.70-1.18 Lvl) [facility]2021-04-01 05:00:00 Test Item Value Reference Range Interpretation Comments eGFR NON-AFR. CENTRAL AFRICAN (test code = 70 eGFR NON-AFR. CENTRAL AFRICAN) [facility]2021-04-01 05:00:00 Test Item Value Reference Range Interpretation Comments eGFR (test code = eGFR 82 ) [facility]2021-04-01 05:00:00 Test Item Value Reference Range Interpretation Comments B/C Ratio (test code = B/C NOT APPLICABLE 6-22 Ratio) [facility]2021-04-01 05:00:00 Test Item Value Reference Range Interpretation Comments Sodium Lvl (test code = Sodium Lvl) 139 135-146 [facility]2021-04-01 05:00:00 Test Item Value Reference Range Interpretation Comments Potassium Lvl (test code = Potassium 4.7 3.5-5.3 Lvl) [facility]2021-04-01 05:00:00 Test Item Value Reference Range Interpretation Comments Chloride Lvl (test code = Chloride Lvl) 99 98-110 [facility]2021-04-01 05:00:00 Test Item Value Reference Range Interpretation Comments CO2 (test code = CO2) 25 20-32 [facility]2021-04-01 05:00:00 Test Item Value Reference Range Interpretation Comments Calcium Lvl (test code = Calcium Lvl) 9.6 8.6-10.3 [facility]2021-04-01 05:00:00 Test Item Value Reference Range Interpretation Comments Total Protein (test code = Total 7.2 6.1-8.1 Protein) [facility]2021-04-01 05:00:00 Test Item Value Reference Range Interpretation Comments Albumin Lvl (test code = Albumin Lvl) 4.3 3.6-5.1 [facility] [id number] 05:00:00 Test Item Value Reference Range Interpretation Comments Globulin (test code = Globulin) 2.9 1.9-3.7 [facility] [id number] 05:00:00 Test Item Value Reference Range Interpretation Comments A/G Ratio (test code = A/G Ratio) 1.5 1.0-2.5 [facility] IWUUE4419-03-12 05:00:00 Test Item Value Reference Range Interpretation Comments Bili Total (test code = Bili Total) 0.8 0.2-1.2 [facility] HPODP8300-18-78 05:00:00 Test Item Value Reference Range Interpretation Comments Alk Phos (test code = Alk Phos) 137 35-144 [facility] WCUXW1523-40-51 05:00:00 Test Item Value Reference Range Interpretation Comments ASPARTATE TRANSAMINASE (test code = 56 10-35 ASPARTATE TRANSAMINASE) [facility] [id number] 05:00:00 Test Item Value Reference Range Interpretation Comments ALANINE AMINOTRANSFERASE (test code = 46 9-46 ALANINE AMINOTRANSFERASE) [facility] HospitalPosxcqySEVIII6003-67-62 05:00:00 Test Item Value Reference Range Interpretation Comments Chol (test code = Chol) 125 [facility] HospitalHtihfgeGMZUTO0364-71-92 05:00:00 Test Item Value Reference Range Interpretation Comments HDL (test code = HDL) 35 [facility] HospitalZvewszoLTQVPX3514-89-15 05:00:00 Test Item Value Reference Range Interpretation Comments Trig (test code = Trig) 295 [facility] HospitalDhljhnoLAQEAI4329-74-94 05:00:00 Test Item Value Reference Range Interpretation Comments LDL (Calculated) (test code = LDL 59 (Calculated)) [facility] HospitalJzboebpVLYABN8020-74-30 05:00:00 Test Item Value Reference Range Interpretation Comments CHD Risk (test code = CHD Risk) 3.6 [facility] HospitalThuwexeFVTMND0998-12-04 05:00:00 Test Item Value Reference Range Interpretation Comments Non HDL Chol (test code = Non HDL Chol) 90 [facility] HSFOCQOKD6195-48-74 05:00:00 Test Item Value Reference Range Interpretation Comments Hgb A1C (test code = Hgb A1C) 6.4 [facility]jeuEMQUZHPPJPPN0514-92-12 14:36:00 Test Item Value Reference Range Interpretation Comments AGAP (test code = AGAP) 13.7 10.0-20.0 [facility] HospitalEyvcpotILGSRWXWDQUU0093-45-75 14:36:00 Test Item Value Reference Range Interpretation Comments eGFR (test code = eGFR) 66 [facility] HospitalPgxowdgLUUGHVEZDBBO3779-10-32 14:36:00 Test Item Value Reference Range Interpretation Comments Calcium Lvl (test code = Calcium Lvl) 9.0 8.5-10.5 [facility] HospitalAthacasINZCAPDWGGQC1341-61-33 14:36:00 Test Item Value Reference Range Interpretation Comments Sodium Lvl (test code = Sodium Lvl) 138 135-145 [facility] HospitalOkdqifpOVLNGEQFKHON8128-17-13 14:36:00 Test Item Value Reference Range Interpretation Comments CO2 (test code = CO2) 29 24-32 [facility] HospitalEyqviphIAEDOCBFJOLF2575-84-10 14:36:00 Test Item Value Reference Range Interpretation Comments Chloride Lvl (test code = Chloride Lvl) 99 95-109 [facility] HospitalPktuiplZTFWCTQFGOSI7329-49-88 14:36:00 Test Item Value Reference Range Interpretation Comments Potassium Lvl (test code = Potassium 3.7 3.5-5.1 Lvl) [facility] HospitalNehzsnfRNPBUMITAPHU0872-81-77 14:36:00 Test Item Value Reference Range Interpretation Comments Creatinine Lvl (test code = Creatinine 1.11 0.50-1.40 Lvl) [facility] HospitalYntbadmPRENXSWTMNFE6397-09-79 14:36:00 Test Item Value Reference Range Interpretation Comments BUN (test code = BUN) 16 7-22 [facility] HospitalPqttgdzHGJEBXPRBPGN7747-65-32 14:36:00 Test Item Value Reference Range Interpretation Comments Glucose Lvl (test code = Glucose Lvl) 123 70-99 [facility] HospitalGomvdylQUACYYMGYO0053-50-11 14:36:00 Test Item Value Reference Range Interpretation Comments Lymphocytes (test code = Lymphocytes) 14.5 20.0-40.0 [facility] HospitalWhsbcdwSMHQZXSKVD1345-59-86 14:36:00 Test Item Value Reference Range Interpretation Comments Monocytes (test code = Monocytes) 16.4 2.0-12.0 [facility] HospitalHvddktpTJZZTUPHUD7720-34-98 14:36:00 Test Item Value Reference Range Interpretation Comments Lymphocytes # (test code = Lymphocytes 0.4 1.0-5.5 #) [facility] HospitalCjziltwZZLEQFTNBF5600-51-21 14:36:00 Test Item Value Reference Range Interpretation Comments Basophils (test code = 0.4 See_Comment [Aut omated message] The Basophils) system which ge nerated this result tra nsmitted reference range : <=1.0. The reference r ramiro was not used to int erpret this result as normal/abnormal . [facility] HospitalSccrrzuOOUJPSGJXO9021-12-58 14:36:00 Test Item Value Reference Range Interpretation Comments Eosinophils (test code = 3.6 See_Comment [A utomated message] The Eosinophils) system which ge nerated this result tra nsmitted reference range : <=4.0. The reference r ramiro was not used to int erpret this result as normal/abnormal . [facility] HospitalFgitaeqEVKNYVHILL5080-59-86 14:36:00 Test Item Value Reference Range Interpretation Comments Monocytes # (test code 0.5 See_Comment [Aut omated message] The = Monocytes #) system which generated this result tra nsmitted reference range : <=0.8. The reference r ramiro was not used to int erpret this result as normal/abnormal . [facility] HospitalFgtbuxpJAIWJIYYIX4716-08-24 14:36:00 Test Item Value Reference Range Interpretation Comments Segs-Bands # (test code = Segs-Bands #) 1.9 1.5-8.1 [facility] HospitalJnsbacvVAQPMSBITS5505-41-09 14:36:00 Test Item Value Reference Range Interpretation Comments Basophils # (test code 0.0 See_Comment [Aut omated message] The = Basophils #) system which generated this result tra nsmitted reference range : <=0.2. The reference r ramiro was not used to int erpret this result as normal/abnormal . [id number] 14:36:00 Test Item Value Reference Range Interpretation Comments Eosinophils # (test code 0.1 See_Comment [A utomated message] The = Eosinophils #) system whic h generated this result tra nsmitted reference range : <=0.5. The reference r ramiro was not used to int erpret this result as normal/abnormal . [facility] Hospit[id number] 14:36:00 Test Item Value Reference Range Interpretation Comments Segs (test code = Segs) 65.1 45.0-75.0 [facility] HospitalVfaznhuSYRTVJPYLI1491-90-73 14:36:00 Test Item Value Reference Range Interpretation Comments PTT (test code = PTT) 32.5 s 22.9-35.8 [facility] HospitalQfphnwhNKDEZTJJPD3499-23-95 14:36:00 Test Item Value Reference Range Interpretation Comments PT (test code = PT) 14.8 s 12.0-14.7 [facility] HospitalRjbucqbRAQVBFRYJL9462-24-28 14:36:00 Test Item Value Reference Range Interpretation Comments INR (test code = INR) 1.16 1 0.85-1.17 [facility] HospitalUiwvztvWSAUXGTOGO7387-40-80 14:36:00 Test Item Value Reference Range Interpretation Comments RBC (test code = RBC) 4.22 4.70-6.10 [facility] HospitalXjajmyjMFDQVEQBRV5363-84-38 14:36:00 Test Item Value Reference Range Interpretation Comments WBC (test code = WBC) 2.9 3.7-10.4 [facility] HospitalExaikvxYJZSKYFSDD4091-31-77 14:36:00 Test Item Value Reference Range Interpretation Comments Hgb (test code = Hgb) 13.4 14.0-18.0 [facility] HospitalDsydczmBJQKKALPQZ5362-19-50 14:36:00 Test Item Value Reference Range Interpretation Comments Hct (test code = Hct) 39.8 42.0-54.0 [facility] HospitalIzjfrzhNZLSDNOIER5741-75-61 14:36:00 Test Item Value Reference Range Interpretation Comments MPV (test code = MPV) 8.6 7.4-10.4 [facility] HospitalCyjnpddUXXLASVKVV2559-76-70 14:36:00 Test Item Value Reference Range Interpretation Comments RDW (test code = RDW) 13.3 11.5-14.5 [facility] HospitalJexyfjkRONYWMKQDC1768-64-11 14:36:00 Test Item Value Reference Range Interpretation Comments Platelet (test code = Platelet) 143 133-450 [facility] HospitalEddjtwhALTXRBUVSS1951-71-31 14:36:00 Test Item Value Reference Range Interpretation Comments MCV (test code = MCV) 94.3 80.0-94.0 [facility] HospitalJgidinhZPFGNWCGIV9328-34-07 14:36:00 Test Item Value Reference Range Interpretation Comments MCH (test code = MCH) 31.8 pg 27.0-31.0 [facility] HospitalIfalqgeQWGHZRIUGB2400-85-83 14:36:00 Test Item Value Reference Range Interpretation Comments MCHC (test code = MCHC) 33.7 32.0-36.0 [facility] HospitalMovwagwRFPNQBMWLB4777-36-44 14:50:00 Test Item Value Reference Range Interpretation Comments WBC (test code = WBC) 5.7 3.7-10.4 [facility] HospitalPemufafNMFJYCEXPQ7700-62-98 14:50:00 Test Item Value Reference Range Interpretation Comments RBC (test code = RBC) 4.00 4.70-6.10 [facility] HospitalOyvzwvhMPRHKJPUKE7159-86-48 14:50:00 Test Item Value Reference Range Interpretation Comments Hct (test code = Hct) 36.5 42.0-54.0 [facility] HospitalIlwtjjgZZNSLDWUIF4936-67-28 14:50:00 Test Item Value Reference Range Interpretation Comments MCV (test code = MCV) 91.2 80.0-94.0 [facility] HospitalGksrewsHVLLINLWDY4246-85-37 14:50:00 Test Item Value Reference Range Interpretation Comments MCHC (test code = MCHC) 33.7 32.0-36.0 [facility] HospitalSetfsepLRTTYRDPNA7163-83-27 14:50:00 Test Item Value Reference Range Interpretation Comments RDW (test code = RDW) 14.0 11.5-14.5 [facility] HospitalLkxsrscWGBDSFFCWG5271-67-08 14:50:00 Test Item Value Reference Range Interpretation Comments MCH (test code = MCH) 30.8 pg 27.0-31.0 [facility] HospitalNtqqxdbNTZSZKAWQE6596-62-62 14:50:00 Test Item Value Reference Range Interpretation Comments MPV (test code = MPV) 9.2 7.4-10.4 [facility] HospitalJromuurHPAOVGCDFN8513-99-60 14:50:00 Test Item Value Reference Range Interpretation Comments Platelet (test code = Platelet) 137 133-450 [facility] HospitalGwspdisSMWMIDOCEB7347-58-63 14:50:00 Test Item Value Reference Range Interpretation Comments Hgb (test code = Hgb) 12.3 14.0-18.0 [facility]2015-01-14 14:50:00 Test Item Value Reference Range Interpretation Comments eGFR (test code = eGFR) 56 [facility]2015-01-14 14:50:00 Test Item Value Reference Range Interpretation Comments Glucose Lvl (test code = Glucose Lvl) 132 70-99 [facility]2015-01-14 14:50:00 Test Item Value Reference Range Interpretation Comments Creatinine Lvl (test code = Creatinine 1.3 0.5-1.4 Lvl) [facility]2015-01-14 14:50:00 Test Item Value Reference Range Interpretation Comments BUN (test code = BUN) 14 7-22 [facility]2015-01-14 14:50:00 Test Item Value Reference Range Interpretation Comments Calcium Lvl (test code = Calcium Lvl) 8.0 8.5-10.5 [facility]2015-01-14 14:50:00 Test Item Value Reference Range Interpretation Comments Sodium Lvl (test code = Sodium Lvl) 135 135-145 [facility]2015-01-14 14:50:00 Test Item Value Reference Range Interpretation Comments Potassium Lvl (test code = Potassium 3.4 3.5-5.1 Lvl) [facility]2015-01-14 14:50:00 Test Item Value Reference Range Interpretation Comments CO2 (test code = CO2) 28 24-32 [facility]2015-01-14 14:50:00 Test Item Value Reference Range Interpretation Comments Chloride Lvl (test code = Chloride Lvl) 99 95-109 [facility]2015-01-14 14:50:00 Test Item Value Reference Range Interpretation Comments AGAP (test code = AGAP) 11.4 10.0-20.0 [facility] HospitalFkuqmanIFCNPNHKBT9850-32-24 14:50:00 Test Item Value Reference Range Interpretation Comments Lymphocytes # (test code = Lymphocytes 1.0 1.0-5.5 #) [facility] HospitalHsferxnIIECTBEOYL2456-79-21 14:50:00 Test Item Value Reference Range Interpretation Comments Eosinophils # (test code 0.2 See_Comment [A utomated message] The = Eosinophils #) system whic h generated this result tra nsmitted reference range : <=0.5. The reference r ramiro was not used to int erpret this result as normal/abnormal . [facility] HospitalZgvlznlXDKXCJLHKX0493-15-79 14:50:00 Test Item Value Reference Range Interpretation Comments Monocytes # (test code 0.7 See_Comment [Aut omated message] The = Monocytes #) system which generated this result tra nsmitted reference range : <=0.8. The reference r ramiro was not used to int erpret this result as normal/abnormal . [facility] HospitalXgwbrnwOFVGDSIKZP5218-94-74 14:50:00 Test Item Value Reference Range Interpretation Comments Basophils # (test code 0.0 See_Comment [Aut omated message] The = Basophils #) system which generated this result tra nsmitted reference range : <=0.2. The reference r ramiro was not used to int erpret this result as normal/abnormal . [facility] HospitalIrqrkceYFOGHBJAUL4808-67-10 14:50:00 Test Item Value Reference Range Interpretation Comments Segs (test code = Segs) 67.7 45.0-75.0 [facility] HospitalAakdfumXXDDJELHOO9294-12-04 14:50:00 Test Item Value Reference Range Interpretation Comments Monocytes (test code = Monocytes) 11.7 2.0-12.0 [facility] HospitalTcudfqnQMHBKOJWPV0240-99-65 14:50:00 Test Item Value Reference Range Interpretation Comments Lymphocytes (test code = Lymphocytes) 17.0 20.0-40.0 [facility] HospitalOvggbotXXUTLLKBDM7359-81-68 14:50:00 Test Item Value Reference Range Interpretation Comments Segs-Bands # (test code = Segs-Bands #) 3.8 1.5-8.1 [facility] HospitalN[id number] 14:50:00 Test Item Value Reference Range Interpretation Comments Eosinophils (test code = 3.1 See_Comment [A utomated message] The Eosinophils) system which ge nerated this result tra nsmitted reference range : <=4.0. The reference r ramiro was not used to int erpret this result as normal/abnormal . [facility] HospitalWcsqfajAFROAJXVLM2852-80-14 14:50:00 Test Item Value Reference Range Interpretation Comments Basophils (test code = 0.5 See_Comment [Aut omated message] The Basophils) system which ge nerated this result tra nsmitted reference range : <=1.0. The reference r ramiro was not used to int erpret this result as normal/abnormal . [facility] [id number] 21:32:00 Test Item Value Reference Range Interpretation Comments MRSA by PCR (test Negative 8(06/09/14 3:32 code = MRSA by PCR) PM) [facility] [id number] 21:32:00 Test Item Value Reference Range Interpretation Comments UA Bacteria (test code = UA Occasional /HPF Bacteria) [facility] AND [id number] 21:32:00 Test Item Value Reference Range Interpretation Comments UA RBC (test code = 0-2 /HPF See_Comment [Automa brandy message] The UA RBC) system which ge nerated this result tra nsmitted reference range : <=2. The reference range was not used to interpr et this result as lizbeth l/abnormal. [facility] AND [id number] 21:32:00 Test Item Value Reference Range Interpretation Comments UA Mucus (test code = None Seen (06/09/14 UA Mucus) 3:32 PM) [facility] AND [id number] 21:32:00 Test Item Value Reference Range Interpretation Comments UA Color (test code = Yellow *NA*(06/09/14 UA Color) 3:32 PM) [facility] AND [id number] 21:32:00 Test Item Value Reference Range Interpretation Comments UA WBC (test code = UA WBC) 0-2 /HPF [facility] AND [id number] 21:32:00 Test Item Value Reference Range Interpretation Comments UA Spec Grav (test code = UA Spec 1.020 1 Grav) [facility] AND [id number] 21:32:00 Test Item Value Reference Range Interpretation Comments UA pH (test code = UA pH) 6.5 1 5.0-8.0 [facility] AND [id number] 21:32:00 Test Item Value Reference Range Interpretation Comments UA Turbidity (test code = Clear (06/09/14 3:32 UA Turbidity) PM) [facility] AND [id number] 21:32:00 Test Item Value Reference Range Interpretation Comments UA Protein (test code Negative (06/09/14 3:32 = UA Protein) PM) [facility] AND [id number] 21:32:00 Test Item Value Reference Range Interpretation Comments UA Bili (test code = Negative *NA*(06/09/14 UA Bili) 3:32 PM) [facility] AND [id number] 21:32:00 Test Item Value Reference Range Interpretation Comments UA Urobilinogen (test code = UA 0.2 0.1-1.0 Urobilinogen) [facility] AND [id number] 21:32:00 Test Item Value Reference Range Interpretation Comments UA Blood (test code = Trace *ABN*(06/09/14 UA Blood) 3:32 PM) [facility] AND [id number] 21:32:00 Test Item Value Reference Range Interpretation Comments UA Glucose (test code Negative (06/09/14 3:32 = UA Glucose) PM) [facility] AND [id number] 21:32:00 Test Item Value Reference Range Interpretation Comments UA Ketones (test code Negative *NA*(06/09/14 = UA Ketones) 3:32 PM) [facility] AND [id number] 21:32:00 Test Item Value Reference Range Interpretation Comments UA Nitrite (test code Negative (06/09/14 3:32 = UA Nitrite) PM) [facility] AND [id number] 21:32:00 Test Item Value Reference Range Interpretation Comments UA Sq Epi (test code = UA Sq Occasional /LPF Epi) [facility] AND [id number] 21:32:00 Test Item Value Reference Range Interpretation Comments UA Leuk Est (test Negative (06/09/14 3:32 code = UA Leuk Est) PM) [facility]2015-01-12 21:29:00 Test Item Value Reference Range Interpretation Comments A/G Ratio (test code = A/G Ratio) 1.2 0.7-1.6 [facility]2015-01-12 21:29:00 Test Item Value Reference Range Interpretation Comments AGAP (test code = AGAP) 11.7 10.0-20.0 [facility]2015-01-12 21:29:00 Test Item Value Reference Range Interpretation Comments B/C Ratio (test code = B/C Ratio) 10 6-25 [facility]2015-01-12 21:29:00 Test Item Value Reference Range Interpretation Comments Globulin (test code = Globulin) 3.3 2.0-4.0 [facility]2015-01-12 21:29:00 Test Item Value Reference Range Interpretation Comments eGFR (test code = eGFR) 56 [facility]2015-01-12 21:29:00 Test Item Value Reference Range Interpretation Comments Total Protein (test code = Total 7.3 6.4-8.4 Protein) [facility]2015-01-12 21:29:00 Test Item Value Reference Range Interpretation Comments Calcium Lvl (test code = Calcium Lvl) 8.8 8.5-10.5 [place] [id number] 21:29:00 Test Item Value Reference Range Interpretation Comments CO2 (test code = CO2) 30 24-32 [facility]2015-01-12 21:29:00 Test Item Value Reference Range Interpretation Comments Chloride Lvl (test code = Chloride Lvl) 101 95-109 [facility]2015-01-12 21:29:00 Test Item Value Reference Range Interpretation Comments Alk Phos (test code = Alk Phos) 134 39-136 [facility]2015-01-12 21:29:00 Test Item Value Reference Range Interpretation Comments AST (test code = AST) 36 See_Comment [Auto mated message] The system which ge nerated this result transmit brandy reference range : <=37. The reference range was not used to interpr et this result as lizbeth l/abnormal. [facility]2015-01-12 21:29:00 Test Item Value Reference Range Interpretation Comments Albumin Lvl (test code = Albumin Lvl) 4.0 3.5-5.0 [facility]2015-01-12 21:29:00 Test Item Value Reference Range Interpretation Comments ALT (test code = ALT) 51 See_Comment [Auto mated message] The system which ge nerated this result transmit brandy reference range : <=65. The reference range was not used to interpr et this result as lizbeth l/abnormal. [facility]2015-01-12 21:29:00 Test Item Value Reference Range Interpretation Comments Bili Total (test code = Bili Total) 0.6 0.2-1.3 [facility]2015-01-12 21:29:00 Test Item Value Reference Range Interpretation Comments Creatinine Lvl (test code = Creatinine 1.3 0.5-1.4 Lvl) [facility]2015-01-12 21:29:00 Test Item Value Reference Range Interpretation Comments BUN (test code = BUN) 13 7-22 [facility]2015-01-12 21:29:00 Test Item Value Reference Range Interpretation Comments Glucose Lvl (test code = Glucose Lvl) 100 70-99 [facility]2015-01-12 21:29:00 Test Item Value Reference Range Interpretation Comments Potassium Lvl (test code = Potassium 3.7 3.5-5.1 Lvl) [facility]2015-01-12 21:29:00 Test Item Value Reference Range Interpretation Comments Sodium Lvl (test code = Sodium Lvl) 139 135-145 [facility] Hos[id number] 21:29:00 Test Item Value Reference Range Interpretation Comments INR (test code = INR) 0.98 0.85-1.17 [facility] H[id number] 21:29:00 Test Item Value Reference Range Interpretation Comments PT (test code = PT) 13.0 s 12.0-14.7 [facility] H[id number] 21:29:00 Test Item Value Reference Range Interpretation Comments PTT (test code = PTT) 35.2 s 22.9-35.8 [facility] HospitalHbontobIDZXVIPJNX9280-17-05 21:29:00 Test Item Value Reference Range Interpretation Comments WBC (test code = WBC) 6.2 3.7-10.4 [facility] Hos[id number] 21:29:00 Test Item Value Reference Range Interpretation Comments RBC (test code = RBC) 5.13 4.70-6.10 [facility] HospitalWcpkszyHZZINFXZDG0695-55-51 21:29:00 Test Item Value Reference Range Interpretation Comments Hgb (test code = Hgb) 15.6 14.0-18.0 [facility] HospitalIkfgaaoQGVKQGQJWV8742-13-21 21:29:00 Test Item Value Reference Range Interpretation Comments Hct (test code = Hct) 46.4 42.0-54.0 [facility] HospitalBwjarbsTPDVUTSWDY8939-81-03 21:29:00 Test Item Value Reference Range Interpretation Comments RDW (test code = RDW) 13.6 11.5-14.5 [facility] Hospit[id number] 21:29:00 Test Item Value Reference Range Interpretation Comments Platelet (test code = Platelet) 181 133-450 [facility] Hospit[id number] 21:29:00 Test Item Value Reference Range Interpretation Comments MCV (test code = MCV) 90.3 80.0-94.0 [facility] HospitalIunkhndDBEIYLCSBC6884-44-01 21:29:00 Test Item Value Reference Range Interpretation Comments MCH (test code = MCH) 30.4 pg 27.0-31.0 [facility] HospitalQlljvwaCGXIRBETYS4614-92-71 21:29:00 Test Item Value Reference Range Interpretation Comments MCHC (test code = MCHC) 33.6 32.0-36.0 [facility] Hospit[id number] 21:29:00 Test Item Value Reference Range Interpretation Comments MPV (test code = MPV) 9.2 7.4-10.4 [facility] Ho[id number] 21:29:00 Test Item Value Reference Range Interpretation Comments Segs (test code = Segs) 57.9 45.0-75.0 [facility] Hos[id number] 21:29:00 Test Item Value Reference Range Interpretation Comments Eosinophils (test code = 3.0 See_Comment [A utomated message] The Eosinophils) system which ge nerated this result tra nsmitted reference range : <=4.0. The reference r ramiro was not used to int erpret this result as normal/abnormal . [facility] Hospit[id number] 21:29:00 Test Item Value Reference Range Interpretation Comments Monocytes (test code = Monocytes) 12.4 2.0-12.0 [facility] HospitalSfubeluTXLAGAWWWX6498-52-61 21:29:00 Test Item Value Reference Range Interpretation Comments Monocytes # (test code 0.8 See_Comment [Aut omated message] The = Monocytes #) system which generated this result tra nsmitted reference range : <=0.8. The reference r ramiro was not used to int erpret this result as normal/abnormal . [facility] Hos[id number] 21:29:00 Test Item Value Reference Range Interpretation Comments Segs-Bands # (test code = Segs-Bands #) 3.6 1.5-8.1 [facility] H[id number] 21:29:00 Test Item Value Reference Range Interpretation Comments Basophils # (test code 0.0 See_Comment [Aut omated message] The = Basophils #) system which generated this result tra nsmitted reference range : <=0.2. The reference r ramiro was not used to int erpret this result as normal/abnormal . [facility] HospitalSbqgwinBCCBBAPYNB6020-96-29 21:29:00 Test Item Value Reference Range Interpretation Comments Eosinophils # (test code 0.2 See_Comment [A utomated message] The = Eosinophils #) system whic h generated this result tra nsmitted reference range : <=0.5. The reference r ramiro was not used to int erpret this result as normal/abnormal . [facility] HospitalTaoccziGMSZBOELFO7765-62-25 21:29:00 Test Item Value Reference Range Interpretation Comments Lymphocytes # (test code = Lymphocytes 1.6 1.0-5.5 #) [facility] H[id number] 21:29:00 Test Item Value Reference Range Interpretation Comments Basophils (test code = 0.3 See_Comment [Aut omated message] The Basophils) system which ge nerated this result tra nsmitted reference range : <=1.0. The reference r ramiro was not used to int erpret this result as normal/abnormal . [facility] Hospit[id number] 21:29:00 Test Item Value Reference Range Interpretation Comments Lymphocytes (test code = Lymphocytes) 26.4 20.0-40.0 [facility] AND [id number] 15:00:00 Test Item Value Reference Range Interpretation Comments Micro? (test code = Performed (04/29/14 9:00 Micro?) AM) [facility] AND [id number] 15:00:00 Test Item Value Reference Range Interpretation Comments UA RBC (test code = 3-5 /HPF See_Comment [Automa brandy message] The UA RBC) system which ge nerated this result tra nsmitted reference range : <=2. The reference range was not used to interpr et this result as lizbeth l/abnormal. [facility] AND [id number] 15:00:00 Test Item Value Reference Range Interpretation Comments UA WBC (test code = UA WBC) >100 /HPF [facility] AND [id number] 15:00:00 Test Item Value Reference Range Interpretation Comments UA Sq Epi (test code = UA Sq Occasional /LPF Epi) [facility] AND [id number] 15:00:00 Test Item Value Reference Range Interpretation Comments UA Mucus (test code = UA Mucus) Rare /LPF [facility] AND [id number] 15:00:00 Test Item Value Reference Range Interpretation Comments UA Bacteria (test code = UA Few /HPF Bacteria) [facility] AND [id number] 15:00:00 Test Item Value Reference Range Interpretation Comments UA Blood (test code = Small *ABN*(04/29/14 UA Blood) 9:00 AM) [facility] AND [id number] 15:00:00 Test Item Value Reference Range Interpretation Comments UA Urobilinogen (test code = UA 0.2 0.1-1.0 Urobilinogen) [facility] AND [id number] 15:00:00 Test Item Value Reference Range Interpretation Comments UA Leuk Est (test Moderate *ABN*(04/29/14 code = UA Leuk Est) 9:00 AM) [facility] AND [id number] 15:00:00 Test Item Value Reference Range Interpretation Comments UA Nitrite (test code Negative (04/29/14 9:00 = UA Nitrite) AM) [facility] AND [id number] 15:00:00 Test Item Value Reference Range Interpretation Comments UA Glucose (test code Negative (04/29/14 9:00 = UA Glucose) AM) [facility] AND [id number] 15:00:00 Test Item Value Reference Range Interpretation Comments UA Protein (test code Negative (04/29/14 9:00 = UA Protein) AM) [facility] AND [id number] 15:00:00 Test Item Value Reference Range Interpretation Comments UA Bili (test code = Negative *NA*(04/29/14 UA Bili) 9:00 AM) [facility] AND [id number] 15:00:00 Test Item Value Reference Range Interpretation Comments UA Ketones (test code Negative *NA*(04/29/14 = UA Ketones) 9:00 AM) [facility] AND [id number] 15:00:00 Test Item Value Reference Range Interpretation Comments UA Turbidity (test code = Clear (04/29/14 9:00 UA Turbidity) AM) [facility] AND [id number] 15:00:00 Test Item Value Reference Range Interpretation Comments UA Spec Grav (test code = UA Spec 1.015 1 Grav) [facility]2014-12-02 15:00:00 Test Item Value Reference Range Interpretation Comments UA pH (test code = UA pH) 6.0 1 5.0-8.0 [facility]2014-12-02 15:00:00 Test Item Value Reference Range Interpretation Comments UA Color (test code = Yellow *NA*(04/29/14 UA Color) 9:00 AM) [id number] 05:04:00 Test Item Value Reference Range Interpretation Comments AGAP (test code = AGAP) 11.4 10.0-20.0 [facility] HospitalFuqlztrHUBEHNWRVMNX2098-44-30 05:04:00 Test Item Value Reference Range Interpretation Comments eGFR (test code = eGFR) 56 [facility] HospitalPrumzncMUOWUIZXUBBA1083-38-78 05:04:00 Test Item Value Reference Range Interpretation Comments BUN (test code = BUN) 12 7-22 [facility] HospitalZxcpvtjDNKNMDMGWEMY6692-76-66 05:04:00 Test Item Value Reference Range Interpretation Comments Glucose Lvl (test code = Glucose Lvl) 104 70-99 [facility] HospitalQwfcfewCXEAHDTPKQTC5980-41-75 05:04:00 Test Item Value Reference Range Interpretation Comments Creatinine Lvl (test code = Creatinine 1.3 0.5-1.4 Lvl) [facility] HospitalFtfehqtUMBNAZHWJJTW3645-02-48 05:04:00 Test Item Value Reference Range Interpretation Comments Calcium Lvl (test code = Calcium Lvl) 8.7 8.5-10.5 [facility] HospitalZovfxgrXEYYPVYYLLIK8472-07-85 05:04:00 Test Item Value Reference Range Interpretation Comments Sodium Lvl (test code = Sodium Lvl) 138 135-145 [facility] HospitalUjuocnlLFAEIOVXDXAA9362-60-18 05:04:00 Test Item Value Reference Range Interpretation Comments Potassium Lvl (test code = Potassium 3.4 3.5-5.1 Lvl) [facility] Ho[id number] 05:04:00 Test Item Value Reference Range Interpretation Comments Chloride Lvl (test code = Chloride Lvl) 102 95-109 [facility][id number] 05:04:00 Test Item Value Reference Range Interpretation Comments CO2 (test code = CO2) 28 24-32 [id number] 05:04:00 Test Item Value Reference Range Interpretation Comments RDW (test code = RDW) 14.4 11.5-14.5 [id number] 05:04:00 Test Item Value Reference Range Interpretation Comments Platelet (test code = Platelet) 174 133-450 [facility]IesrirmJTSNDVYXNW0958-77-54 05:04:00 Test Item Value Reference Range Interpretation Comments MPV (test code = MPV) 8.9 7.4-10.4 [facility] Hospit[id number] 05:04:00 Test Item Value Reference Range Interpretation Comments MCHC (test code = MCHC) 34.4 32.0-36.0 [facility] H[id number] 05:04:00 Test Item Value Reference Range Interpretation Comments MCH (test code = MCH) 31.4 pg 27.0-31.0 [facility] Hospit[id number] 05:04:00 Test Item Value Reference Range Interpretation Comments MCV (test code = MCV) 91.3 80.0-94.0 [facility] Hospit[id number] 05:04:00 Test Item Value Reference Range Interpretation Comments Hct (test code = Hct) 42.1 42.0-54.0 [facility] H[id number] 05:04:00 Test Item Value Reference Range Interpretation Comments Hgb (test code = Hgb) 14.5 14.0-18.0 [facility] Hospit[id number] 05:04:00 Test Item Value Reference Range Interpretation Comments RBC (test code = RBC) 4.61 4.70-6.10 [facility] Hos[id number] 05:04:00 Test Item Value Reference Range Interpretation Comments WBC (test code = WBC) 6.0 3.7-10.4 [facility] Hos[id number] 05:04:00 Test Item Value Reference Range Interpretation Comments Basophils # (test code 0.0 See_Comment [Aut omated message] The = Basophils #) system which generated this result tra nsmitted reference range : <=0.2. The reference r ramiro was not used to int erpret this result as normal/abnormal . [facility] Hospit[id number] 05:04:00 Test Item Value Reference Range Interpretation Comments Eosinophils # (test code 0.2 See_Comment [A utomated message] The = Eosinophils #) system whic h generated this result tra nsmitted reference range : <=0.5. The reference r ramiro was not used to int erpret this result as normal/abnormal . [facility] Ho[id number] 05:04:00 Test Item Value Reference Range Interpretation Comments Monocytes # (test code 0.8 See_Comment [Aut omated message] The = Monocytes #) system which generated this result tra nsmitted reference range : <=0.8. The reference r ramiro was not used to int erpret this result as normal/abnormal . [facility] Hospit[id number] 05:04:00 Test Item Value Reference Range Interpretation Comments Lymphocytes # (test code = Lymphocytes 1.8 1.0-5.5 #) [facility] H[id number] 05:04:00 Test Item Value Reference Range Interpretation Comments Segs-Bands # (test code = Segs-Bands #) 3.2 1.5-8.1 [facility] Hospit[id number] 05:04:00 Test Item Value Reference Range Interpretation Comments Eosinophils (test code = 2.8 See_Comment [A utomated message] The Eosinophils) system which ge nerated this result tra nsmitted reference range : <=4.0. The reference r ramiro was not used to int erpret this result as normal/abnormal . [facility] H[id number] 05:04:00 Test Item Value Reference Range Interpretation Comments Basophils (test code = 0.4 See_Comment [Aut omated message] The Basophils) system which ge nerated this result tra nsmitted reference range : <=1.0. The reference r ramiro was not used to int erpret this result as normal/abnormal . [facility] H[id number] 05:04:00 Test Item Value Reference Range Interpretation Comments Segs (test code = Segs) 53.5 45.0-75.0 [facility] H[id number] 05:04:00 Test Item Value Reference Range Interpretation Comments Lymphocytes (test code = Lymphocytes) 30.1 20.0-40.0 [facility] Hos[id number] 05:04:00 Test Item Value Reference Range Interpretation Comments Monocytes (test code = Monocytes) 13.2 2.0-12.0 [facility] HospitalBACTERIAL - [id number] 20:00:12 Test Item Value Reference Range Interpretation Comments MRSA by PCR (test Negative 9(04/08/14 2:00 code = MRSA by PCR) PM) [facility] Hospital[facility] Ultrasound-CompleteRenal Ultrasound-Complete
[2022-06-07 17:08] LABS: Protime INR 1.27
[2022-06-07 17:09] LABS: Absolute Lymphocytes (CBC) 0.8 K/uL (0.7-4.9); Hematocrit 35.9 % (39.6-49.0); Lymphocytes % 13.8 % (15.3-44.8); MCV 93.5 fL (80-100); MPV 9.3 fL (7.6-11.3); RBC Red Blood Cell Count 3.84 M/uL (4.33-5.43)
[2022-06-07 17:19] LABS: SARS-CoV-2 Antigen Rapid Res Negative (Negative)
--- NOTE | 2022-06-07 17:22 | RAD REPORT ---
EXAM DESCRIPTION: RAD - Chest Single View - 06/07/2022 5:06 pm CLINICAL HISTORY: Generalized weakness COMPARISON: None TECHNIQUE: AP portable chest image was obtained 06/07/2022 5:06 pm . FINDINGS: No peripheral mass or consolidation. Prominent interstitial pattern is present with the ba seline the patient unknown. This could be chronic interstitial lung disease, interstitial edema, inte rstitial infiltrate or a combination. Heart and vasculature are normal. No measurable pleural effusion and no pneumothorax. No acute bony abnormality seen. No acute aortic findings suspected. IMPRESSION: Baseline examination showing prominent interstitial lung pattern. Chronic lung disease, edema and infiltrate are all possible alone or in combination.
[2022-06-07 17:24] LABS: Albumin 2.9 g/dL (3.4-5.0); Bilirubin Direct 0.3 mg/dL (0-0.2); Bilirubin Total 0.9 mg/dL (0.2-1.0); Potassium 3.7 mmol/L (3.5-5.1); Troponin High Sensitivity 10.6 pg/mL (<58.9)
--- NOTE | 2022-06-07 17:26 | RAD REPORT ---
EXAM DESCRIPTION: CT - Head Brain Wo Cont - 06/07/2022 5:14 pm CLINICAL HISTORY: Weakness COMPARISON: No comparisons TECHNIQUE: Axial 5 mm thick images of the head were obtained without IV contrast. All CT scans are performed using dose optimization technique as appropriate and may include automated exposure control or mA/KV adjustment according to patient size. FINDINGS: No intracranial hemorrhage, mass, edema or shift of mid-line structures. No acute infarcti on changes seen. No cortical edema or sulcal effacement. Mild for age atrophy changes are present wit h ventricles in proportion to volume loss. Chronic ischemic changes are minimal. Ventricles are in pr oportion to volume loss. Arterial and physiologic calcifications are present. Mastoid air cells and visualized portions of the paranasal sinuses are clear. No acute bony findings. IMPRESSION: Negative non-contrast CT head examination for acute finding. Atrophy and chronic ischemic changes are mild. Ventricles are in proportion to any volume loss.
[2022-06-07] MEDS ORDERED: NA CHLORIDE 0.9% 500 ML ONE (17:33)
--- NOTE | 2022-06-07 17:41 | RAD REPORT ---
EXAM DESCRIPTION: CT - Chest Abd Pelvis Wo Con - 06/07/2022 5:13 pm CLINICAL HISTORY: Left posterior back and flank pain s/p fall COMPARISON: Lumbar Spine Wo Con dated 05/15/2019; Renal Ultrasound-Complete dated 04/29/2021 TECHNIQUE: Axial 5 millimeter thick images of the chest, abdomen and pelvis were obtained without IV contrast. No oral contrast was administered. All CT scans are performed using dose optimization technique as appropriate and may include automated exposure control or mA/KV adjustment according to patient size. FINDINGS: The lungs are clear of mass and infiltrate. No pneumothorax or pleural effusion. No ches t wall mass or abnormal axillary lymphadenopathy seen. Mediastinal and hilar regions show no mass or lymphadenopathy. No significant cardiac finding. The liver, spleen and pancreas show no significant findings for non contrast imaging. A 3 centimeter cyst of the right lobe liver is present. Well filled gallbladder is present with no wall thickening or edema seen. No pericholecystic fluid. No biliary tree dilatation. Duct stones and gallstones can b e occult. No hydronephrosis of either kidney. Bilateral nonobstructing 2-5 mm calyx calculi seen. A 2.[address] partially exophytic rounded masses present posterior mid left kidney that is isodense to slightly hyperdense to the adjacent renal parenchyma. Hemorrhagic or high protein content cyst is possible. A solid mass of the kidney is not excluded. No mass or cyst was detailed on a 2020 renal ultrasound. I sodense masses and pyelonephritis cannot be excluded on non contrast imaging. No adrenal abnormalitie s. No urinary bladder abnormalities. No dilated bowel loops or focal ball bowel wall thickening. No appendicitis findings. No free air, fr ee fluid or inflammatory stranding. No hernia, mass or bulky lymphadenopathy. There is partial collapse of the superior endplate L5. Peripheral wall height is maintained. This was not present on the 2019 lumbar spine MRI study. Age of this partial collapse is uncertain. There is degenerative gas in the disc spaces of L3-4, L4-5 and L5-S1. Cervical, thoracic and lumbar vertebrae are otherwise normal in height. Right ischium fracture is present. There does appear to be some callu s formation present suggesting it is not acute. No proximal femur fracture. SI joint degenerative deandra nges mild for age. No fracture of the sacrum or sacral ala confirmed. No soft tissue hematoma or mass . No skeletal muscle abnormality. IMPRESSION: CT chest imaging shows no posttraumatic change or significant finding. No acute injury to the soft tissues of the abdomen and pelvis. The 2.5 centimeter partially exophytic posterior mid left renal mass is present. This could be a charley d mass or a high protein content cyst.Follow-up outpatient contrast CT imaging could be performed or outpatient renal ultrasound if the patient cannot undergo a contrast-enhanced study. Partial collapse superior endplate L5 body uncertain age. Acute fracture of L5 cannot be excluded. Phil sawyer also has a subacute right ischium fracture.
--- NOTE | 2022-06-07 18:50 | ER ---
Nurse's Notes [facility] [place] Name: Abel Brasher Age: 77 yrs Sex: Male : 1945 Arrival Date: 06/07/2022 Time: 16:32 Bed 26 Private MD: Diagnosis: Dehydration;Hypotension, unspecified;Repeated falls Presentation: 06/07 16:35 Chief complaint: EMS states: toned out for generalized weakness, EMS states the patient joshua has been sick x 3 days with today becoming weak and unable to function without assistance. Coronavirus screen: Vaccine status: Patient reports receiving the 2nd dose of the covid vaccine. Ebola Screen: Patient denies travel to an Ebola-affected area in the 21 days before illness onset. Initial Sepsis Screen: Does the patient meet any 2 criteria? No. Patient's initial sepsis screen is negative. Does the patient have a suspected source of infection? No. Patient's initial sepsis screen is negative. Risk Assessment: Do you want to hurt yourself or someone else? Patient reports no desire to harm self or others. Onset of symptoms was June 04, 2022. 16:35 Method Of Arrival: EMS kr3 16:35 Acuity: BETTYE 3 kr3 Triage Assessment: 20:39 General: Appears in no apparent distress. Behavior is calm, cooperative. Pain: Denies aa9 pain. Historical: - PMHx: 16:39 Hyperlipidemia; Hypertension; Kidney stones; kr3 - Immunization history:: Adult Immunizations. - Social history:: Smoking status: Patient denies any tobacco usage or history of. Screenin:24 Abuse screen: Denies threats or abuse. Denies injuries from another. Nutritional aa9 screening: No deficits noted. Tuberculosis screening: No symptoms or risk factors identified. 20:39 [facility] ED Fall Risk Assessment (Adult) History of falling in the last 3 months, aa9 including since admission No falls in past 3 months (0 pts). Vital Signs: 16:35 BP 97 / 57; Pulse 68; Resp 18; Pulse Ox 95% on 2 lpm NC; kr3 18:09 BP 106 / 69; Pulse 83; Resp 18; Pulse Ox 98% on R/A; kr3 19:23 Pulse 69; Resp 19 S; Temp 98.2(O); Pulse Ox 100% on 2 lpm NC; Weight 82.55 kg (R); aa9 Height 6 ft. 1 in. (185.42 cm) (R); Pain 0/10; 19:23 Body Mass Index 24.01 (82.55 kg, 185.42 cm) aa9 ED Course: 16:32 Patient arrived in ED. ss 16:32 Agustin Narayan NP is PHCP. pm1 16:32 Daya Vasques MD is Attending Physician. pm1 16:34 Mikki Ramirez, GUILLE is Primary Nurse. kr3 16:39 Triage completed. kr3 16:39 Arm band placed on right wrist. Patient placed in an exam room, on a stretcher. kr3 16:52 Initial lab(s) drawn, by me, sent to lab. COVID swab sent to lab. tm3 17:08 XRAY Chest (1 view) In Process Unspecified. EDMS 17:15 CT Chest Abdomen Pelvis W/O Contrast In Process Unspecified. EDMS 17:15 CT Head Brain wo Cont In Process Unspecified. EDMS 18:31 EKG done, by ED staff. tm3 18:49 Lindsey Rush PA-C is Hospitalizing Provider. pm1 19:19 Primary Nurse role handed off by Mikki Ramirez RN mw2 19:25 Parish Graham is Hospitalizing Provider. pm1 20:39 Patient has correct armband on for positive identification. Call light in reach. Side aa9 rails up X2. 20:39 No provider procedures requiring assistance completed. Patient admitted, IV remains in aa9 place. 06/08 01:14 Claribel santos RN is Primary Nurse. pf1 07:12 Primary Nurse role handed off by Claribel santos RN bd Administered Medications: 06/07 17:54 Drug: NS 0.9% 500 ml Volume: 500 ml; Route: IV; Rate: 1 bolus; Site: right forearm; kr3 Medication: 20:39 VIS not applicable for this client. aa9 Outcome: 18:50 Decision to Hospitalize by Provider. pm1 20:39 Admitted to ER Hold. Please see [facility] for further documentation. aa9 20:39 Condition: stable 20:39 Instructed on the need for admit. 06/08 15:39 Patient left the ED. ss Signatures: Dispatcher [employer] EDMS Shelbie Beatty Toni tm3 Leslie Tolliver, RN RN ss Agustin Narayan, SALES AND RETAIL MANAGEMENT RECRUITER SALES AND RETAIL MANAGEMENT RECRUITER pm1 Gab, Omid mw2 Rosenda Degroot, RN RN aa9 Mikki Ramirez, RN RN kr3 Claribel santos, RN RN pf1
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
--- NOTE | 2022-06-07 20:01 | P.HP ---
Certification for Inpatient Patient admitted to: Inpatient With expected LOS: <2 Midnights Patient will require the following post-hospital care: None Practitioner: I am a practitioner with admitting privileges, knowledge of patient current condition, hospital course, and medical plan of care. Services: Services provided to patient in accordance with Admission requirements found in Title 42 Section 412.3 of the Code of Federal Regulations Patient History Date of Service: 06/07/22 Primary Care Provider: Ember Reason for admission: Recurrent Falls, Dehydration History of Present Illness: Patient is a 77 year old male with past medical history of hypertension, hyperlipidemia, and parkinson's who presented to the emergency department with via EMS with complaints of recurrent falls and generalized weakness x 3 days. reports that he does have issues with falls secondary to his neuropathy and parkinsons, but he has been falling more often recently. He sees Dr. Carrillo and was recently started on new medication which reports has helped. He has had decreased p.o. intake the past few days. he was initially hypotensive, with systolic in the 70s, but improved with IV fluids. Labs are significant for hemoglobin 12.4, hematocrit 35.9, BUN 34, creatinine 2.12, BNP 1000, albumin 2.9. Head CT negative. Chest abdomen pelvis CT showed no acute injury but did find an incidental/nonemergent 2.5 cm left renal mass. Also found a partial collapse superior endplate L5 body uncertain age and subacute right i schium fracture. ED provider wishes to admit patient for further management. Allergies No Known Allergies Allergy (Unverified 09/09/16 17:17) - Past Medical/Surgical History Diabetic: No -: Parkinsons -: Hypertension -: Hyperlipidemia Psychosocial/ Personal History: Patient is . - Family History Family History: Reviewed- Non-Contributory - Social History Smoking Status: Never smoker Alcohol use: No CD- Drugs: No Caffeine use: No Place of Residence: Home Review of Systems General: Weakness Physical Examination - Vital Signs Temperature: 98.2 F Blood Pressure: 106/69 Pulse: 69 Respirations: 19 Pulse Ox (%): 100 - Physical Exam General: Alert, In no apparent distress HEENT: Atraumatic, PERRLA, EOMI, Sclerae nonicteric Neck: Supple, 2+ carotid pulse no bruit Respiratory: Clear to auscultation bilaterally, Normal air movement Cardiovascular: Regular rate/rhythm, Normal S1 S2 Gastrointestinal: Normal bowel sounds, No tenderness Musculoskeletal: No tenderness Integumentary: No rashes Neurological: Normal speech, Sensation intact - Studies Laboratory Data (last 24 hrs) 06/07/22 16:45: PT 14.0 H, INR 1.27 06/07/22 16:45: WBC 6.00, Hgb 12.4 L, Hct 35.9 L, Plt Count 116 L 06/07/22 16:45: Sodium 135 L, Potassium 3.7, BUN 34 H, Creatinine 2.12 H, Glucose 99, Total Bilirubin 0.9, AST 17, ALT 21, Alkaline Phosphatase 109 Assessment and Plan - Problems (Diagnosis) (1) Recurrent falls Current Visit: Yes Status: Acute (2) Dehydration Current Visit: Yes Status: Acute (3) Hypertension Current Visit: Yes Status: Chronic Qualifiers: Hypertension type: primary hypertension Qualified Code(s): I10 - Essential (primary) hypertension (4) Hyperlipidemia Current Visit: Yes Status: Chronic Qualifiers: Hyperlipidemia type: mixed hyperlipidemia Qualified Code(s): E78.2 - Mixed hyperlipidemia (5) Parkinsons Current Visit: Yes Status: Chronic - Plan Patient is admitted for further management of recurrent falls/dehydration. Continue IV hydration and recheck labs in the morning. Fall precautions in place. Physical therapy and neurology consult. Patient will likely need group home placement on discharge. Per chart review, Dr. Hall has been following the renal cyst. Encourage PO intake. Ensures ordered. Monitor and replete electrolytes per protocol. Reconcile and continue home medications. VTE prophylaxis. Full code. Discharge Plan: Other (SNF) Plan to discharge in: 48 Hours - Advance Directives Does patient have a Living Will: No Does patient have a Durable POA for Healthcare: No - Code Status/Comfort Care Code Status Assessed: Yes Code Status: Full Code Physician Review: Patient Assessed, Agree with Above Assessment and Plan Critical Care: No Time Spent Managing Pts Care (In Minutes): 50
[2022-06-07] MEDS ORDERED: ONDANSETRON 4 MG/2 ML VIAL IV PRN (20:33)
[2022-06-07] MEDS: NA CHLORIDE 0.9% 1,000 ML IV SCH (20:33)
[2022-06-07] MEDS ORDERED: ACETAMINOPHEN 500 MG TAB PO PRN (20:33)
[2022-06-07] MEDS ORDERED: NA CHLORIDE 0.9% 1,000 ML ONE (22:37)
[2022-06-08 02:50] LABS: Absolute Lymphocytes (CBC) 0.6 K/uL (0.7-4.9); MCV 93.2 fL (80-100); MPV 9.9 fL (7.6-11.3); RBC Red Blood Cell Count 3.97 M/uL (4.33-5.43)
[2022-06-08 03:16] LABS: Phosphorus 3.4 mg/dL (2.5-4.9); Potassium 3.4 mmol/L (3.5-5.1); Thyroid Stimulating Hormone 1.36 uIU/mL (0.358-3.740)
[2022-06-08 03:42] LABS: Blood Morphology Comment NOT SEEN (NOT SEEN); Platelet Estimate DECR
[2022-06-08] MEDS: KCL 20 MEQ/100 mL IVPB 20 MEQ/100 ML BAG IV SCH ×2 (06:22→09:00)
[2022-06-08 06:36] LABS: Urine Blood 3+ (Negative); Urine Glucose Negative (Negative); Urine Protein 1+ (Negative)
[2022-06-08 06:54] LABS: Specific Gravity 1.012 (1.005-1.030); Urine Bacteria <20 /HPF (<20); Urine Bilirubin NEGATIVE (Negative); Urine Blood 3+ (OVER) (Negative); Urine Clarity Turbid (Clear); Urine Color Light-Yellow (Yellow); Urine Glucose NEGATIVE (Negative); Urine Protein TRACE (Negative); Urine RBC >50 /HPF (None Seen); Urine Urobilinogen Normal (Normal)
[2022-06-08] MEDS ORDERED: PNEUMOCOCCAL VACCINE 0.5 ML IMVAC ONE (08:00)
[2022-06-08] MEDS ORDERED: POTASSIUM CL SA 10 MEQ TAB PO ONE (08:38)
[2022-06-08] MEDS: NA CHLORIDE 0.9% 1,000 ML IV SCH ×2 (09:53→11:45)
[2022-06-08] MEDS: POTASSIUM CL SA 10 MEQ TAB PO SCH (11:00)
[2022-06-08] MEDS ORDERED: CEFTRIAXONE 1000 MG/VIAL ONE (11:34)
[2022-06-08] MEDS ORDERED: NA CHLORIDE 0.9% 1,000 ML ONE (11:35)
[2022-06-08] MEDS ORDERED: NA CHLORIDE 0.9% 50 ML IV ONE (11:35)
--- NOTE | 2022-06-08 14:54 | EKG ---
Test Date: 2022-06-07 Test Time: 18:28:18 Distributing Clerk: DAVID MEASUREMENT RESULTS: Intervals: Rate: 68 IL: 178 QRSD: 154 QT: 468 QTc: 497 [place]: P: IL: 178 QRS: -46 T: 62 INTERPRETIVE STATEMENTS: Normal sinus rhythm Right bundle branch block Left anterior fascicular block Bifascicular block Abnormal ECG Compared to ECG 10/15/1998 21:59:00 Right bundle-branch block now present Left anterior fascicular block now present Bifascicular block now present Electronically Signed On 06-08-22 14:53:14 [facility] by Shar Calvert
--- NOTE | 2022-06-08 17:14 | P.PN ---
Subjective Date of Service: 06/08/22 Primary Care Provider: Ember Chief Complaint: Recurrent Falls, Dehydration Patient has no new complaint. He is complaining of generalized weakness and unable to move. He has had no fever. Physical Examination - Vital Signs Temperature: 97.3 F Blood Pressure: 106/66 Pulse: 73 Respirations: 18 Pulse Ox (%): 95 - Studies Laboratory Data (last 24 hrs) 06/07/22 16:45: WBC 6.00, Hgb 12.4 L, Hct 35.9 L, Plt Count 116 L 06/07/22 16:45: Sodium 135 L, Potassium 3.7, BUN 34 H, Creatinine 2.12 H, Glucose 99, Total Bilirubin 0.9, AST 17, ALT 21, Alkaline Phosphatase 109 Assessment And Plan - Current Problems (Diagnosis) (1) UTI (urinary tract infection) Current Visit: Yes Status: Acute (2) Recurrent falls Current Visit: Yes Status: Acute (3) Hyperlipidemia Current Visit: Yes Status: Chronic Qualifiers: Hyperlipidemia type: mixed hyperlipidemia Qualified Code(s): E78.2 - Mixed hyperlipidemia (4) Hypertension Current Visit: Yes Status: Chronic Qualifiers: Hypertension type: primary hypertension Qualified Code(s): I10 - Essential (primary) hypertension (5) Parkinsons Current Visit: Yes Status: Chronic (6) Compression fracture of L5 vertebra Current Visit: Yes Status: Acute (7) Right ischial fracture Current Visit: Yes Status: Acute Qualifiers: Encounter type: initial encounter Fracture type: closed - Plan Physical Exam General: Alert, In no apparent distress, morbidly obese HEENT: Atraumatic, PERRLA, EOMI, Sclerae nonicteric Neck: Supple, no elevated JVD Respiratory: Clear to auscultation bilaterally, Normal air movement Cardiovascular: Regular rate/rhythm, Normal S1 S2 Gastrointestinal: Normal bowel sounds, No tenderness, obese abdomen. Musculoskeletal: No tenderness Integumentary: No rashes Neurological: Normal speech, Sensation intact, no focal motor deficit, globally weak. Plan: Start IV Rocephin for UTI. Follow urine culture. Pain management as needed. Resume Parkinson's medications. PT and OT consult Neurology input appreciated. Inpatient rehab recommended. Social service contacted to evaluate for inpatient rehab. Validated, reconcile and continue home medications.
--- NOTE | 2022-06-08 20:52 | CON ---
Reason For Consultation: Multiple falls. History Of Present Illness: Mr. Brasher is a 77-year-old patient with Parkinson disease, hypertension , and dyslipidemia who comes to [facility] on 06/07/2022 with diffuse weakness of 1 week's d uration and mild confusion and was found to have urinary tract infection. The patient reports that hema warner ran out of his carbidopa levodopa, that is his Parkinson's medication, for over a week and has beco me significantly weak because of that. He said he was going down steps when he slipped, fell and nina t his back. He came to [facility] because he had difficulty getting up and ambulating. It should be noted he is morbidly obese and has some difficulty maintaining his upright position given h is Parkinson's and his weight. He had a chest, abdomen, and pelvis CT scan, which showed no posttrau matic changes or significant findings. There was degenerative disk disease seen at L3-4, L4-5, and L 5-S1. The thoracic and lumbar vertebrae were of normal height. There was a right ischium fracture p resent. There was some callus formation in the area suggesting it was not acute. No proximal femur fracture seen. No fracture of sacrum or sacral ala was confirmed. SI joint degeneration changes wer e mild for age. His head CT scan showed no acute ischemic or hemorrhagic changes. Atrophy and chron ic ischemic changes were mild and ventricles were enlarged in proportion. Past Medical History: As indicated above. Allergies: NO KNOWN DRUG ALLERGIES. Family History: Noncontributory. Social History: No alcohol, tobacco, or IV drug use. Medications: Tylenol 500 mg every 4 hours, Rocephin he received 1 g IV piggyback, Zofran 4 mg every 6 hours, and potassium 20 mEq daily. He received 1 L of fluid, normal saline and pneumonia vaccine. He has not yet restarted on his carbidopa levodopa, which he was taking 2 tablets of the carbidopa l evodopa 25/100 twice daily and again he reports not having medication for about 1-2 weeks. Review of Systems: Diffuse weakness and mild confusion, which is clearing up as he is receiving IV hydration and Rocephi n. Otherwise, no significant changes such as fevers or chills. There is mild myalgias and arthralgi as. No rash or headache. No active psychiatric complaints or dermatological issues. Physical Examination: Vital Signs: Blood pressure 106/66, pulse of 73, respiratory rate 16, temperature 97.3, oxygen satur ation 95%. General: Mr. Brasher is resting in bed. He is in no significant distress. HEENT: He appears normocephalic, atraumatic. His sclerae are anicteric. His oropharynx is moist an d pink. Neck: Supple. Chest: Clear. Abdomen: Soft, but obese. Extremities: No significant edema or cyanosis. Neurologic: At the time of my evaluation, he is alert and oriented to situation, place, and person. Follows commands appropriately. Cranial nerves show no focal deficits. On motor examination, mild weakness 4+/5 in upper and lower extremities. Coordination is slow, but intact in upper and lower ex tremities. Reflexes depressed in all extremities. He was evaluated by Physical Therapy and found to have generalized weakness with tendency to fall, unsafe to return home. He required moderate assist ance to do a [id number] transfer, ambulated 40 feet with a rolling walker with minimum assistance. Laboratory Studies: Complete blood count with differential shows white blood cell count 4.5, hemoglo bin 12.6, and platelets 92. INR 1.27. Chemistry: Sodium 132, potassium 3.4, chloride 99, carbon di oxide 27, BUN 35, creatinine 1.7, glucose 118, calcium 8.2, and magnesium 2.0. TSH 1.36. HDL 26, LD L 51, triglycerides 126. Liver function studies are normal. Direct bilirubin is slightly elevated, however, at 2.3. Urinalysis shows positive nitrites, 3+ esterase, greater than 50 white blood cells and red blood cell, 3+ blood, was turbid, and trace protein. COVID-19 test was negative. His chest x-ray showed prominent interstitial lung pattern of chronic lung disease. There is edema and infiltr ates were possible, noted to be alone or in combination possibly. His electrocardiogram showed lizbeth l sinus rhythm, right bundle-branch block, and left anterior fascicular block. Assessment: Mr. Brasher is a 77-year-old patient with hypertension, dyslipidemia, urinary tract infec tion, diffuse weakness, obesity, and Parkinson disease being off medication. He is debilitated over the last week and a half. Plan: Continue with IV antibiotics as appropriate. Continue with aggressive management of hypertens ion and dyslipidemia. He should make an excellent candidate for inpatient rehabilitation given his m edical comorbid conditions and very significant debility as well as being off his Parkinson medicatio n and needing to be back on them with titration as needed and that is strongly recommended. Inpatien t rehabilitation as if he were to be discharged home. He would likely fall and suffer another fractu re, which he seems to have had, a subacute right ischium fracture was identified. PELON/RADHA Voice ID: [id number] Report ID: [id number]
[2022-06-09 01:07] VITALS: O2SAT 94
[2022-06-09 01:16] VITALS: BMI 22.7
[2022-06-09] MEDS: NA CHLORIDE 0.9% 1,000 ML IV SCH (03:09)
[2022-06-09] MEDS: POTASSIUM CL SA 10 MEQ TAB PO SCH (08:40)
[2022-06-09] MEDS ORDERED: CEFTRIAXONE 1,000 MG in NA CHLORIDE 0.9% 50 ML IVPB SCH (09:00)
[2022-06-09 12:49] VITALS: BP 109/73; TEMP 97.2
[2022-06-09] MEDS ORDERED: CARBIDOPA/LEVODOPA 25/100 TAB PO SCH (13:00)
[2022-06-09] MEDS ORDERED: allopurinoL 300 MG TAB PO SCH (13:00)
--- NOTE | 2022-06-09 13:11 | P.DS ---
Admission Date: 06/07/22 Discharge Date: 06/09/22 Primary Care Provider: Ember Disposition: TRANSFER TO INPATIENT REHAB Discharge Condition: FAIR Reason for Admission: Recurrent Falls, Dehydration - Problems (1) UTI (urinary tract infection) Current Visit: Yes Status: Acute (2) Recurrent falls Current Visit: Yes Status: Acute (3) Hyperlipidemia Current Visit: Yes Status: Chronic Qualifiers: Hyperlipidemia type: mixed hyperlipidemia Qualified Code(s): E78.2 - Mixed hyperlipidemia (4) Hypertension Current Visit: Yes Status: Chronic Qualifiers: Hypertension type: primary hypertension Qualified Code(s): I10 - Essential (primary) hypertension (5) Parkinsons Current Visit: Yes Status: Chronic (6) Compression fracture of L5 vertebra Current Visit: Yes Status: Acute (7) Right ischial fracture Current Visit: Yes Status: Acute Qualifiers: Encounter type: initial encounter Fracture type: closed (8) Renal mass Current Visit: Yes Status: Acute (9) Acute renal failure Current Visit: Yes Status: Acute Brief History of Present Illness: Patient is a 77 year old male with past medical history of hypertension, hyperlipidemia, and parkinson's who presented to the emergency department with via EMS with complaints of recurrent falls and generalized weakness x 3 days. reports that he does have issues with falls secondary to his neuropathy and parkinsons, but he has been falling more often recently. He sees Dr. Carrillo and was recently started on new medication which reports has helped. He has had decreased p.o. intake. He was initially hypotensive, with systolic in the 70s, but improved with IV fluids. Labs were significant for hemoglobin 12.4, hematocrit 35.9, BUN 34, creatinine 2.12, BNP 1000, albumin 2.9. Head CT negative. Chest, abdomen pelvis CT showed no acute injury but did find an incidental/nonemergent 2.5 cm left renal mass. Also found a partial collapse superior endplate L5 body uncertain age and subacute right ischium fracture. UA suggested UTI. Patient admitted for further management. Hospital Course: Patient admitted to the medical floor and started on IV Rocephin for UTI. He was also hydrated with IV fluid given acute renal failure. His renal function improved with IV hydration. He was seen and evaluated by neurology Dr. Carrillo who recommended inpatient rehab. His Parkinson's medications were resumed. Urine culture grew gram-negative rods, organism identification and antibiotic sensitivities pending to be followed. Noted patient has a renal mass that need to be followed as an outpatient, with a CT scan with IV contrast showed his renal function improve or renal ultrasound. Patient vitals are related to be stable. He has been accepted to inpatient rehab and deemed stable for discharge. Vital Signs/Physical Exam: Temp Pulse Resp BP Pulse Ox 97.2 F 76 14 109/73 93 06/09/22 12:00 06/09/22 12:00 06/09/22 12:00 06/09/22 12:00 06/09/22 12:00 General: Alert, In no apparent distress, Oriented x3 HEENT: Mucous membr. moist/pink Neck: Supple, JVD not distended Respiratory: Clear to auscultation bilaterally, Normal air movement Cardiovascular: No edema, Regular rate/rhythm, Normal S1 S2, No murmurs Gastrointestinal: Normal bowel sounds, Soft and benign, Non-distended, No tenderness Musculoskeletal: No tenderness Integumentary: No rashes, No cyanosis Neurological: Normal strength at 5/5 x4 extr Laboratory Data at Discharge: WBC 4.50 K/uL (4.3-10.9) 06/08/22 02:22 Hgb 12.6 g/dL (13.6-17.9) L 06/08/22 02:22 Hct 37.0 % (39.6-49.0) L 06/08/22 02:22 Plt Count 92 K/uL (152-406) L 06/08/22 02:22 PT 14.0 SECONDS (9.5-12.5) H 06/07/22 16:45 INR 1.27 06/07/22 16:45 Sodium 132 mmol/L (136-145) L 06/08/22 02:22 Potassium 3.4 mmol/L (3.5-5.1) L 06/08/22 02:22 BUN 35 mg/dL (7-18) H 06/08/22 02:22 Creatinine 1.71 mg/dL (0.70-1.30) H 06/08/22 02:22 Glucose 118 mg/dL (74-106) H 06/08/22 02:22 Phosphorus 3.4 mg/dL (2.5-4.9) 06/08/22 02:22 Magnesium 2.0 mg/dL (1.6-2.4) 06/08/22 02:22 Total Bilirubin 0.9 mg/dL (0.2-1.0) 06/07/22 16:45 AST 17 U/L (15-37) 06/07/22 16:45 ALT 21 U/L (16-61) 06/07/22 16:45 Alkaline Phosphatase 109 U/L (45-117) 06/07/22 16:45 Triglycerides 126 mg/dL (<150) 06/08/22 02:22 Cholesterol 102 mg/dL (<200) 06/08/22 02:22 HDL Cholesterol 26 mg/dL (40-60) L 06/08/22 02:22 Cholesterol/HDL Ratio 3.92 06/08/22 02:22 Home Medications: Allopurinol 300 tab PO DAILY 06/09/22 Carbidopa/Levodopa [Carbidopa-Levodopa 25-100 Tab] 25 - 100 tab PO BID 06/09/22 Carvedilol [Coreg] 3.125 mg PO DAILY 06/09/22 Duloxetine HCl 20 mg PO BID 06/09/22 Furosemide 20 mg PO DAILY 06/09/22 Gabapentin 600 mg PO BID 06/09/22 Isosorbide Mononitrate [Isosorbide Mononitrate ER] 30 mg PO DAILY 06/09/22 Lisinopril/Hydrochlorothiazide [Lisinopril-Hctz 10-12.5 mg Tab] 1 each PO DAILY 06/09/22 Omeprazole 20 mg PO DAILY 06/09/22 Potassium Oral Tab [Klor-Con 10 mEq Tab*] 20 meq PO DAILY #0 tab 06/09/22 Pravastatin Sodium 20 mg PO DAILY 06/09/22 levoFLOXacin [Levaquin] 750 mg PO DAILY #10 tab 06/09/22 New Medications: levoFLOXacin [Levaquin] 750 mg PO DAILY #10 tab Diet: AHA Activity: Fall precautions Followup: Kia Lloyd DO [Primary Care Provider] - Time spent managing pt's care (in minutes): 33
[2022-06-10] MEDS ORDERED: ISOSORBIDE MONO SR 30 MG TAB PO SCH (09:00)
[2022-06-14] MEDS ORDERED: CEFTRIAXONE 1,000 MG in NA CHLORIDE 0.9% 50 ML IVPB SCH (11:00)
== END 2022-06-09 14:13 | DRG 690 ==
LOC: ER 16:23 → ERHOLD 19:53 → 2ND 06-08 15:00 → 4TH 06-08 15:28
PROVIDERS: ADMIT Internal Medicine; ATTEND Internal Medicine
DX: N39.0 Urinary tract infection, site not specified (principal); S32.059A Unspecified fracture of fifth lumbar vertebra, initial encounter for closed fracture; S32.601A Unspecified fracture of right ischium, initial encounter for closed fracture; N17.9 Acute kidney failure, unspecified; I10 Essential (primary) hypertension; E78.2 Mixed hyperlipidemia; E86.0 Dehydration; E66.09 Other obesity due to excess calories; G62.9 Polyneuropathy, unspecified; G20 Parkinson's disease; N28.89 Other specified disorders of kidney and ureter; R29.6 Repeated falls; Z91.81 History of falling; Z68.24 Body mass index [BMI] 24.0-24.9, adult; Z20.822 Contact with and (suspected) exposure to COVID-19
CPT/HCPCS: 36415; 70450; 71045; 71250; 74176; 80048; 80061; 80076; 81001; 81003; 82550; 82947; 83735; 83880; 84100; 84443; 84484; 85025; 85610; 87077; 87086; 87088; 87186; 87811; 93005; 97116; 97161; 97165; 99285; J3480; J7030; J7040

== ENCOUNTER 2022-06-09 13:17 | Inpatient (IN) | payer OTHER ==
--- OUTSIDE RECORDS SUMMARY | 2022-06-09 14:29 | XMS REPORT | Continuity of Care Document ---
:1945 Author Organization [facility] t Address [facility] [place] [address] Care Team Providers Name Role Phone Kia Lloyd DO Primary Care Physician RAMYA WILL Attending Clinician Unavailable Tamra Kelley Attending Clinician Unavailable Ramya Will Attending Clinician Hadley David Attending Clinician Kia Lloyd Attending Clinician THEODORE POOLE Attending Clinician Unavailable ALYSIA VELASCO Attending Clinician Unavailable Jose Manuel Solitario Attending Clinician VINCENZO BISHOP M.D. Attending Clinician Unavailable VISIT, NURSE [facility] XRAY Attending Clinician Unavailable CRYSTAL NARANJO NP Attending Clinician Unavailable Raju_P Attending Clinician Unavailable Vincenzo Bishop Attending Clinician Justice Niño Attending Clinician Kamaljit Boston Attending Clinician ALYSIA VELASCO Admitting Clinician Unavailable Raju_P Admitting Clinician Unavailable Ramya Will Admitting Clinician Vincenzo Bishop Admitting Clinician Payers Payer Name Policy Type Policy Number Effective Date Expiration Date S [place] [address] [id number] [facility] - [facility] MEDICARE MB [id number] [facility] NOVITAS - [facility] MEDICARE MB [id number] [facility] N[facility]ITAS - [facility] MEDICARE B-[place]: [id number] 2010 NOVITAS 00:00:00 SOLUTIONS TALITA [id number] 2011 00:00:00 Problems Condition Condition Condition Status Onset Resolution Last Treating Co mments Source Name Details Category Date Date Treatment Clinician Date I50.9 I10 I50.9 I10 Diagnosis Active 2021-052022-05-02 Memoria I25.10 I25.10 1- 08:40:00 l Active 00:00: [place] 04/07/2022 00 [facility] [place] SCREENING Diagnosis Active 2020-09-17 Memoria - Z12.11 SCREENING -14 11:40:00 l - Z12.11 00:00: Dario Active 00 09/09/2020 [facility] [place] I20.0 - I20.0 - Diagnosis Active 2017-06-07 Memoria UNSTABLE UNSTABLE 1-10 15:55:00 l ANGINA ANGINA 00:01: Dario I25.10 - I25.10 - 00 ATHSCL ATHSCL Active 06/07/2017 MH [facility] [place] I25.10, I25.10, Diagnosis Active 2016-07-05 Memoria I20.0 I20.0 - 08:37:00 l Active 00:00: [place] 07/05/2016 00 [place] Gastroente Gastroent Problem Active 2021-04-09 Memoria ritis eritis -14 02:39:44 l (disorder) (disorder) 00:00: Reyes jimenezann Active 00 12/09/2014 Problem 04/09/2021 Data migrated from [facility] on 12/31/14. [facility] [place] UTI UTI Diagnosis Active 2013-052014-05-29 Mem oria Active 06-29 15:43:00 l 04/28/2014 00:00: Amos dhillon [place] Urinary Urinary Problem Active 2013-052021-04-09 M reese incontinen incontinen 06-25 02:39:44 l ce ce 00:00: Dario (finding) (finding) 00 Active 04/25/2014 Problem 04/09/2021 Data migrated from [facility] on 10/25/14. [facility] [place] KNEE PAIN KNEE PAIN Diagnosis Active 2013-052014-06-17 Memoria RIGHT-719. RIGHT-719. 0-15 07:03:00 l 46, 46, 00:00: Dario DEGENERATI DEGENERATI 00 VE BINTA VE BINTA Active 03/12/2014 [place] Impotence Impotence Problem Active 2022-01-09 Memoria of organic of organic 8 02:21:52 l origin origin 00:00: [place]ario (disorder) (disorder) 00 Active 01/21/2014 Problem 01/09/2022 Data migrated from [facility] on 10/25/14. [facility] [place] Presbyopia Presbyopi Problem Active 2022-01-09 Memoria (disorder) a 4-03 02:21:52 l (disorder) 00:00: Amos dhillon Active 00 08/29/2013 Problem 01/09/2022 Data migrated from [facility] on 10/25/14. [facility] [place] OSTEOARTHR OSTEOARTH Diagnosis Active 2012-052013-06-04 Memoria ITIS KNEE RITIS KNEE 2- 16:03:00 l LEFT-715.9 LEFT-715.9 00:00: Reyes torrez 6-SCIOP 6-SCIOP 00 Active 05/07/2013 [place] 715.96 - 715.96 - Diagnosis Active 2012-052013-05-08 Memoria OSTEOARTHR OSTEOARTHR 2- 10:49:00 l OS NO OS NO 00:01: Dario Active 00 05/06/2013 [facility] Bilateral Bilateral Problem Active 2012-052022-01-09 Memoria neural neural 0-25 02:21:52 l hearing hearing 00:00: Dario loss loss 00 (disorder) (disorder) Active 03/22/2013 Problem 01/09/2022 Data migrated from [employer] on 10/25/14. [facility] [place] Anxiety Anxiety Problem Active 2012-052022-01-09 M emoria disorder disorder 0-11 02:21:52 l (disorder) (disorder) 00:00: He rmann Active 00 03/08/2013 Problem 01/09/2022 Data migrated from [employer] [facility] on 10/25/14. [facility] [place] Cramp in Cramp in Problem Active 2021-04-09 Memoria lower limb lower limb -14 02:39:44 l (finding) (finding) 00:00: Herm fabio Active 00 11/09/2012 Problem 04/09/2021 Data migrated from [employer] on 10/25/14. [facility] [place] Arthritis Arthritis Problem Active 2022-01-09 Memoria of knee of knee 09-17 02:21:52 l (disorder) (disorder) 00:00: He rmann Active 00 09/17/2012 Problem 01/09/2022 Data migrated from [employer] on 10/25/14. [facility] [place] Benign Benign Problem Active 2022-01-09 Loyd sami prostatic prostatic 4- 02:21:52 l hyperplasi hyperplasi 00:00: He rmann a a 00 (disorder) (disorder) Active 08/31/2012 Problem 01/09/2022 Data migrated from [employer] [facility] on 10/25/14. [facility] [place] Knee pain Knee pain Problem Active 2021-04-09 Memoria (finding) (finding) 4- 02:39:44 l Active 00:00: [place] 08/31/2012 00 Problem 04/09/2021 Data migrated from [employer] on 10/25/14. [facility] [place] Polyp of Polyp of Problem Active 2011-052021-04-09 Memoria large large 1-19 02:39:44 l intestine intestine 00:00: Herm fabio (disorder) (disorder) 00 Active 04/16/2012 Problem 04/09/2021 Data migrated from [employer] on 10/25/14. [facility] [place] Benign Benign Problem Active 2011-052022-05-14 Loyd sami hypertensi hypertensi 0-05 11:19:31 l on on 00:00: [place] (disorder) (disorder) 00 Active 03/02/2012 Problem 05/14/2022 Data migrated from [employer] on 10/25/14. [facility] [place] Gout Gout Problem Active 2011-052022-05-14 Memor ia (disorder) (disorder) 0-05 11:19:31 l Active 00:00: Dario 03/02/2012 00 Problem 05/14/2022 Data migrated from [employer] on 10/25/14. [facility] [place] Hyperlipid Hyperlipi Problem Active 2011-052016-07-08 Memoria emia demia 0-05 03:31:09 l (disorder) (disorder) 00:00: He rmann Active 00 03/02/2012 Problem 07/08/2016 Data migrated from [employer] on 10/25/14. 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 [facility] prostate of [facility] prostate [facility] Incontinen Incontinen Problem C ommon ce [facility] [id number] S/P Problem Common radiation Spirit therapy [facility] [id number] Detrusor Problem Comm on dysfunctio Spirit n [facility] [id number] Bilateral Problem Comm on nephrolith Spirit iasis [facility] [id number] Functional Problem Co mmon urinary Spirit incontinen - [facility] ce [facility] [id number] Lower Problem Common urinary Spirit [facility] - [id number] 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 Urinary Acute Problem Common tract lower UTI Spirit infectious - [facility] disease [facility] Sleep Sleep Problem Resolve 2022-01-09 Loyd sami apnea apnea d 02:21:52 l (finding) (finding) Herm fabio Resolved Problem 01/09/2022 [facility] [place] Hyperchole Hyperchol Problem Resolve 2022-01-09 Memoria sterolemia esterolemi d 02:21:52 l (disorder) a Amos n (disorder) Resolved Problem 01/09/2022 [facility] [place] Irritable Problem Resolve 2022-01-09 M emoria colon Irritable d 02:21:52 l (disorder) colon Amos n (disorder) Resolved Problem 01/09/2022 [facility] [place] Gastroesop Problem Active 2022-01-09 M emoria hageal Gastroesop 02:21:52 l reflux hageal [place] disease reflux (disorder) disease (disorder) Active Problem 01/09/2022 Data migrated from [facility] on 10/25/14. [facility], [facility] [place], [facility], [place] Body mass Body mass Problem Active 2022-05-14 Memoria index 30+ index 30+ 11:19:31 l - obesity - obesity Herm fabio (finding) (finding) Active Problem 05/14/2022 [facility] [place] Bronchitis Bronchiti Problem Active 2021-04-09 Memoria (disorder) s 02:39:44 l (disorder) Amos n Active Problem 04/09/2021 [facility] [place] Coronary Coronary Problem Active 2022-05-14 Memoria arterioscl arterioscl 11:19:31 l erosis erosis Dario (disorder) (disorder) Active Problem 05/14/2022 Data migrated from [facility] on 10/25/14. 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 11:19:31 l of the of the Dario heart heart (disorder) (disorder) Active Problem 05/14/2022 [facility] [place] Drug Drug Problem Active 2021-04-09 Memor ia therapy therapy 02:39:44 l finding finding [place] (finding) (finding) Active Problem 04/09/2021 [facility] [place] Edema of Edema of Problem Active 2022-05-14 Memoria lower lower 11:19:31 l extremity extremity Herm fabio (finding) (finding) Active Problem 05/14/2022 [facility], [place] Large Large Problem Active 2021-04-09 Memor ia prostate prostate 02:39:44 l (finding) (finding) Herm faboi Active Problem 04/09/2021 [facility], [facility] [place], [facility], [place] Hand pain Hand pain Problem Active 2021-04-09 Mem[facility] (finding) (finding) 02:39:44 l Active Dario Problem 04/09/2021 [facility], [place] Sacroiliac Problem Active 2021-04-09 M emoria joint Sacroiliac 02:39:44 l inflamed joint Dario (disorder) inflamed (disorder) Active Problem 04/09/2021 [facility], [place] Mixed Mixed Problem Active 2022-05-14 Memor ia hyperlipid hyperlipid 11:19:31 l emia emia Dairo (disorder) (disorder) Active Problem 05/14/2022 [facility] [place] Osteoporos Osteoporo Problem Active 2022-05-14 Memoria is sis 11:19:31 l (disorder) (disorder) He rmann Active Problem 05/14/2022 [facility] [place] Pain in Pain in Problem Active 2021-04-09 Me moria elbow elbow 02:39:44 l (finding) (finding) Herm fabio Active Problem 04/09/2021 [facility], [place] Pain in Pain in Problem Active 2021-04-09 Me moria wrist wrist 02:39:44 l (finding) (finding) Herm fabio Active Problem 04/09/2021 [facility], [place] 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:39:44 l syndrome syndrome Amos n (disorder) (disorder) Active Problem 04/09/2021 [facility] [place] Screening Screening Problem Active 2022-05-14 Memoria status status 11:19:31 l (finding) (finding) Herm faibo Active Problem 05/14/2022 [facility] [place] Shoulder Shoulder Problem Active 2021-04-09 Memoria pain pain 02:39:44 l (finding) (finding) Herm fabio Active Problem 04/09/2021 [facility], [place] Skin Skin Problem Active 2021-04-09 Memor ia lesion lesion 02:39:44 l (disorder) (disorder) He lore Active Problem 04/09/2021 [facility] [place] Finding of Finding Problem Active 2022-05-14 Memoria enzyme of enzyme 11:19:31 l level level Dario (finding) (finding) Active Problem 05/14/2022 [facility] [place] Prediabete Prediabet Problem Active 2022-05-14 Memoria s es 11:19:31 l (finding) (finding) Herm fabio Active Problem 05/14/2022 [facility] [place] Fall from Fall from Problem Active 2017-11-17 Memoria building building 02:06:33 l (finding) (finding) Herm fabio Active Problem 11/17/2017 [facility], [place] History of History Problem Active 2022-05-14 Memoria polyp of of polyp 11:19:31 l colon of colon Dario (situation (situation ) ) Active Problem 05/14/2022 [facility], [facility] [place] Parkinson' Parkinson Problem Active 2022-05-14 Memoria s disease 's disease 11:19:31 l (disorder) (disorder) He lore Active Problem 05/14/2022 [facility], [facility] [place] Hypertensi Problem Active 2014-06-13 M emoria ve Hypertensi 08:03:20 l disorder, ve Dario systemic disorder, arterial systemic (disorder) arterial (disorder) Active Problem 06/13/2014 [facility] [place], [facility], [place] Acute Acute Problem Active 2022-04-09 Memor ia congestive congestive 05:07:57 l heart heart Dario failure failure (disorder) (disorder) Active Problem 04/09/2022 [facility] Group ENCOUNTER Diagnosis Active 2020-09-17 Memoria FOR ENCOUNTER 11:40:00 l SCREENING FOR Dario FOR SCREENING MALIGNANT FOR NE MALIGNANT NE Active [place] M79.605 - M79.605 - Diagnosis Active 2021-08-18 Memoria PAIN IN PAIN IN 11:00:00 l LEFT LEG LEFT LEG Amos n Active [facility] [place] URIN TRACT URIN Diagnosis Active 2014-04-29 Memoria INFECTION TRACT 16:45:00 l NOS INFECTION Dario NOS Active [place] JOINT JOINT Diagnosis Active 2014-06-17 Me moria PAIN-L/LEG PAIN-L/LEG 07:03:00 l Active Dario [place] ABNORMAL ABNORMAL Diagnosis Active 2022-05-02 Memoria ELECTROCAR ELECTROCAR 08:40:00 l DIOGRAM DIOGRAM [place] [ECG] [ECG] [EKG] [EKG] Active [place] Status Status Problem Active [facility] post left post left Phys ici knee knee ans replacemen replacemen t t Osteoarthr Osteoarthr Problem Active [facility] Physici hips, hips, ans bilateral bilateral Essential Essential Diagnosis 2021-052022-05-14 2022-05-14 Memoria hypertensi hypertensi 2-14 11:19:31 11:19:31 l on on 20:28: Dario (disorder) (disorder) 00 05/11/2022 Diagnosis 05/14/2022 Medical Group Atheroscle Atheroscl Diagnosis 2021-052022-05-14 2022-05-14 Memoria rosis of erosis of -14 11:19:31 11:19:31 l coronary coronary 20:28: Amos n artery artery 00 (disorder) (disorder) 05/11/2022 Diagnosis 05/14/2022 [facility] Group Angina Angina Diagnosis 2021-052022-05-14 2022-05-14 Memoria (disorder) (disorder) - 11:19:31 11:19:31 l 05/11/2022 20:28: Amos n Diagnosis 00 05/14/2022 [facility] Group Diastolic Diastolic Diagnosis 2021-052022-05-14 2022-05-14 Memoria heart heart - 11:19:31 11:19:31 l failure failure 20:28: [place] (disorder) (disorder) 00 05/11/2022 Diagnosis 05/14/2022 [facility], [facility] [place] Localized Localized Diagnosis 2021-052022-05-14 2022-05-14 Memoria edema edema 07-12 11:19:31 11:19:31 l (finding) (finding) 20:28: Edwin mccarthy 05/11/2022 00 Diagnosis 05/14/2022 [facility] Group Heart Heart Diagnosis 2021-052022-04-07 2022-04-07 Memoria failure failure 06-04 03:42:41 03:42:41 l (disorder) (disorder) 17:34: He lore 04/04/2022 00 Diagnosis 04/07/2022 [facility] Preoperati Preoperat Problem Resolve 2022-01-09 2022-01-09 Memoria ve bola d 06-05 02:21:52 02:21:52 l cardiovasc cardiovasc 00:00: He lore ulgiovana ular 00 examinatio examinatio n n (procedure (procedure ) ) Resolved 06/05/2013 Problem 01/09/2022 Data migrated from [facility] on 12/13/14. [facility] [place] Preoperati Preoperat Problem Resolve 2022-01-09 2022-01-09 Memoria ve bola d 06-05 02:21:52 02:21:52 l procedures procedures 00:00: He rmann (procedure (procedure 00 ) ) Resolved 06/05/2013 Problem 01/09/2022 Data migrated from [facility] on 12/13/14. [facility] [place] Pneumonia Pneumonia Problem Resolve 2011-052022-01-09 2022-01-09 Memoria (disorder) (disorder) d 2- 02:21:52 02:21:52 l Resolved 00:00: Dario 05/14/2012 00 Problem 01/09/2022 Data migrated from [facility] on 12/13/14. [facility] [place] Fracture Fracture Problem Resolve 1964-0 2022-01-09 2022-01-09 Memoria of bone of bone d 05-29 02:21:52 02:21:52 l (disorder) (disorder) 00:00: He rmann Resolved 00 05/29/1963 Problem 01/09/2022 vertebral fracture; wore brace; resolved; no issues [facility] [place] History of Past Illness Condition Condition Condition [...] excess calories calories 01/06/2022 01/09/2022 [facility], [place] Age-relate Age-relat Problem 2022-01-09 2022-01-09 Memoria d ed 01-06 02:21:52 02:21:52 l osteoporos osteoporos 15:29: He rmann is without is without 00 current current pathologic pathologic al al fracture fracture 01/06/2022 01/09/2022 Medical Group Body mass Body mass Problem 2022-01-09 2022-01-09 Memoria index index 01-06 02:21:52 02:21:52 l (BMI) (BMI) 15:29: Dario 39.0-39.9, 39.0-39.9, 00 adult adult 01/06/2022 [facility], [place] Gastro-eso Gastro-es Problem 2022-01-09 2022-01-09 Memoria phageal ophageal 01-06 02:21:52 02:21:52 l reflux reflux 15:25: [place] disease disease 00 without without esophagiti esophagiti s s 01/06/2022 01/09/2022 Medical Group Parkinson' Parkinson Problem 2022-01-09 2022-01-09 Memoria s disease 's disease 01-06 02:21:52 02:21:52 l 15:24: Amos n 2 00 01/09/2022 Medical Group Mixed Mixed Problem 2022-01-09 2022-01-09 M emoria hyperlipid hyperlipid 01-06 02:21:52 02:21:52 l emia emia 15:24: Dario 01/06/2022 00 Medical Group Prediabete Prediabet Problem 2022-01-09 2022-01-09 Memoria s es 01-06 02:21:52 02:21:52 l 01/06/2022 15:24: Amos n 2 [facility] Group Atheroscle Atheroscl Problem 2022-01-09 2022-01-09 Memoria rotic erotic 01-06 02:21:52 02:21:52 l heart heart 15:24: [place] disease of disease of 00 samish samish coronary coronary artery artery without without angina angina pectoris pectoris 01/06/2022 01/09/2022 Medical Group Unspecifie Unspecifi Problem 2022-01-09 2022-01-09 Memoria d ed 01-06 02:21:52 02:21:52 l diastolic diastolic 15:23: Herm fabio (congestiv (congestiv 00 e) heart e) heart failure failure 01/06/2022 01/09/2022 Medical Group Essential Problem 2022-01-09 2022-01-09 Memoria (primary) Essential 01-06 02:21:52 02:21:52 l hypertensi (primary) 15:23: Her barbosa on hypertensi 00 on 01/06/2022 01/09/2022 [facility], [place] Hypertensi Hypertens Problem 2022-01-09 2022-01-09 Memoria ve heart bola heart 01-06 02:21:52 02:21:52 l disease disease 15:23: [place] with heart with heart 00 failure failure [...] 06-24 14:20:58 14:20:58 l heart heart 05:47: [place] disease of disease of 02 samish samish coronary coronary artery artery with with unstable unstable angina angina pectoris pectoris 06/24/2017 09/19/2017 [facility] [place] Allergies, Adverse Reactions, Alerts Allergy Allergy Status Severity Reaction(s) Onset Inactive Treating Comm ents Source Name Type Date Date Clinician roya pryor Active J Luis Bishop Social History Social Habit Start Date Stop Date Quantity Comments Source History of Tobacco [facility] - Use [facility] Social History 2022-05-12 2022-05-12 [facility] 23:52:45 23:52:45 Social History 2020-08-27 2020-08-27 [facility] 18:57:43 18:57:43 Smoking Status Start Date Stop Date Source Tobacco smoking consumption unknown [facility] Tobacco smoking status [facility] Medications Ordered Filled Start Stop Current Ordering [...] tab, PO, l tablet 17:27: PRN, PRN Dario 00 Loose Stools, 0 Refill(s) loperamide 2021-05 Yes 2 mg = 1 Mem oria 2 mg oral -07 tab, PO, l tablet 17:27: PRN, PRN Dario 00 Loose Stools, 0 Refill(s) acetaminoph 2021-05 Yes 500 mg, Mem oria en -07 PRN, 0 l 17:26: Refill(s) Dario 00 acetaminoph 2021-05 Yes 500 mg, Mem oria en 07 PRN, 0 l 17:26: Refill(s) [place] 00 Cephalexin Cephalexin 2021-05- No 1{capsu TID Cephalexin 500 MG 500 MG 0-18 10-25 le} 500 MG 00:00: 00:00 00 :00 pravastatin 2021-0 Yes = 1 tab, Me moria 20 mg oral 9-29 PO, Daily, l tablet 21:43: # 90 tab, Amos n 00 4 Refill(s), Pharmacy: [facility], 182.88, cm, 01/06/22 9:51:00 CDT, Height, 130.455, kg, 01/06/22 10:28:00 CDT, Weight lisinopril 2021-0 Yes = 1 tab, Mem oria 10 mg oral 9-29 PO, Daily, l tablet 21:43: # 90 tab, Amos n 00 4 Refill(s), Pharmacy: [facility], 182.88, cm, 01/06/22 9:51:00 CDT, Height, 130.455, kg, 01/06/22 10:28:00 CDT, Weight pravastatin 2-0 Yes = 1 tab, Me moria 20 mg oral 9-29 PO, Daily, l tablet 21:43: # 90 tab, Amos n 00 4 Refill(s), Pharmacy: [facility], 182.88, cm, 01/06/22 9:51:00 CDT, Height, 130.455, kg, 01/06/22 10:28:00 CDT, Weight lisinopril 2021-0 Yes = 1 tab, Mem oria 10 mg oral 9-29 PO, Daily, l tablet 21:43: # 90 tab, Amos n 00 4 Refill(s), Pharmacy: [facility], 182.88, cm, 01/06/22 9:51:00 CDT, Height, 130.455, kg, 01/06/22 10:28:00 CDT, Weight Trospium Trospium 2022- No QD Trospium Chloride ER Chloride ER 8-10 03-08 Chloride 60 MG 60 MG 00:00: 00:00 ER 60 MG 00 :00 Trospium Trospium 2021-2022- No QD Tro[facility] Chloride ER Chloride ER [...] 00:00 ER 60 MG 00 :00 furosemide 2021-0 Yes = 1 tab, Mem oria 20 mg oral 7-29 PO, Daily, l tablet 13:11: PRN [place] 00 NEEDED FOR EDEMA, # 90 tab, 4 Refill(s), Pharmacy: [facility], 182.88, cm, 10/04/21 11:22:00 CDT, Height, 130.909, kg, 10/04/21 11:32:00 CDT, Weight furosemide 2021-0 Yes = 1 tab, Mem oria 20 mg oral 7-29 PO, Daily, l tablet 13:11: PRN Dario 00 NEEDED FOR EDEMA, # 90 tab, 4 Refill(s), Pharmacy: [facility], 182.88, cm, 10/04/21 11:22:00 CDT, Height, 130.909, kg, 10/04/21 11:32:00 CDT, Weight carvedilol 2021-0 Yes = 1 tab, Mem oria 3.125 mg 6-29 PO, BID, # l oral tablet 00:52: 180 tab, 1 Dario 00 Refill(s), Pharmacy: [facility], 182.88, cm, 10/04/21 11:22:00 CDT, Height, 130.909, kg, 10/04/21 11:32:00 CDT, Weight carvedilol 2021-0 Yes = 1 tab, Mem oria 3.125 mg 6-29 PO, BID, # l oral tablet 00:52: 180 tab, 1 [place] 00 Refill(s), Pharmacy: [facility], 182.88, cm, 10/04/21 11:22:00 CDT, Height, 130.909, kg, 10/04/21 11:32:00 CDT, Weight Imdur 30 mg 2021-0 Yes 30 mg = 1 M emoria oral 5-07 tab, PO, l tablet, 04:31: QAM, # 90 Gretta nn extended 00 tab, 3 release Refill(s), Pharmacy: [facility], 182.88, cm, 08/17/21 11:03:00 CDT, Height, 128.636, kg, 08/17/21 11:03:00 CDT, Weight Imdur 30 mg 2021-0 Yes 30 mg = 1 M emoria oral 5-07 tab, PO, l tablet, 04:31: QAM, # 90 Gretta nn extended 00 tab, 3 release Refill(s), Pharmacy: [facility], 182.88, cm, 08/17/21 11:03:00 CDT, [...] 00:00 00 :00 VESIcare 10 VESIcare 10 2022-0 2022- No 1{table QD VESIcare MG MG 4-27 10-24 t} 10 MG 00:00: 00:00 00 :00 VESIcare 10 VESIcare 10 2021-0 2022- No 1{table QD VESIcare MG MG 4-27 10-24 t} 10 MG 00:00: 00:00 00 :00 VESIcare 10 VESIcare 10 2021-0 2022- No 1{table QD VESIcare MG MG 4-27 10-24 t} 10 MG 00:00: 00:00 00 :00 VESIcare 10 VESIcare 10 2021-0 2022- No 1{table QD VESIcare MG MG 4-27 10-24 t} 10 MG 00:00: 00:00 00 :00 VESIcare 10 VESIcare 10 2021-0 2- No 1{table QD VESIcare MG MG 4-27 10-24 t} 10 MG 00:00: 00:00 00 :00 VESIcare 10 VESIcare 10 2021-0 2- No 1{table QD VESIcare MG MG 4-27 10-24 t} 10 MG 00:00: 00:00 00 :00 VESIcare 10 VESIcare 10 2021-0 2- No 1{table QD VESIcare MG MG 4-27 10-24 t} 10 MG 00:00: 00:00 00 :00 VESIcare 10 VESIcare 10 2021-0 2022- No 1{table QD VESIcare MG MG 4-27 10-24 t} 10 MG 00:00: 00:00 00 :00 VESIcare 10 VESIcare 10 2021-0 2- No 1{table QD VESIcare MG MG 4-27 10-24 t} 10 MG 00:00: 00:00 00 :00 VESIcare 10 VESIcare 10 2021-0 2022- No 1{table QD VESIcare MG MG 4-27 10-24 t} 10 MG 00:00: 00:00 00 :00 VESIcare 10 VESIcare 10 2021-0 2022- No 1{table QD VESIcare MG MG 4-27 10-24 t} 10 MG 00:00: 00:00 00 :00 Sulfamethox 2021-0 Yes 1 tab, PO, Memoria azole 800 3-22 Q12H, X 5 l MG / 16:36: day, # 10 [place] Trimethopri 00 tab, 0 m 160 MG Refill(s), Oral Tablet Pharmacy: [Bactrim] [facility], 182.88, cm, 08/17/21 11:03:00 CDT, Height, 128.636, kg, 08/17/21 11:03:00 CDT, Weight Sulfamethox 2021-0 Yes 1 tab, PO, Memoria azole 800 3-22 Q12H, X 5 l MG / 16:36: day, # 10 Dario Trimethopri 00 tab, 0 m 160 MG Refill(s), Oral Tablet Pharmacy: [Bactri] [facility], 182.88, cm, 08/17/21 11:03:00 CDT, Height, 128.636, kg, 08/17/21 11:03:00 CDT, Weight cephalexin 2021-0 Yes 500 mg = 1 M emoria 500 mg oral 3-15 tab, PO, l tablet 14:55: QID, X 7 Dario 00 day, # 28 tab, 0 Refill(s), Pharmacy: [facility], 182.88, cm, 08/10/21 9:25:00 CDT, Height, 130, kg, 08/10/21 9:25:00 CDT, Weight cephalexin 2021-0 Yes 500 mg = 1 M emoria 500 mg oral 3-15 tab, PO, l tablet 14:55: QID, X 7 [place] 00 day, # 28 tab, 0 Refill(s), Pharmacy: [facility], 182.88, cm, 08/10/21 9:25:00 CDT, Height, 130, kg, 08/10/21 9:25:00 CDT, Weight hydrochloro 2-0 Yes 1 tab, PO, Memoria thiazide-li 2-28 Daily, # l sinopril 19:18: 90 tab, 4 Herm fabio 12.5 mg-10 00 Refill(s), mg oral Pharmacy: tablet [facility], 182.88, cm, 07/08/21 11:25:00 [employer], Height, 129.545, kg, 07/08/21 11:31:00 [employer], Weight hydrochloro 2021-0 Yes 1 tab, PO, Memoria thiazide-li 2-28 Daily, # l sinopril 19:18: 90 tab, 4 Herm fabio 12.5 mg-10 00 Refill(s), mg oral Pharmacy: tablet [facility], 182.88, cm, 07/08/21 11:25:00 [employer], Height, 129.545, kg, 07/08/21 11:31:00 [employer], Weight omeprazole 0 Yes = 1 cap, Mem oria 20 mg oral 2-10 PO, Daily, l delayed 18:03: # 90 cap, Gretta nn release 00 4 capsule Refill(s), Pharmacy: [facility], 182.88, cm, 07/08/21 11:25:00 [employer], Height, 129.545, kg, 07/08/21 11:31:00 [employer], Weight omeprazole 2021-0 Yes = 1 cap, Mem oria 20 mg oral 2-10 PO, Daily, l delayed 18:03: # 90 cap, Gretta nn release 00 4 capsule Refill(s), Pharmacy: [facility], 182.88, cm, 07/08/21 11:25:00 [employer], Height, 129.545, kg, 07/08/21 11:31:00 [employer], Weight Carbidopa 2020-05 Yes 1 tab, PO, Me moria 25 MG / 06-06 BID, # 90 l Levodopa 20:20: tab, 0 Dario 100 MG Oral 00 Refill(s) Tablet carbidopa-l 2020-05 Yes 1 tab, PO, Memoria evodopa 25 - BID, # 90 l mg-100 mg 20:20: tab, 0 Amos n oral tablet 00 Refill(s) Carbidopa 2020-05 Yes 1 tab, PO, Me moria 25 MG / 1-09 BID, # 90 l Levodopa 20:20: tab, 0 [place] 100 MG Oral 00 Refill(s) Tablet carbidopa-l 2020-05 Yes 1 tab, PO, Memoria evodopa 25 - BID, # 90 l mg-100 mg 20:20: tab, 0 Amos n oral tablet 00 Refill(s) Levaquin Levaquin 2020-2020- No 1{table QD Levaquin 500 MG 500 MG 01-2004 t} 500 MG 00:00: 00:00 00 :00 Amoxicillin Amoxicillin 2020-2020- No 1{table BID Amoxicilli -Pot -Pot 01-06 t} n-Pot Clavulanate Clavulanate 00:00: 00:00 Clavulanat 875-125 MG 875-125 MG 00 :00 e 875-125 MG VESIcare 5 VESIcare 5 2021- No 2{capsu QD VESIcare 5 MG MG 5-13 09-05 les} MG 00:00: 00:00 00 :00 VESIcare 5 VESIcare 5 2020-2021- No 2{capsu QD VESIcare 5 MG MG 5-13 09-05 les} MG 00:00: 00:00 00 :00 VESIcare 5 VESIcare 5 2020-2021- No 1{table QD VESIcare 5 MG MG 5-13 05-08 t} MG 00:00: 00:00 00 :00 VESIcare 5 VESIcare 5 2020-2021- No 1{table QD VESIcare 5 MG MG 5-13 05-08 t} MG 00:00: 00:00 00 :00 VESIcare 5 VESIcare 5 2020-2021- No 1{table QD VESIcare 5 MG MG 5-13 05-08 t} MG 00:00: 00:00 00 :00 Furosemide 2020-0 Yes 20 mg = 1 Me moria 20 MG Oral 5-12 tab, PO, l Tablet 16:36: Daily, PRN Gretta nn 00 Edema, # 90 tab, 3 Refill(s), Pharmacy: [facility], 182.88, cm, 10/07/20 11:07:00 CDT, Height, 135.455, kg, 10/07/20 11:07:00 CDT, Weight Furosemide 2020- Yes 20 mg = 1 Me moria 20 MG Oral 5-12 tab, PO, l Tablet 16:36: Daily, PRN Gretta nn 00 Edema, # 90 tab, 3 Refill(s), Pharmacy: [facility], 182.88, cm, 10/07/20 11:07:00 CDT, Height, 135.455, kg, 10/07/20 11:07:00 CDT, Weight Nitroglycer 1-0 Yes 0.4 mg = 1 Memoria in 0.4 MG 5-12 tab, SL, l Sublingual 16:34: Q5Min, PRN H ermann Tablet 00 Chest Pain, Give up to 3 doses. Call 911 if pain persists., # 100 tab, 1 Refill(s), Pharmacy: [facility], 182.88, cm, 10/07/20 11:07:00 CDT, Height, 135.455, kg, 10/07/20 11:07:00 CDT, Weight nitroglycer 1-0 Yes 0.4 mg = 1 Memoria in 0.4 mg 5-12 tab, SL, l sublingual 16:34: Q5Min, PRN H ermann tablet 00 Chest Pain, Give up to 3 doses. Call 911 if pain persists., # 100 tab, 1 Refill(s), Pharmacy: [facility], 182.88, cm, 10/07/20 11:07:00 CDT, Height, 135.455, kg, 10/07/20 11:07:00 CDT, Weight Nitroglycer 1-0 Yes 0.4 mg = 1 Memoria in 0.4 MG 5-12 tab, SL, l Sublingual 16:34: Q5Min, PRN H ermann Tablet 00 Chest Pain, Give up to 3 doses. Call 911 if pain persists., # 100 tab, 1 Refill(s), Pharmacy: [facility], 182.88, cm, 10/07/20 11:07:00 CDT, Height, 135.455, kg, 10/07/20 11:07:00 CDT, Weight nitroglycer 1-0 Yes 0.4 mg = 1 Memoria in 0.4 mg 5-12 tab, SL, l sublingual 16:34: Q5Min, PRN H ermann tablet 00 Chest Pain, Give up to 3 doses. Call 911 if pain persists., # 100 tab, 1 Refill(s), Pharmacy: [facility], 182.88, cm, 10/07/20 11:07:00 CDT, Height, 135.455, kg, 10/07/20 11:07:00 CDT, Weight carvedilol 0 Yes = 1 tab, Mem oria 3.125 mg 5-12 PO, BID, # l oral tablet 16:33: 180 tab, 3 Dario 00 Refill(s), Pharmacy: [facility], 182.88, cm, 10/07/20 11:07:00 CDT, Height, 135.455, kg, 10/07/20 11:07:00 CDT, Weight Imdur 30 mg 0 Yes 30 mg = 1 M emoria oral 5-12 tab, PO, l tablet, 16:33: QAM, # 90 Gretta nn extended 00 tab, 3 release Refill(s), Pharmacy: [facility], 182.88, cm, 10/07/20 11:07:00 CDT, Height, 135.455, kg, 10/07/20 11:07:00 CDT, Weight Hydrochloro 0 Yes 1 tab, PO, Memoria thiazide 5-12 Daily, # l 12.5 MG / 16:33: 90 tab, 3 Her barbosa Lisinopril 00 Refill(s), 10 MG Oral Pharmacy: Tablet [facility], 182.88, cm, 10/07/20 11:07:00 CDT, Height, 135.455, kg, 10/07/20 11:07:00 CDT, Weight lisinopril 0 Yes = 1 tab, Mem oria 10 mg oral 5-12 PO, Daily, l tablet 16:33: # 90 tab, Amos n 00 3 Refill(s), Pharmacy: [facility], 182.88, cm, 10/07/20 11:07:00 CDT, Height, 135.455, kg, 10/07/20 11:07:00 CDT, Weight pravastatin 0 Yes = 1 tab, Me moria 20 mg oral 5-12 PO, Daily, l tablet 16:33: # 90 tab, Amos n 00 3 Refill(s), Pharmacy: [facility], 182.88, cm, 10/07/20 11:07:00 CDT, Height, 135.455, kg, 10/07/20 11:07:00 CDT, Weight carvedilol 0 Yes = 1 tab, Mem oria 3.125 mg 5-12 PO, BID, # l oral tablet 16:33: 180 tab, 3 [place] 00 Refill(s), Pharmacy: [facility], 182.88, cm, 10/07/20 11:07:00 CDT, Height, 135.455, kg, 10/07/20 11:07:00 CDT, Weight Imdur 30 mg 0 Yes 30 mg = 1 M emoria oral 5-12 tab, PO, l tablet, 16:33: QAM, # 90 Gretta nn extended 00 tab, 3 release Refill(s), Pharmacy: [facility], 182.88, cm, 10/07/20 11:07:00 CDT, Height, 135.455, kg, 10/07/20 11:07:00 CDT, Weight Hydrochloro 2020-0 Yes 1 tab, PO, Memoria thiazide 5-12 Daily, # l 12.5 MG / 16:33: 90 tab, 3 Her barbosa Lisinopril 00 Refill(s), 10 MG Oral Pharmacy: Tablet [facility], 182.88, cm, 10/07/20 11:07:00 CDT, Height, 135.455, kg, 10/07/20 11:07:00 CDT, Weight lisinopril 0 Yes = 1 tab, Mem oria 10 mg oral 5-12 PO, Daily, l tablet 16:33: # 90 tab, Amos n 00 3 Refill(s), Pharmacy: [facility], 182.88, cm, 10/07/20 11:07:00 CDT, Height, 135.455, kg, 10/07/20 11:07:00 CDT, Weight pravastatin 0 Yes = 1 tab, Me moria 20 mg oral 5-12 PO, Daily, l tablet 16:33: # 90 tab, Amos n 00 3 Refill(s), Pharmacy: [facility], 182.88, cm, 10/07/20 11:07:00 CDT, Height, 135.455, kg, 10/07/20 11:07:00 CDT, Weight lidocaine No Route: IV, Me moria (ANES) 09-17 Drug form: l 17:36: INJ, ONCE, Dario Stop date: 09/17/20 12:36:00 CDT lidocaine 2020-0 No Route: IV, Me moria (ANES) 4- Drug form: l 17:36: INJ, ONCE, [place] Stop date: 09/17/20 12:36:00 CDT propofol 0 No Route: IV, Mem oria (ANES) 10 09-17 Drug form: l mg 17:18: INJ, Start [place] date: 09/17/20 12:18:00 CDT, Stop date: 09/17/20 13:18:00 CDT propofol 2020-0 No Route: IV, Mem oria (ANES) 10 09-17 Drug form: l mg 17:18: INJ, Start Dario date: 09/17/20 12:18:00 CDT, Stop date: 09/17/20 13:18:00 CDT Lactated 0 No Route: IV, Mem oria Ringers 4-22 Total l Injection 17:09: Volume: Gretta nn IV (ANES) 00 1,000, 1000 mL Start date: 09/17/20 12:09:00 CDT, Stop date: 09/17/20 13:09:00 CDT Lactated 0 No Route: IV, Mem oria Ringers -22 Total l Injection 17:09: Volume: Gretta nn IV (ANES) 00 1,000, 1000 mL Start date: 09/17/20 12:09:00 CDT, Stop date: 09/17/20 13:09:00 CDT Lactulose 2020- Yes 133.3333 Loyd sami 667 MG/ML 4-13 gm = 200 l Oral 16:57: mL, PO, [place] Solution 00 ONCE, drink at 4pm, day before procedure, # 200 mL, 0 Refill(s), Pharmacy: [facility], 185.42, cm, 09/08/20 11:40:00 CDT, Height, 137.727, kg, 09/08/20 11:40:00 CDT, Weight Lactulose 2020-0 Yes 133.3333 Loyd sami 667 MG/ML 4-13 gm = 200 l Oral 16:57: mL, PO, [place] Solution 00 ONCE, drink at 4pm, day before procedure, # 200 mL, 0 Refill(s), Pharmacy: [facility], 185.42, cm, 09/08/20 11:40:00 CDT, Height, 137.727, kg, 09/08/20 11:40:00 CDT, Weight solifenacin 2020-0 Yes 5 mg = 1 Me moria 5 mg oral 4-01 tab, PO, l tablet 19:10: Daily, # [place] 00 30 tab, 1 Refill(s) solifenacin 1-0 Yes 5 mg = 1 Me moria 5 mg oral 4-01 tab, PO, l tablet 19:10: Daily, # Dario 00 30 tab, 1 Refill(s) allopurinol 2019-05 Yes = 1 tab, Me moria 300 mg oral 0-22 PO, Daily, l tablet 14:37: # 90 tab, Amos n 00 1 Refill(s), Pharmacy: [facility], 180.34, cm, 10/03/19 15:02:00 CDT, Height, 138.182, kg, 10/03/19 15:02:00 CDT, Weight allopurinol 2019- Yes = 1 tab, Me moria 300 mg oral 0-22 PO, Daily, l tablet 14:37: # 90 tab, Amos n 00 1 Refill(s), Pharmacy: [facility], 180.34, cm, 10/03/19 15:02:00 CDT, Height, 138.182, kg, 10/03/19 15:02:00 CDT, Weight omeprazole 2019- Yes = 1 cap, Mem oria 20 mg oral 7-20 PO, Daily, l delayed 23:06: # 90 cap, Gretta nn release 00 3 capsule Refill(s), Pharmacy: [facility], 180.34, cm, 10/03/19 15:02:00 CDT, Height, 138.182, kg, 10/03/19 15:02:00 CDT, Weight pravastatin 2020-0 Yes = 1 tab, Me moria 20 mg oral 7-20 PO, Daily, l tablet 23:06: # 90 tab, Amos n 00 3 Refill(s), Pharmacy: [facility], 180.34, cm, 10/03/19 15:02:00 CDT, Height, 138.182, kg, 10/03/19 15:02:00 CDT, Weight omeprazole 2020-0 Yes = 1 cap, Mem oria 20 mg oral 7-20 PO, Daily, l delayed 23:06: # 90 cap, Gretta nn release 00 3 capsule Refill(s), Pharmacy: [facility], 180.34, cm, 10/03/19 15:02:00 CDT, Height, 138.182, kg, 10/03/19 15:02:00 CDT, Weight pravastatin 2020-0 Yes = 1 tab, Me moria 20 mg oral 7-20 PO, Daily, l tablet 23:06: # 90 tab, Amos n 00 3 Refill(s), Pharmacy: [facility], 180.34, cm, 10/03/19 15:02:00 CDT, Height, 138.182, kg, 10/03/19 15:02:00 CDT, Weight Nitroglycer 2020-0 Yes 0.4 mg = 1 Memoria in 0.4 MG 5-13 tab, SL, l Sublingual 14:33: Q5Min, PRN H ermann Tablet 00 Chest Pain, Give up to 3 doses. Call 911 if pain persists., # 100 tab, 1 Refill(s), Pharmacy: [facility] #[id number] Nitroglycer 2020-0 Yes 0.4 mg = 1 Memoria in 0.4 MG 5-13 tab, SL, l Sublingual 14:33: Q5Min, PRN H ermann Tablet 00 Chest Pain, Give up to 3 doses. Call 911 if pain persists., # 100 tab, 1 Refill(s), Pharmacy: [facility] #[id number] lisinopril 2020-0 Yes = 1 tab, Mem oria 10 mg oral 5-13 PO, Daily, l tablet 13:46: # 90 tab, Amos n 54 Refill(s) 3, Pharmacy: [facility] #[id number] lisinopril 2020-0 Yes = 1 tab, Mem oria 10 mg oral 5-13 PO, Daily, l tablet 13:46: # 90 tabEdwinan n 54 Refill(s) 3, Pharmacy: [facility] #[id number] lisinopril 2020-0 No = 1 tab, Mem oria 10 mg oral 5-13 PO, Daily, l tablet 13:45: # 90 tab, Amos n 58 Refill(s) 3, Pharmacy: [facility] #[id number] lisinopril 2020-0 No = 1 tab, Mem oria 10 mg oral 5-13 PO, Daily, l tablet 13:45: # 90 tab, Amos n 58 Refill(s) 3, Pharmacy: [facility] #[id number] gabapentin 2020-0 Yes 900 mg, Loyd sami 5-07 PO, 0 l 20:06: Refill(s) Dario gabapentin 2020-0 Yes 600 mg, Loyd sami 5-07 PO, 0 l 20:06: Refill(s) Dario gabapentin 2020-0 Yes 900 mg, Loyd sami 5-07 PO, 0 l 20:06: Refill(s) [place] gabapentin 2020-0 Yes 600 mg, Loyd sami 5-07 PO, 0 l 20:06: Refill(s) Dario Acetaminoph 2018-05 Yes 1 tab, PO, Memoria en 300 MG / 0-17 Q4H, PRN l Codeine 21:15: Pain, X 7 Gretta nn Phosphate 00 day, # 42 30 MG Oral tab, 0 Tablet Refill(s) [Tylenol with Codeine #3] Acetaminoph 2018-05 Yes 1 tab, PO, Memoria en 300 MG / 0-17 Q4H, PRN l Codeine 21:15: Pain, X 7 Gretta nn Phosphate 00 day, # 42 30 MG Oral tab, 0 Tablet Refill(s) [Tylenol with Codeine #3] multivitami Yes 1 tab, PO, Memoria n with 5-01 Daily, 0 l minerals 15:24: Refill(s) Herm fabio multivitami 2018- Yes 1 tab, PO, Memoria n with 5-01 Daily, 0 l minerals 15:24: Refill(s) Herm fbaio 00 Imdur 30 mg 2019-0 Yes 30 mg = 1 M emoria oral 2-20 tab, PO, l tablet, 18:18: QAM, # 90 Gretta nn extended 00 tab, 3 release Refill(s), Pharmacy: [facility] #[id number] Imdur 30 mg 2018-0 Yes 30 mg = 1 M emoria oral 2-20 tab, PO, l tablet, 18:18: QAM, # 90 Gretta nn extended 00 tab, 3 release Refill(s), Pharmacy: [id number] Alendronic 2019-0 Yes 70 mg = 1 Me moria acid 70 MG 1-18 tab, PO, l Oral Tablet 17:30: Q7D, take H ermann [Fosamax] 00 with 6-8 oz plain water, at least 30 minutes before first food, beverage, or medication of the day, # 12 tab, 3 Refill(s), Pharmacy: [facility] #[id number] Alendronic 0 Yes 70 mg = 1 Me moria acid 70 MG 1-18 tab, PO, l Oral Tablet 17:30: Q7D, take H ermann [Fosamax] 00 with 6-8 oz plain water, at least 30 minutes before first food, beverage, or medication of the day, # 12 tab, 3 Refill(s), Pharmacy: [facility] #[id number] Hydrochloro 2017-05 Yes = 1 tab, Me moria thiazide 2-13 PO, Daily, l 12.5 MG / 14:39: # 90 tab, Her barbosa Lisinopril 56 Refill(s) 10 MG Oral 3, Tablet Pharmacy: [facility] #[id number] Hydrochloro 2017-05 Yes = 1 tab, Me moria thiazide 2-13 PO, Daily, l 12.5 MG / 14:39: # 90 tab, Her barbosa Lisinopril 56 Refill(s) 10 MG Oral 3, Tablet Pharmacy: [facility] #[id number] meloxicam 2017-05 No = 1 tab, Loyd sami 7.5 mg oral 2-10 PO, Daily, l tablet 14:56: # 30 tab, Amos n 39 Pharmacy: [email or web address] #[id number] meloxicam 2017-05 No = 1 tab, Loyd sami 7.5 mg oral 2-10 PO, Daily, l tablet 14:56: # 30 tab, Amos n 39 Pharmacy: [id number] meloxicam 2017-05 No 7.5 mg = 1 Me moria 7.5 mg oral 1-13 tab, PO, l tablet 20:57: Daily, # [place] 00 30 tab, 0 Refill(s), Pharmacy: [id number] {2017-05 No See Memoria (Methylpred 1-13 Instructio l nisolone 4 20:57: ns, PO, Herm fabio MG Oral 00 Take by Tablet mouth as [Medrol]) } directed Pack on label., [Medrol # 1 Pack, Dosepak] 0 Refill(s), Pharmacy: [id number] Acetaminoph 2017-05 No 1 - 2 tab, Memoria en 300 MG / 1-13 PO, Q6H, l Codeine 20:57: PRN Pain, Gretta nn Phosphate 00 X 4 day, # 30 MG Oral 32 tab, 0 Tablet Refill(s) [Tylenol with Codeine #3] meloxicam 2017-05 No 7.5 mg = 1 Me moria 7.5 mg oral 1-13 tab, PO, l tablet 20:57: Daily, # Dario 00 30 tab, 0 Refill(s), Pharmacy: [facility] #[id number] {2017-05 No See Memoria (Methylpred 1-13 Instructio l nisolone 4 20:57: ns, PO, Herm fabio MG Oral 00 Take by Tablet mouth as [Medrol]) } directed Pack on label., [Medrol # 1 Pack, Dosepak] 0 Refill(s), Pharmacy: [id number] Acetaminoph 2017-05 No 1 - 2 tab, Memoria en 300 MG / 1-13 PO, Q6H, l Codeine 20:57: PRN Pain, Gretta nn Phosphate 00 X 4 day, # 30 MG Oral 32 tab, 0 Tablet Refill(s) [Tylenol with Codeine #3] carvedilol 2017-05 Yes 3.125 mg = M emoria 3.13 MG 0-16 1 tab, PO, l Oral Tablet 14:25: BID, # 180 [place] [Coreg] 00 tab, 3 Refill(s), [facility]acy: [id number] carvedilol 2017-05 Yes 3.125 mg = M emoria 3.13 MG 0-16 1 tab, PO, l Oral Tablet 14:25: BID, # 180 Dario [Coreg] 00 tab, 3 Refill(s), Pharmacy: [email or web address] #[id number] omeprazole 2017-05 Yes See Memoria 20 mg oral 0-16 Instructio l delayed 13:49: ns, # 30 Amos n release 07 unknown capsule unit, Refill(s) 11, TAKE 1 CAPSULE BY MOUTH EVERY DAY., [id number] omeprazole 2017-05 Yes See Memoria 20 mg oral 0-16 Instructio l delayed 13:49: ns, # 30 Amos n release 07 unknown capsule unit, Refill(s) 11, TAKE 1 CAPSULE BY MOUTH EVERY DAY., Pharmacy: [email or web address] #[id number] allopurinol 2017-05 Yes See Memori a 300 mg oral 0-05 Instructio l tablet 13:57: ns, # 90 Dario 53 tab, Refill(s) 3, TAKE 1 TABLET BY MOUTH EVERY DAY, Pharmacy: [email or web address] #[id number] allopurinol 2017-05 Yes See Memori a 300 mg oral 0-05 Instructio l tablet 13:57: ns, # 90 Dario 53 tab, Refill(s) 3, TAKE 1 TABLET BY MOUTH EVERY DAY, Pharmacy: [email or web address] #[id number] Nitroglycer Yes 0.4 mg = 1 Memoria in 0.4 MG 9-27 tab, SL, l Sublingual 17:00: Q5Min, PRN H ermann Tablet 34 Chest Pain, Give up to 3 doses. Call 911 if pain persists., # 25 tab, 10 Refill(s), Pharmacy: [email or web address] #[id number] Nitroglycer Yes 0.4 mg = 1 Memoria in 0.4 MG 9-27 tab, SL, l Sublingual 17:00: Q5Min, PRN H ermann Tablet 34 Chest Pain, Give up to 3 doses. Call 911 if pain persists., # 25 tab, 10 Refill(s), Pharmacy: [email or web address] #[id number] pravastatin Yes See Memori a 20 mg oral 7-02 Instructio l tablet 13:58: ns, # 30 [place] 39 tab, Refill(s) 11, TAKE 1 TABLET BY MOUTH EVERY DAY, [id number] pravastatin 2017-0 Yes See Memori a 20 mg oral 7-02 Instructio l tablet 13:58: ns, # 30 [place] 39 tab, Refill(s) 11, TAKE 1 TABLET BY MOUTH EVERY DAY, [id number] omeprazole 2017-0 No See Memoria 20 mg oral 6-26 Instructio l delayed 19:10: ns, TAKE 1 Herm fabio release 17 CAPSULE BY capsule MOUTH EVERY DAY., # 90 cap, 3 Refill(s), Pharmacy: [facility] #[id number] omeprazole 2017-0 No See Memoria 20 mg oral 6-26 Instructio l delayed 19:10: ns, TAKE 1 Herm fabio release 17 CAPSULE BY capsule MOUTH EVERY DAY., # 90 cap, 3 Refill(s), Pharmacy: [facility] #[id number] carvedilol 2018-0 Yes 3.125 mg = M emoria 3.13 MG 6-18 1 tab, PO, l Oral Tablet 13:47: BID, # 60 H ermann [Coreg] 00 tab, 3 Refill(s), Pharmacy: [facility] #[id number] carvedilol 2018-0 Yes 3.125 mg = M emoria 3.13 MG 6-18 1 tab, PO, l Oral Tablet 13:47: BID, # 60 H ermann [Coreg] 00 tab, 3 Refill(s), Pharmacy: [facility] #[id number] lisinopril 2018-0 Yes 10 mg = 1 Me moria 10 mg oral 4-24 tab, PO, l tablet 19:12: Daily, # [place] 00 90 tab, 3 Refill(s), Pharmacy: [facility] #[id number] lisinopril 2018-0 Yes 10 mg = 1 Me moria 10 mg oral 4-24 tab, PO, l tablet 19:12: Daily, # [place] 00 90 tab, 3 Refill(s), Pharmacy: [facility] #[id number] tramadol 2017-0 Yes 50 mg = 1 Loyd sami hydrochlori 4-23 tab, PO, l de 50 MG 20:06: Q4H, PRN Gretta nn Oral Tablet 00 Pain, X 10 day, # 60 tab, 0 Refill(s) tramadol 2018-0 Yes 50 mg = 1 Loyd sami hydrochlori 4-23 tab, PO, l de 50 MG 20:06: Q4H, PRN Gretta nn Oral Tablet 00 Pain, X 10 day, # 60 tab, 0 Refill(s) omeprazole No See Memoria 20 mg oral 4-18 Instructio l delayed 18:54: ns, TAKE 1 Herm fabio release 00 CAPSULE BY capsule MOUTH EVERY DAY., # 30 caplet, 3 Refill(s), Pharmacy: [facility] #[id number] pravastatin No See Memori a 20 mg oral 4-18 Instructio l tablet 18:54: ns, TAKE 1 Gretta nn 00 TABLET BY MOUTH EVERY DAY, # 30 tab, 3 Refill(s), Pharmacy: [facility] #[id number] omeprazole No See Memoria 20 mg oral 4-18 Instructio l delayed 18:54: ns, TAKE 1 Herm fabio release 00 CAPSULE BY capsule MOUTH EVERY DAY., # 30 caplet, 3 Refill(s), Pharmacy: [facility] #[id number] pravastatin No See Memori a 20 mg oral 4-18 Instructio l tablet 18:54: ns, TAKE 1 Gretta nn 00 TABLET BY MOUTH EVERY DAY, # 30 tab, 3 Refill(s), Pharmacy: [facility] #[id number] Imdur 30 mg Yes 30 mg = 1 M emoria oral 2-26 tab, PO, l tablet, 17:55: QAM, # 30 Gretta nn extended 00 tab, 11 release Refill(s), Pharmacy: [id number] Imdur 30 mg Yes 30 mg = 1 M emoria oral 2-26 tab, PO, l tablet, 17:55: QAM, # 30 Gretta nn extended 00 tab, 11 release Refill(s), Pharmacy: [id number] lisinopril Yes 10 mg = 1 Me moria 10 mg oral 1-16 tab, PO, l tablet 16:38: Daily, # Dario 00 90 tab, 0 Refill(s), Pharmacy: [facility] [id number] carvedilol Yes 3.125 mg = M emoria 3.13 MG 1-16 1 tab, PO, l Oral Tablet 16:38: BID, # 60 H ermann [Coreg] 00 tab, 3 Refill(s), Pharmacy: [facility] [id number] lisinopril Yes 10 mg = 1 Me moria 10 mg oral 1-16 tab, PO, l tablet 16:38: Daily, # [place] 00 90 tab, 0 Refill(s), Pharmacy: [facility] [id number] carvedilol Yes 3.125 mg = M emoria 3.13 MG 1-16 1 tab, PO, l Oral Tablet 16:38: BID, # 60 H ermann [Coreg] 00 tab, 3 Refill(s), Pharmacy: [facility] [id number] loperamide Yes 2 mg = 1 Mem [...] for Dario 00 allergy symptoms, 0 Refill(s) loperamide Yes 2 mg = 1 Mem [...] needed for allergy symptoms, 0 Refill(s) Diphenhydra 2018-0 No 25 mg, PRN Memoria mine 1-16 as needed l 14:33: for [place] allergy symptoms, 0 Refill(s) Valium 2018-0 No 5 mg, Memoria 1-16 Route: PO, l 14:32: ONCE, [place] 00 Dosing Weight 136.364, kg, Start date: 06/13/17 8:32:00 [employer], Stop date: 06/13/17 8:32:00 [employer] Sodium 2018-0 No 1,000 mL, Memori a Chloride 1-16 Rate: 250 l 0.9% IV 14:32: ml/hr, Dario 1,000 mL 00 Infuse over: 4 hr, Route: IV, Dosing Weight 136.364 kg, Total Volume: 1,000, Start date: 06/13/17 8:32:00 [employer], Duration: 1 doses or times, Stop date: 06/13/17 12:31:00 [employer], 2.68, m2 Valium 2018-0 No 5 mg, Memoria 1-16 Route: PO, l 14:32: ONCE, Dosing Weight 136.364, kg, Start date: 06/13/17 8:32:00 [employer], Stop date: 06/13/17 8:32:00 [employer] Sodium 2018-0 No 1,000 mL, Memori a Chloride 1-16 Rate: 250 l 0.9% IV 14:32: ml/hr, Dario 1,000 mL 00 Infuse over: 4 hr, Route: IV, Dosing Weight 136.364 kg, Total Volume: 1,000, Start date: 06/13/17 8:32:00 [employer], Duration: 1 doses or times, Stop date: 06/13/17 12:31:00 [employer], 2.68, m2 Potassium 2016- Yes 0 Memoria Acetate 2-14 Refill(s) l 17:48: [place] 00 Vitamin C 2016-05 Yes Daily, 0 Loyd sami 2-14 Refill(s) l 17:48: [place] 00 Vitamin D3 2016-05 Yes 0 Memoria 2-14 Refill(s) l 17:48: [place] 00 magnesium 2016-05 Yes = 1 cap, Loyd sami carbonate 2-14 PO, Daily, l 17:48: # 30 cap, [place] 00 0 Refill(s) Potassium 2016-05 Yes 0 Memoria Acetate 2-14 Refill(s) l 17:48: [place] 00 Vitamin C 2016-05 Yes Daily, 0 Loyd sami 2-14 Refill(s) l 17:48: [place] 00 Vitamin D3 2016-05 Yes 0 Memoria 2-14 Refill(s) l 17:48: [place] 00 magnesium 2016-05 Yes = 1 cap, Loyd sami carbonate 2-14 PO, Daily, l 17:48: # 30 cap, [place] 00 0 Refill(s) Imdur No Notes: Memoria 2-08 (Same l 15:00: as:Imdur) [place] 00 "Do Not Crush" Take on empty stomach/ full glass of water. Do not crush Imdur No Notes: Memoria 2-08 (Same l 15:00: as:Imdur) [place] 00 "Do Not Crush" Take on empty stomach/ full glass of water. Do not crush 24 HR Yes 30 mg, PO, Memori a Isosorbide 2-07 QAM, # 30 l Mononitrate 18:48: tab, 11 Her barbosa 30 MG 00 Refill(s), Extended Pharmacy: Release [facility] [Imdur] [id number] 24 HR Yes 30 mg, PO, Memori a Isosorbide 2-07 QAM, # 30 l Mononitrate 18:48: tab, 11 Her barbosa 30 MG 00 Refill(s), Extended Pharmacy: Release [facility] [Imdur] [id number] potassium No 1 appl, Memor ia nitrate 250 2-07 Route: l MG/ML / 18:14: TOP, ONCE, Herm fabio Silver 00 Drug form: Nitrate 750 STIC, MG/ML Priority: Medicated Stat, Pad Start date: 07/05/16 12:14:00 [employer], Stop date: 07/05/16 12:14:00 [employer] potassium No 1 appl, Memor ia nitrate 250 2-07 Route: l MG/ML / 18:14: TOP, ONCE, Herm fabio Silver 00 Drug form: Nitrate 750 STIC, MG/ML Priority: Medicated Stat, Pad Start date: 07/05/16 12:14:00 [employer], Stop date: 07/05/16 12:14:00 [employer] Sodium 2017-0 No 250 mL, Memoria Chloride 2-07 250 ml/hr, l 0.154 16:00: Infuse [place] MEQ/ML 00 Over: 1 Injectable hr, Route: Solution IV, 250, Drug form: INJ, ONCALL, Priority: Routine, Dosing Weight 134.091 kg, Start date: 07/05/16 10:00:00 [employer], Duration: 1 doses or times Sodium 2017-0 No 250 mL, Memoria Chloride 2-07 250 ml/hr, l 0.154 16:00: Infuse Dario MEQ/ML 00 Over: 1 Injectable hr, Route: Solution IV, 250, Drug form: INJ, ONCALL, Priority: Routine, Dosing Weight 134.091 kg, Start date: 07/05/16 10:00:00 [employer], Duration: 1 doses or times Sodium 2017-0 No 750 mL, Memoria Chloride 2-07 Rate: 75 l 0.154 15:17: ml/hr, [place] MEQ/ML 00 Infuse Injectable over: 10 Solution hr, Route: IV, Dosing Weight 134.091 kg, Total Volume: 750, Start date: 07/05/16 9:17:00 [employer], Duration: 24 hr, Stop date: 07/06/16 9:16:00 [employer] Sodium 2017-0 No 750 mL, Memoria Chloride 2-07 Rate: 75 l 0.154 15:17: ml/hr, Dario MEQ/ML 00 Infuse Injectable over: 10 Solution hr, Route: IV, Dosing Weight 134.091 kg, Total Volume: 750, Start date: 07/05/16 9:17:00 [employer], Duration: 24 hr, Stop date: 07/06/16 9:16:00 [employer] ProAir HFA 2017-0 Yes 2 puff, Loyd sami 90 mcg/inh 1-05 INHALER, l inhalation 18:43: Q4H, PRN Her barbosa aerosol 00 wheezing, with coughing, adapter or shortness of breath, use with spacer chamber, # 1 ea, 1 Refill(s), Pharmacy: [facility] [id number] ProAir HFA 2017-0 Yes 2 puff, Loyd sami 90 mcg/inh 1-05 INHALER, l inhalation 18:43: Q4H, PRN Her barbosa aerosol 00 wheezing, with coughing, adapter or shortness of breath, use with spacer chamber, # 1 ea, 1 Refill(s), Pharmacy: [facility] [id number] aspirin 81 Yes 81 mg = 1 Me moria mg tablet, 01-27 tab, PO, l enteric 16:34: Daily, # Amos n coated 00 90 tab, 3 Refill(s) aspirin 81 Yes 81 mg = 1 Me moria mg tablet, 01-27 tab, PO, l enteric 16:34: Daily, # Amos n coated 00 90 tab, 3 Refill(s) Enoxaparin No Notes: Memor ia 1-15 (Same as: l 15:00: Lovenox) Dario Enoxaparin No Notes: Memor ia 1-15 (Same as: l 15:00: Lovenox) Dario 00 acetaminoph No Notes: Max Memoria en 1-15 acetaminop l 01:00: hen 4000 Dario 00 mg/day (4 gm/day). (Same as: Tylenol Extra Strength) acetaminoph No Notes: Max Memoria en 1-15 acetaminop l 01:00: hen 4000 Dario 00 mg/day (4 gm/day). (Same as: Tylenol Extra Strength) K-Dur 20 No Notes: Memoria 1-14 (Same as: l 15:34: K-Dur 20) Dario 00 "Do Not Crush" With food and full glass of water K-Dur 20 No Notes: Memoria 1-14 (Same as: l 15:34: K-Dur 20) [place] 00 "Do Not Crush" With food and full glass of water Protonix No Notes: Memoria 1-14 Tablet l 15:00: should not Dario 00 be chewed or crushed. (Same as: Protonix) tamsulosin No Notes: Memor ia 1-14 (Same As: l 15:00: Flomax) Dario "Do Not Crush" Allopurinol No Notes: Loyd sami 1-14 (Same as: l 15:00: Zyloprim) [place] 00 Docusate No Notes: Memoria Sodium 100 1-14 (Same as: l MG Oral 15:00: Colace) Dario Capsule 00 (Do Not [Colace] Crush) Protonix No Notes: Memoria 1-14 Tablet l 15:00: should not [place] 00 be chewed or crushed. (Same as: Protonix) tamsulosin No Notes: Memor ia 1-14 (Same As: l 15:00: Flomax) [place] "Do Not Crush" Allopurinol No Notes: Loyd sami 1-14 (Same as: l 15:00: Zyloprim) [place] Docusate No Notes: Memoria Sodium 100 1-14 (Same as: l MG Oral 15:00: Colace) Dario Capsule 00 (Do Not [Colace] Crush) Ondansetron No Notes: Loyd sami 1-14 (Same as: l 06:00: Zofran) [place] 00 Ondansetron No Notes: Loyd sami 1-14 (Same as: l 06:00: Zofran) [place] Saline No Notes: Memoria Flush 0.9% 1-14 (Same as: l 03:00: BD Dario Posiflush) Pravastatin No Notes: Loyd sami 1-14 (Same as: l 03:00: Pravachol) Dario Saline No Notes: Memoria Flush 0.9% 1-14 (Same as: l 03:00: BD [place] Posiflush) Pravastatin No Notes: Loyd sami 1-14 (Same as: l 03:00: Pravachol) Dario 00 10 ML No Notes: Memoria Cefazolin 1-14 (Same As: l 100 MG/ML 02:00: Ancef, Amos n Prefilled 00 Kefzol) Syringe 10 ML No Notes: Memoria Cefazolin 1-14 (Same As: l 100 MG/ML 02:00: Ancef, Amos n Prefilled 00 Kefzol) Syringe Acetaminoph No Notes: Loyd sami en 1-14 Infuse l 01:00: over 15 Dario 00 minutes Do not exceed 4gm/day of acetaminop hen Acetaminoph No Notes: Loyd saim en 1-14 Infuse l 01:00: over 15 [place] 00 minutes Do not exceed 4gm/day of acetaminop hen Albuterol No Notes: Memori a 0.833 MG/ML 1-14 (Same as: l / 00:23: Duoneb) Dario Ipratropium 00 [place] 0.167 MG/ML Inhalant Solution [DuoNeb] Hydralazine No Notes: Loyd sami 1-14 (Same as: l 00:23: Apresoline [place] 00 ) Push over 5 minutes Milk of No Notes: Memoria Magnesia 1-14 (Same as: l 00:23: Milk of Dario Magnesia, MOM) Bisacodyl No Notes: Memori a 1-14 (Same As: l 00:23: Dulcolax, [place] 00 Bisco-Lax) Simethicone No Notes: Loyd sami 1-14 (Same as: l 00:23: Mylicon) Dario 00 Aluminum No Notes: Memoria Hydroxide 1-14 (aluminum l 40 MG/ML / 00:23: hydroxide- H ermann Magnesium 00 magnesium Hydroxide hyd-simeth 40 MG/ML / icone Simethicone 200-200-20 4 MG/ML mg/5ml 30 Oral ml ud ANNAMARIA) Suspension Ondansetron No Notes: Loyd sami 1-14 (Same as: l 00:23: Zofran) [place] 00 Albuterol No Notes: Memori a 0.833 MG/ML 1-14 (Same as: l / 00:23: Duoneb) [place] Ipratropium 00 [place] 0.167 MG/ML Inhalant Solution [DuoNeb] Hydralazine No Notes: Loyd sami 1-14 (Same as: l 00:23: Apresoline [place] 00 ) Push over 5 minutes Milk of No Notes: Memoria Magnesia 1-14 (Same as: l 00:23: Milk of Dario 00 Magnesia, MOM) Bisacodyl No Notes: Memori a 1-14 (Same As: l 00:23: Dulcolax, [place]isco-Lax) Simethicone No Notes: Loyd sami 1-14 (Same as: l 00:23: Mylicon) Aluminum No Notes: Memoria Hydroxide 1-14 (aluminum l 40 MG/ML / 00:23: hydroxide- H ermann Magnesium magnesium Hydroxide hyd-simeth 40 MG/ML / icone Simethicone 200-200-20 4 MG/ML mg/5ml 30 Oral ml ud ANNAMARIA) Suspension Ondansetron No Notes: Loyd sami 1-14 (Same as: l 00:23: Zofran) gabapentin No Notes: Memor ia 1-14 (Same as: l 00:00: Neurontin) Ketorolac No 4 days Memor ia 1-14 l 00:00: Acetaminoph No 1,000 mg, M emoria en 1-14 Route: PO, l 00:00: Q6Hnow, Dosing Weight 131.455, kg, Start date: 06/10/14 18:00:00, Duration: 30 day, Stop date: 07/10/14 12:00:00 gabapentin No Notes: Memor ia 1-14 (Same as: l 00:00: Neurontin) Ketorolac No 4 days Memor ia 1-14 l 00:00: Acetaminoph No 1,000 mg, M emoria en -14 Route: PO, l 00:00: Q6Hnow, Dosing Weight 131.455, kg, Start date: 06/10/14 18:00:00, Duration: 30 day, Stop date: 07/10/14 12:00:00 Naloxone No Notes: Memoria 1-13 Same as l 23:07: Narcan Aluminum No Notes: Memoria Hydroxide 1-13 (aluminum l 40 MG/ML / 23:07: hydroxide- H erm Magnesium magnesium Hydroxide hyd-simeth 40 MG/ML / icone Simethicone 200-200-20 4 MG/ML mg/5ml 30 Oral ml ud ANNAMARIA) Suspension Nalbuphine No Notes: Memor ia 1-13 (Same As: l 23:07: Nubain) Dario Diphenhydra No Notes: Loyd sami mine 1-13 (Same as: l 23:07: Benadryl) [place] Bisacodyl No Notes: Memori a 1-13 (Same As: l 23:07: Dulcolax, Dario 00 Bisco-Lax) Naloxone No Notes: Memoria 1-13 Same as l 23:07: Narcan Dario 00 Aluminum No Notes: Memoria Hydroxide 1-13 (aluminum l 40 MG/ML / 23:07: hydroxide- H ermann Magnesium 00 magnesium Hydroxide hyd-simeth 40 MG/ML / icone Simethicone 200-200-20 4 MG/ML mg/5ml 30 Oral ml ud ANNAMARIA) Suspension Nalbuphine No Notes: Memor ia 1-13 (Same As: l 23:07: Nubain) Dario 00 Diphenhydra No Notes: Loyd sami mine 1-13 (Same as: l 23:07: Benadryl) Dario Bisacodyl No Notes: Memori a 1-13 (Same As: l 23:07: Dulcolax, Dario 00 [place]-Lax) Celebrex No Notes: Memoria 1-13 NSAID. l 23:00: Please [place] 00 check indication . Not for seizure. (Same As: CeleBREX ) ferrous No Notes: Memoria sulfate 1-13 Give with l 23:00: food. "Do [place] 00 Not Crush" Celebrex No Notes: Memoria 1-13 NSAID. l 23:00: Please Dario 00 check indication . Not for seizure. (Same As: CeleBREX ) ferrous No Notes: Memoria sulfate 1-13 Give with l 23:00: food. "Do Dario 00 Not Crush" Diphenhydra No Notes: Loyd sami mine 1-13 (Same as: l 20:48: Benadryl) [place] Ondansetron No Notes: Loyd sami 1-13 (Same as: l 20:48: Zofran) Ketorolac No 30 mg, Memori a 1-13 Route: l 20:48: IVP, ONCE, Dosing Weight [...] sami 1-13 Same as: l 20:48: Naropin Diphenhydra No Notes: Loyd sami mine 1-13 (Same as: l 20:48: Benadryl) Ondansetron No Notes: Loyd sami 1-13 (Same as: l 20:48: Zofran) Ketorolac No 30 mg, Memori a 1-13 Route: l 20:48: IVP, ONCE, Dosing Weight [...] minutes. Acetaminoph No Notes: Loyd sami en -13 Infuse l 20:48: over 15 minutes Do [...] Naropin Saline No Notes: Memoria Flush 0.9% 1-13 (Same as: l 20:10: BD Posiflush) Magnesium No Notes: Memori a Hydroxide 1-13 (Same as: l 20:10: Milk of Magnesia, MOM) Reglan No Notes: Memoria 1-13 (Same as: l 20:10: Reglan) Fleet Enema No 133 ml, Mem oria 1-13 Route: CT, l 20:10: Drug Form: ODILIA, Dosing Weight 131.455, kg, ONCE, PRN as needed for constipati on, Start date: 06/10/14 14:10:00 D5W 1/2NS + No Notes: Loyd sami KCL 20mEq/L 1-13 PREMIX IV l 1000ml 20:10: - Do Not [place] (Premix) 00 Alter 1,000 mL Diphenhydra No 25 mg, 1 Me moria mine 1-13 tab, l 20:10: Route: PO, Dario Drug form: TAB, Q6H, Dosing Weight 131.455, kg, PRN Itching, Start date: 06/10/14 14:10:00, Duration: 30 day, Stop date: 07/10/14 14:09:00 Ondansetron No Notes: Loyd sami 1-13 (Same as: l 20:10: Zofran) Temazepam No Notes: Memori a 1-13 (Same As: l 20:10: Restoril) Saline No Notes: Memoria Flush 0.9% - (Same as: l 20:10: BD Posiflush) Magnesium No Notes: Memori a Hydroxide -13 (Same as: l 20:10: Milk of Magnesia, MOM) Reglan No Notes: Memoria 1-13 (Same as: l 20:10: Reglan) Fleet Enema No 133 ml, Mem oria - Route: CT, l 20:10: Drug Form: [place] ODILIA, Dosing Weight 131.455, kg, ONCE, PRN as needed for constipati on, Start date: 06/10/14 14:10:00 D5W 1/2NS + No Notes: Loyd sami KCL 20mEq/L 1-13 PREMIX IV l 1000ml 20:10: - Do Not [place] (Premix) 00 Alter 1,000 mL Diphenhydra No 25 mg, 1 Me moria mine 1-13 tab, l 20:10: Route: PO, [place] 00 Drug form: TAB, Q6H, Dosing Weight 131.455, kg, PRN Itching, Start date: 06/10/14 14:10:00, Duration: 30 day, Stop date: 07/10/14 14:09:00 Ondansetron No Notes: Loyd sami -13 (Same as: l 20:10: Zofran) Temazepam No Notes: Memori a 1-13 (Same As: l 20:10: Restoril) Lidocaine No Notes: Memori a Hydrochlori 1-13 Preservati l de 10 MG/ML 18:00: ve free. He rmann Injectable 00 (Same as: Solution Xylocaine MPF) Lidocaine No Notes: Memori a Hydrochlori 1-13 Preservati l de 10 MG/ML 18:00: ve free. He rmann Injectable 00 (Same as: Solution Xylocaine MPF) Calcium No 1,000 mL, Memor ia Chloride 06-10 Rate: 25 l 0.0014 17:12: ml/hr, [place] MEQ/ML / 00 Infuse Potassium over: 40 Chloride hr, Route: 0.004 IV, Dosing MEQ/ML / Weight Sodium 126.364 Chloride kg, Total 0.103 Volume: MEQ/ML / 1,000, Sodium Start Lactate date: 0.028 06/10/14 MEQ/ML 11:12:00, Injectable Duration: Solution 30 day, Stop date: 07/10/14 11:11:00 Calcium No 1,000 mL, Memor ia Chloride 06-10 Rate: 25 l 0.0014 17:12: ml/hr, [place] MEQ/ML / 00 Infuse Potassium over: 40 Chloride hr, Route: 0.004 IV, Dosing MEQ/ML / Weight Sodium 126.364 Chloride kg, Total 0.103 Volume: MEQ/ML / 1,000, Sodium Start Lactate date: 0.028 06/10/14 MEQ/ML 11:12:00, Injectable Duration: Solution 30 day, Stop date: 07/10/14 11:11:00 oxyCONTIN No Notes: Do Mem oria 1-13 not crush l 12:00: or chew. [place] (Same as: OxyContin) Neurontin No Notes: Memori a 1-13 (Same as: l 12:00: Neurontin) [place] Ancef No Notes: Memoria 1-13 Same as: l 12:00: Ancef [place] Lactated No 1,000 mL, Loyd sami Ringers 1-13 Rate: 100 l Injection 12:00: ml/hr, Amos n IV 1,000 mL 00 Infuse over: 10 hr, Route: IV, Dosing Weight 126.364 kg, Total Volume: 1,000, Start date: 06/10/14 6:00:00, Stop date: 06/10/14 23:59:00 ropivacaine No Notes: Memoria 1-13 NOT FOR IV l 12:00: use [place] 00 Ropivacain e 5 mg/mL (49.25 mL) Epinephrin e 1 mg/mL (0.5 mL) Clonidine 0.1 mg/mL (0.8 mL) Ketorolac 30 mg/mL (1 mL) Normal Saline 48.45 mL Cyklokapron No Notes: Loyd sami + Sodium 1-13 (Same As: l Chloride 12:00: Cyklokapro Her barbosa 0.9% IV 100 00 n) mL BD No Notes: Memoria Posiflush 1-13 (Same as: l SF 12:00: BD Posiflush) CeleBREX No Notes: Memoria 1-13 NSAID. l 12:00: Please [place] 00 check indication . Not for seizure. (Same As: CeleBREX ) oxyCONTIN No Notes: Do Mem oria 1-13 not crush l 12:00: or chew. (Same as: OxyContin) Neurontin No Notes: Memori a 1-13 (Same as: l 12:00: Neurontin) [place] 00 Ancef No Notes: Memoria 1-13 Same as: l 12:00: Ancef Dario 00 Lactated No 1,000 mL, Loyd sami Ringers 1-13 Rate: 100 l Injection 12:00: ml/hr, Amos n IV 1,000 mL 00 Infuse over: 10 hr, Route: IV, Dosing Weight 126.364 kg, Total Volume: 1,000, Start date: 06/10/14 6:00:00, Stop date: 06/10/14 23:59:00 ropivacaine No Notes: Memoria 1-13 NOT FOR IV l 12:00: use Dario [...] - (Same as: l SF 12:00: BD Dario 00 Posiflush) CeleBREX No Notes: Memoria 06-10 NSAID. l 12:00: Please [place] 00 check indication . Not for seizure. (Same As: CeleBREX ) Pravastatin 2013-05 No Notes: Loyd sami 2-03 (Same as: l 03:00: Pravachol) Diphenhydra 2013-05 No 25 mg, 1 Me moria mine 2-03 tab, l 03:00: Route: PO, [place] 00 Drug form: TAB, Bedtime, Dosing Weight 126.364, kg, Start date: 04/29/14 21:00:00, Duration: 30 day, Stop date: 05/28/14 21:00:00 Pravastatin 2013-05 No Notes: Loyd sami 2-03 (Same as: l 03:00: Pravachol) Diphenhydra 2013-05 No 25 mg, 1 Me moria mine 2-03 tab, l 03:00: Route: PO, [place] 00 Drug form: TAB, Bedtime, Dosing Weight 126.364, kg, Start date: 04/29/14 21:00:00, Duration: 30 day, Stop date: 05/28/14 21:00:00 Lidocaine 2013-05 No Notes: Memori a Hydrochlori 2-02 (Same as: l de 10 MG/ML 22:00: Xylocaine) Dario Injectable 00 Solution Lidocaine 2013-05 No Notes: Memori a Hydrochlori 2-02 (Same as: l de 10 MG/ML 22:00: Xylocaine) Dario Injectable 00 Solution ertapenem 2013-05 Yes 1 gm, IV, Mem oria 313 MG/ML 2-02 Q24H, # 12 l Injectable 20:37: bag, 0 Gretta nn Solution 00 Refill(s) [Invanz] ertapenem 2013-05 Yes 1 gm, IV, Mem oria 313 MG/ML 2-02 Q24H, # 12 l Injectable 20:37: bag, 0 Gretta nn Solution 00 Refill(s) [Invanz] Omeprazole 2013-05 No 20 mg, Memor ia 202 Route: PO, l 15:00: Drug form: Dario 00 DRC, Daily, Dosing Weight 126.364, kg, Start date: 04/29/14 9:00:00, Duration: 30 day, Stop date: 05/28/14 9:00:00 Fish Oil 2013-05 No Notes: Memoria 2-02 (Same as: l 15:00: MaxEPA, Dario 00 [place] 3 fish oil ) Non-Formul [facility] Hydrochloro 2013-05 No 1 tab, Loyd sami thiazide 2-02 Route: PO, l 12.5 MG / 15:00: Drug Form: tonyann Lisinopril 00 TAB, 10 MG Oral Dosing [...] sami 2-02 (Same as: l 15:00: Zyloprim) [place] 00 Prinivil 2013-05 No Notes: Memoria 2-02 (Same as: l 15:00: Prinivil, [place] 00 Zestril) hydrochloro 2013-05 No Notes: Loyd sami thiazide 25 2-02 (Same as: l mg oral 15:00: Hydrodiuri Herm fabio tablet 00 l) With food. tamsulosin 2013-05 No Notes: Memor ia 2-02 (Same As: l 15:00: Flomax) Dario 00 "Do Not Crush" Omeprazole 2013-05 No 20 mg, Memor ia 2-02 Route: PO, l 15:00: Drug form: [place] 00 DRC, Daily, Dosing Weight 126.364, kg, Start date: 04/29/14 9:00:00, Duration: 30 day, Stop date: 05/28/14 9:00:00 Fish Oil 2013-05 No Notes: Memoria 2-02 (Same as: l 15:00: MaxEPA, [place] 00 [place] 3 fish oil ) Non-Formul [facility] Hydrochloro 2013-05 No 1 tab, Loyd sami thiazide 2-02 Route: PO, l 12.5 MG / 15:00: Drug Form: tonyann Lisinopril 00 TAB, 10 MG Oral Dosing [...] sami 2-02 (Same as: l 15:00: Zyloprim) [place] Prinivil 2013-05 No Notes: Memoria 2-02 (Same as: l 15:00: Prinivil, [place] 00 Zestril) hydrochloro 2013-05 No Notes: Loyd sami thiazide 25 2-02 (Same as: l mg oral 15:00: Hydrodiuri Herm fabio tablet 00 l) With food. tamsulosin 2013-05 No Notes: Memor ia 2-02 (Same As: l 15:00: Flomax) [place] "Do Not Crush" Pyridium 2013-05 No Notes: Memoria 2-02 Give with l 14:30: meals. Dario (Same as: Pyridium) Pyridium 2013-05 No Notes: Memoria 2-02 Give with l 14:30: meals. Dario 00 (Same as: Pyridium) Protonix 2013-05 No Notes: Memoria 2-02 Tablet l 13:30: should not [place] 00 be chewed or crushed. (Same as: Protonix) Protonix 2013-05 No Notes: Memoria 2-02 Tablet l 13:30: should not [place] 00 be chewed or crushed. (Same as: Protonix) Acetaminoph 2013-05 No Notes: Do M emoria en 325 MG / 2-02 not exceed l Hydrocodone 03:58: 4gm/day of Dario Bitartrate 00 acetaminop 10 MG Oral hen. (Same Tablet as: [place] 325/10) Acetaminoph 2013-05 No Notes: Loyd sami en 325 MG / 2-02 (Same as: l Hydrocodone 03:58: [place] Gretta nn Bitartrate 00 325/5) Do 5 MG Oral not exceed Tablet 4gm/day of acetaminop hen. Morphine 2013-05 No Notes: Memoria 2-02 (Same l 03:58: as:MORPhin [place] 00 e Sulfate) Acetaminoph 2013-05 No Notes: Do M emoria en 2-02 not exceed l 03:58: 4 gm/day. [place] 00 (Same as: Tylenol) Ondansetron 2013-05 No Notes: Loyd sami 2-02 (Same as: l 03:58: Zofran) [place] 00 Acetaminoph 2013-05 No Notes: Do M emoria en 325 MG / 2-02 not exceed l Hydrocodone 03:58: 4gm/day of Dario Bitartrate 00 acetaminop 10 MG Oral hen. (Same Tablet as: [place] 325/10) Acetaminoph 2013-05 No Notes: Loyd sami en 325 MG / 2-02 (Same as: l Hydrocodone 03:58: [place] Gretta nn Bitartrate 00 325/5) Do 5 MG Oral not exceed Tablet 4gm/day of acetaminop hen. Morphine 2013-05 No Notes: Memoria 2-02 (Same l 03:58: as:MORPhin Dario 00 e Sulfate) Acetaminoph 2013-05 No Notes: Do M emoria en 2-02 not exceed l 03:58: 4 gm/day. [place] 00 (Same as: Tylenol) Ondansetron 2013-05 No Notes: Loyd sami 2-02 (Same as: l 03:58: Zofran) Dario 00 Invanz 2013-05 No Notes: Memoria 2-02 (Same as: l 00:00: INVanz) [place] 00 Refrigerat e. NOT COMPATIBLE WITH D5W. Stable in refrigerat or for 24 hours. Invanz 2013-05 No Notes: Memoria 2-02 (Same as: l 00:00: INVanz) Dario 00 Refrigerat e. NOT COMPATIBLE WITH D5W. Stable in refrigerat or for 24 hours. 24 HR 2013-05 Yes 50 mg = 1 Memoria mirabegron 2-01 tab, PO, l 50 MG 23:50: Daily, 0 [place] Extended 00 Refill(s) Release Tablet [Myrbetriq] 24 HR 2013-05 Yes 50 mg = 1 Memoria mirabegron 2-01 tab, PO, l 50 MG 23:50: Daily, 0 Dario Extended 00 Refill(s) Release Tablet [Myrbetriq] tamsulosin 2013-05 Yes 0.4 mg = 1 M emoria 0.4 mg oral 2-01 cap, PO, l capsule 23:48: Daily, # Amos n 00 30 cap, 0 Refill(s) tamsulosin 2013-05 Yes 0.4 mg = 1 M emoria 0.4 mg oral 2-01 cap, PO, l capsule 23:48: Daily, # Amos n 00 30 cap, 0 Refill(s) Cefuroxime 2013-05 No 500 mg = 1 M emoria 500 MG Oral 1-28 tab, PO, l Tablet 23:50: Q12H, # 20 Gretta nn 00 tab, 0 Refill(s) Cefuroxime 2013-05 No 500 mg = 1 M emoria 500 MG Oral 1-28 tab, PO, l Tablet 23:50: Q12H, # 20 Gretta nn 00 tab, 0 Refill(s) Cyklokapron 2013-05 No Notes: Loyd sami 1-18 (Same As: l 12:00: Cyklokapro [place] 00 n) CeleBREX 2013-05 No Notes: Memoria 1-18 NSAID. l 12:00: Please Dario 00 check indication . Not for seizure. (Same As: CeleBREX ) oxyCONTIN 2013-05 No Notes: Do Mem oria 1-18 not crush l 12:00: or chew. [place] 00 (Same as: OxyContin) Neurontin 2013-05 No Notes: Memori a 1-18 (Same as: l 12:00: Neurontin) Dario 00 Ancef 2013-05 No Notes: Memoria 1-18 Same as: l 12:00: Ancef Dario 00 BD Normal 2013-05 No Notes: Memori a Saline -18 (Same as: l Flush 12:00: BD Posiflush) Lactated 2013-05 No 1,000 mL, Loyd sami Ringers -18 Rate: 100 l Injection 12:00: ml/hr, Amos n IV 1000 mL 00 Infuse over: 10 hr, Route: IV, Dosing Weight 129.091 kg, Total Volume: 1,000, Start date: 04/15/14 6:00:00, Duration: 30 day, Stop date: 07/14/14 5:59:00 ropivacaine 2013-05 No Notes: Memoria 1-18 NOT FOR IV l 12:00: use Ropivacain e 5 mg/mL (49.25 mL) Epinephrin e 1 mg/mL (0.5 mL) Clonidine 0.08 mg/mL (0.8 mL) Ketorolac 30 mg/mL (1 mL) Normal Saline 48.45 mL Cyklokapron 2013-05 No Notes: Loyd sami 1-18 (Same As: l 12:00: Cyklokapro n) CeleBREX 2013-05 No Notes: Memoria 1-18 NSAID. l 12:00: Please Dario 00 check indication . Not for seizure. (Same As: CeleBREX ) oxyCONTIN 2013-05 No Notes: Do Mem oria 1-18 not crush l 12:00: or chew. Dario 00 (Same as: OxyContin) Neurontin 2013-05 No Notes: Memori a 1-18 (Same as: l 12:00: Neurontin) [place] Ancef 2013-05 No Notes: Memoria 1-18 Same as: l 12:00: Ancef Dario 00 BD Normal 2013-05 No Notes: Memori a Saline 18 (Same as: l Flush 12:00: BD Dario 00 Posiflush) Lactated 2013-05 No 1,000 mL, Loyd sami Ringers 06-15 Rate: 100 l Injection 12:00: ml/hr, Amos n IV 1000 mL 00 Infuse over: 10 hr, Route: IV, Dosing Weight 129.091 kg, Total Volume: 1,000, Start date: 04/15/14 6:00:00, Duration: 30 day, Stop date: 07/14/14 5:59:00 ropivacaine 2013-05 No Notes: Memoria 06-15 NOT FOR IV l 12:00: use Dario 00 Ropivacain e 5 mg/mL (49.25 mL) Epinephrin e 1 mg/mL (0.5 mL) Clonidine 0.08 mg/mL (0.8 mL) Ketorolac 30 mg/mL (1 mL) Normal Saline 48.45 mL Allergy 2013-05 No 25 mg = 1 Me moria mg oral 1-11 tab, PO, l tablet 20:11: Bedtime, 0 Gretta nn 00 Refill(s) Allergy 2013-05 No 25 mg = 1 Me moria mg oral 1-11 tab, PO, l tablet 20:11: Bedtime, 0 Gretta nn 00 Refill(s) Hydrochloro 2013-05 Yes 1 tab, PO, Memoria thiazide 1-11 Daily, # l 12.5 MG / 19:57: 30 tab, 0 Her barbosa Lisinopril 00 Refill(s) 10 MG Oral Tablet Hydrochloro 2013-05 Yes 1 tab, PO, Memoria thiazide 1-11 Daily, # l 12.5 MG / 19:57: 30 tab, 0 Her barbosa Lisinopril 00 Refill(s) 10 MG Oral Tablet meloxicam 2013-05 No 7.5 mg = 1 Me moria 7.5 mg oral 1-11 tab, PO, l tablet 19:56: Daily, # [place] 00 30 tab, 0 Refill(s) meloxicam 2013-05 No 7.5 mg = 1 Me moria 7.5 mg oral 1-11 tab, PO, l tablet 19:56: Daily, # [place] 00 30 tab, 0 Refill(s) Fish Oil 2012-05 Yes 1,000 mg = Mem oria 1000 mg 2-19 1 cap, PO, l oral 21:13: Daily, 0 [place] capsule 00 Refill(s) Fish Oil 2012-05 Yes 1,000 mg = Mem oria 1000 mg 2-19 1 cap, PO, l oral 21:13: Daily, 0 [place] capsule 00 Refill(s) Omeprazole Omeprazole No QD Omeprazole 20 MG [...] 50 MCG (1999 UT) (1999 UT) (1999) Loratadine Loratadine No 1{table QD Loratadine [...] 50 MCG (1999 UT) (1999 UT) (1999) Aspirin 81 Aspirin 81 No 1{table [...] 50 MCG (1999 UT) (1999 UT) (1999) Magnesium Magnesium No 1{table QD Magnesium [...] 50 MCG (1999 UT) (1999 UT) (1999) Magnesium Magnesium No 1{table QD Magnesium [...] 50 MCG le} 50 MCG (1999) (1999) (1999 UT) Vitamin D Vitamin D No 1{capsu QD Vitamin D 50 MCG 50 MCG le} 50 MCG (1999) (1999) (1999 UT) Lisinopril- Lisinopril- No 1{table QD Lisinopril [...] MG 300 MG t} l 300 MG Immunizations Ordered Immunization Filled Immunization Date Status Commen ts Source Name Name [id number] 2021-04-21 Completed [facility] NA-1273vaxMODERNA 00:00:00 [facility] [id number] 2021-04-21 Completed [facility] NA-1273vaxMODERNA 00:00:00 [facility] influenza virus 2021-02-15 [facility]00 [facility] influenza virus 2021-02-15 [facility]pleted [facility], inactivated 00:00:00 [facility] [id number] 2020-07-25 Completed [facility] NA-1273vaxMODERNA<kelley 20:22:00 [facility] fab[facility] p>1</sup> [id number] 2020-07-25 Completed [facility] NA-1273vaxMODERNA<kelley 20:22:00 [facility] p>1</sup> [id number] 2020-06-27 Completed [facility] NA-1273vaxMODERNA<kelley 21:53:00 [facility] p>2</sup> [id number] 2020-06-27 Completed [facility] NA-1273vaxMODERNA<kelley 21:53:00 [facility] p>2</sup> influenza virus 2019-04-04 [facility]pleted [facility], inactivated 18:18:00 [facility] fab[facility] influenza virus 2019-04-04 Completed [facility], inactivated 18:18:00 [facility] fab[facility] influenza virus 2018-03-02 Completed [facility] vaccine, inactivated 19:15:00 [facility] fab[facility] influenza virus 2018-03-02 Completed [facility] vaccine, inactivated 19:15:00 [facility] fab[facility] influenza virus 2018-02-28 [facility]pleted [facility], 16:08:00 [facility] inactivated<sup>1</s up> influenza virus 2018-02-28 Completed [facility], 16:08:00 [facility] inactivated<sup>3</s up> influenza virus 2018-02-28 Completed [facility] vaccine, 16:08:00 [facility] inactivated<sup>1</s up> influenza virus 2018-02-28 Completed [facility] vaccine, 16:08:00 [facility] inactivated<sup>3</s up> influenza virus 2018-02-28 Completed [facility] vaccine, 16:01:00 [facility] inactivated<sup>2</s up> influenza virus 2018-02-28 Completed [facility] vaccine, 16:01:00 [place] inactivated<sup>4</s up> influenza virus 2018-02-28 Completed [facility] vaccine, 16:01:00 [place] inactivated<sup>2</s up> influenza virus 2018-02-28 Completed [facility] vaccine, 16:01:00 [place] inactivated<sup>4</s up> influenza virus 2017-04-07 Completed [facility] vaccine, inactivated 17:32:00 [facility] fab[facility] influenza virus 2017-04-07 Completed [facility] vaccine, inactivated 17:32:00 [facility] fab[facility] influenza virus 2016-02-10 Completed [facility] vaccine, inactivated 16:31:00 [facility] fab[facility] influenza virus 2016-02-10 Completed [facility] vaccine, inactivated 16:31:00 [facility] fab[facility] influenza virus 2015-03-18 Completed [facility] vaccine, inactivated 17:02:00 [facility] influenza virus 2015-03-18 Completed [facility] vaccine, inactivated 17:02:00 [facility] fabio pneumococcal 2014-04-01 Completed [facility] 23-valent 06:00:00 [place] vaccine<sup>5</sup> influenza virus 2014-04-01 Completed [facility] vaccine, 06:00:00 [place] inactivated<sup>3</s up> pneumococcal 2014-04-01 Completed [facility] 23-valent 06:00:00 [place] vaccine<sup>3</sup> influenza virus 2014-04-01 Completed [facility] vaccine, 06:00:00 [place] inactivated<sup>1</s up> pneumococcal 2014-04-01 Completed [facility] 23-valent 06:00:00 [place] vaccine<sup>4</sup> influenza virus 2014-04-01 Completed [facility] vaccine, 06:00:00 [facility] inactivated<sup>2</s up> influenza virus 2014-04-01 Completed [facility] vaccine, 06:00:00 [place] inactivated<sup>5</s up> pneumococcal 2014-04-01 Completed [facility] 23-valent 06:00:00 [place] vaccine<sup>7</sup> pneumococcal 2014-04-01 Completed [facility] 23-valent 06:00:00 [place] vaccine<sup>5</sup> influenza virus 2014-04-01 Completed [facility] vaccine, 06:00:00 [facility] inactivated<sup>3</s up> pneumococcal 2014-04-01 Completed [facility] 23-valent 06:00:00 [facility] vaccine<sup>3</sup> influenza virus 2014-04-01 Completed [facility] vaccine, 06:00:00 [place] inactivated<sup>1</s up> pneumococcal 2014-04-01 Completed [facility] 23-valent 06:00:00 [place] vaccine<sup>4</sup> influenza virus 2014-04-01 Completed [facility] vaccine, 06:00:00 [facility] inactivated<sup>2</s up> influenza virus 2014-04-01 Completed [facility] vaccine, 06:00:00 [facility] inactivated<sup>5</s up> pneumococcal 2014-04-01 Completed [facility] 23-valent 06:00:00 [place] vaccine<sup>7</sup> influenza virus 2013-03-08 Completed [facility] vaccine, 05:00:00 [place] inactivated<sup>4</s up> influenza virus 2013-03-08 Completed [facility] vaccine, 05:00:00 [facility] inactivated<sup>2</s up> influenza virus 2013-03-08 Completed [facility] vaccine, 05:00:00 [facility] inactivated<sup>3</s up> influenza virus 2013-03-08 Completed [facility] vaccine, 05:00:00 [facility] inactivated<sup>6</s up> influenza virus 2013-03-08 Completed [facility] vaccine, 05:00:00 [place] inactivated<sup>4</s up> influenza virus 2013-03-08 Completed [facility] vaccine, 05:00:00 [place] inactivated<sup>2</s up> influenza virus 2013-03-08 Completed [facility] vaccine, 05:00:00 [facility] inactivated<sup>3</s up> influenza virus 2013-03-08 Completed [facility] vaccine, 05:00:00 [place] inactivated<sup>6</s up> diphtheria/pertussis 2012-03-02 Completed [facility] , acel/tetanus 15:14:59 [place] adult<sup>6</sup> diphtheria/pertussis 2012-03-02 Completed [facility] , acel/tetanus 15:14:59 [facility] adult<sup>4</sup> diphtheria/pertussis 2012-03-02 Completed [facility] , acel/tetanus 15:14:59 [place] adult<sup>1</sup> diphtheria/pertussis 2012-03-02 Completed [facility] , acel/tetanus 15:14:59 [place] [facility] adult<sup>8</sup> diphtheria/pertussis 2012-03-02 Completed [facility] , acel/tetanus 15:14:59 [facility] adult<sup>6</sup> diphtheria/pertussis 2012-03-02 Completed [facility] , acel/tetanus 15:14:59 [place] [place] adult<sup>4</sup> diphtheria/pertussis 2012-03-02 Completed [facility] , acel/tetanus 15:14:59 [place] [facility] adult<sup>1</sup> diphtheria/pertussis 2012-03-02 Completed [facility] , acel/tetanus 15:14:59 [facility] adult<sup>8</sup> tetanus-diphtheria 2012-03-02 Completed [facility] toxoids<sup>7</sup> 14:55:11 [facility] tetanus-diphtheria 2012-03-02 Completed [facility] toxoids<sup>5</sup> 14:55:11 [facility] tetanus-diphtheria 2012-03-02 Completed [facility] toxoids<sup>9</sup> 14:55:11 [facility] tetanus-diphtheria 2012-03-02 Completed [facility] toxoids<sup>7</sup> 14:55:11 [facility] tetanus-diphtheria 2012-03-02 Completed [facility] toxoids<sup>5</sup> 14:55:11 [facility] tetanus-diphtheria 2012-03-02 Completed [facility] toxoids<sup>9</sup> 14:55:11 [facility] Vital Signs Vital Name Observation Time Observation Value Comments Source height 2022-01-05 10:00:00 71 [in_i] [facility] weight 2022-01-05 10:00:00 289.8 [lb_av] Common [facility] temperature 2022-01-05 10:00:00 97.3 [degF] [facility] bmi 2022-01-05 10:00:00 40.41 kg/m2 Common [facility] oximetry 2022-01-05 10:00:00 98 % [facility] respiratory rate 2022-01-05 10:00:00 16 /min Comm on [facility] blood pressure 2022-01-05 10:00:00 145 mm[Hg] Common [facility] - systolic [facility] blood pressure 2022-01-05 10:00:00 78 mm[Hg] [facility] height 2021-08-04 11:15:00 71 [in_i] Common [facility] weight 2021-08-04 11:15:00 285 [lb_av] [facility] temperature 2021-08-04 11:15:00 98.0 [degF] [facility] bmi 2021-08-04 11:15:00 39.75 kg/m2 [facility] S [facility] oximetry 2021-08-04 11:15:00 92 % [facility] respiratory rate 2021-08-04 11:15:00 18 /min Comm on [facility] blood pressure 2021-08-04 11:15:00 123 mm[Hg] Common [facility] - systolic [facility] blood pressure 2021-08-04 11:15:00 67 mm[Hg] Common [facility] - diastolic [facility] height 2021-05-06 11:00:00 71 [in_i] [facility] weight 2021-05-06 11:00:00 285 [lb_av] Common [facility] temperature 2021-05-06 11:00:00 97.6 [degF] Common [facility] bmi 2021-05-06 11:00:00 39.75 kg/m2 [facility] oximetry 2021-05-06 11:00:00 96 % Common [facility] respiratory rate 2021-05-06 11:00:00 18 /min Comm on [facility] blood pressure 2021-05-06 11:00:00 128 mm[Hg] [facility] blood pressure 2021-05-06 11:00:00 66 mm[Hg] [facility] height 2021-01-28 10:00:00 71 [in_i] [facility] weight 2021-01-28 10:00:00 295.0 [lb_av] Common [facility] - [facility] temperature 2021-01-28 10:00:00 97 [degF] [facility] bmi 2021-01-28 10:00:00 41.14 kg/m2 [facility] oximetry 2021-01-28 10:00:00 93 % [facility] blood pressure 2021-01-28 10:00:00 136 mm[Hg] [facility] blood pressure 2021-01-28 10:00:00 66 mm[Hg] [facility] height 2021-01-06 13:30:00 71 [in_i] Common [facility] weight 2021-01-06 13:30:00 289.4 [lb_av] Common [facility] temperature 2021-01-06 13:30:00 97.7 [degF] Common [facility] - [facility] bmi 2021-01-06 13:30:00 40.36 kg/m2 [facility] oximetry 2021-01-06 13:30:00 93 % [facility] blood pressure 2021-01-06 13:30:00 137 mm[Hg] [facility] blood pressure 2021-01-06 13:30:00 72 mm[Hg] [facility] Heart Rate 2022-05-11 20:05:00 [facility] Systolic (mm Hg) 2022-05-11 20:05:00 [facility] [place] Diastolic (mm Hg) 2022-05-11 20:05:00 Mem orial [facility] Height 2022-05-11 20:05:00 6 [ft_i] [facility] Weight 2022-05-11 20:05:00 [facility] [place] BMI Calculated 2022-05-11 20:05:00 Memori al [facility] [place] Heart Rate 2022-04-04 17:23:00 [facility] [place] [place] Systolic (mm Hg) 2022-04-04 17:23:00 [facility] Diastolic (mm Hg) 2022-04-04 17:23:00 Mem orial [facility] Height 2022-04-04 17:23:00 6 [ft_i] [facility] Weight 2022-04-04 17:23:00 [facility] BMI Calculated 2022-04-04 17:23:00 [facility] Weight 2022-01-06 14:51:00 [facility] [place] BMI Calculated 2022-01-06 14:51:00 Memori al [facility] Height 2022-01-06 14:51:00 182.88 cm [facility] Heart Rate 2022-01-06 14:51:00 [facility] Respitory Rate 2022-01-06 14:51:00 [facility] Systolic (mm Hg) 2022-01-06 14:51:00 [facility] rial [facility] Diastolic (mm Hg) 2022-01-06 14:51:00 Mem orial [facility] Height 2021-10-04 16:22:00 182.88 cm [facility] Weight 2021-10-04 16:22:00 [facility] [place] BMI Calculated 2021-10-04 16:22:00 Memori al [place] Heart Rate 2021-10-04 16:22:00 [facility] [place] [place] Systolic (mm Hg) 2021-10-04 16:22:00 Loyd rial [place] Diastolic (mm Hg) 2021-10-04 16:22:00 Mem orial [place] Heart Rate 2021-08-17 16:03:00 [facility] Respitory Rate 2021-08-17 16:03:00 [facility] Systolic (mm Hg) 2021-08-17 16:03:00 [facility] rial [place] Diastolic (mm Hg) 2021-08-17 16:03:00 Mem orial [facility] Height 2021-08-17 16:03:00 182.88 cm [facility] Weight 2021-08-17 16:03:00 [facility] BMI Calculated 2021-08-17 16:03:00 Memori al [place] Heart Rate 2021-08-10 14:25:00 [facility] Respitory Rate 2021-08-10 14:25:00 Memori al [place] Systolic (mm Hg) 2021-08-10 14:25:00 L[facility] rial [facility] Diastolic (mm Hg) 2021-08-10 14:25:00 Mem orial [facility] Height 2021-08-10 14:25:00 182.88 cm [facility] Weight 2021-08-10 14:25:00 [facility] BMI Calculated 2021-08-10 14:25:00 Memori al [place] Height 2021-07-08 17:25:00 182.88 cm [facility] [place] [facility] Heart Rate 2021-07-08 17:25:00 [facility] Respitory Rate 2021-07-08 17:25:00 [facility] Systolic (mm Hg) 2021-07-08 17:25:00 [facility] rial [facility] Diastolic (mm Hg) 2021-07-08 17:25:00 Mem orial [facility] Weight 2021-07-08 17:25:00 [facility] BMI Calculated 2021-07-08 17:25:00 [facility] Heart Rate 2021-04-06 20:15:00 [facility] Systolic (mm Hg) 2021-04-06 20:15:00 [facility] rial [facility] Diastolic (mm Hg) 2021-04-06 20:15:00 Mem orial [place] Height 2021-04-06 20:15:00 182.88 cm [facility] Weight 2021-04-06 20:15:00 [facility] [place] BMI Calculated 2021-04-06 20:15:00 [facility] Systolic (mm Hg) 2020-10-07 16:07:00 [facility] rial [place] Diastolic (mm Hg) 2020-10-07 16:07:00 Mem orial [place] Heart Rate 2020-10-07 16:07:00 [facility] [place] Height 2020-10-07 16:07:00 182.88 cm [facility] Weight 2020-10-07 16:07:00 [facility] [place] BMI Calculated 2020-10-07 16:07:00 Mem[facility] al [facility] Height 2020-09-15 16:34:00 185.42 cm [facility] Weight 2020-09-15 16:34:00 [facility] [place] BMI Calculated 2020-09-15 16:34:00 [facility] Systolic (mm Hg) 2020-09-08 16:40:00 Loyd rial [place] Diastolic (mm Hg) 2020-09-08 16:40:00 Mem orial [place] Heart Rate 2020-09-08 16:40:00 [facility] [place] Height 2020-09-08 16:40:00 185.42 cm [facility] [place] [facility] Weight 2020-09-08 16:40:00 [facility] BMI Calculated 2020-09-08 16:40:00 Memori al [place] Systolic (mm Hg) 2020-08-27 19:05:00 [facility] rial [place] Diastolic (mm Hg) 2020-08-27 19:05:00 Mem orial [place] Heart Rate 2020-08-27 19:05:00 [facility] Respitory Rate 2020-08-27 19:05:00 [facility] Height 2020-08-27 19:05:00 182.88 cm [facility] Weight 2020-08-27 19:05:00 [facility] BMI Calculated 2020-08-27 19:05:00 Memori al [place] Systolic (mm Hg) 2020-04-08 17:20:00 [facility] rial [facility] Diastolic (mm Hg) 2020-04-08 17:20:00 Mem orial [facility] Heart Rate 2020-04-08 17:20:00 [facility] [place] Height 2020-04-08 17:20:00 185.42 cm [facility] Weight 2020-04-08 17:20:00 [facility] [place] BMI Calculated 2020-04-08 17:20:00 Memori al [place] Systolic (mm Hg) 2019-10-03 20:02:00 Loyd rial [facility] Diastolic (mm Hg) 2019-10-03 20:02:00 Mem orial [place] Heart Rate 2019-10-03 20:02:00 [facility] [place] Height 2019-10-03 20:02:00 180.34 cm [facility] Weight 2019-10-03 20:02:00 [facility] BMI Calculated 2019-10-03 20:02:00 Mem[facility] Systolic (mm Hg) 2019-04-04 17:53:00 Loyd rial [place] Diastolic (mm Hg) 2019-04-04 17:53:00 Mem orial [place] Heart Rate 2019-04-04 17:53:00 [facility] [place] Height 2019-04-04 17:53:00 180.34 cm [facility] [place] [facility] Weight 2019-04-04 17:53:00 [facility] [place] BMI Calculated 2019-04-04 17:53:00 Mem[facility] al [facility] Systolic (mm Hg) 2019-03-14 20:01:00 Loyd rial [facility] Diastolic (mm Hg) 2019-03-14 20:01:00 Mem orial [facility] Heart Rate 2019-03-14 20:01:00 [facility] [place] Temperature Oral (F) 2019-03-14 20:01:00 98.0 F [facility] Weight 2019-03-14 20:01:00 [facility] [place] Weight 2018-09-26 15:18:00 [facility] BMI Calculated 2018-09-26 15:18:00 [facility] Height 2018-09-26 15:18:00 180.34 cm [facility] Temperature Oral (F) 2018-09-26 15:18:00 97.8 F [facility] [place] Heart Rate 2018-09-26 15:18:00 [facility] [place] Systolic (mm Hg) 2018-09-26 15:18:00 Loyd rial [place] Diastolic (mm Hg) 2018-09-26 15:18:00 Mem orial [place] BMI Calculated 2018-08-23 16:31:00 Memori al [place] Weight 2018-08-23 16:31:00 [facility] Systolic (mm Hg) 2018-08-23 16:31:00 Loyd rial [facility] Diastolic (mm Hg) 2018-08-23 16:31:00 Mem orial [place] Height 2018-08-23 16:31:00 180.34 cm [facility] [place] Heart Rate 2018-08-23 16:31:00 [facility] [place] Weight 2018-06-15 17:07:00 [facility] Heart Rate 2018-06-15 17:07:00 [facility] Respitory Rate 2018-06-15 17:07:00 [facility] Temperature Oral (F) 2018-06-15 17:07:00 98.3 F [facility] [place] Systolic (mm Hg) 2018-06-15 17:07:00 [facility]oyd rial [place] Diastolic (mm Hg) 2018-06-15 17:07:00 Mem orial [facility] Weight 2018-04-10 20:18:00 [facility] [place] [facility] Height 2018-04-10 20:18:00 181.61 cm [facility] BMI Calculated 2018-04-10 20:18:00 [facility] Temperature Oral (F) 2018-04-10 20:18:00 98.3 F [facility] [place] Heart Rate 2018-04-10 20:18:00 [facility] Respitory Rate 2018-04-10 20:18:00 [facility] Systolic (mm Hg) 2018-04-10 20:18:00 Loyd rial [facility] Diastolic (mm Hg) 2018-04-10 20:18:00 Mem orial [facility] BMI Calculated 2018-02-22 16:51:00 Memori al [place] Height 2018-02-22 16:51:00 185.42 cm [facility] Weight 2018-02-22 16:51:00 [facility] Heart Rate 2018-02-22 16:51:00 [facility] [place] Systolic (mm Hg) 2018-02-22 16:51:00 Loyd rial [facility] Diastolic (mm Hg) 2018-02-22 16:51:00 Mem orial [place] BMI Calculated 2017-09-18 18:25:00 Memori al [place] Weight 2017-09-18 18:25:00 [facility] [place] Height 2017-09-18 18:25:00 185.42 cm [facility] [place] [facility] Heart Rate 2017-09-18 18:25:00 [facility] Respitory Rate 2017-09-18 18:25:00 Mem[facility] al [facility] Temperature Oral (F) 2017-09-18 18:25:00 98.2 F [facility] [place] Systolic (mm Hg) 2017-09-18 18:25:00 Loyd rial [facility] Diastolic (mm Hg) 2017-09-18 18:25:00 Mem orial [place] BMI Calculated 2017-06-29 18:36:00 Mem[facility] al [facility] Weight 2017-06-29 18:36:00 [facility] [place] [facility] Systolic (mm Hg) 2017-06-29 18:36:00 Loyd rial [facility] Diastolic (mm Hg) 2017-06-29 18:36:00 Mem orial [place] Heart Rate 2017-06-29 18:36:00 [facility] Height 2017-06-29 18:36:00 185.42 cm [facility] BMI Calculated 2017-06-13 14:12:00 [facility] Weight 2017-06-13 14:12:00 [facility] Height 2017-06-13 14:12:00 185.42 cm [facility] Systolic (mm Hg) 2017-06-13 14:11:00 Loyd rial [place] Diastolic (mm Hg) 2017-06-13 14:11:00 Mem orial [place] [facility] Respitory Rate 2017-06-13 14:11:00 Mem[facility] al [facility] Heart Rate 2017-06-13 14:11:00 [facility] Temperature Oral (F) 2017-06-13 14:11:00 97.6 F [facility] Weight 2017-05-11 17:44:00 [facility] Temperature Oral (F) 2017-05-11 17:44:00 98.1 F [facility] Heart Rate 2017-05-11 17:44:00 [facility] Systolic (mm Hg) 2017-05-11 17:44:00 Loyd rial [facility] Diastolic (mm Hg) 2017-05-11 17:44:00 Mem orial [place] Temperature Oral (F) 2016-07-05 14:50:00 97.6 F [facility] Respitory Rate 2016-07-05 14:50:00 [facility] Systolic (mm Hg) 2016-07-05 14:50:00 Loyd rial [facility] Diastolic (mm Hg) 2016-07-05 14:50:00 Mem orial [facility] Weight 2016-07-05 14:47:00 [facility] Height 2016-07-05 14:47:00 185.42 cm [facility] BMI Calculated 2016-07-05 14:47:00 Memori al [place] Systolic (mm Hg) 2014-06-11 21:12:00 Loyd rial [facility] Respitory Rate 2014-06-11 21:12:00 Mem[facility] al [facility] Heart Rate 2014-06-11 21:12:00 [facility] Diastolic (mm Hg) 2014-06-11 21:12:00 Mem orial [facility] Heart Rate 2014-06-11 17:13:00 [facility] Respitory Rate 2014-06-11 17:13:00 Memori al [facility] Systolic (mm Hg) 2014-06-11 17:13:00 Loyd rial [place] Diastolic (mm Hg) 2014-06-11 17:13:00 Mem orial [facility] Temperature Oral (F) 2014-06-11 17:13:00 98.4 F [facility] Temperature Oral (F) 2014-06-11 14:03:00 97.6 F [facility] Diastolic (mm Hg) 2014-06-11 14:03:00 Mem [facility] Systolic (mm Hg) 2014-06-11 14:03:00 Loyd rial [facility] Respitory Rate 2014-06-11 14:03:00 Mem[facility] al [facility] Heart Rate 2014-06-11 14:03:00 [facility] Temperature Oral (F) 2014-06-11 09:41:00 97.8 F [facility] BMI Calculated 2014-06-10 23:14:00 Memori al [facility] Weight 2014-06-10 23:14:00 [facility] Height 2014-06-10 23:14:00 185.42 cm [facility] BMI Calculated 2014-06-10 18:43:00 Memori al [facility] Weight 2014-06-10 18:43:00 [facility] Diastolic (mm Hg) 2014-04-30 22:43:00 Mem orial [facility] Heart Rate 2014-04-30 22:43:00 [facility] Temperature Oral (F) 2014-04-30 22:43:00 97.6 F [facility] Respitory Rate 2014-04-30 22:43:00 Memori al [facility] [place] Systolic (mm Hg) 2014-04-30 22:43:00 Loyd rial [facility] Respitory Rate 2014-04-30 18:31:00 [facility] Systolic (mm Hg) 2014-04-30 18:31:00 Loyd rial [facility] Heart Rate 2014-04-30 18:31:00 [facility] Diastolic (mm Hg) 2014-04-30 18:31:00 Mem orial [facility] Temperature Oral (F) 2014-04-30 18:31:00 98.3 F [facility] Diastolic (mm Hg) 2014-04-30 14:24:00 Mem o[facility] Systolic (mm Hg) 2014-04-30 14:24:00 Loyd nidia [facility] Heart Rate 2014-04-30 14:24:00 [facility] Temperature Oral (F) 2014-04-30 14:24:00 97.4 F [facility] Respitory Rate 2014-04-30 14:24:00 Memori al [facility] [place] BMI Calculated 2014-04-28 23:23:00 Nolviaori al [facility] Weight 2014-04-28 23:23:00 [facility] Height 2014-04-28 23:23:00 185.42 cm [facility] Height 2014-04-08 19:28:00 185.42 cm [facility] D[facility] Procedures Procedure Date / Time Performed Performing Clinician [facility] timmy Cardiac catheterisation, 2017-06-13 06:00:00 Mem gio Pinedaann left heart Arthroplasty of 2014-06-10 06:00:00 [facility] knee<sup>1</sup> Lithotripsy of kidney 2014-02-26 05:00:00 [place] [facility] [facility] Arthroplasty of knee 2013-06-11 06:00:00 J Luis l Dario Stent placement [facility] Arthroscopy of shoulder [facility] [place] Plan of Care Planned Activity Planned Date Details Comments Source Future Scheduled 2022-05-[address] [facility] Test 01:19:24 (procedure) [code = [id number]] Future Scheduled 2022-05-[address] [facility] Test 01:19:24 [code = COLONOSCOPY SCREENING] Future Scheduled 2022-05-12 SHINGLES VACCINES ([address] [facility] Test 01:19:24 of 2) [code = SHINGLES VACCINES (1 of 2)] Future Scheduled 2022-05-12 65[facility] Test 01:19:24 VACCINE (1 - PCV) [code = 65+ PNEUMOCOCCAL VACCINE (1 - PCV)] Future Scheduled 2022-05-12 COVID-19 VACCINE (3 - [facility] Test 01:19:24 Booster for Moderna series) [code = COVID-19 VACCINE (3 - Booster for Moderna series)] Future Scheduled 2022-05-12 INFLUENZA VACCINE [facility] Test 01:19:24 [code = INFLUENZA VACCINE] Future Scheduled 2022-05-[address] [facility] Test 01:19:24 (procedure) [code = 232165411] Future Scheduled 2022-05-[address] [facility] Test 01:19:24 [code = COLONOSCOPY SCREENING] Future Scheduled 2022-05-12 SHINGLES VACCINES ([address] [facility] Test 01:19:24 of 2) [code = SHINGLES VACCINES (1 of 2)] Future Scheduled 2022-05-12 65+ [facility] Test 01:19:24 VACCINE (1 - PCV) [code = 65+ PNEUMOCOCCAL VACCINE (1 - PCV)] Future Scheduled 2022-05-12 COVID-19 VACCINE (3 - [facility] Test 01:19:24 Booster for Moderna series) [code = COVID-19 VACCINE (3 - Booster for Moderna series)] Future Scheduled 2022-05-12 INFLUENZA VACCINE [facility] Test 01:19:24 [code = INFLUENZA VACCINE] Future Scheduled 2022-03-31 SHINGLES VACCINES ([address] [facility] Test 05:11:40 of 2) [code = SHINGLES VACCINES (1 of 2)] Future Scheduled 2022-03-31 65+ [facility]AL [facility] Test 05:11:40 VACCINE (1 - PCV) [code = 65+ PNEUMOCOCCAL VACCINE (1 - PCV)] Future Scheduled 2022-03-31 COVID-19 VACCINE (3 - [facility] Test 05:11:40 Booster for Moderna series) [code = COVID-19 VACCINE (3 - Booster for Moderna series)] Future Scheduled 2022-03-31 INFLUENZA VACCINE [facility] Test 05:11:40 [code = INFLUENZA VACCINE] Future Scheduled 2022-03-31 HEPATITIS B VACCINES Met [facility] Test 05:11:40 (1 of 3 - 3-dose series) [code = HEPATITIS B VACCINES (1 of 3 - 3-dose series)] Future Scheduled 2022-03-[address] [facility] Test 05:11:40 (procedure) [code = [id number]] Future Scheduled 2022-03-[address] [facility] Test 05:11:40 [code = COLONOSCOPY SCREENING] Future Scheduled 2022-03-31 SHINGLES VACCINES ([address] [facility] Test 05:11:40 of 2) [code = SHINGLES VACCINES (1 of 2)] Future Scheduled 2022-03-31 65+ [facility] Test 05:11:40 VACCINE (1 - PCV) [code = 65+ PNEUMOCOCCAL VACCINE (1 - PCV)] Future Scheduled 2022-03-31 COVID-19 VACCINE (3 - [facility] Test 05:11:40 Booster for Moderna series) [code = COVID-19 VACCINE (3 - Booster for Moderna series)] Future Scheduled 2022-03-31 INFLUENZA VACCINE [facility] Test 05:11:40 [code = INFLUENZA VACCINE] Future Scheduled 2022-03-31 HEPATITIS B VACCINES Met [facility] Test 05:11:40 (1 of 3 - 3-dose series) [code = HEPATITIS B VACCINES (1 of 3 - 3-dose series)] Future Scheduled 2022-03-[address] [facility] Test 05:11:40 (procedure) [code = [id number]] Future Scheduled 2022-03-[address] [facility] Test 05:11:40 [code = COLONOSCOPY SCREENING] Encounters Start End Encounter Admission Attending Care Care Encounter Source Date/Time Date/Time Type Type Clinicians Facility Department ID 2022-06-09 Preadmit nullFlavo [id number] Memoria 14:17:53 [place] 2022-06-07 Preadmit nullFlavo [id number] Memoria 16:26:07 r [place] 00 l [place] 2022-04-29 Outpatient YANG, MHFB CAR [id number] MH FB 09:43:18 MAJID 2022-04-18 Outpatient [facility] [id number] Common 12:06:01 [id number] [facility] 2021-06-23 Outpatient [facility] [id number] Common 12:35:51 [id number] [facility] 2021-06-23 Outpatient Tamra Kelley [facility] [id number] Common 11:57:26 [id number] [facility] 2022-11-11 2022-11-11 Outpatient JOCELINE CAR [id number] Memoria 11:45:00 11:45:00 51 l Dario 2022-11-11 2022-11-11 Outpatient MHIE NICOL [id number] Memoria 11:45:00 11:45:00 52 l Dario 2022-07-11 2022-07-11 Outpatient MHIE JOCELINE [id number] Memoria 11:00:00 11:00:00 49 l Dario 2022-07-11 2022-07-11 Outpatient MHIE JOCELINE [id number] Memoria 11:00:00 11:00:00 48 l [place] 2022-05-11 2022-05-12 Outpatient MHIE [id number] Memoria 20:15:00 05:59:59 Cardiology 50 l [place] [facility] 2022-05-11 2022-05-12 Outpatient MHIE [facility] [id number] Memoria 20:15:00 05:59:59 Cardiology 50 l [place] [facility] 2022-05-11 2022-05-11 Outpatient Yang, [facility] [id number] 14:15:00 23:59:59 Majid Salomnó 50 2022-05-11 2022-05-11 Outpatient JOCELINE NICOL [id number] Memoria 14:15:00 14:15:00 50 l Dario 2022-04-18 2022-04-18 OFF[facility] [id number] Co mmon 00:00:00 00:00:00 VISIT [facility] EST[facility] PT - CHI LEVEL 1 [facility] 2022-04-06 2022-04-07 Outpatient nullFlavo [facility] [id number] Memoria 19:30:00 05:59:59 r Cardiology 49 l [place] [facility] 2022-04-06 2022-04-07 Outpatient nullFlavo [facility] [id number] Memoria 19:30:00 05:59:59 r Cardiology 49 l [place] [facility] 2022-04-06 2022-04-06 Outpatient Yang, [facility] [id number] 13:30:00 23:59:59 Majid Salomón 49 2022-04-05 2022-04-06 Between nullFlavo [facility] [id number] Memoria 14:11:23 14:11:23 Visit r Cardiology 39 l [place] [facility] 2022-04-05 2022-04-06 Between nullFlavo [facility] [id number] Memoria 14:11:23 14:11:23 Visit r Cardiology 39 l [place] [facility] 2022-04-05 2022-04-06 Between nullFlavo [facility] [id number] Memoria 13:57:24 13:57:24 Visit r Primary 38 l Care [place] [facility] 2022-04-05 2022-04-06 Between nullFlavo [facility] [id number] Memoria 13:57:24 13:57:24 Visit r Primary 38 l Care [place] [facility] 2022-04-06 2022-04-06 Outpatient JOCELINE CAR [id number] Memoria 13:30:00 13:30:00 50 cesilia Bishop 2022-04-05 2022-04-06 Outpatient [facility] [id number] 08:11:23 08:11:23 39 2022-04-05 2022-04-06 Outpatient [facility] [id number] 07:57:24 07:57:24 38 2022-04-04 2022-04-05 Outpatient nullFlavo [facility] [id number] Memoria 17:15:00 05:59:59 r Cardiology 47 l [place] [facility] 2022-04-04 2022-04-05 Outpatient nullFlavo [facility] [id number] Memoria 17:15:00 05:59:59 r Cardiology 47 l [place] [facility] 2022-04-04 2022-04-04 Outpatient Yang, [facility] [id number] 11:15:00 23:59:59 Majid Salomón 47 2022-04-04 2022-04-04 Outpatient [facility] [id number] Memoria 11:15:00 11:15:00 48 cesilia Bishop 2022-03-10 2022-03-10 ([place]) Nurse YULI STPHULC [id number] Common 00:00:00 00:00:00 Visit [facility] 2022-01-06 2022-01-07 Outpatient nullFlavo [facility] [id number] Memoria 15:00:00 04:59:59 r Primary 44 l Care [place] 2022-01-06 2022-01-07 Outpatient nullFlavo [facility] [id number] Memoria 15:00:00 04:59:59 r Primary 44 l Care [place] 2022-01-06 2022-01-06 Outpatient David, [facility] [id number] 10:00:00 23:59:59 Hadley 44 2022-01-06 2022-01-06 Outpatient [facility] [id number] Memoria 10:00:00 10:00:00 44 l [place] 2022-01-05 2022-01-05 OFFICE STLMLC STLC [id number] Co mmon 00:00:00 00:00:00 VISIT EST Spir it PT LEVEL 3 [facility] 2021-12-29 2021-12-29 ([place]) Nurse STLMLC STLMLC [id number] Common 00:00:00 00:00:00 Visit [facility] 2021-12-21 2021-12-21 ([place] Nurse STLMLC STLMLC [id number] Common 00:00:00 00:00:00 Visit [facility] 2021-12-15 2021-12-15 OFFICE STLMLC STLMLC [id number] Co mmon 00:00:00 00:00:00 VISIT [facility] PT CHI LEVEL 1 [facility] 2021-12-07 2021-12-07 ([place]) Nurse STLMLC STLMLC [id number] Common 00:00:00 00:00:00 Visit [facility] 2021-11-02 2021-11-02 ([place] Nurse STLMLC STLMLC [id number] Common 00:00:00 00:00:00 Visit [facility] 2021-10-26 2021-10-26 ([place] Nurse STLMLC STLMLC [id number] Common 00:00:00 00:00:00 Visit [facility] 2021-10-20 2021-10-20 ([place]) Nurse STLMLC STLMLC [id number] Common 00:00:00 00:00:00 Visit [facility] 2021-10-12 2021-10-12 OFFICE STLMLC STLMLC [id number] Co mmon 00:00:00 00:00:00 VISIT [facility] LEVEL 1 [facility] 2021-10-04 2021-10-05 Outpatient nullFlavo [facility] [id number] Memoria 16:15:00 04:59:59 r Cardiology 42 l [place] [facility] 2021-10-04 2021-10-05 Outpatient nullFlavo [facility] [id number] Memoria 16:15:00 04:59:59 r Cardiology 42 l [place] [facility] 2021-10-05 2021-10-05 ([place]) Nurse STLMESVIN STLC [id number] Common 00:00:00 00:00:00 Visit [facility] 2021-10-04 2021-10-04 Outpatient Yang, MHMG MG [id number] 11:15:00 23:59:59 Majid Salomón 42 2021-10-04 2021-10-04 Outpatient MHIE IE [id number] Memoria 11:15:00 11:15:00 42 l [place] 2021-09-28 2021-09-28 ([place]) Nurse STBROWN STLC [id number] Common 00:00:00 00:00:00 Visit [facility] 2021-09-21 2021-09-21 (TEL) STLMLC STLMLC [id number] Co mmon 00:00:00 00:00:00 [facility] 2021-09-21 2021-09-21 ([place] Nurse STPHULC STLMLC [id number] Common 00:00:00 00:00:00 Visit [facility] 2021-09-14 2021-09-14 ([place] Nurse STLMLC STLMLC [id number] Common 00:00:00 00:00:00 Visit [facility] 2021-09-07 2021-09-07 ([place] Nurse STLMLC STLMLC [id number] Common 00:00:00 00:00:00 Visit [facility] 2021-08-17 2021-08-18 Outpatient nullFlavo [facility] [id number] Memoria 16:00:00 04:59:59 r Primary 46 l Care [place] [facility] 2021-08-17 2021-08-18 Outpatient nullFlavo [facility] [id number] Memoria 16:00:00 04:59:59 r Primary 46 l Care [place] [facility] 2021-08-17 2021-08-17 Outpatient Joann, [facility] [id number] 11:00:00 23:59:59 Hadley 46 2021-08-17 2021-08-17 Outpatient JOCELINE [facility] [id number] Memoria 11:00:00 11:00:00 46 l [place] 2021-08-10 2021-08-11 Between nullFlavo [facility] [id number] Memoria 23:20:30 23:20:30 Visit r Primary 37 l Care [place] [facility] 2021-08-10 2021-08-11 Between nullFlavo [facility] [id number] Memoria 23:20:30 23:20:30 Visit r Primary 37 l Care [place] [facility] 2021-08-10 2021-08-11 Outpatient [facility] [id number] 18:20:30 18:20:30 37 2021-08-10 2021-08-11 Outpatient nullFlavo [facility] [id number] Memoria 14:20:00 04:59:59 r Primary 45 l Care [place] [facility] 2021-08-10 2021-08-11 Outpatient nullFlavo [facility] [id number] Memoria 14:20:00 04:59:59 r Primary 45 l Care [place] [facility] 2021-08-10 2021-08-11 Outpt Diag nullFlavo [facility] [id number] Memoria 20:58:00 04:59:00 Services r Outpatient 06 l Imaging [place] 2021-08-10 2021-08-11 Outpt Diag nullFlavo [facility] [id number] Memoria 20:58:00 04:59:00 Services r Outpatient 06 l Imaging [place] 2021-08-10 2021-08-11 Outpt Diag nullFlavo [facility] [id number] Memoria 15:31:00 04:59:00 Services r Outpatient 05 l Imaging [place] 2021-08-10 2021-08-11 Outpt Diag nullFlavo [facility] [id number] Memoria 15:31:00 04:59:00 Services r Outpatient 05 l Imaging [place] 2021-08-10 2021-08-10 Outpatient Joann, [facility] [id number] 09:20:00 23:59:59 Hadley 45 2021-08-10 2021-08-10 Outpatient Joann, MH29 29 [id number] 15:58:00 23:59:00 Hadley 06 2021-08-10 2021-08-10 Outpatient Joann, MH29 29 [id number] 10:31:00 23:59:00 [place] 05 2021-08-10 2021-08-10 Outpatient JOCELINE CAR [id number] Memoria 09:20:00 09:20:00 45 l [place] 2021-08-04 2021-08-04 OFFICE STLMLC ST[facility] [id number] Co mmon 00:00:00 00:00:00 VISIT [facility] ESTAB PT - CHI LEVEL 2 [facility] 2021-07-08 2021-07-09 Outpatient nullFlavo [facility] [id number] Memoria 17:00:00 05:59:59 r Primary 43 l Care [place] [facility] 2021-07-08 2021-07-09 Outpatient nullFlavo [facility] [id number] Memoria 17:00:00 05:59:59 r Primary 43 l Care [place] [facility] 2021-07-08 2021-07-08 Outpatient Gabino, [facility] [id number] 11:00:00 23:59:59 Kia 43 [place] 2021-07-08 2021-07-08 Outpatient JOCELINE NICOL [id number] Memoria 11:00:00 11:00:00 43 l [place] 2021-05-06 2021-05-06 OFFICE STLMLC STLMLC [id number] Co mmon 00:00:00 00:00:00 VISIT EST Spir it PT LEVEL 3 - [facility] 2021-04-06 2021-04-07 Outpatient nullFlavo [facility] [id number] Memoria 20:15:00 05:59:59 r Cardiology 41 l [place] [facility] 2021-04-06 2021-04-07 Outpatient nullFlavo [facility] [id number] Memoria 20:15:00 05:59:59 r Cardiology 41 l [place] [facility] 2021-04-06 2021-04-07 Outpatient nullFlavo [facility] [id number] Memoria 19:30:00 05:59:59 r Cardiology 40 l [place] [facility] 2021-04-06 2021-04-07 Outpatient nullFlavo [facility] [id number] Memoria 19:30:00 05:59:59 r Cardiology 40 l [place] [facility] 2021-04-06 2021-04-06 Outpatient Yang, [facility] [id number] 14:15:00 23:59:59 Majid Salomón 41 2021-04-06 2021-04-06 Outpatient Yang, [facility] [id number] 13:30:00 23:59:59 Majid Salomón 40 2021-04-06 2021-04-06 Outpatient MHIE IE [id number] Memoria 14:15:00 14:15:00 42 cesilia Bishop 2021-04-06 2021-04-06 Outpatient MHIE MHIE [id number] Memoria 13:30:00 13:30:00 41 cesilia Bishop 2021-03-24 2021-03-24 [facility] [id number] [place] 00:00:00 00:00:00 [place] [address] 2021-03-24 2021-03-24 Outpatient [facility] [id number] [place] 00:00:00 00:00:00 THEODORE [address] 2021-01-28 2021-01-28 OFFICE [facility] [id number] Co mmon 00:00:00 00:00:00 VISIT [facility] ESTAB PT - CHI LEVEL 1 [facility] 2021-01-20 2021-01-20 (TEL) STLMLC STLC [id number] Co mmon 00:00:00 00:00:00 [facility] 2021-01-06 2021-01-06 OFFICE STLMLC STLMLC [id number] Co mmon 00:00:00 00:00:00 VISIT [facility] - CHI LEVEL 4 [facility] 2020-10-07 2020-10-08 Outpatient nullFlavo [facility] [id number] Memoria 16:15:00 04:59:59 r Cardiology 37 l [place] [facility] 2020-10-07 2020-10-08 Outpatient nullFlavo [facility] [id number] Memoria 16:15:00 04:59:59 r Cardiology 37 l [place] [facility] 2020-10-08 2020-10-08 Outpatient [facility] [id number] Common 00:00:00 00:00:00 [facility] 2020-10-07 2020-10-07 Outpatient Yang, [facility] [id number] 11:15:00 23:59:59 Majid Salomón 37 2020-10-07 2020-10-07 Outpatient MHIE [facility] [id number] Memoria 11:15:00 11:15:00 37 l [place] 2020-09-17 2020-09-17 Bedded nullFlavo [facility] [id number] Memoria 15:55:00 18:26:00 Outpatient r [place] 36 l [place] 2020-09-17 2020-09-17 Bedded nullFlavo [facility] [id number] Memoria 15:55:00 18:26:00 Outpatient r [place] 36 l [place] 2020-09-17 2020-09-17 Outpatient MHSL MHSL [id number] 10:55:00 13:26:00 36 2020-09-17 2020-09-17 Outpatient MHSL MHSL [id number] 10:55:00 13:26:00 36 2020-09-17 2020-09-17 Outpatient KRISTA, MHFB FB [id number] MHFB 10:55:00 13:26:00 NADIM 2020-09-08 2020-09-09 Outpatient nullFlavo [facility] [id number] Memoria 16:10:00 04:59:59 r Gastroenter 39 l ology [place] [facility] 2020-09-08 2020-09-09 Outpatient nullFlavo [facility] [id number] Memoria 16:10:00 04:59:59 r Gastroenter 39 l ology [place] [facility] 2020-09-08 2020-09-08 Outpatient Yang [facility] [id number] 11:10:00 23:59:59 Majid Salomón 39 2020-09-08 2020-09-08 Outpatient JOCELINE CAR [id number] Memoria 11:10:00 11:10:00 39 l [place] 2020-08-28 2020-08-29 Between nullFlavo [facility] [id number] Memoria 12:59:46 12:59:46 Visit r Primary 35 l Care [place] [facility] 2020-08-28 2020-08-29 Between nullFlavo [facility] [id number] Memoria 12:59:46 12:59:46 Visit r Primary 35 l Care [place] [facility] 2020-08-28 2020-08-29 Outpatient [facility] [id number] 07:59:46 07:59:46 35 2020-08-27 2020-08-28 Outpatient nullFlavo [facility] [id number] Memoria 19:00:00 04:59:59 r Primary 38 l Care [place] [facility] 2020-08-27 2020-08-28 Outpatient nullFlavo [facility] [id number] Memoria 19:00:00 04:59:59 r Primary 38 l Care [place] [facility] 2020-08-27 2020-08-27 Outpatient Gabino, [facility] [id number] 14:00:00 23:59:59 Kia 38 [place] 2020-08-27 2020-08-27 Outpatient JOCELINE CAR [id number] Memoria 14:00:00 14:00:00 38 l [place] 2020-08-27 2020-08-27 Outpatient [facility] [id number] Common 00:00:00 00:00:00 [facility] 2020-07-30 2020-07-30 Outpatient [facility] [id number] Common 00:00:00 00:00:00 [facility] 2020-04-08 2020-04-09 Outpatient nullFlavo [facility] [id number] Memoria 17:15:00 05:59:59 r Cardiology 36 cesilia Glynn [facility] 2020-04-08 2020-04-09 Outpatient nullFlavo [facility] [id number] Memoria 17:15:00 05:59:59 r Cardiology 36 cesilia Glynn [facility] 2020-04-08 2020-04-08 Outpatient Yang, [facility] [id number] 11:15:00 23:59:59 Majid Salomón 36 2020-04-08 2020-04-08 Outpatient MHIE MHIE [id number] Memoria 11:15:00 11:15:00 37 cesilia Bishop 2020-03-18 2020-03-18 Outpatient ST[facility]ML[facility] [id number] Common 00:00:00 00:00:00 [facility] 2020-03-16 2020-03-16 Outpatient MHIE MHIE [id number] Memoria 13:00:00 13:00:00 36 cesilia Bishop 2020-03-16 2020-03-16 Outpatient MHIE MHIE [id number] Memoria 13:00:00 13:00:00 36 cesilia Bishop 2019-12-16 2019-12-18 Phone nullFlavo [facility] Family [id number] Memoria 13:25:19 04:59:59 Message r Medicine 16 cesilia Pinedaann 2019-12-16 2019-12-18 Phone nullFlavo [facility] Family [id number] Memoria 13:25:19 04:59:59 Message r Medicine 16 cesilia Bishop 2019-12-16 2019-12-17 Outpatient [facility] [id number] 08:25:19 23:59:59 16 2019-10-07 2019-10-09 Phone nullFlavo [facility] [id number] Memoria 17:07:51 04:59:59 Message r Cardiology 15 cesilia Bishop 2019-10-07 2019-10-09 Phone nullFlavo [facility] [id number] Memoria 17:07:51 04:59:59 Message r Cardiology 15 cesilia Bishop 2019-10-07 2019-10-08 Outpatient [facility] [id number] 12:07:51 23:59:59 15 2019-10-03 2019-10-04 Outpatient nullFlavo [facility] [id number] Memoria 20:00:00 04:59:59 r Cardiology 33 cesilia Bishop 2019-10-03 2019-10-04 Outpatient nullFlavo [facility] [id number] Memoria 20:00:00 04:59:59 r Cardiology 33 cesilia Bishop 2019-10-03 2019-10-03 Outpatient Yang, MG [facility] [id number] 15:00:00 23:59:59 Majid Salomón 33 2019-10-03 2019-10-03 Outpatient MHIE [facility] [id number] Memoria 15:00:00 15:00:00 34 cesilia Bishop 2019-09-21 2019-09-22 Between nullFlavo [facility] Family [id number] Memoria 20:05:57 20:05:57 Visit r Medicine 30 cesilia Bishop 2019-09-21 2019-09-22 Between nullFlavo [facility] Family [id number] Memoria 20:05:57 20:05:57 Visit r Medicine 30 cesilia Bishop 2019-09-21 2019-09-22 Outpatient [facility] [id number] 15:05:57 15:05:57 30 2019-09-12 2019-09-13 Outpatient nullFlavo [facility] Family 3 [id number] Memoria 16:00:00 04:59:59 r Medicine 35 cesilia Bishop 2019-09-12 2019-09-13 Outpatient nullFlavo [facility] Family 3 [id number] Memoria 16:00:00 04:59:59 r Medicine 34 cesilia Bishop 2019-09-12 2019-09-12 Outpatient Gabino, [facility] [id number] 11:00:00 23:59:59 Kia 34 [place]uitar 2019-09-12 2019-09-12 Ambulatory nullFlavo [facility] Family 3 [id number] Memoria 16:00:00 16:00:00 Pre-Reg r Medicine 33 cesilia Bishop 2019-09-12 2019-09-12 Ambulatory nullFlavo [facility] 3 [id number] Memoria 16:00:00 16:00:00 Pre-Reg r Medicine 33 cesilia Bishop 2019-09-12 2019-09-12 Outpatient MHIE IE [id number] Memoria 11:00:00 11:00:00 33 cesilia Bishop 2019-09-12 2019-09-12 Outpatient MHIE MHIE [id number] Memoria 11:00:00 11:00:00 35 cesilia Bishop 2019-09-12 2019-09-12 Outpatient Gabino, MG MG [id number] 11:00:00 11:00:00 Kia Gordon Chris 2019-04-04 2019-04-05 [place] [id number] Memoria 17:30:00 05:59:59 r Cardiology 30 cesilia Bishop 2019-04-04 2019-04-05 [place] [id number] Memoria 17:30:00 05:59:59 r Cardiology 29 cesilia Bishop 2019-04-04 2019-04-04 Outpatient Gabino, [facility] [id number] 11:30:00 23:59:59 Kia Jeanne Chris 2019-04-04 2019-04-04 Ambulatory nullFlavo [facility] 3 [id number] Memoria 19:00:00 19:00:00 Pre-Reg r Medicine 30 cesilia Bishop 2019-04-04 2019-04-04 Ambulatory nullFlavo [facility] 3 [id number] Memoria 19:00:00 19:00:00 Pre-Reg r Medicine 30 cesilia Bishop 2019-04-04 2019-04-04 Outpatient Gabino, [facility] [id number] 13:00:00 13:00:00 Kia Carolyn Chris 2019-04-04 2019-04-04 Outpatient MHIE IE [id number] Memoria 11:30:00 11:30:00 30 cesilia Bishop 2019-04-02 2019-04-02 Outpatient MHIE MHIE [id number] Memoria 11:00:00 11:00:00 31 cesilia Bishop 2019-03-14 2019-03-15 Outpatient nullFlavo [facility] Family 3 [id number] Memoria 20:15:00 04:59:59 r Medicine 31 cesilia Bishop 2019-03-14 2019-03-15 Outpatient nullFlavo MG Family 3 [id number] Memoria 20:15:00 04:59:59 r Medicine 31 cesilia Bishop 2019-03-14 2019-03-14 Outpatient [place], [facility] MG [id number] 15:15:00 23:59:59 Kia Linh Chirs 2019-03-14 2019-03-14 Outpatient MHIE MHIE [id number] Memoria 15:15:00 15:15:00 32 cesilia Bishop 2019-03-04 2019-03-05 Between nullFlavo MG Family [id number] Memoria 21:22:53 21:22:53 Visit r Medicine 27 cesilia Bishop 2019-03-04 2019-03-05 Between nullFlavo [facility] Family [id number] Memoria 21:22:53 21:22:53 Visit r Medicine 27 cesilia Bishop 2019-03-04 2019-03-05 Between nullFlavo [facility] Family [id number] Memoria 21:22:45 21:22:45 Visit r Medicine 26 cesilia Bishop 2019-03-04 2019-03-05 Between nullFlavo [facility] Family [id number] [id number] Memoria 21:22:45 21:22:45 Visit r Medicine 26 cesilia Bishop 2019-03-04 2019-03-05 Outpatient [facility] MH[facility] [id number] 16:22:53 16:22:53 27 2019-03-04 2019-03-05 Outpatient [facility] [id number] 16:22:45 16:22:45 26 2019-01-10 2019-01-12 Phone nullFlavo [facility] [id number] Memoria 17:25:15 04:59:59 Message r Medicine 14 cesilia Bishop 2019-01-10 2019-01-12 Phone nullFlavo [facility] [id number] Memoria 17:25:15 04:59:59 Message r Medicine 14 cesilia Bishop 2019-01-10 2019 Outpatient [facility] [id number] 12:25:15 23:59:59 14 2018-09-26 2018-09-27 Outpatient nullFlavo [facility] 3 [id number] Memoria 15:30:00 04:59:59 r Medicine 18 cesilia Bishop 2018-09-26 2018-09-27 Outpatient nullFlavo [facility] Family 3 [id number] Memoria 15:30:00 04:59:59 r Medicine 18 cesilia Bishop 2018-09-26 2018-09-26 Outpatient Gabino [facility] [id number] 10:30:00 23:59:59 Kia Jesse Chris 2018-09-26 2018-09-26 Outpatient JOSSENICOL JOSSENICOL [id number] Memoria 10:30:00 10:30:00 18 cesilia Bishop 2018-08-23 2018-08-24 Outpatient nullFlavo [facility] [id number] Memoria 16:30:00 04:59:59 r Cardiology 26 Jelly Pinedaann 2018-08-23 2018-08-24 Outpatient nullFlavo [facility] [id number] Memoria 16:30:00 04:59:59 r Cardiology 26 cesilia Pinedaann 2018-08-23 2018-08-23 Outpatient Yang [facility] [id number] 11:30:00 23:59:59 Ramya Lorenzana 26 2018-08-23 2018-08-23 Outpatient JOSSENICOL IE [id number] Memoria 11:30:00 11:30:00 26 cesilia Bishop 2018-07-18 2018-07-20 Phone nullFlavo [facility] [id number] Memoria 15:42:00 05:59:59 Message r Cardiology 13 [place]nn [facility] [place]-07-18 2018-07-20 Phone nullFlavo [facility] [id number] Memoria 15:42:00 05:59:59 Message r Cardiology 13 l [place] [facility] [place] 2018-07-18 2018-07-19 Outpatient [facility] [id number] 09:42:00 23:59:59 13 2018-06-15 2018-06-16 Outpatient nullFlavo [facility] Family 3 [id number] Memoria 17:00:00 05:59:59 r Medicine 28 ecsilia Bishop 2018-06-15 2018-06-16 Outpatient nullFlavo [facility] Family 3 [id number] Memoria 17:00:00 05:59:59 r Medicine 28 cesilia Pinedaann 2018-06-15 2018-06-15 Outpatient Altaf, [facility] [id number] 11:00:00 23:59:59 Jose Manuel P 28 2018-06-15 2018-06-15 Outpatient MHIE MHIE [id number] Memoria 11:00:00 11:00:00 28 cesilia Bsihop 2018-05-10 2018-05-12 Phone nullFlavo [facility] Family [id number] Memoria 14:04:00 05:59:59 Message r Medicine 12 cesilia Bishop 2018-05-10 2018-05-12 Phone nullFlavo [facility] [id number] Memoria 14:04:00 05:59:59 Message r Medicine 12 cesilia Bishop 2018-05-10 2018-05-11 Outpatient MG MG [id number] 08:04:00 23:59:59 12 2018-04-10 2018-04-11 Outpatient nullFlavo [facility] 3 [id number] Memoria 20:15:00 05:59:59 r Medicine 27 cesilia Bishop 2018-04-10 2018-04-11 Outpatient nullFlavo [facility] 3 [id number] Memoria 20:15:00 05:59:59 r Medicine 27 cesilia Bishop 2018-04-10 2018-04-10 [facility] [id number] 14:15:00 23:59:59 Jose Manuel Tom 27 2018-04-10 2018-04-10 Outpatient MHIE MHIE [id number] Memoria 14:15:00 14:15:00 27 cesilia Bishop 2018-03-12 2018-03-14 Phone nullFlavo MG [id number] Memoria 19:14:00 04:59:59 Message r Cardiology 11 cesilia Bishop 2018-03-12 2018-03-14 Phone nullFlavo MG [id number] Memoria 19:14:00 04:59:59 Message r Cardiology 11 cesilia Bishop 2018-03-12 2018-03-13 Outpatient MG MG [id number] 14:14:00 23:59:59 11 2018-03-02 2018-03-04 Phone nullFlavo [facility] [id number] Memoria 12:43:00 04:59:59 Message r Medicine 10 cesilia Bishop 2018-03-02 2018-03-04 Phone nullFlavo [facility] [id number] Memoria 12:43:00 04:59:59 Message r Medicine 10 l Jelly Pinedaann 2018-03-02 2018-03-03 Outpatient MHMG MG [id number] 07:43:00 23:59:59 10 2018-02-28 2018-03-02 Phone nullFlavo MG [id number] Memoria 15:52:00 04:59:59 Message r Cardiology 09 l [place] [facility] [place] 2018-02-28 2018-03-02 Phone nullFlavo MG [id number] Memoria 15:52:00 04:59:59 Message r Cardiology 09 l [place] [facility] [place] 2018-02-28 2018-03-01 Outpatient MG MG [id number] 10:52:00 23:59:59 09 2018-02-22 2018-02-23 [place] [id number] Memoria 16:30:00 04:59:59 [facility] [place] 2018-02-22 2018-02-23 [place] [id number] Memoria 16:30:00 04:59:59 [facility] [place] 2018-02-22 2018-02-22 Outpatient Yang, MG MG [id number] 11:30:00 23:59:59 Ramya Lorenzana 2018-02-22 2018-02-22 Outpatient MHIE IE [id number] Memoria 11:30:00 11:30:00 25 [facility] 2018-02-15 2018-02-15 [place] [id number] Memoria 18:30:00 18:30:00 [facility] [place] 2018-02-15 2018-02-15 [place] [id number] Memoria 18:30:00 18:30:00 [facility] [place] 2018-02-15 2018-02-15 Outpatient MHIE IE [id number] Memoria 13:30:00 13:30:00 24 [facility] 2018-02-15 2018-02-15 Outpatient Yang, MG MG [id number] 13:30:00 13:30:00 Ramya Lorenzana 2017-11-13 2017-11-15 Phone nullFlavo MHMG [id number] Memoria 13:37:00 04:59:59 Message r Cardiology 08 cesilia Bishop 2017-11-13 2017-11-15 Phone nullFlavo MHMG [id number] Memoria 13:37:00 04:59:59 Message r Cardiology 08 cesilia Bishop 2017-11-13 2017-11-14 Outpatient MHMG MG [id number] 08:37:00 23:59:59 08 2017-11-01 2017-11-01 DONI Slade UTP [id number] [place] 14:15:00 14:15:00 t; VINCENZO BISHOP Phys ici MICHAEL, M.D. ans M.D. 2017-10-04 2017-10-04 DONI Slade UTP [id number] [place] 14:45:00 14:45:00 t; VINCENZO BISHOP Phys ici MICHAEL, M.D. ans M.D. 2017-09-19 2017-09-21 Phone nullFlavo MG [id number] Memoria 18:59:00 04:59:59 Message r Cardiology 07 cesilia Bishop 2017-09-19 2017-09-21 Phone nullFlavo MG [id number] Memoria 18:59:00 04:59:59 Message r Cardiology 07 cesilia Bishop 2017-09-19 2017-09-20 Outpatient MHMG MG [id number] 13:59:00 23:59:59 07 2017-09-20 2017-09-20 DONI Slade UTP [id number] [place] 14:45:00 14:45:00 t; VINCENZO BISHOP Phys ici MICHAEL, M.D. ans M.D. 2017-09-18 2017-09-19 [place] [id number] Memoria 19:00:00 04:59:59 r Radiology 23 cesilia Bishop 2017-09-18 2017-09-19 [place] [id number] Memoria 19:00:00 04:59:59 r Radiology 23 l Jelly Bishop 2017-09-18 2017-09-19 Outpatient nullFlavo [facility] Family 3 [id number] Memoria 18:30:00 04:59:59 r Medicine 21 l Jelly Bishop 2017-09-18 2017-09-19 Outpatient nullFlavo [facility] Family 3 [id number] Memoria 18:30:00 04:59:59 r Medicine 21 cesilia Bishop 2017-09-18 2017-09-18 Outpatient VISIT, [facility] [id number] 14:00:00 23:59:59 NURSE STWH 23 XRAY 2017-09-18 2017-09-18 Outpatient Altaf, [facility] [id number] 13:30:00 23:59:59 Jose Manuel P 21 2017-09-18 2017-09-18 [place] [id number] Memoria 19:00:00 19:00:00 Pre-Reg r Radiology 22 cesilia Jellysoo Pinedaann 2017-09-18 2017-09-18 Ambulatory nullFlavo [facility] [id number] Memoria 19:00:00 19:00:00 Pre-Reg r Radiology 22 cesilia Jellysoo Pinedaann 2017-09-18 2017-09-18 Outpatient MHIE IE [id number] Memoria 14:00:00 14:00:00 22 [facility] 2017-09-18 2017-09-18 [facility] [id number] Memoria 14:00:00 14:00:00 23 cesilia [place] 2017-09-18 2017-09-18 Outpatient VISIT, [facility] [id number] 14:00:00 14:00:00 NURSE STWH 22 XRAY 2017-09-18 2017-09-18 Outpatient MHIE IE [id number] Memoria 13:30:00 13:30:00 21 [facility] 2017-07-24 2017-07-26 Phone nullFlavo [facility] [id number] Memoria 17:51:00 05:59:59 Message r Cardiology 06 l [place] [facility] [place] 2017-07-24 2017-07-26 Phone nullFlavo [facility] [id number] Memoria 17:51:00 05:59:59 Message r Cardiology 06 l [place] [facility] [place] 2017-07-24 2017-07-25 Outpatient [facility] [id number] 11:51:00 23:59:59 06 2017-07-24 2017-07-24 DONI Elliott UTP [id number] [place] 10:45:00 10:45:00 t; CRYSTAL, MAINTENANCE SHOP WEL[employer] Phys ici NARANJO, ans CRYSTAL, MAINTENANCE SH[employer] WELDER 2017-07-18 2017-07-18 Outpatient Raju_P MMG MMG [id number] [place] 03:18:00 03:18:00 [facility] 2017-06-29 2017-06-30 Outpatient nullFlavo [facility] [id number] Memoria 18:30:00 05:59:59 r Cardiology 20 l [place] 2017-06-29 2017-06-30 Outpatient nullFlavo [facility] [id number] Memoria 18:30:00 05:59:59 r Cardiology 20 l Jelly [place] 2017-06-29 2017-06-29 Outpatient Yang, [facility] [id number] 12:30:00 23:59:59 Majfay Lorenzana 2017-06-29 2017-06-29 Outpatient [facility] [id number] Memoria 12:30:00 12:30:00 20 l Dario 2017-06-13 2017-06-13 Bedded nullFlavo [facility] [id number] Memoria 13:50:11 20:15:00 Outpatient r Dario 14 l [place] 2017-06-13 2017-06-13 Bedded nullFlavo [facility] [id number] Memoria 13:50:11 20:15:00 Outpatient r Dario 14 l [place] 2017-06-13 2017-06-13 Outpatient Yang, [facility] [id number] 07:50:11 14:15:00 Majid Salomón 14 2017-06-07 2017-06-08 Outpt Diag nullFlavo [facility] [id number] Memoria 21:45:00 05:59:00 Services r Outpatient 04 l Imaging [place] 2017-06-07 2017-06-08 Outpt Diag nullFlavo [facility] [id number] Memoria 21:45:00 05:59:00 Services r Outpatient 04 l Imaging [place] 2017-06-07 2017-06-07 Outpatient Yang, [place] [id number] 15:45:00 23:59:00 Majid Salomón 04 2017-05-11 2017-05-12 Outpatient nullFlavo [facility] [id number] Memoria 17:45:00 05:59:59 r Cardiology 19 l Jelly [place] 2017-05-11 2017-05-12 Outpatient nullFlavo [facility] [id number] Memoria 17:45:00 05:59:59 r Cardiology 19 cesilia Reaves [place] 2017-05-11 2017-05-11 Outpatient Yang, [facility] MG [id number] 11:45:00 23:59:59 Majfay Lorenzana 19 2017-05-11 2017-05-11 Outpatient MHIE MHIE [id number] Memoria 11:45:00 11:45:00 19 cesilia Dario 2017-04-07 2017-04-07 Outpatient MHIE MHIE [id number] Memoria 11:00:00 11:00:00 17 cesilia Dario 2017-04-07 2017-04-07 Outpatient MHIE MHIE [id number] Memoria 11:00:00 11:00:00 17 cesilia Dario 2017-01-26 2017-01-26 Outpatient MHIE MHIE [id number] Memoria 13:00:00 13:00:00 07 cesilia Dario 2017-01-26 2017-01-26 Outpatient MHIE MHIE [id number] Memoria 13:00:00 13:00:00 07 cesilia Dario 2016-10-18 2016-10-18 Outpatient MHIE MHIE [id number] Memoria 13:15:00 13:15:00 16 cesilia Dario 2016-10-18 2016-10-18 Outpatient MHIE MHIE [id number] Memoria 13:15:00 13:15:00 16 cesilia Dario 2016-07-12 2016-07-12 Outpatient MHIE MHIE [id number] Memoria 12:45:00 12:45:00 15 cesilia Dario 2016-07-12 2016-07-12 Outpatient MHIE MHIE [id number] Memoria 12:45:00 12:45:00 15 cesilia Bishop 2016-07-05 2016-07-05 Bedded [facility]Flavo [facility] [id number] Memoria 14:29:04 19:55:00 Outpatient r Dario 10 l [place] 2016-07-05 2016-07-05 Bedded [facility]Flavo [facility] [id number] Memoria 14:29:04 19:55:00 Outpatient r Dario 10 l [place] catarina 2016-07-05 2016-07-05 Outpatient Yang, [facility] SL [id number] 08:29:04 13:55:00 Ramya Lorenzana 10 2016-06-30 2016-06-30 Outpatient MHIE MHIE [id number] Memoria 16:30:00 16:30:00 14 cesilia Dario 2016-06-30 2016-06-30 Outpatient MHIE MHIE [id number] Memoria 16:30:00 16:30:00 13 cesilia Bishop 2016-06-30 2016-06-30 Outpatient MHIE MHIE [id number] Memoria 16:30:00 16:30:00 14 cesilia [place] 2016-06-30 2016-06-30 Outpatient MHIE MHIE [id number] Memoria 16:30:00 16:30:00 13 cesilia Dario 2016-06-30 2016-06-30 Outpatient MHIE MHIE [id number] Memoria 15:30:00 15:30:00 12 cesilia Dario 2016-06-30 2016-06-30 Outpatient MHIE MHIE [id number] Memoria 15:30:00 15:30:00 12 cesilia Bishop 2016-06-30 2016-06-30 Outpatient MHIE MHIE [id number] Memoria 15:00:00 15:00:00 11 cesilia Bishop 2016-06-30 2016-06-30 Outpatient MHIE MHIE [id number] Memoria 15:00:00 15:00:00 11 cesilia Bishop 2016-06-02 2016-06-02 Outpatient MHIE MHIE [id number] Memoria 13:00:00 13:00:00 10 cesilia Bishop 2016-06-02 2016-06-02 Outpatient MHIE MHIE [id number] Memoria 13:00:00 13:00:00 09 cesilia Bishop 2016-06-02 2016-06-02 Outpatient MHIE MHIE [id number] Memoria 13:00:00 13:00:00 10 cesilia Bishop 2016-06-02 2016-06-02 Outpatient MHIE MHIE [id number] Memoria 13:00:00 13:00:00 09 cesilia Bishop 2016-06-02 2016-06-02 Outpatient MHIE MHIE [id number] Memoria 11:15:00 11:15:00 08 cesilia Bishop 2016-06-02 2016-06-02 Outpatient MHIE MHIE [id number] Memoria 11:15:00 11:15:00 08 cesilia Bishop 2016-02-10 2016-02-10 Outpatient MHIE MHIE [id number] Memoria 11:00:00 11:00:00 06 cesilia Bishop 2016-02-10 2016-02-10 Outpatient MHIE MHIE [id number] Memoria 11:00:00 11:00:00 06 cesilia Bishop 2016-01-28 2016-01-28 Outpatient MHIE MHIE [id number] Memoria 11:45:00 11:45:00 05 cesilia Bishop 2016-01-28 2016-01-28 Outpatient MHIE MHIE [id number] Memoria 11:45:00 11:45:00 05 cesilia Bishop 2015-07-22 2015-07-22 Outpatient MHIE MHIE [id number] Memoria 10:45:00 10:45:00 01 cesilia Bishop 2015-07-22 2015-07-22 Outpatient MHIE MHIE [id number] Memoria 10:45:00 10:45:00 01 cesilia Bishop 2015-05-26 2015-05-26 Outpatient MHIE MHIE [id number] Memoria 16:00:00 16:00:00 04 cesilia Bishop 2015-05-26 2015-05-26 Outpatient MHIE MHIE [id number] Memoria 16:00:00 16:00:00 03 cesilia Bishop 2015-05-26 2015-05-26 Outpatient MHIE MHIE [id number] Memoria 16:00:00 16:00:00 03 cesilia Bishop 2015-05-26 2015-05-26 Outpatient MHIE MHIE [id number] Memoria 16:00:00 16:00:00 04 cesilia Bishop 2015-05-26 2015-05-26 Outpatient MHIE MHIE [id number] Memoria 14:45:00 14:45:00 02 cesilia Bishop 2015-05-26 2015-05-26 Outpatient MHIE MHIE [id number] Memoria 14:45:00 14:45:00 02 cesilia Bishop 2015-03-18 2015-03-18 Outpatient MHIE MHIE [id number] Memoria 10:45:00 10:45:00 00 cesilia Bishop 2015-03-18 2015-03-18 Outpatient MHIE MHIE [id number] Memoria 10:45:00 10:45:00 00 cesilia Bishop 2014-06-10 2014-06-11 Inpatient nullFlavo [facility] [id number] Memoria 16:57:00 23:26:00 r Dario 01 l [place] 2014-06-10 2014-06-11 Inpatient nullFlavo [facility] [id number] Memoria 16:57:00 23:26:00 r [place] 01 l [place] G[place] 2014-06-10 2014-06-11 Outpatient Dario, 2.16.840. 2.16.840.1. 3 [id number] 10:57:00 17:26:00 Vincenzo 1.791248. [id number] 01 Fish 3.615.0.1 5.0.700 42 0118-12-01 2014-04-30 OBS nullFlavo [facility] [id number] Memoria 23:00:00 23:55:00 Observatio r [place] 38 l n Patient [place] bar[place]osa 2014-04-28 2014-04-30 OBS nullFlavo [facility] [id number] Memoria 23:00:00 23:55:00 Observatio r Dario 38 l n Patient [place] bar[place]osa 2014-04-28 2014-04-30 Outpatient Niño, 2.16.840. 2.16.840.1. 3 [id number] 17:00:00 17:55:00 Justice Carrera [id number]. [id number] 3.615.0.1 5.0.418 66 5626-11-11 2014-04-09 Outpt Diag nullFlavo [facility] [id number] Memoria 20:49:00 05:59:00 Services r Outpatient 03 l Imaging Dario [place] 2014-04-08 2014-04-09 Outpt Diag nullFlavo [facility] [id number] Memoria 20:49:00 05:59:00 Services r Outpatient 03 l Imaging [place] 2014-04-08 2014-04-08 Outpatient Mucher, 2.16.840. 2.16.840.1. 3 [id number] 14:49:00 23:59:00 Kamaljit 1.041014. [id number] 03 Hung 3.615.0.1 5.0.770 11 5687-09-15 2014-02-11 Outpt Diag nullFlavo [facility] [id number] Memoria 13:23:00 04:59:00 Services r Outpatient 02 l Imaging Dario [place] 2014-02-10 2014-02-11 Outpt Diag nullFlavo [facility] [id number] Memoria 13:23:00 04:59:00 Services r Outpatient 02 l Imaging Dario [place] 2014-02-10 2014-02-10 Outpatient Mucher, 2.16.840. 2.16.840.1. 3 [id number] 08:23:00 23:59:00 Kamaljit 1.748243. [id number] 02 Hung 3.615.0.1 5.0.703 78 6338-08-20 2014-01-16 Outpt Diag nullFlavo [facility] [id number] Memoria 18:05:00 04:59:00 Services r Outpatient 01 l [place] Sebastian 2014-01-15 2014-01-16 Outpt Diag nullFlavo [facility] [id number] Memoria 18:05:00 04:59:00 Services r Outpatient 01 l German Sebastian 2014-01-15 2014-01-15 Outpatient Dario, 2.16.840. 2.16.840.1. 3 [id number] 13:05:00 23:59:00 Vincenzo 1.126909. [id number] 01 Fish 3.615.0.1 5.0.667 51 7809-12-11 2013-05-08 Outpatient 2.16.840. 2.16.840.1. 3 [id number] [facility] 10:40:00 23:59:00 1.715489. [id number] 00 Outpati 3.615.0.1 5.0.101 ent 01 Imaging Soham ha 2013-05-08 2013-05-08 OD JOCELINE CAR [id number] Memoria 10:40:00 10:40:00 00 cesilia Bishop 2013-05-08 2013-05-08 OD JOCELINE CAR [id number] Memoria 10:40:00 10:40:00 00 cesilia Bishop Results Test Description Test Time Test Comments Results Result Comments Source CHEMISTRY 2022-04-04 18:04:00 Test Item Value Reference Range Interpretation Comme nts Glucose Lvl (test code = Glucose Lvl) 96 65-139 [facility]igex[facility]XMDIUFSKA8847-90-30 18:04:00 Test Item Value Reference Range Interpretation Comments Glucose Lvl (test code = Glucose Lvl) 96 65-139 [facility] HospitalIuybqdwIDOVCRLZW4332-42-36 18:04:00 Test Item Value Reference Range Interpretation Comments BUN (test code = BUN) 22 7-25 [facility] HospitalRjcozgyJWMKICEWZ7294-60-29 18:04:00 Test Item Value Reference Range Interpretation Comments Creatinine Lvl (test code = Creatinine 1.11 0.70-1.28 Lvl) [facility] HospitalTkbinjvZFBZCZHZE3022-62-82 18:04:00 Test Item Value Reference Range Interpretation Comments eGFR (test code = eGFR) 69 [facility] HospitalLloofcaUHDUFRTFS2803-36-19 18:04:00 Test Item Value Reference Range Interpretation Comments B/C Ratio (test code = B/C NOT APPLICABLE 6-22 Ratio) [facility] HospitalSznljfdOCWPBRPGZ0289-60-54 18:04:00 Test Item Value Reference Range Interpretation Comments Sodium Lvl (test code = Sodium Lvl) 141 135-146 [facility] HospitalKwlpnogMVLVEUTBB8627-99-63 18:04:00 Test Item Value Reference Range Interpretation Comments Potassium Lvl (test code = Potassium 4.3 3.5-5.3 Lvl) [facility] HospitalJmauycwNDIHELOKH5841-54-63 18:04:00 Test Item Value Reference Range Interpretation Comments Chloride Lvl (test code = Chloride Lvl) 100 98-110 [facility] HospitalVoeydygDZAJOARET2833-53-14 18:04:00 Test Item Value Reference Range Interpretation Comments CO2 (test code = CO2) 29 20-32 [facility] HospitalVohqdhyUPYSERUEL5193-55-48 18:04:00 Test Item Value Reference Range Interpretation Comments Calcium Lvl (test code = Calcium Lvl) 9.8 8.6-10.3 [facility] HospitalOitiakwIVPEUPSHH8325-37-10 18:04:00 Test Item Value Reference Range Interpretation Comments Total Protein (test code = Total 7.3 6.1-8.1 Protein) [facility] HospitalVgxmfqyMOVYKJTDC2773-73-29 18:04:00 Test Item Value Reference Range Interpretation Comments Albumin Lvl (test code = Albumin Lvl) 4.3 3.6-5.1 [facility] HospitalMkyufeuLSFBLWUXJ8739-56-81 18:04:00 Test Item Value Reference Range Interpretation Comments BUN (test code = BUN) 22 7-25 [place] 720572-11-07 18:04:00 Test Item Value Reference Range Interpretation Comments Globulin (test code = Globulin) 3.0 1.9-3.7 [place] 720572-11-07 18:04:00 Test Item Value Reference Range Interpretation Comments A/G Ratio (test code = A/G Ratio) 1.4 1.0-2.5 [place] [address]-11-07 18:04:00 Test Item Value Reference Range Interpretation Comments Bili Total (test code = Bili Total) 0.6 0.2-1.2 [place] 720572-11-07 18:04:00 Test Item Value Reference Range Interpretation Comments Alk Phos (test code = Alk Phos) 124 35-144 [facility] HospitalGeofehcOHKKKQMZP4029-77-55 18:04:00 Test Item Value Reference Range Interpretation Comments ASPARTATE TRANSAMINASE (test code = 33 10-35 ASPARTATE TRANSAMINASE) [facility] HospitalBcitsevPZVSHGHKF1579-93-00 18:04:00 Test Item Value Reference Range Interpretation Comments ALANINE AMINOTRANSFERASE (test code = 25 9-46 ALANINE AMINOTRANSFERASE) [facility] HospitalQovtztmLWAKZNSOVV3255-99-13 18:04:00 Test Item Value Reference Range Interpretation Comments WBC X 10x3 (test code = WBC X 10x3) 4.0 3.8-10.8 [facility] HospitalWrfajxpGFJXASITPW6266-57-56 18:04:00 Test Item Value Reference Range Interpretation Comments RBC X 10x6 (test code = RBC X 10x6) 4.16 4.20-5.80 [place] 700952-11-07 18:04:00 Test Item Value Reference Range Interpretation Comments Hgb (test code = Hgb) 13.5 13.2-17.1 [place] [address]-11-07 18:04:00 Test Item Value Reference Range Interpretation Comments Hct (test code = Hct) 39.7 38.5-50.0 [place] [address]-11-07 18:04:00 Test Item Value Reference Range Interpretation Comments MCV (test code = MCV) 95.4 80.0-100.0 [place] 700952-11-07 18:04:00 Test Item Value Reference Range Interpretation Comments MCH (test code = MCH) 32.5 pg 27.0-33.0 [facility] HospitalTcofkfoRRHCLNLUPX3646-31-28 18:04:00 Test Item Value Reference Range Interpretation Comments MCHC (test code = MCHC) 34.0 32.0-36.0 [facility] HospitalKcirksyONRPHOZNIL7645-60-23 18:04:00 Test Item Value Reference Range Interpretation Comments RDW (test code = RDW) 13.2 11.0-15.0 [facility] HospitalQqanxxwMRYCGZLMGQ0703-03-80 18:04:00 Test Item Value Reference Range Interpretation Comments Platelet (test code = Platelet) 140 140-400 [facility] HospitalBktnmovNSUFJXDDDA9795-54-28 18:04:00 Test Item Value Reference Range Interpretation Comments MPV (test code = MPV) 12.2 7.5-12.5 [facility] HospitalLifmykhSGOCJWKAAX0774-91-98 18:04:00 Test Item Value Reference Range Interpretation Comments Neutrophils # (test code = Neutrophils 2196 4729-5676 #) [facility] HospitalGmzxzuiLFODSAFYOO5898-02-10 18:04:00 Test Item Value Reference Range Interpretation Comments Lymphocytes # (test code = Lymphocytes 3880 002-1327 #) [facility] HospitalFofpgfeXQDEWNKKBC1873-51-86 18:04:00 Test Item Value Reference Range Interpretation Comments Monocytes # (test code = Monocytes #) 440 200-950 [facility] HospitalHxasaprFORLNGWMQJ8451-01-70 18:04:00 Test Item Value Reference Range Interpretation Comments Eosinophils # (test code = Eosinophils 180 15-500 #) [facility] HospitalGcpigpkOVSGGXWDSQ3118-93-93 18:04:00 Test Item Value Reference Range Interpretation Comments Basophils # (test code 32 See_Comment [Aut omated message] The = Basophils #) system which generated this result tra nsmitted reference range : <=200. The reference r ramiro was not used to int erpret this result as normal/abnormal . [facility] HospitalNhfjdhwNUKQDVDESH3836-62-31 18:04:00 Test Item Value Reference Range Interpretation Comments Segs (test code = Segs) 54.9 [place] [id number] 18:04:00 Test Item Value Reference Range Interpretation Comments Lymphocytes (test code = Lymphocytes) 28.8 [place] [id number] 18:04:00 Test Item Value Reference Range Interpretation Comments Monocytes (test code = Monocytes) 11.0 [facility] H[id number] 18:04:00 Test Item Value Reference Range Interpretation Comments Eosinophils (test code = Eosinophils) 4.5 [facility] HospitalCsenillVHOTAFYCNF2156-74-79 18:04:00 Test Item Value Reference Range Interpretation Comments Basophils (test code = Basophils) 0.8 [id number] 18:04:00 Test Item Value Reference Range Interpretation Comments Creatinine Lvl (test code = Creatinine 1.11 0.70-1.28 Lvl) [facility] HospitalEmxutsyZHGCKQYOO5523-74-66 18:04:00 Test Item Value Reference Range Interpretation Comments eGFR (test code = eGFR) 69 [facility] Hospi[id number] 18:04:00 Test Item Value Reference Range Interpretation Comments B/C Ratio (test code = B/C NOT APPLICABLE 622 Ratio) [facility] [facility]NefxwdsPIDNADFUR1168-77-64 18:04:00 Test Item Value Reference Range Interpretation Comments Sodium Lvl (test code = Sodium Lvl) 141 135-146 [facility] HospitalFxhdplxHUURAUKRJ3350-14-61 18:04:00 Test Item Value Reference Range Interpretation Comments Potassium Lvl (test code = Potassium 4.3 3.5-5.3 Lvl) [facility] HospitalEoltjcfQAITLGOAC4926-95-13 18:04:00 Test Item Value Reference Range Interpretation Comments Chloride Lvl (test code = Chloride Lvl) 100 98-110 [facility] HospitalVhrravbGKJOBPVZX1735-26-52 18:04:00 Test Item Value Reference Range Interpretation Comments CO2 (test code = CO2) 29 20-32 [facility] HospitalUrzswjnNSMCEVPZG1705-20-75 18:04:00 Test Item Value Reference Range Interpretation Comments Calcium Lvl (test code = Calcium Lvl) 9.8 8.6-10.3 [facility] HospitalGiwyquuRJFRRQGLC0616-43-40 18:04:00 Test Item Value Reference Range Interpretation Comments Total Protein (test code = Total 7.3 6.1-8.1 Protein) [facility] HospitalKleodbnDGHLEJIND8857-89-93 18:04:00 Test Item Value Reference Range Interpretation Comments Albumin Lvl (test code = Albumin Lvl) 4.3 3.6-5.1 [facility] HospitalOwsozpmHMPKSSXKB4594-70-06 18:04:00 Test Item Value Reference Range Interpretation Comments Globulin (test code = Globulin) 3.0 1.9-3.7 [facility] HospitalRvjhhmoAOYYWCFJZ0171-95-73 18:04:00 Test Item Value Reference Range Interpretation Comments A/G Ratio (test code = A/G Ratio) 1.4 1.0-2.5 [place] 720572-11-07 18:04:00 Test Item Value Reference Range Interpretation Comments Bili Total (test code = Bili Total) 0.6 0.2-1.2 [place] 720572-11-07 18:04:00 Test Item Value Reference Range Interpretation Comments Alk Phos (test code = Alk Phos) 124 35-144 [facility] HospitalTdishagBCDKRCJQP9037-95-92 18:04:00 Test Item Value Reference Range Interpretation Comments ASPARTATE TRANSAMINASE (test code = 33 10-35 ASPARTATE TRANSAMINASE) [facility] HospitalToqnbctAXBTKSFXO9771-52-20 18:04:00 Test Item Value Reference Range Interpretation Comments ALANINE AMINOTRANSFERASE (test code = 25 9-46 ALANINE AMINOTRANSFERASE) [facility] HospitalHbqmtlmRVVZWLKUYT6410-89-07 18:04:00 Test Item Value Reference Range Interpretation Comments WBC X 10x3 (test code = WBC X 10x3) 4.0 3.8-10.8 [place] 700952-11-07 18:04:00 Test Item Value Reference Range Interpretation Comments RBC X 10x6 (test code = RBC X 10x6) 4.16 4.20-5.80 [place] 700952-11-07 18:04:00 Test Item Value Reference Range Interpretation Comments Hgb (test code = Hgb) 13.5 13.2-17.1 [place] 700952-11-07 18:04:00 Test Item Value Reference Range Interpretation Comments Hct (test code = Hct) 39.7 38.5-50.0 [place] [address]-11-07 18:04:00 Test Item Value Reference Range Interpretation Comments MCV (test code = MCV) 95.4 80.0-100.0 [place] 700952-11-07 18:04:00 Test Item Value Reference Range Interpretation Comments MCH (test code = MCH) 32.5 pg 27.0-33.0 [place] 700952-11-07 18:04:00 Test Item Value Reference Range Interpretation Comments MCHC (test code = MCHC) 34.0 32.0-36.0 [facility] HospitalVlgyfcgYRFAKELRHD0091-45-21 18:04:00 Test Item Value Reference Range Interpretation Comments RDW (test code = RDW) 13.2 11.0-15.0 [facility] HospitalRxcypghSFROVGPDUR6747-28-39 18:04:00 Test Item Value Reference Range Interpretation Comments Platelet (test code = Platelet) 140 140-400 [facility] HospitalDmqfjjnVCCDXIGWJN9682-63-44 18:04:00 Test Item Value Reference Range Interpretation Comments MPV (test code = MPV) 12.2 7.5-12.5 [place] 700952-11-07 18:04:00 Test Item Value Reference Range Interpretation Comments Neutrophils # (test code = Neutrophils 2196 9490-0388 #) [facility] HospitalYeyrqolFCJQPUFZQE5206-80-76 18:04:00 Test Item Value Reference Range Interpretation Comments Lymphocytes # (test code = Lymphocytes 7515 701-1744 #) [facility] HospitalVseqjnwYDGXHDMNUK2546-44-88 18:04:00 Test Item Value Reference Range Interpretation Comments Monocytes # (test code = Monocytes #) 440 200-950 [facility] HospitalVrpwrhyITCUDAXRRB8483-53-71 18:04:00 Test Item Value Reference Range Interpretation Comments Eosinophils # (test code = Eosinophils 180 15-500 #) [facility] HospitalWgzqpmoVTMTMQRLRP4702-97-99 18:04:00 Test Item Value Reference Range Interpretation Comments Basophils # (test code 32 See_Comment [Aut omated message] The = Basophils #) system which generated this result tra nsmitted reference range : <=200. The reference r ramiro was not used to int erpret this result as normal/abnormal . [facility] HospitalTzlnsthINYPTZELPI0452-39-04 18:04:00 Test Item Value Reference Range Interpretation Comments Segs (test code = Segs) 54.9 [place] 700952-11-07 18:04:00 Test Item Value Reference Range Interpretation Comments Lymphocytes (test code = Lymphocytes) 28.8 [place] [address]-11-07 18:04:00 Test Item Value Reference Range Interpretation Comments Monocytes (test code = Monocytes) 11.0 [place] 700952-11-07 18:04:00 Test Item Value Reference Range Interpretation Comments Eosinophils (test code = Eosinophils) 4.5 [place] 700952-11-07 18:04:00 Test Item Value Reference Range Interpretation Comments Basophils (test code = Basophils) 0.8 [facility]WMDVRMRZX2406[facility] 16:38:00 Test Item Value Reference Range Interpretation Comments Coronavirus (COVID-19) Not Detected (09/15/20 DOROTHY (test code = 11:38 AM) Coronavirus (COVID-19) DOROTHY) [facility]RedhtqdTXATWHCEDI9581-14-67 16:38:00 Test Item Value Reference Range Interpretation Comments Coronavirus (COVID-19) Not Detected (09/15/20 DOROTHY (test code = 11:38 AM) Coronavirus (COVID-19) DOROTHY) [facility]2021-04-01 05:00:00 Test Item Value Reference Range Interpretation Comments Glucose Lvl (test code = Glucose Lvl) 107 65-139 [facility]2021-04-01 05:00:00 Test Item Value Reference Range Interpretation Comments BUN (test code = BUN) 17 7-25 [facility]2021-04-01 05:00:00 Test Item Value Reference Range Interpretation Comments Creatinine Lvl (test code = Creatinine 1.04 0.70-1.18 Lvl) [facility]2021-04-01 05:00:00 Test Item Value Reference Range Interpretation Comments eGFR NON-AFR. GUAMANIAN (test code = 70 eGFR NON-AFR. GUAMANIAN) [facility]2021-04-01 05:00:00 Test Item Value Reference Range Interpretation Comments eGFR (test code = eGFR 82 ) [facility]2021-04-01 05:00:00 Test Item Value Reference Range Interpretation Comments B/C Ratio (test code = B/C NOT APPLICABLE 22 Ratio) [facility]2021-04-01 05:00:00 Test Item Value Reference Range Interpretation Comments Sodium Lvl (test code = Sodium Lvl) 139 135-146 [facility] HHDOK7928-78-84 05:00:00 Test Item Value Reference Range Interpretation Comments Potassium Lvl (test code = Potassium 4.7 3.5-5.3 Lvl) [facility]2021-04-01 05:00:00 Test Item Value Reference Range Interpretation Comments Chloride Lvl (test code = Chloride Lvl) 99 98-110 [facility]2021-04-01 05:00:00 Test Item Value Reference Range Interpretation Comments CO2 (test code = CO2) 25 20-32 [facility]2021-04-01 05:00:00 Test Item Value Reference Range Interpretation Comments Calcium Lvl (test code = Calcium Lvl) 9.6 8.6-10.3 [facility]2021-04-01 05:00:00 Test Item Value Reference Range Interpretation Comments Total Protein (test code = Total 7.2 6.1-8.1 Protein) [facility]2021-04-01 05:00:00 Test Item Value Reference Range Interpretation Comments Albumin Lvl (test code = Albumin Lvl) 4.3 3.6-5.1 [facility]2021-04-01 05:00:00 Test Item Value Reference Range Interpretation Comments Globulin (test code = Globulin) 2.9 1.9-3.7 [facility]2021-04-01 05:00:00 Test Item Value Reference Range Interpretation Comments A/G Ratio (test code = A/G Ratio) 1.5 1.0-2.5 [facility]2021-04-01 05:00:00 Test Item Value Reference Range Interpretation Comments Bili Total (test code = Bili Total) 0.8 0.2-1.2 [facility]2021-04-01 05:00:00 Test Item Value Reference Range Interpretation Comments Alk Phos (test code = Alk Phos) 137 35-144 [facility]2021-04-01 05:00:00 Test Item Value Reference Range Interpretation Comments ASPARTATE TRANSAMINASE (test code = 56 10-35 ASPARTATE TRANSAMINASE) [facility]2021-04-01 05:00:00 Test Item Value Reference Range Interpretation Comments ALANINE AMINOTRANSFERASE (test code = 46 9-46 ALANINE AMINOTRANSFERASE) [facility]TxgergiCFQVFL7705-36-90 05:00:00 Test Item Value Reference Range Interpretation Comments Chol (test code = Chol) 125 [facility] CenterTqfdejbXDJAYI0820-10-88 05:00:00 Test Item Value Reference Range Interpretation Comments HDL (test code = HDL) 35 [facility] CenterIxhijubHVPICM2949-12-11 05:00:00 Test Item Value Reference Range Interpretation Comments Trig (test code = Trig) 295 [facility] CenterGnwzdddBAAJLB2511-60-37 05:00:00 Test Item Value Reference Range Interpretation Comments LDL (Calculated) (test code = LDL 59 (Calculated)) [facility] CenterFyxloivQVCPPL7222-18-64 05:00:00 Test Item Value Reference Range Interpretation Comments CHD Risk (test code = CHD Risk) 3.6 [facility] CenterBfzpxrsHIXSGN1550-80-62 05:00:00 Test Item Value Reference Range Interpretation Comments Non HDL Chol (test code = Non HDL Chol) [facility] QSUABTVCS5181-24-24 05:00:00 Test Item Value Reference Range Interpretation Comments Hgb A1C (test code = Hgb A1C) 6.4 [facility] XJGWS5565-07-58 05:00:00 Test Item Value Reference Range Interpretation Comments Glucose Lvl (test code = Glucose Lvl) 107 65-139 [facility]2021-04-01 05:00:00 Test Item Value Reference Range Interpretation Comments BUN (test code = BUN) 17 7-25 [facility]2021-04-01 05:00:00 Test Item Value Reference Range Interpretation Comments Creatinine Lvl (test code = Creatinine 1.04 0.70-1.18 Lvl) [facility] [id number] 05:00:00 Test Item Value Reference Range Interpretation Comments eGFR NON-AFR. GUAMANIAN (test code = 70 eGFR NON-AFR. GUAMANIAN) [facility] RGMEH4427-09-46 05:00:00 Test Item Value Reference Range Interpretation Comments eGFR (test code = eGFR 82 ) [facility] [id number] 05:00:00 Test Item Value Reference Range Interpretation Comments B/C Ratio (test code = B/C NOT APPLICABLE 6-22 Ratio) [facility] [id number] 05:00:00 Test Item Value Reference Range Interpretation Comments Sodium Lvl (test code = Sodium Lvl) 139 135-146 [facility] [id number] 05:00:00 Test Item Value Reference Range Interpretation Comments Potassium Lvl (test code = Potassium 4.7 3.5-5.3 Lvl) [facility] FKCZP8729-02-82 05:00:00 Test Item Value Reference Range Interpretation Comments Chloride Lvl (test code = Chloride Lvl) 99 98-110 [facility] CenterAS[facility] HOSPITALGKISO2785-49-95 05:00:00 Test Item Value Reference Range Interpretation Comments CO2 (test code = CO2) 25 20-32 [facility]2021-04-01 05:00:00 Test Item Value Reference Range Interpretation Comments Calcium Lvl (test code = Calcium Lvl) 9.6 8.6-10.3 [place] 334941-04-01 05:00:00 Test Item Value Reference Range Interpretation Comments Total Protein (test code = Total 7.2 6.1-8.1 Protein) [facility]2021-04-01 05:00:00 Test Item Value Reference Range Interpretation Comments Albumin Lvl (test code = Albumin Lvl) 4.3 3.6-5.1 [place] 334941-04-01 05:00:00 Test Item Value Reference Range Interpretation Comments Globulin (test code = Globulin) 2.9 1.9-3.7 [place] 334941-04-01 05:00:00 Test Item Value Reference Range Interpretation Comments A/G Ratio (test code = A/G Ratio) 1.5 1.0-2.5 [place] 334941-04-01 05:00:00 Test Item Value Reference Range Interpretation Comments Bili Total (test code = Bili Total) 0.8 0.2-1.2 [facility]2021-04-01 05:00:00 Test Item Value Reference Range Interpretation Comments Alk Phos (test code = Alk Phos) 137 35-144 [facility]2021-04-01 05:00:00 Test Item Value Reference Range Interpretation Comments ASPARTATE TRANSAMINASE (test code = 56 10-35 ASPARTATE TRANSAMINASE) [facility]2021-04-01 05:00:00 Test Item Value Reference Range Interpretation Comments ALANINE AMINOTRANSFERASE (test code = 46 9-46 ALANINE AMINOTRANSFERASE) [place] 144271-04-01 05:00:00 Test Item Value Reference Range Interpretation Comments Chol (test code = Chol) 125 [place] 144271-04-01 05:00:00 Test Item Value Reference Range Interpretation Comments HDL (test code = HDL) 35 [facility] CenterAmujwgdQSEYIZ6557-93-93 05:00:00 Test Item Value Reference Range Interpretation Comments Trig (test code = Trig) 295 [place] 144271-04-01 05:00:00 Test Item Value Reference Range Interpretation Comments LDL (Calculated) (test code = LDL 59 (Calculated)) [facility] CenterZlctltwHWAWKQ0155-18-12 05:00:00 Test Item Value Reference Range Interpretation Comments CHD Risk (test code = CHD Risk) 3.6 [facility] CenterSthspydNNLSVH9766-87-57 05:00:00 Test Item Value Reference Range Interpretation Comments Non HDL Chol (test code = Non HDL Chol) [facility] XJPWKCVZU4564-37-38 05:00:00 Test Item Value Reference Range Interpretation Comments Hgb A1C (test code = Hgb A1C) 6.4 [facility]NjgxcpzDBCIEYWQISDF5934-71-73 14:36:00 Test Item Value Reference Range Interpretation Comments AGAP (test code = AGAP) 13.7 10.0-20.0 [facility] HospitalZyaezhaOBIDDEZMKGMR2320-02-61 14:36:00 Test Item Value Reference Range Interpretation Comments eGFR (test code = eGFR) 66 [facility] HospitalPtdwqzcMCIHSUWIGFVF9165-57-96 14:36:00 Test Item Value Reference Range Interpretation Comments Calcium Lvl (test code = Calcium Lvl) 9.0 8.5-10.5 [facility] HospitalGddhqxpLHOYIZGFSTSP6762-66-82 14:36:00 Test Item Value Reference Range Interpretation Comments Sodium Lvl (test code = Sodium Lvl) 138 135-145 [facility] HospitalRirjrykGYNTBBKCGUOU5294-13-11 14:36:00 Test Item Value Reference Range Interpretation Comments CO2 (test code = CO2) 29 24-32 [facility] HospitalMmdagaoOAGZELXDPRIS2582-69-49 14:36:00 Test Item Value Reference Range Interpretation Comments Chloride Lvl (test code = Chloride Lvl) 99 95-109 [facility] HospitalMyqqjsrCFVRLUZDCTAW3943-01-60 14:36:00 Test Item Value Reference Range Interpretation Comments Potassium Lvl (test code = Potassium 3.7 3.5-5.1 Lvl) [facility] HospitalValwysvCRCVHBWFYGIM6588-64-35 14:36:00 Test Item Value Reference Range Interpretation Comments Creatinine Lvl (test code = Creatinine 1.11 0.50-1.40 Lvl) [facility] HospitalGwhbbvvSUETCKTJLGSC0761-12-43 14:36:00 Test Item Value Reference Range Interpretation Comments BUN (test code = BUN) 16 7-22 [facility] HospitalBynkrdoAWPYJIZPIZVT4633-19-42 14:36:00 Test Item Value Reference Range Interpretation Comments Glucose Lvl (test code = Glucose Lvl) 123 70-99 [facility] HospitalUgjqjgdMBWOTHSZFN4840-12-17 14:36:00 Test Item Value Reference Range Interpretation Comments Lymphocytes (test code = Lymphocytes) 14.5 20.0-40.0 [facility] HospitalYcwpjkjPTFUJPAFZX5912-04-57 14:36:00 Test Item Value Reference Range Interpretation Comments Monocytes (test code = Monocytes) 16.4 2.0-12.0 [facility] HospitalXwmicvuCTMUCERSIF2860-43-40 14:36:00 Test Item Value Reference Range Interpretation Comments Lymphocytes # (test code = Lymphocytes 0.4 1.0-5.5 #) [facility] HospitalVdmgzsgONVQJKLEZM6127-86-83 14:36:00 Test Item Value Reference Range Interpretation Comments Basophils (test code = 0.4 See_Comment [Aut omated message] The Basophils) system which ge nerated this result tra nsmitted reference range : <=1.0. The reference r ramiro was not used to int erpret this result as normal/abnormal . [facility] HospitalLmigwqrEAXEDKWDWB7897-70-45 14:36:00 Test Item Value Reference Range Interpretation Comments Eosinophils (test code = 3.6 See_Comment [A utomated message] The Eosinophils) system which ge nerated this result tra nsmitted reference range : <=4.0. The reference r ramiro was not used to int erpret this result as normal/abnormal . [facility] HospitalHieiuxbWMREHGCWHX0057-50-76 14:36:00 Test Item Value Reference Range Interpretation Comments Monocytes # (test code 0.5 See_Comment [Aut omated message] The = Monocytes #) system which generated this result tra nsmitted reference range : <=0.8. The reference r ramiro was not used to int erpret this result as normal/abnormal . [facility] HospitalTnjxpdvLZZPVKMDSS6500-75-22 14:36:00 Test Item Value Reference Range Interpretation Comments Segs-Bands # (test code = Segs-Bands #) 1.9 1.5-8.1 [facility] HospitalPosnarsUXBZVBIFFQ3673-11-12 14:36:00 Test Item Value Reference Range Interpretation Comments Basophils # (test code 0.0 See_Comment [Aut omated message] The = Basophils #) system which generated this result tra nsmitted reference range : <=0.2. The reference r ramiro was not used to int erpret this result as normal/abnormal . [facility] HospitalFwbtjfeJLYSLEGDCU1767-33-88 14:36:00 Test Item Value Reference Range Interpretation Comments Eosinophils # (test code 0.1 See_Comment [A utomated message] The = Eosinophils #) system whic h generated this result tra nsmitted reference range : <=0.5. The reference r ramiro was not used to int erpret this result as normal/abnormal . [facility] HospitalCfdtejxZTSWGJAPZP8033-72-03 14:36:00 Test Item Value Reference Range Interpretation Comments Segs (test code = Segs) 65.1 45.0-75.0 [facility] HospitalAtuwhbpIPNHIXCESW1439-52-28 14:36:00 Test Item Value Reference Range Interpretation Comments PTT (test code = PTT) 32.5 s 22.9-35.8 [facility] HospitalFtzebprKAJUKHBVMO3437-99-92 14:36:00 Test Item Value Reference Range Interpretation Comments PT (test code = PT) 14.8 s 12.0-14.7 [facility] HospitalXrywahpSYTOAUVMHR4406-00-34 14:36:00 Test Item Value Reference Range Interpretation Comments INR (test code = INR) 1.16 1 0.85-1.17 [facility] HospitalVhkdsjrDDYUASUFVF2121-59-84 14:36:00 Test Item Value Reference Range Interpretation Comments RBC (test code = RBC) 4.22 4.70-6.10 [facility] HospitalFvmjnttEJCHYOPCPS6056-36-69 14:36:00 Test Item Value Reference Range Interpretation Comments WBC (test code = WBC) 2.9 3.7-10.4 [facility] HospitalLdknjhxCWBOFNXZRM3021-82-30 14:36:00 Test Item Value Reference Range Interpretation Comments Hgb (test code = Hgb) 13.4 14.0-18.0 [facility] HospitalFbghzsnCJRMDQNYQK9173-14-85 14:36:00 Test Item Value Reference Range Interpretation Comments Hct (test code = Hct) 39.8 42.0-54.0 [facility] HospitalAhbganrFGRZJZXUYY3198-57-50 14:36:00 Test Item Value Reference Range Interpretation Comments MPV (test code = MPV) 8.6 7.4-10.4 [facility] HospitalWhmryydWOIBUXYKKB6589-18-09 14:36:00 Test Item Value Reference Range Interpretation Comments RDW (test code = RDW) 13.3 11.5-14.5 [facility] HospitalBkwmpetTSSABXCDGM7239-82-75 14:36:00 Test Item Value Reference Range Interpretation Comments Platelet (test code = Platelet) 143 133-450 [facility] HospitalShboystMMAKAWCIKY5688-90-74 14:36:00 Test Item Value Reference Range Interpretation Comments MCV (test code = MCV) 94.3 80.0-94.0 [facility] HospitalGqwhmwhNDKQUGURJU5394-01-93 14:36:00 Test Item Value Reference Range Interpretation Comments MCH (test code = MCH) 31.8 pg 27.0-31.0 [facility] HospitalBchehymHEFFKQQPBS3571-88-68 14:36:00 Test Item Value Reference Range Interpretation Comments MCHC (test code = MCHC) 33.7 32.0-36.0 [facility] HospitalXwlwnwxWGLZVLJMCVNN3023-75-92 14:36:00 Test Item Value Reference Range Interpretation Comments AGAP (test code = AGAP) 13.7 10.0-20.0 [facility] HospitalGrozfeeOYGPZVKXACJG1021-85-86 14:36:00 Test Item Value Reference Range Interpretation Comments eGFR (test code = eGFR) 66 [facility] HospitalTcoktvbULNXMIGGDEOT7525-83-28 14:36:00 Test Item Value Reference Range Interpretation Comments Calcium Lvl (test code = Calcium Lvl) 9.0 8.5-10.5 [facility] HospitalAduaqphGFXDZCWTXMZH8977-77-81 14:36:00 Test Item Value Reference Range Interpretation Comments Sodium Lvl (test code = Sodium Lvl) 138 135-145 [facility] HospitalBcdxasbVJUYXHXGSZEA2686-58-56 14:36:00 Test Item Value Reference Range Interpretation Comments CO2 (test code = CO2) 29 24-32 [facility] HospitalVntlhzpWWFBPDWDSSRR4258-20-49 14:36:00 Test Item Value Reference Range Interpretation Comments Chloride Lvl (test code = Chloride Lvl) 99 95-109 [facility] HospitalSfzsjgzECJTNBCRROEB4675-00-88 14:36:00 Test Item Value Reference Range Interpretation Comments Potassium Lvl (test code = Potassium 3.7 3.5-5.1 Lvl) [facility] HospitalDpxfyhiRSETMFYKDVOB2838-56-58 14:36:00 Test Item Value Reference Range Interpretation Comments Creatinine Lvl (test code = Creatinine 1.11 0.50-1.40 Lvl) [facility] HospitalStmaduaMPHQQSVPVWCE7497-71-82 14:36:00 Test Item Value Reference Range Interpretation Comments BUN (test code = BUN) 16 7-22 [facility] HospitalSqmpviuLIEHNOEEEMNW8950-00-12 14:36:00 Test Item Value Reference Range Interpretation Comments Glucose Lvl (test code = Glucose Lvl) 123 70-99 [facility] HospitalBgsngtgNWHIOQZHLE8656-82-76 14:36:00 Test Item Value Reference Range Interpretation Comments Lymphocytes (test code = Lymphocytes) 14.5 20.0-40.0 [facility] HospitalEjgpqblONAMEHSXDQ9963-86-06 14:36:00 Test Item Value Reference Range Interpretation Comments Monocytes (test code = Monocytes) 16.4 2.0-12.0 [facility] HospitalKggeqwuEGAFQVCKGY0303-90-79 14:36:00 Test Item Value Reference Range Interpretation Comments Lymphocytes # (test code = Lymphocytes 0.4 1.0-5.5 #) [facility] HospitalCkbltgxAKQQVCGCRU5687-73-47 14:36:00 Test Item Value Reference Range Interpretation Comments Basophils (test code = 0.4 See_Comment [Aut omated message] The Basophils) system which ge nerated this result tra nsmitted reference range : <=1.0. The reference r ramiro was not used to int erpret this result as normal/abnormal . [facility] HospitalEyvoganFTKWIZAGFT3620-87-26 14:36:00 Test Item Value Reference Range Interpretation Comments Eosinophils (test code = 3.6 See_Comment [A utomated message] The Eosinophils) system which ge nerated this result tra nsmitted reference range : <=4.0. The reference r ramiro was not used to int erpret this result as normal/abnormal . [facility] HospitalRuljfxkIPYEMUJXFC7299-80-34 14:36:00 Test Item Value Reference Range Interpretation Comments Monocytes # (test code 0.5 See_Comment [Aut omated message] The = Monocytes #) system which generated this result tra nsmitted reference range : <=0.8. The reference r ramiro was not used to int erpret this result as normal/abnormal . [facility] HospitalMdcdgehVSGYZFRZDA6390-10-32 14:36:00 Test Item Value Reference Range Interpretation Comments Segs-Bands # (test code = Segs-Bands #) 1.9 1.5-8.1 [facility] HospitalAhkxtnaWFUIQGTNXS7256-93-24 14:36:00 Test Item Value Reference Range Interpretation Comments Basophils # (test code 0.0 See_Comment [Aut omated message] The = Basophils #) system which generated this result tra nsmitted reference range : <=0.2. The reference r ramiro was not used to int erpret this result as normal/abnormal . [facility] [facility]W9235-99-73 14:36:00 Test Item Value Reference Range Interpretation Comments Eosinophils # (test code 0.1 See_Comment [A utomated message] The = Eosinophils #) system whic h generated this result tra nsmitted reference range : <=0.5. The reference r ramiro was not used to int erpret this result as normal/abnormal . [facility]LperyinDKYTYSKQAO2201-60-20 14:36:00 Test Item Value Reference Range Interpretation Comments Segs (test code = Segs) 65.1 45.0-75.0 [facility] HospitalXrckvmhQDKECIIKCT0475-28-46 14:36:00 Test Item Value Reference Range Interpretation Comments PTT (test code = PTT) 32.5 s 22.9-35.8 [facility] HospitalLjpqkrkXLDIXSGMLW3159-57-24 14:36:00 Test Item Value Reference Range Interpretation Comments PT (test code = PT) 14.8 s 12.0-14.7 [facility] HospitalMjylglrKEADOYKCXV9165-24-26 14:36:00 Test Item Value Reference Range Interpretation Comments INR (test code = INR) 1.16 1 0.85-1.17 [facility] HospitalUlxonyfZARMFVDFGR9605-47-51 14:36:00 Test Item Value Reference Range Interpretation Comments RBC (test code = RBC) 4.22 4.70-6.10 [facility] HospitalNydihvqAOJHUSRFQB2082-57-96 14:36:00 Test Item Value Reference Range Interpretation Comments WBC (test code = WBC) 2.9 3.7-10.4 [facility] HospitalDriutuiYJKVOYNLUI8559-83-55 14:36:00 Test Item Value Reference Range Interpretation Comments Hgb (test code = Hgb) 13.4 14.0-18.0 [facility] HospitalUldbebkKTQDOPIGBU5705-88-13 14:36:00 Test Item Value Reference Range Interpretation Comments Hct (test code = Hct) 39.8 42.0-54.0 [facility] HospitalIrjpgvkLMNEGHIUFR8149-41-35 14:36:00 Test Item Value Reference Range Interpretation Comments MPV (test code = MPV) 8.6 7.4-10.4 [facility] HospitalDpmoqjfLUIPPSMXWS5830-47-68 14:36:00 Test Item Value Reference Range Interpretation Comments RDW (test code = RDW) 13.3 11.5-14.5 [facility] HospitalXnkrovdFEAZZYVMKC9063-11-88 14:36:00 Test Item Value Reference Range Interpretation Comments Platelet (test code = Platelet) 143 133-450 [facility] HospitalQjrrkchMNVQQMGNRA4682-30-06 14:36:00 Test Item Value Reference Range Interpretation Comments MCV (test code = MCV) 94.3 80.0-94.0 [facility] HospitalEmxcfvuQUTWHKSLKV7615-84-10 14:36:00 Test Item Value Reference Range Interpretation Comments MCH (test code = MCH) 31.8 pg 27.0-31.0 [facility] HospitalHgbgewjUVVWBZGWCM9738-42-84 14:36:00 Test Item Value Reference Range Interpretation Comments MCHC (test code = MCHC) 33.7 32.0-36.0 [facility]2015-01-14 14:50:00 Test Item Value Reference Range Interpretation Comments eGFR (test code = eGFR) 56 [facility]2015-01-14 14:50:00 Test Item Value Reference Range Interpretation Comments Glucose Lvl (test code = Glucose Lvl) 132 70-99 [facility]2015-01-14 14:50:00 Test Item Value Reference Range Interpretation Comments Creatinine Lvl (test code = Creatinine 1.3 0.5-1.4 Lvl) [facility]2015-01-14 14:50:00 Test Item Value Reference Range Interpretation Comments BUN (test code = BUN) 14 7-22 [facility]2015-01-14 14:50:00 Test Item Value Reference Range Interpretation Comments Calcium Lvl (test code = Calcium Lvl) 8.0 8.5-10.5 [facility]2015-01-14 14:50:00 Test Item Value Reference Range Interpretation Comments Sodium Lvl (test code = Sodium Lvl) 135 135-145 [facility]2015-01-14 14:50:00 Test Item Value Reference Range Interpretation Comments Potassium Lvl (test code = Potassium 3.4 3.5-5.1 Lvl) [facility]2015-01-14 14:50:00 Test Item Value Reference Range Interpretation Comments CO2 (test code = CO2) 28 24-32 [facility]2015-01-14 14:50:00 Test Item Value Reference Range Interpretation Comments Chloride Lvl (test code = Chloride Lvl) 99 95-109 [facility]2015-01-14 14:50:00 Test Item Value Reference Range Interpretation Comments AGAP (test code = AGAP) 11.4 10.0-20.0 [facility] Hospit[id number] 14:50:00 Test Item Value Reference Range Interpretation Comments Lymphocytes # (test code = Lymphocytes 1.0 1.0-5.5 #) [facility] HospitalRgtyiuzNORSFHTPPM7386-65-01 14:50:00 Test Item Value Reference Range Interpretation Comments Eosinophils # (test code 0.2 See_Comment [A utomated message] The = Eosinophils #) system whic h generated this result tra nsmitted reference range : <=0.5. The reference r ramiro was not used to int erpret this result as normal/abnormal . [facility] HospitalOcjbfpbHWUPSWLQLP2025-45-49 14:50:00 Test Item Value Reference Range Interpretation Comments Monocytes # (test code 0.7 See_Comment [Aut omated message] The = Monocytes #) system which generated this result tra nsmitted reference range : <=0.8. The reference r ramiro was not used to int erpret this result as normal/abnormal . [facility] HospitalGxpkxywGLPBXNRIES9302-23-95 14:50:00 Test Item Value Reference Range Interpretation Comments Basophils # (test code 0.0 See_Comment [Aut omated message] The = Basophils #) system which generated this result tra nsmitted reference range : <=0.2. The reference r ramiro was not used to int erpret this result as normal/abnormal . [facility] HospitalDwmiysrEJXFKKLHLL1474-27-45 14:50:00 Test Item Value Reference Range Interpretation Comments Segs (test code = Segs) 67.7 45.0-75.0 [facility] HospitalSwsemyjBWHYAEYJMT7375-32-39 14:50:00 Test Item Value Reference Range Interpretation Comments Monocytes (test code = Monocytes) 11.7 2.0-12.0 [facility] HospitalAbmmvdfSCHLKOWXTF8165-11-34 14:50:00 Test Item Value Reference Range Interpretation Comments Lymphocytes (test code = Lymphocytes) 17.0 20.0-40.0 [facility] HospitalHmbmldeNRYDNOKXQM8817-91-18 14:50:00 Test Item Value Reference Range Interpretation Comments Segs-Bands # (test code = Segs-Bands #) 3.8 1.5-8.1 [facility] HospitalJjbxcnjVIPZJRFPBA1855-91-20 14:50:00 Test Item Value Reference Range Interpretation Comments Eosinophils (test code = 3.1 See_Comment [A utomated message] The Eosinophils) system which ge nerated this result tra nsmitted reference range : <=4.0. The reference r ramiro was not used to int erpret this result as normal/abnormal . [facility] HospitalCnevxlwAKSRAAJQXR4734-40-66 14:50:00 Test Item Value Reference Range Interpretation Comments Basophils (test code = 0.5 See_Comment [Aut omated message] The Basophils) system which ge nerated this result tra nsmitted reference range : <=1.0. The reference r ramiro was not used to int erpret this result as normal/abnormal . [facility] HospitalLmiuelzHRRCOTLJUW6927-68-90 14:50:00 Test Item Value Reference Range Interpretation Comments WBC (test code = WBC) 5.7 3.7-10.4 [facility] HospitalEcjaexiTVLAKRPMYP0658-32-41 14:50:00 Test Item Value Reference Range Interpretation Comments RBC (test code = RBC) 4.00 4.70-6.10 [facility] HospitalXhwiofpOMAXFAQQJJ5225-74-25 14:50:00 Test Item Value Reference Range Interpretation Comments Hct (test code = Hct) 36.5 42.0-54.0 [facility] HospitalWtwkgqtHKUINKEUWF0116-67-06 14:50:00 Test Item Value Reference Range Interpretation Comments MCV (test code = MCV) 91.2 80.0-94.0 [facility] HospitalEifpcnpJNYZNTYDBD5148-72-44 14:50:00 Test Item Value Reference Range Interpretation Comments MCHC (test code = MCHC) 33.7 32.0-36.0 [facility] HospitalCtqbfctWCCOERSTUD7315-33-43 14:50:00 Test Item Value Reference Range Interpretation Comments RDW (test code = RDW) 14.0 11.5-14.5 [facility] HospitalQqcynrdGJHCRPMLJK1619-92-92 14:50:00 Test Item Value Reference Range Interpretation Comments MCH (test code = MCH) 30.8 pg 27.0-31.0 [facility] HospitalUwhzywpYHZCGZLFMJ0015-47-25 14:50:00 Test Item Value Reference Range Interpretation Comments MPV (test code = MPV) 9.2 7.4-10.4 [facility] HospitalHhedtyeXPHKJITUIL9100-70-02 14:50:00 Test Item Value Reference Range Interpretation Comments Platelet (test code = Platelet) 137 133-450 [facility] HospitalDnoqpiwGRTHYZBJKM0407-50-45 14:50:00 Test Item Value Reference Range Interpretation Comments Hgb (test code = Hgb) 12.3 14.0-18.0 [facility]2015-01-14 14:50:00 Test Item Value Reference Range Interpretation Comments eGFR (test code = eGFR) 56 [facility]2015-01-14 14:50:00 Test Item Value Reference Range Interpretation Comments Glucose Lvl (test code = Glucose Lvl) 132 70-99 [facility]2015-01-14 14:50:00 Test Item Value Reference Range Interpretation Comments Creatinine Lvl (test code = Creatinine 1.3 0.5-1.4 Lvl) [facility]2015-01-14 14:50:00 Test Item Value Reference Range Interpretation Comments BUN (test code = BUN) 14 7-22 [facility]2015-01-14 14:50:00 Test Item Value Reference Range Interpretation Comments Calcium Lvl (test code = Calcium Lvl) 8.0 8.5-10.5 [facility]2015-01-14 14:50:00 Test Item Value Reference Range Interpretation Comments Sodium Lvl (test code = Sodium Lvl) 135 135-145 [facility]2015-01-14 14:50:00 Test Item Value Reference Range Interpretation Comments Potassium Lvl (test code = Potassium 3.4 3.5-5.1 Lvl) [facility]2015-01-14 14:50:00 Test Item Value Reference Range Interpretation Comments CO2 (test code = CO2) 28 24-32 [facility]2015-01-14 14:50:00 Test Item Value Reference Range Interpretation Comments Chloride Lvl (test code = Chloride Lvl) 99 95-109 [facility]2015-01-14 14:50:00 Test Item Value Reference Range Interpretation Comments AGAP (test code = AGAP) 11.4 10.0-20.0 [facility] HospitalRxleqttABLNUAAHVM0853-06-33 14:50:00 Test Item Value Reference Range Interpretation Comments Lymphocytes # (test code = Lymphocytes 1.0 1.0-5.5 #) [facility] HospitalZfpuflzUUDJYPKASI5743-67-77 14:50:00 Test Item Value Reference Range Interpretation Comments Eosinophils # (test code 0.2 See_Comment [A utomated message] The = Eosinophils #) system whic h generated this result tra nsmitted reference range : <=0.5. The reference r ramiro was not used to int erpret this result as normal/abnormal . [facility] HospitalJtjzzxuPHJVQXNYIB7978-08-95 14:50:00 Test Item Value Reference Range Interpretation Comments Monocytes # (test code 0.7 See_Comment [Aut omated message] The = Monocytes #) system which generated this result tra nsmitted reference range : <=0.8. The reference r ramiro was not used to int erpret this result as normal/abnormal . [facility] HospitalXknmiloQBVSHORAFE5955-15-68 14:50:00 Test Item Value Reference Range Interpretation Comments Basophils # (test code 0.0 See_Comment [Aut omated message] The = Basophils #) system which generated this result tra nsmitted reference range : <=0.2. The reference r ramiro was not used to int erpret this result as normal/abnormal . [facility] HospitalBimvyzqDWDLVOHRVG6518-32-67 14:50:00 Test Item Value Reference Range Interpretation Comments Segs (test code = Segs) 67.7 45.0-75.0 [facility] HospitalPaxusjbHZAOZGTOVN6420-93-78 14:50:00 Test Item Value Reference Range Interpretation Comments Monocytes (test code = Monocytes) 11.7 2.0-12.0 [facility] HospitalAikaialLLBQHZYBQK7065-32-27 14:50:00 Test Item Value Reference Range Interpretation Comments Lymphocytes (test code = Lymphocytes) 17.0 20.0-40.0 [facility] HospitalAkztadvUCIGMOVZAU1915-07-55 14:50:00 Test Item Value Reference Range Interpretation Comments Segs-Bands # (test code = Segs-Bands #) 3.8 1.5-8.1 [facility] HospitalGtuvorgPJEGFTQIKW7910-55-24 14:50:00 Test Item Value Reference Range Interpretation Comments Eosinophils (test code = 3.1 See_Comment [A utomated message] The Eosinophils) system which ge nerated this result tra nsmitted reference range : <=4.0. The reference r ramiro was not used to int erpret this result as normal/abnormal . [facility] HospitalCefvtbkZGAQYDWGDG2385-48-66 14:50:00 Test Item Value Reference Range Interpretation Comments Basophils (test code = 0.5 See_Comment [Aut omated message] The Basophils) system which ge nerated this result tra nsmitted reference range : <=1.0. The reference r ramiro was not used to int erpret this result as normal/abnormal . [facility] HospitalWagrawjYTWRSIVBLF9286-17-13 14:50:00 Test Item Value Reference Range Interpretation Comments WBC (test code = WBC) 5.7 3.7-10.4 [facility] HospitalYbdsgbmJQBHNISAWE4191-65-91 14:50:00 Test Item Value Reference Range Interpretation Comments RBC (test code = RBC) 4.00 4.70-6.10 [facility] HospitalYwtfiskRKFBGDWNND4655-29-84 14:50:00 Test Item Value Reference Range Interpretation Comments Hct (test code = Hct) 36.5 42.0-54.0 [facility] HospitalXvcbyjtEAHVIHWPKK0421-66-61 14:50:00 Test Item Value Reference Range Interpretation Comments MCV (test code = MCV) 91.2 80.0-94.0 [facility] HospitalNadacqrPFYPGVYLBS3145-47-44 14:50:00 Test Item Value Reference Range Interpretation Comments MCHC (test code = MCHC) 33.7 32.0-36.0 [facility] HospitalKdhaebhIDBLGRMPWV3915-88-52 14:50:00 Test Item Value Reference Range Interpretation Comments RDW (test code = RDW) 14.0 11.5-14.5 [facility] HospitalBsvyskzUKAMISWDWO0267-31-64 14:50:00 Test Item Value Reference Range Interpretation Comments MCH (test code = MCH) 30.8 pg 27.0-31.0 [facility] HospitalYycxkfqJOFCFMXAHN2199-19-96 14:50:00 Test Item Value Reference Range Interpretation Comments MPV (test code = MPV) 9.2 7.4-10.4 [facility] HospitalPnouwacTNNEPSOYQP5190-98-49 14:50:00 Test Item Value Reference Range Interpretation Comments Platelet (test code = Platelet) 137 133-450 [facility]LztvtqrQJYDQDNWIB9330-59-54 14:50:00 Test Item Value Reference Range Interpretation Comments Hgb (test code = Hgb) 12.3 14.0-18.0 [facility] CenterBACTERIAL - [id number] 21:32:00 Test Item Value Reference Range Interpretation Comments MRSA by PCR (test Negative 8(06/09/14 3:32 code = MRSA by PCR) PM) [facility] AND [id number] 21:32:00 Test Item Value Reference Range Interpretation Comments UA Bacteria (test code = UA Occasional /HPF Bacteria) [facility] AND [id number] 21:32:00 Test Item Value Reference Range Interpretation Comments UA RBC (test code = 0-2 /HPF See_Comment [Automa brandy message] The UA RBC) system which ge nerated this result tra nsmitted reference range : <=2. The reference range was not used to interpr et this result as lizbeth l/abnormal. [facility] AND [id number] 21:32:00 Test Item Value Reference Range Interpretation Comments UA Mucus (test code = None Seen (06/09/14 UA Mucus) 3:32 PM) [facility] AND [id number] 21:32:00 Test Item Value Reference Range Interpretation Comments UA Color (test code = Yellow *NA*(06/09/14 UA Color) 3:32 PM) [facility] AND [id number] 21:32:00 Test Item Value Reference Range Interpretation Comments UA WBC (test code = UA WBC) 0-2 /HPF [facility] AND [id number] 21:32:00 Test Item Value Reference Range Interpretation Comments UA Spec Grav (test code = UA Spec 1.020 1 Grav) [facility] AND [id number] 21:32:00 Test Item Value Reference Range Interpretation Comments UA pH (test code = UA pH) 6.5 1 5.0-8.0 [facility] AND [id number] 21:32:00 Test Item Value Reference Range Interpretation Comments UA Turbidity (test code = Clear (06/09/14 3:32 UA Turbidity) PM) [facility] AND [id number] 21:32:00 Test Item Value Reference Range Interpretation Comments UA Protein (test code Negative (06/09/14 3:32 = UA Protein) PM) [facility] AND [id number] 21:32:00 Test Item Value Reference Range Interpretation Comments UA Bili (test code = Negative *NA*(06/09/14 UA Bili) 3:32 PM) [facility] AND [id number] 21:32:00 Test Item Value Reference Range Interpretation Comments UA Urobilinogen (test code = UA 0.2 0.1-1.0 Urobilinogen) [facility] AND [id number] 21:32:00 Test Item Value Reference Range Interpretation Comments UA Blood (test code = Trace *ABN*(06/09/14 UA Blood) 3:32 PM) [facility] AND [id number] 21:32:00 Test Item Value Reference Range Interpretation Comments UA Glucose (test code Negative (06/09/14 3:32 = UA Glucose) PM) [facility] AND [id number] 21:32:00 Test Item Value Reference Range Interpretation Comments UA Ketones (test code Negative *NA*(06/09/14 = UA Ketones) 3:32 PM) [facility] AND [id number] 21:32:00 Test Item Value Reference Range Interpretation Comments UA Nitrite (test code Negative (06/09/14 3:32 = UA Nitrite) PM) [facility] AND [id number] 21:32:00 Test Item Value Reference Range Interpretation Comments UA Sq Epi (test code = UA Sq Occasional /LPF Epi) [facility] AND [id number] 21:32:00 Test Item Value Reference Range Interpretation Comments UA Leuk Est (test Negative (06/09/14 3:32 code = UA Leuk Est) PM) [facility]BA[facility] - [id number] 21:32:00 Test Item Value Reference Range Interpretation Comments MRSA by PCR (test Negative 8(06/09/14 3:32 code = MRSA by PCR) PM) [facility] AND [id number] 21:32:00 Test Item Value Reference Range Interpretation Comments UA Bacteria (test code = UA Occasional /HPF Bacteria) [facility] AND [id number] 21:32:00 Test Item Value Reference Range Interpretation Comments UA RBC (test code = 0-2 /HPF See_Comment [Automa brandy message] The UA RBC) system which ge nerated this result tra nsmitted reference range : <=2. The reference range was not used to interpr et this result as lizbeth l/abnormal. [facility] AND [id number] 21:32:00 Test Item Value Reference Range Interpretation Comments UA Mucus (test code = None Seen (06/09/14 UA Mucus) 3:32 PM) [facility] AND [id number] 21:32:00 Test Item Value Reference Range Interpretation Comments UA Color (test code = Yellow *NA*(06/09/14 UA Color) 3:32 PM) [facility] AND [id number] 21:32:00 Test Item Value Reference Range Interpretation Comments UA WBC (test code = UA WBC) 0-2 /HPF [facility] AND [id number] 21:32:00 Test Item Value Reference Range Interpretation Comments UA Spec Grav (test code = UA Spec 1.020 1 Grav) [facility] AND [id number] 21:32:00 Test Item Value Reference Range Interpretation Comments UA pH (test code = UA pH) 6.5 1 5.0-8.0 [facility] AND [id number] 21:32:00 Test Item Value Reference Range Interpretation Comments UA Turbidity (test code = Clear (06/09/14 3:32 UA Turbidity) PM) [facility] AND [id number] 21:32:00 Test Item Value Reference Range Interpretation Comments UA Protein (test code Negative (06/09/14 3:32 = UA Protein) PM) [facility] AND [id number] 21:32:00 Test Item Value Reference Range Interpretation Comments UA Bili (test code = Negative *NA*(06/09/14 UA Bili) 3:32 PM) [facility] AND [id number] 21:32:00 Test Item Value Reference Range Interpretation Comments UA Urobilinogen (test code = UA 0.2 0.1-1.0 Urobilinogen) [facility] AND [id number] 21:32:00 Test Item Value Reference Range Interpretation Comments UA Blood (test code = Trace *ABN*(06/09/14 UA Blood) 3:32 PM) [facility] AND [id number] 21:32:00 Test Item Value Reference Range Interpretation Comments UA Glucose (test code Negative (06/09/14 3:32 = UA Glucose) PM) [facility] AND [id number] 21:32:00 Test Item Value Reference Range Interpretation Comments UA Ketones (test code Negative *NA*(06/09/14 = UA Ketones) 3:32 PM) [facility] AND [id number] 21:32:00 Test Item Value Reference Range Interpretation Comments UA Nitrite (test code Negative (06/09/14 3:32 = UA Nitrite) PM) [facility] AND [id number] 21:32:00 Test Item Value Reference Range Interpretation Comments UA Sq Epi (test code = UA Sq Occasional /LPF Epi) [facility] AND [id number] 21:32:00 Test Item Value Reference Range Interpretation Comments UA Leuk Est (test Negative (06/09/14 3:32 code = UA Leuk Est) PM) [facility]2015-01-12 21:29:00 Test Item Value Reference Range Interpretation Comments A/G Ratio (test code = A/G Ratio) 1.2 0.7-1.6 [facility]2015-01-12 21:29:00 Test Item Value Reference Range Interpretation Comments AGAP (test code = AGAP) 11.7 10.0-20.0 [facility]2015-01-12 21:29:00 Test Item Value Reference Range Interpretation Comments B/C Ratio (test code = B/C Ratio) 10 6-25 [facility]2015-01-12 21:29:00 Test Item Value Reference Range Interpretation Comments Globulin (test code = Globulin) 3.3 2.0-4.0 [facility]2015-01-12 21:29:00 Test Item Value Reference Range Interpretation Comments eGFR (test code = eGFR) 56 [facility]2015-01-12 21:29:00 Test Item Value Reference Range Interpretation Comments Total Protein (test code = Total 7.3 6.4-8.4 Protein) [facility]2015-01-12 21:29:00 Test Item Value Reference Range Interpretation Comments Calcium Lvl (test code = Calcium Lvl) 8.8 8.5-10.5 [facility]2015-01-12 21:29:00 Test Item Value Reference Range Interpretation Comments CO2 (test code = CO2) 30 24-32 [facility]2015-01-12 21:29:00 Test Item Value Reference Range Interpretation Comments Chloride Lvl (test code = Chloride Lvl) 101 95-109 [facility]2015-01-12 21:29:00 Test Item Value Reference Range Interpretation Comments Alk Phos (test code = Alk Phos) 134 39-136 [facility]2015-01-12 21:29:00 Test Item Value Reference Range Interpretation Comments AST (test code = AST) 36 See_Comment [Auto mated message] The system which ge nerated this result transmit brandy reference range : <=37. The reference range was not used to interpr et this result as lizbeth l/abnormal. [facility]2015-01-12 21:29:00 Test Item Value Reference Range Interpretation Comments Albumin Lvl (test code = Albumin Lvl) 4.0 3.5-5.0 [facility]2015-01-12 21:29:00 Test Item Value Reference Range Interpretation Comments ALT (test code = ALT) 51 See_Comment [Auto mated message] The system which ge nerated this result transmit brandy reference range : <=65. The reference range was not used to interpr et this result as lizbeth l/abnormal. [facility]2015-01-12 21:29:00 Test Item Value Reference Range Interpretation Comments Bili Total (test code = Bili Total) 0.6 0.2-1.3 [facility]2015-01-12 21:29:00 Test Item Value Reference Range Interpretation Comments Creatinine Lvl (test code = Creatinine 1.3 0.5-1.4 Lvl) [facility]2015-01-12 21:29:00 Test Item Value Reference Range Interpretation Comments BUN (test code = BUN) 13 7-22 [facility]2015-01-12 21:29:00 Test Item Value Reference Range Interpretation Comments Glucose Lvl (test code = Glucose Lvl) 100 70-99 [facility] [facility] 21:29:00 Test Item Value Reference Range Interpretation Comments Potassium Lvl (test code = Potassium 3.7 3.5-5.1 Lvl) [facility]2015-01-12 21:29:00 Test Item Value Reference Range Interpretation Comments Sodium Lvl (test code = Sodium Lvl) 139 135-145 [facility]HgjzvajYETUCUJNNX7563-48-58 21:29:00 Test Item Value Reference Range Interpretation Comments INR (test code = INR) 0.98 0.85-1.17 [facility] HospitalCtmjpuoHOCTGPPHGA7352-77-66 21:29:00 Test Item Value Reference Range Interpretation Comments PT (test code = PT) 13.0 s 12.0-14.7 [facility] HospitalChlnlebOJOEXGQZXE1033-55-96 21:29:00 Test Item Value Reference Range Interpretation Comments PTT (test code = PTT) 35.2 s 22.9-35.8 [facility] HospitalVmocnwcHIDAESMGPA9055-80-93 21:29:00 Test Item Value Reference Range Interpretation Comments WBC (test code = WBC) 6.2 3.7-10.4 [facility] HospitalMsudfmgEGKZJRKXDT5482-94-22 21:29:00 Test Item Value Reference Range Interpretation Comments RBC (test code = RBC) 5.13 4.70-6.10 [facility] HospitalTphtmrgOJPKINBOQW1376-64-31 21:29:00 Test Item Value Reference Range Interpretation Comments Hgb (test code = Hgb) 15.6 14.0-18.0 [facility] HospitalZzqywosBYYNMAOGQH0896-64-61 21:29:00 Test Item Value Reference Range Interpretation Comments Hct (test code = Hct) 46.4 42.0-54.0 [facility] HospitalGiewhiwVFSUSYGSGO3290-74-97 21:29:00 Test Item Value Reference Range Interpretation Comments RDW (test code = RDW) 13.6 11.5-14.5 [facility] HospitalOdynigbSXBXURTWNB4328-51-36 21:29:00 Test Item Value Reference Range Interpretation Comments Platelet (test code = Platelet) 181 133-450 [facility] HospitalIjszcgrJAIEBRPEAB1719-05-25 21:29:00 Test Item Value Reference Range Interpretation Comments MCV (test code = MCV) 90.3 80.0-94.0 [facility] HospitalBehwfdnDRNFBEQUPO4030-33-37 21:29:00 Test Item Value Reference Range Interpretation Comments MCH (test code = MCH) 30.4 pg 27.0-31.0 [facility] HospitalLzfrdpvOHPNSDLUTK1357-39-60 21:29:00 Test Item Value Reference Range Interpretation Comments MCHC (test code = MCHC) 33.6 32.0-36.0 [facility] HospitalGqptlipOOSCBALGPL6822-18-58 21:29:00 Test Item Value Reference Range Interpretation Comments MPV (test code = MPV) 9.2 7.4-10.4 [facility] HospitalEoznewkEPVQRJQILG5257-77-13 21:29:00 Test Item Value Reference Range Interpretation Comments Segs (test code = Segs) 57.9 45.0-75.0 [facility] HospitalWfzgtxhQGOQOYSLNF4835-57-16 21:29:00 Test Item Value Reference Range Interpretation Comments Eosinophils (test code = 3.0 See_Comment [A utomated message] The Eosinophils) system which ge nerated this result tra nsmitted reference range : <=4.0. The reference r ramiro was not used to int erpret this result as normal/abnormal . [facility] HospitalCnvjwfhEJPKTVQHWP3456-55-47 21:29:00 Test Item Value Reference Range Interpretation Comments Monocytes (test code = Monocytes) 12.4 2.0-12.0 [facility] HospitalNhzuopuDVYDQWWKHF5074-04-23 21:29:00 Test Item Value Reference Range Interpretation Comments Monocytes # (test code 0.8 See_Comment [Aut omated message] The = Monocytes #) system which generated this result tra nsmitted reference range : <=0.8. The reference r ramiro was not used to int erpret this result as normal/abnormal . [facility] HospitalVzeryftWPPTWWDVJO3001-63-57 21:29:00 Test Item Value Reference Range Interpretation Comments Segs-Bands # (test code = Segs-Bands #) 3.6 1.5-8.1 [facility] HospitalDpqcgtcNPZMMWFSMO7190-25-86 21:29:00 Test Item Value Reference Range Interpretation Comments Basophils # (test code 0.0 See_Comment [Aut omated message] The = Basophils #) system which generated this result tra nsmitted reference range : <=0.2. The reference r ramiro was not used to int erpret this result as normal/abnormal . [facility] HospitalPsbajvkHBMEKQCNJO2493-38-12 21:29:00 Test Item Value Reference Range Interpretation Comments Eosinophils # (test code 0.2 See_Comment [A utomated message] The = Eosinophils #) system whic h generated this result tra nsmitted reference range : <=0.5. The reference r ramiro was not used to int erpret this result as normal/abnormal . [facility] HospitalKilgmoaZGIKPERHXZ1176-65-06 21:29:00 Test Item Value Reference Range Interpretation Comments Lymphocytes # (test code = Lymphocytes 1.6 1.0-5.5 #) [facility] HospitalCcowpryNQHUVHRSWG4901-07-23 21:29:00 Test Item Value Reference Range Interpretation Comments Basophils (test code = 0.3 See_Comment [Aut omated message] The Basophils) system which ge nerated this result tra nsmitted reference range : <=1.0. The reference r ramiro was not used to int erpret this result as normal/abnormal . [facility] HospitalBrxfyhnPEPWABYSCD4870-02-52 21:29:00 Test Item Value Reference Range Interpretation Comments Lymphocytes (test code = Lymphocytes) 26.4 20.0-40.0 [facility]2015-01-12 21:29:00 Test Item Value Reference Range Interpretation Comments A/G Ratio (test code = A/G Ratio) 1.2 0.7-1.6 [facility]2015-01-12 21:29:00 Test Item Value Reference Range Interpretation Comments AGAP (test code = AGAP) 11.7 10.0-20.0 [facility]2015-01-12 21:29:00 Test Item Value Reference Range Interpretation Comments B/C Ratio (test code = B/C Ratio) 10 6-25 [facility]2015-01-12 21:29:00 Test Item Value Reference Range Interpretation Comments Globulin (test code = Globulin) 3.3 2.0-4.0 [facility]2015-01-12 21:29:00 Test Item Value Reference Range Interpretation Comments eGFR (test code = eGFR) 56 [facility]2015-01-12 21:29:00 Test Item Value Reference Range Interpretation Comments Total Protein (test code = Total 7.3 6.4-8.4 Protein) [facility]2015-01-12 21:29:00 Test Item Value Reference Range Interpretation Comments Calcium Lvl (test code = Calcium Lvl) 8.8 8.5-10.5 [place] [id number] 21:29:00 Test Item Value Reference Range Interpretation Comments CO2 (test code = CO2) 30 24-32 [facility]2015-01-12 21:29:00 Test Item Value Reference Range Interpretation Comments Chloride Lvl (test code = Chloride Lvl) 101 95-109 [facility]2015-01-12 21:29:00 Test Item Value Reference Range Interpretation Comments Alk Phos (test code = Alk Phos) 134 39-136 [facility]2015-01-12 21:29:00 Test Item Value Reference Range Interpretation Comments AST (test code = AST) 36 See_Comment [Auto mated message] The system which ge nerated this result transmit brandy reference range : <=37. The reference range was not used to interpr et this result as lizbeth l/abnormal. [facility]2015-01-12 21:29:00 Test Item Value Reference Range Interpretation Comments Albumin Lvl (test code = Albumin Lvl) 4.0 3.5-5.0 [facility]2015-01-12 21:29:00 Test Item Value Reference Range Interpretation Comments ALT (test code = ALT) 51 See_Comment [Auto mated message] The system which ge nerated this result transmit brandy reference range : <=65. The reference range was not used to interpr et this result as lizbeth l/abnormal. [facility]2015-01-12 21:29:00 Test Item Value Reference Range Interpretation Comments Bili Total (test code = Bili Total) 0.6 0.2-1.3 [facility]2015-01-12 21:29:00 Test Item Value Reference Range Interpretation Comments Creatinine Lvl (test code = Creatinine 1.3 0.5-1.4 Lvl) [facility]2015-01-12 21:29:00 Test Item Value Reference Range Interpretation Comments BUN (test code = BUN) 13 7-22 [facility]2015-01-12 21:29:00 Test Item Value Reference Range Interpretation Comments Glucose Lvl (test code = Glucose Lvl) 100 70-99 [facility]2015-01-12 21:29:00 Test Item Value Reference Range Interpretation Comments Potassium Lvl (test code = Potassium 3.7 3.5-5.1 Lvl) [facility]2015-01-12 21:29:00 Test Item Value Reference Range Interpretation Comments Sodium Lvl (test code = Sodium Lvl) 139 135-145 [facility] HospitalEzhgpooQOQXGEWNBE9390-14-78 21:29:00 Test Item Value Reference Range Interpretation Comments INR (test code = INR) 0.98 0.85-1.17 [facility] HospitalTcneaxdCIONTQFBXJ2834-20-08 21:29:00 Test Item Value Reference Range Interpretation Comments PT (test code = PT) 13.0 s 12.0-14.7 [facility] HospitalFlzpiqoOJYCCLKMEN7883-07-86 21:29:00 Test Item Value Reference Range Interpretation Comments PTT (test code = PTT) 35.2 s 22.9-35.8 [facility] HospitalMnpjetzNAQXIWSPYG3454-58-35 21:29:00 Test Item Value Reference Range Interpretation Comments WBC (test code = WBC) 6.2 3.7-10.4 [facility] HospitalMrslryxXDQPBNZQCM7869-45-53 21:29:00 Test Item Value Reference Range Interpretation Comments RBC (test code = RBC) 5.13 4.70-6.10 [facility] HospitalMpgrpfpWOSNXUMECP8965-10-41 21:29:00 Test Item Value Reference Range Interpretation Comments Hgb (test code = Hgb) 15.6 14.0-18.0 [facility] HospitalWkkvhraLQDZRXOZGW9919-37-17 21:29:00 Test Item Value Reference Range Interpretation Comments Hct (test code = Hct) 46.4 42.0-54.0 [facility] HospitalAjvfstbJYFOZOMDCX7930-45-36 21:29:00 Test Item Value Reference Range Interpretation Comments RDW (test code = RDW) 13.6 11.5-14.5 [facility] HospitalYrnnlkiHWCQYHEZNU7210-93-35 21:29:00 Test Item Value Reference Range Interpretation Comments Platelet (test code = Platelet) 181 133-450 [facility] HospitalFowwaggNEQXIAFDUL1780-16-22 21:29:00 Test Item Value Reference Range Interpretation Comments MCV (test code = MCV) 90.3 80.0-94.0 [facility] HospitalFhzbgjcJENFWVCNPX6174-34-05 21:29:00 Test Item Value Reference Range Interpretation Comments MCH (test code = MCH) 30.4 pg 27.0-31.0 [facility] HospitalIugocfeDXPGAWEJWH1734-23-11 21:29:00 Test Item Value Reference Range Interpretation Comments MCHC (test code = MCHC) 33.6 32.0-36.0 [facility] HospitalOpqytbgJLLEGDURBJ4840-38-78 21:29:00 Test Item Value Reference Range Interpretation Comments MPV (test code = MPV) 9.2 7.4-10.4 [facility] HospitalKiglslpJHFCZZYYYS9236-23-52 21:29:00 Test Item Value Reference Range Interpretation Comments Segs (test code = Segs) 57.9 45.0-75.0 [facility] HospitalOczwiheNEBTPLFGDX3600-25-42 21:29:00 Test Item Value Reference Range Interpretation Comments Eosinophils (test code = 3.0 See_Comment [A utomated message] The Eosinophils) system which ge nerated this result tra nsmitted reference range : <=4.0. The reference r ramiro was not used to int erpret this result as normal/abnormal . [facility] HospitalUqtpdqbFOPPLFDNWF5861-19-60 21:29:00 Test Item Value Reference Range Interpretation Comments Monocytes (test code = Monocytes) 12.4 2.0-12.0 [facility] HospitalQhzwembUNVDGMJJMF4520-58-67 21:29:00 Test Item Value Reference Range Interpretation Comments Monocytes # (test code 0.8 See_Comment [Aut omated message] The = Monocytes #) system which generated this result tra nsmitted reference range : <=0.8. The reference r ramiro was not used to int erpret this result as normal/abnormal . [facility] HospitalNveqttzYTEZYXDOZW3977-35-17 21:29:00 Test Item Value Reference Range Interpretation Comments Segs-Bands # (test code = Segs-Bands #) 3.6 1.5-8.1 [facility] HospitalZpblfqgWIUAKFRVAH6402-02-10 21:29:00 Test Item Value Reference Range Interpretation Comments Basophils # (test code 0.0 See_Comment [Aut omated message] The = Basophils #) system which generated this result tra nsmitted reference range : <=0.2. The reference r ramiro was not used to int erpret this result as normal/abnormal . [facility] HospitalDlicqzjYOZXSCTLXW8104-56-04 21:29:00 Test Item Value Reference Range Interpretation Comments Eosinophils # (test code 0.2 See_Comment [A utomated message] The = Eosinophils #) system whic h generated this result tra nsmitted reference range : <=0.5. The reference r ramiro was not used to int erpret this result as normal/abnormal . [facility] HospitalQueafkvROPEZCNIYU7054-53-53 21:29:00 Test Item Value Reference Range Interpretation Comments Lymphocytes # (test code = Lymphocytes 1.6 1.0-5.5 #) [facility] HospitalNlmhcvgIGIMELPDWX9429-29-13 21:29:00 Test Item Value Reference Range Interpretation Comments Basophils (test code = 0.3 See_Comment [Aut omated message] The Basophils) system which ge nerated this result tra nsmitted reference range : <=1.0. The reference r ramiro was not used to int erpret this result as normal/abnormal . [facility] HospitalSavfpwxUQZTBNWAXA8169-58-74 21:29:00 Test Item Value Reference Range Interpretation Comments Lymphocytes (test code = Lymphocytes) 26.4 20.0-40.0 [facility] AND [id number] 15:00:00 Test Item Value Reference Range Interpretation Comments Micro? (test code = Performed (04/29/14 9:00 Micro?) AM) [facility] AND [id number] 15:00:00 Test Item Value Reference Range Interpretation Comments UA RBC (test code = 3-5 /HPF See_Comment [Automa brandy message] The UA RBC) system which ge nerated this result tra nsmitted reference range : <=2. The reference range was not used to interpr et this result as lizbeth l/abnormal. [facility] AND [id number] 15:00:00 Test Item Value Reference Range Interpretation Comments UA WBC (test code = UA WBC) >100 /HPF [facility] AND [id number] 15:00:00 Test Item Value Reference Range Interpretation Comments UA Sq Epi (test code = UA Sq Occasional /LPF Epi) [facility] AND [id number] 15:00:00 Test Item Value Reference Range Interpretation Comments UA Mucus (test code = UA Mucus) Rare /LPF [facility] AND [id number] 15:00:00 Test Item Value Reference Range Interpretation Comments UA Bacteria (test code = UA Few /HPF Bacteria) [facility] AND [id number] 15:00:00 Test Item Value Reference Range Interpretation Comments UA Blood (test code = Small *ABN*(04/29/14 UA Blood) 9:00 AM) [facility] AND [id number] 15:00:00 Test Item Value Reference Range Interpretation Comments UA Urobilinogen (test code = UA 0.2 0.1-1.0 Urobilinogen) [facility] AND [id number] 15:00:00 Test Item Value Reference Range Interpretation Comments UA Leuk Est (test Moderate *ABN*(04/29/14 code = UA Leuk Est) 9:00 AM) [facility] AND [id number] 15:00:00 Test Item Value Reference Range Interpretation Comments UA Nitrite (test code Negative (04/29/14 9:00 = UA Nitrite) AM) [facility] AND [id number] 15:00:00 Test Item Value Reference Range Interpretation Comments UA Glucose (test code Negative (04/29/14 9:00 = UA Glucose) AM) [facility] AND [id number] 15:00:00 Test Item Value Reference Range Interpretation Comments UA Protein (test code Negative (04/29/14 9:00 = UA Protein) AM) [facility] AND [id number] 15:00:00 Test Item Value Reference Range Interpretation Comments UA Bili (test code = Negative *NA*(04/29/14 UA Bili) 9:00 AM) [facility] AND [id number] 15:00:00 Test Item Value Reference Range Interpretation Comments UA Ketones (test code Negative *NA*(04/29/14 = UA Ketones) 9:00 AM) [facility] AND [id number] 15:00:00 Test Item Value Reference Range Interpretation Comments UA Turbidity (test code = Clear (04/29/14 9:00 UA Turbidity) AM) [facility] AND [id number] 15:00:00 Test Item Value Reference Range Interpretation Comments UA Spec Grav (test code = UA Spec 1.015 1 Grav) [facility] AND [id number] 15:00:00 Test Item Value Reference Range Interpretation Comments UA pH (test code = UA pH) 6.0 1 5.0-8.0 [facility] AND [id number] 15:00:00 Test Item Value Reference Range Interpretation Comments UA Color (test code = Yellow *NA*(04/29/14 UA Color) 9:00 AM) [facility] AND [id number] 15:00:00 Test Item Value Reference Range Interpretation Comments Micro? (test code = Performed (04/29/14 9:00 Micro?) AM) [facility] AND [id number] 15:00:00 Test Item Value Reference Range Interpretation Comments UA RBC (test code = 3-5 /HPF See_Comment [Automa brandy message] The UA RBC) system which ge nerated this result tra nsmitted reference range : <=2. The reference range was not used to interpr et this result as lizbeth l/abnormal. [facility] AND [id number] 15:00:00 Test Item Value Reference Range Interpretation Comments UA WBC (test code = UA WBC) >100 /HPF [facility] AND [id number] 15:00:00 Test Item Value Reference Range Interpretation Comments UA Sq Epi (test code = UA Sq Occasional /LPF Epi) [facility] AND [id number] 15:00:00 Test Item Value Reference Range Interpretation Comments UA Mucus (test code = UA Mucus) Rare /LPF [facility] AND [id number] 15:00:00 Test Item Value Reference Range Interpretation Comments UA Bacteria (test code = UA Few /HPF Bacteria) [facility] AND [id number] 15:00:00 Test Item Value Reference Range Interpretation Comments UA Blood (test code = Small *ABN*(04/29/14 UA Blood) 9:00 AM) [facility] AND [id number] 15:00:00 Test Item Value Reference Range Interpretation Comments UA Urobilinogen (test code = UA 0.2 0.1-1.0 Urobilinogen) [facility] AND [id number] 15:00:00 Test Item Value Reference Range Interpretation Comments UA Leuk Est (test Moderate *ABN*(04/29/14 code = UA Leuk Est) 9:00 AM) [facility] AND [id number] 15:00:00 Test Item Value Reference Range Interpretation Comments UA Nitrite (test code Negative (04/29/14 9:00 = UA Nitrite) AM) [facility] AND [id number] 15:00:00 Test Item Value Reference Range Interpretation Comments UA Glucose (test code Negative (04/29/14 9:00 = UA Glucose) AM) [facility] AND [id number] 15:00:00 Test Item Value Reference Range Interpretation Comments UA Protein (test code Negative (04/29/14 9:00 = UA Protein) AM) [facility] AND [id number] 15:00:00 Test Item Value Reference Range Interpretation Comments UA Bili (test code = Negative *NA*(04/29/14 UA Bili) 9:00 AM) [facility] AND [id number] 15:00:00 Test Item Value Reference Range Interpretation Comments UA Ketones (test code Negative *NA*(04/29/14 = UA Ketones) 9:00 AM) [facility] AND [id number] 15:00:00 Test Item Value Reference Range Interpretation Comments UA Turbidity (test code = Clear (04/29/14 9:00 UA Turbidity) AM) [facility] AND [id number] 15:00:00 Test Item Value Reference Range Interpretation Comments UA Spec Grav (test code = UA Spec 1.015 1 Grav) [facility] AND [id number] 15:00:00 Test Item Value Reference Range Interpretation Comments UA pH (test code = UA pH) 6.0 1 5.0-8.0 [facility] AND [id number] 15:00:00 Test Item Value Reference Range Interpretation Comments UA Color (test code = Yellow *NA*(04/29/14 UA Color) 9:00 AM) [id number] 05:04:00 Test Item Value Reference Range Interpretation Comments AGAP (test code = AGAP) 11.4 10.0-20.0 [facility]ZavgnxfDBZQXJQHFMTO2795-33-05 05:04:00 Test Item Value Reference Range Interpretation Comments eGFR (test code = eGFR) 56 [facility]VyamftiNBLMKWPJOUSB3887-69-73 05:04:00 Test Item Value Reference Range Interpretation Comments BUN (test code = BUN) 12 7-22 [facility]YuztepjKESFCZWZBLPX4040-09-72 05:04:00 Test Item Value Reference Range Interpretation Comments Glucose Lvl (test code = Glucose Lvl) 104 70-99 [facility]AtprqqtDNOFQRGWBPXE5928-48-71 05:04:00 Test Item Value Reference Range Interpretation Comments Creatinine Lvl (test code = Creatinine 1.3 0.5-1.4 Lvl) [facility]NlngkbhNRFHZUKDPART7990-54-93 05:04:00 Test Item Value Reference Range Interpretation Comments Calcium Lvl (test code = Calcium Lvl) 8.7 8.5-10.5 [facility] HospitalTfdqbhoMZBVAEUKATWH5241-16-73 05:04:00 Test Item Value Reference Range Interpretation Comments Sodium Lvl (test code = Sodium Lvl) 138 135-145 [facility]IcjrtlnXOXTKXBZFJXX2373-01-84 05:04:00 Test Item Value Reference Range Interpretation Comments Potassium Lvl (test code = Potassium 3.4 3.5-5.1 Lvl) [facility] HospitalIgiutorJDEFKXIERUNE8169-85-43 05:04:00 Test Item Value Reference Range Interpretation Comments Chloride Lvl (test code = Chloride Lvl) 102 95-109 [facility] HospitalThnttnnBUAYROCUJINW5657-38-79 05:04:00 Test Item Value Reference Range Interpretation Comments CO2 (test code = CO2) 28 24-32 [facility] HospitalJybyubeWTENWWGGOX5253-24-74 05:04:00 Test Item Value Reference Range Interpretation Comments RDW (test code = RDW) 14.4 11.5-14.5 [facility] HospitalAprrfznHKKSSSLTOH4525-07-98 05:04:00 Test Item Value Reference Range Interpretation Comments Platelet (test code = Platelet) 174 133-450 [facility] HospitalEjpdcnqJHYMIAJMRL7331-01-81 05:04:00 Test Item Value Reference Range Interpretation Comments MPV (test code = MPV) 8.9 7.4-10.4 [facility] HospitalBejxoikZTMKWUBBAS4416-63-70 05:04:00 Test Item Value Reference Range Interpretation Comments MCHC (test code = MCHC) 34.4 32.0-36.0 [facility] HospitalNfixysvJKFGVSMXJJ8654-66-69 05:04:00 Test Item Value Reference Range Interpretation Comments MCH (test code = MCH) 31.4 pg 27.0-31.0 [facility] HospitalDftxsijIRLLIJSCPS3898-80-05 05:04:00 Test Item Value Reference Range Interpretation Comments MCV (test code = MCV) 91.3 80.0-94.0 [facility] HospitalWbpfbdgKYJBEGHDDU5865-12-58 05:04:00 Test Item Value Reference Range Interpretation Comments Hct (test code = Hct) 42.1 42.0-54.0 [facility] HospitalJmylcjrOKRPVIIRZG3802-63-16 05:04:00 Test Item Value Reference Range Interpretation Comments Hgb (test code = Hgb) 14.5 14.0-18.0 [facility] HospitalXdjakduBJNUGRQKAY5384-67-73 05:04:00 Test Item Value Reference Range Interpretation Comments RBC (test code = RBC) 4.61 4.70-6.10 [facility] HospitalTbuxbysEVRBLIXBLJ6297-23-43 05:04:00 Test Item Value Reference Range Interpretation Comments WBC (test code = WBC) 6.0 3.7-10.4 [facility] HospitalToetepfUWRYABXHNP5443-70-28 05:04:00 Test Item Value Reference Range Interpretation Comments Basophils # (test code 0.0 See_Comment [Aut omated message] The = Basophils #) system which generated this result tra nsmitted reference range : <=0.2. The reference r ramiro was not used to int erpret this result as normal/abnormal . [facility] HospitalXqvpxzjNSENPJRHQA8723-08-56 05:04:00 Test Item Value Reference Range Interpretation Comments Eosinophils # (test code 0.2 See_Comment [A utomated message] The = Eosinophils #) system whic h generated this result tra nsmitted reference range : <=0.5. The reference r ramiro was not used to int erpret this result as normal/abnormal . [facility] HospitalUmpuddpAWFNRJVJSM0672-87-27 05:04:00 Test Item Value Reference Range Interpretation Comments Monocytes # (test code 0.8 See_Comment [Aut omated message] The = Monocytes #) system which generated this result tra nsmitted reference range : <=0.8. The reference r ramiro was not used to int erpret this result as normal/abnormal . [id number] 05:04:00 Test Item Value Reference Range Interpretation Comments Lymphocytes # (test code = Lymphocytes 1.8 1.0-5.5 #) [id number] 05:04:00 Test Item Value Reference Range Interpretation Comments Segs-Bands # (test code = Segs-Bands #) 3.2 1.5-8.1 [facility] Hospit[id number] 05:04:00 Test Item Value Reference Range Interpretation Comments Eosinophils (test code = 2.8 See_Comment [A utomated message] The Eosinophils) system which ge nerated this result tra nsmitted reference range : <=4.0. The reference r ramiro was not used to int erpret this result as normal/abnormal . [facility] HospitalXahbgozNKXGPKWILD2945-16-42 05:04:00 Test Item Value Reference Range Interpretation Comments Basophils (test code = 0.4 See_Comment [Aut omated message] The Basophils) system which ge nerated this result tra nsmitted reference range : <=1.0. The reference r ramiro was not used to int erpret this result as normal/abnormal . [facility] Hospit[id number] 05:04:00 Test Item Value Reference Range Interpretation Comments Segs (test code = Segs) 53.5 45.0-75.0 [facility] HospitalTtxftzsWGSGWBDYCP8078-24-49 05:04:00 Test Item Value Reference Range Interpretation Comments Lymphocytes (test code = Lymphocytes) 30.1 20.0-40.0 [facility] HospitalQgjpomsJXFHXGKVRT3837-55-45 05:04:00 Test Item Value Reference Range Interpretation Comments Monocytes (test code = Monocytes) 13.2 2.0-12.0 [facility]MejrghqDDNOZXALMNFJ3782-42-57 05:04:00 Test Item Value Reference Range Interpretation Comments AGAP (test code = AGAP) 11.4 10.0-20.0 [facility] HospitalZbbelvpUTGKCNELACUG0516-58-57 05:04:00 Test Item Value Reference Range Interpretation Comments eGFR (test code = eGFR) 56 [facility] HospitalZttmlmxRMIZUFORKGAI1048-50-24 05:04:00 Test Item Value Reference Range Interpretation Comments BUN (test code = BUN) 12 7-22 [facility]KyqzqukWJEWEWGFRKBZ2165-07-93 05:04:00 Test Item Value Reference Range Interpretation Comments Glucose Lvl (test code = Glucose Lvl) 104 70-99 [facility]AhmddunTRYLMGLNKEUU8267-12-02 05:04:00 Test Item Value Reference Range Interpretation Comments Creatinine Lvl (test code = Creatinine 1.3 0.5-1.4 Lvl) [facility] HospitalOhzhezuAZJTBNQOFANY9317-79-56 05:04:00 Test Item Value Reference Range Interpretation Comments Calcium Lvl (test code = Calcium Lvl) 8.7 8.5-10.5 [facility] HospitalGhfvtffSMRAKDOYXYRT3485-01-06 05:04:00 Test Item Value Reference Range Interpretation Comments Sodium Lvl (test code = Sodium Lvl) 138 135-145 [facility] HospitalIzzpurcCAFRHYUEFTQF5501-28-27 05:04:00 Test Item Value Reference Range Interpretation Comments Potassium Lvl (test code = Potassium 3.4 3.5-5.1 Lvl) [facility] HospitalAdwewhnWKAGTXDCDTDQ7021-62-80 05:04:00 Test Item Value Reference Range Interpretation Comments Chloride Lvl (test code = Chloride Lvl) 102 95-109 [facility] HospitalDnmhemcWUMUVVRIQHUW1199-60-77 05:04:00 Test Item Value Reference Range Interpretation Comments CO2 (test code = CO2) 28 24-32 [facility] HospitalFiiacxcBQIABHEINE7688-89-99 05:04:00 Test Item Value Reference Range Interpretation Comments RDW (test code = RDW) 14.4 11.5-14.5 [facility] HospitalAzbfvzdDOMQUHUDNC4857-43-45 05:04:00 Test Item Value Reference Range Interpretation Comments Platelet (test code = Platelet) 174 133-450 [facility] HospitalTlolzbpMHXHAKTNII3237-68-67 05:04:00 Test Item Value Reference Range Interpretation Comments MPV (test code = MPV) 8.9 7.4-10.4 [facility] HospitalBktccyoVSUXSMBDIP2287-87-50 05:04:00 Test Item Value Reference Range Interpretation Comments MCHC (test code = MCHC) 34.4 32.0-36.0 [facility] HospitalNsybnzxHDQCVHVZVX2747-41-94 05:04:00 Test Item Value Reference Range Interpretation Comments MCH (test code = MCH) 31.4 pg 27.0-31.0 [facility] HospitalQfmbrleGUKAUIMLGY5672-80-10 05:04:00 Test Item Value Reference Range Interpretation Comments MCV (test code = MCV) 91.3 80.0-94.0 [facility] HospitalQ[id number] 05:04:00 Test Item Value Reference Range Interpretation Comments Hct (test code = Hct) 42.1 42.0-54.0 [facility] HospitalSsqcdfnEKIGOHOIIW9847-76-15 05:04:00 Test Item Value Reference Range Interpretation Comments Hgb (test code = Hgb) 14.5 14.0-18.0 [facility] HospitalAeuratxJWJBKQKHFF5703-67-67 05:04:00 Test Item Value Reference Range Interpretation Comments RBC (test code = RBC) 4.61 4.70-6.10 [facility] HospitalBsbfviuUJRGUBMTPE8052-89-26 05:04:00 Test Item Value Reference Range Interpretation Comments WBC (test code = WBC) 6.0 3.7-10.4 [facility] HospitalAlbjeuyONCCZSMSPY0717-02-30 05:04:00 Test Item Value Reference Range Interpretation Comments Basophils # (test code 0.0 See_Comment [Aut omated message] The = Basophils #) system which generated this result tra nsmitted reference range : <=0.2. The reference r ramiro was not used to int erpret this result as normal/abnormal . [facility] HospitalWoiwmjfMPEUAWADCQ6876-34-27 05:04:00 Test Item Value Reference Range Interpretation Comments Eosinophils # (test code 0.2 See_Comment [A utomated message] The = Eosinophils #) system whic h generated this result tra nsmitted reference range : <=0.5. The reference r ramiro was not used to int erpret this result as normal/abnormal . [facility] HospitalKtgygcfJZCLBNBWSL4693-63-18 05:04:00 Test Item Value Reference Range Interpretation Comments Monocytes # (test code 0.8 See_Comment [Aut omated message] The = Monocytes #) system which generated this result tra nsmitted reference range : <=0.8. The reference r ramiro was not used to int erpret this result as normal/abnormal . [facility] HospitalGvyumcwOZOZDRNBYL1192-43-35 05:04:00 Test Item Value Reference Range Interpretation Comments Lymphocytes # (test code = Lymphocytes 1.8 1.0-5.5 #) [facility] HospitalMzqnzxoUYKNVEINGK9255-54-66 05:04:00 Test Item Value Reference Range Interpretation Comments Segs-Bands # (test code = Segs-Bands #) 3.2 1.5-8.1 [facility] HospitalWoyodikOOJQOZTBLW2906-13-69 05:04:00 Test Item Value Reference Range Interpretation Comments Eosinophils (test code = 2.8 See_Comment [A utomated message] The Eosinophils) system which ge nerated this result tra nsmitted reference range : <=4.0. The reference r ramiro was not used to int erpret this result as normal/abnormal . [facility] HospitalZfprnbwHYMQINVJOI1252-12-11 05:04:00 Test Item Value Reference Range Interpretation Comments Basophils (test code = 0.4 See_Comment [Aut omated message] The Basophils) system which ge nerated this result tra nsmitted reference range : <=1.0. The reference r ramiro was not used to int erpret this result as normal/abnormal . [facility] HospitalCxmwabbERQBTGEVKU5452-54-69 05:04:00 Test Item Value Reference Range Interpretation Comments Segs (test code = Segs) 53.5 45.0-75.0 [facility] HospitalMolwsvxQBWUCCWBYS5363-15-73 05:04:00 Test Item Value Reference Range Interpretation Comments Lymphocytes (test code = Lymphocytes) 30.1 20.0-40.0 [facility] HospitalFhqfyuhHZCDHQCCMU1211-33-00 05:04:00 Test Item Value Reference Range Interpretation Comments Monocytes (test code = Monocytes) 13.2 2.0-12.0 [facility] - [id number] 20:00:12 Test Item Value Reference Range Interpretation Comments MRSA by PCR (test Negative 9(04/08/14 2:00 code = MRSA by PCR) PM) [facility] - [id number] 20:00:12 Test Item Value Reference Range Interpretation Comments MRSA by PCR (test Negative 9(04/08/14 2:00 code = MRSA by PCR) PM) [facility]Ren[facility] Ultrasound-Complete
[2022-06-09 14:34] VITALS: BMI 35.7
[2022-06-09] MEDS ORDERED: ACETAMINOPHEN 500 MG TAB PO PRN (15:45)
[2022-06-09] MEDS ORDERED: ONDANSETRON 4 MG (ODT) TAB PO PRN (15:46)
--- NOTE | 2022-06-09 19:25 | HP ---
Date of Admission: 06/09/2022 Gece-Ky-Ejzq Admission History And Physical Time Of Service: 5 p.m. Chief Complaint: "Got stiff, fell down on my back and did not take my medications for Parkinson dise ase." History Of Present Illness: Mr. Brasher is a 77-year-old patient with Parkinson disease, hypertension , dyslipidemia, and class 2 obesity who comes to [facility] on 06/07/2022 after slipping chelsie n a flight of steps. He had been out of Parkinson's medicine for over a week and got stiffer. He hi t his back and had pain in that area and had significant difficulty getting up from the floor and amb ulating. He was also found to be confused. At [facility] he was found to have a urinary tr act infection and received Rocephin IV and had imaging, which showed no acute ischemic or hemorrhagic changes in the brain. There was a right ischium fracture present and degenerative disk disease seen at L3-4, L4-5, and L5-S1. The fracture in the ischium did appear to have callus formation suggestin g it was more subacute. No other fractures were identified. The patient was evaluated by Physical T herapy and found to be diffusely weak with significant difficulty with transfers, mobilization, getti ng in and out of bed and perform activities of daily living. As a result of his acute worsening fall s and debility along with his comorbid conditions such as urinary tract infection for which he did re ceive intravenous antibiotics and his hypertension and dyslipidemia, he was felt to be a more appropr iate candidate for inpatient rehabilitation as blood work would likely need to be done to follow up h is risk of worsening infection such as aspiration given that he is off Parkinson's medicine. In jean-pierre tion, there is a possibility of severe constipation, worsening urine tract infection, and sepsis. He was therefore admitted to the inpatient rehabilitation unit for physical, occupational, and speech t herapy along with close medical management. Past Medical History: Heart disease, dyslipidemia, hypertension, kidney stones, subacute fracture of the right ischium. Family History: Noncontributory. Allergies: NO KNOWN DRUG ALLERGIES. Medications: Tylenol 500 mg every 6 hours as needed, allopurinol 300 mg daily, Lipitor 20 mg at bedt danny, carbidopa levodopa 25/100 one twice daily, duloxetine 20 mg twice daily, and gabapentin 400 mg t wice daily. He is on oral Levaquin 750 mg every 48 hours. Zofran 4 mg every 6 hours as needed, Prot shane 40 mg daily, and potassium 20 mEq daily. Laboratory Studies: White blood cell count is 4.5, hemoglobin 12.6, and platelets 92. INR 1.27. So dium 132, potassium 3.4, chloride 99, carbon dioxide 27, BUN 35, creatinine 1.71, glucose 118, calciu m 8.2, phosphorus 3.4, and magnesium 2.0. TSH 1.36, HDL 26, LDL 51, total cholesterol 102, and trigl ycerides 126. Urinalysis from yesterday showed 3+ blood, 2+ nitrite, 500 esterase, greater than 50 r ed blood cells, greater than 50 white blood cells, and trace of protein. His COVID testing was negat bola on the . His imaging as noted including head CT scan showing no acute ischemic or hemorrhagi c changes. The study showed chronic ischemic disease that was mild and his ventricles are increased in size in proportion, although noted to be mild for age. Chest x-ray showed prominent interstitial lung pattern, chronic lung disease, edema and infiltrates are all possible, alone or in combination. Review of Systems: Mr. Brasher reports diffuse weakness in upper and lower extremities. Mild myalgias and arthralgias. Urinary frequency and some urgency. He denies any rash, any significant headache, psychiatric issues , any gastrointestinal issues, and no hematological type complaints. Physical Examination: Vital Signs: Blood pressure 123/71, pulse of 75, respiratory rate 14 to 18, temperature 97.9, and ox ygen saturation 96% on room air. His weight is 271 pounds, height 6 feet 1 inch, BMI 35.8. General: Mr. Brasher is resting comfortably. He is in no significant distress. HEENT: He does appear normocephalic, atraumatic. Sclerae anicteric. Oropharynx moist. Neck: Supple. Chest: Clear. Abdomen: Soft. Back: Has a large bruise from his fall. Extremities: Legs with trace edema. No cyanosis. Neurologic: He is alert and oriented to situation, place, and time. He has mild bradykinesia that i s diffuse. No significant resting tremor. On his strength, he has mild diffuse weakness of 4+ in up per and lower extremities. Sensation with mild stocking-glove loss to light touch and temperature. Reflexes depressed in upper and lower extremities. In terms of his gait, he was able to ambulate tod ay 250 feet twice with contact guard assistance using a rolling walker and he did 250 feet with minim al assistance using a quad cane. Rehab And Medical Assessment And Plan: Mr. Brasher is a 77-year-old patient, who was admitted to the inpatient rehabilitation unit with Parkinson disease, who was off medications and became very stiff a nd had a fall down steps, injuring his back. He also has urinary tract infection, hypertension, gout , dyslipidemia, and mild depression. He is treated for urinary tract infection. His comorbid condit ions as noted are managed by medications as listed above. His rehabilitation impairment category is 06, neurologic condition is impairment group code 03.1 Parkinson disease and he will have physical, o ccupational, and speech therapy with nutrition services for his class 2 obesity. Active comorbid conditions present on admission are urinary tract infection, obesity, depression, dys lipidemia, gout, peripheral neuropathy, hypokalemia, and mild hyponatremia. Impact of comorbidities: At this point, for the urinary tract infection he is on oral antibiotics, L evaquin 750 twice daily and we will continue around 4-5 days. For his gout, allopurinol. For hypert ension, right now medications will be held as he has had episodes of low blood pressure and currently his blood pressure is in good condition, but he does have the risk of autonomic dysfunction given hi s Parkinson disease, which by the way has been proven by ASIYA positive scan. Rehabilitation Plan: The patient will receive 3.5 hours of physical, occupational, and speech therap y, total 5 of 7 days and will improve his ability to dress upper and lower body, to transfer from bed to toilet to shower, to ambulate household distances, at least 500 feet with modified independence t o independence. He has a good understanding of the process for which he is admitted to the inpatient rehabilitation unit. He has a good potential to make improvement in his condition with the multidis ciplinary therapy approach and medical management. If need be services involving Wound Care to addre ss his back will be used. He is on antidepressants and may be Psychiatry will be called. Nutrition Services will be called for his obesity as needed and pain management will be done with topical medic ations such as lidocaine patches and oral medications such as neuromodulators. He does have risk of deep vein thrombosis and he will be on Eliquis 2.5 mg twice daily. Given his complex medical conditi on and the risk of further complications, it is not safe for him to be discharged to a lower level of care such as a shelter unit. Barriers To Discharge: 1.At this point, he does have a urinary tract infection, not much of a barrier. His medication will be continued. 2.He does have risk of deep vein thrombosis, on Eliquis and that will be continued. 3.Urinary tract infection and that is being treated. 4.His gout, managed by allopurinol, not an active issue. 5.There is subacute right ischium fracture and the patch will be placed as appropriate. Estimated Length Of Stay: 10 to 12 days. Disposition: He is expected to be going home. Prognosis: Good. Rehabilitation Goals: As noted, for him to be independent with upper and lower body dressing, donnin g and doffing shoes, transferring from bed to chair to toilet and to shower, and ambulate at least 50 0 feet with independence. I acknowledge I have personally performed a full physical examination on Mr. Brasher within a few hour s of him arriving on the unit and I have determined him to be able to tolerate the above course of tr eatment at an intensive level for the period of time outlined. A detailed individualized plan of car e for Mr. Brasher will be completed by hospital day 4 based on a pre-admission screen, history and phy sical, and therapeutic evaluations. PELON/RADHA Voice ID: [id number]
[2022-06-09] MEDS ORDERED: GABAPENTIN 400 MG CAP PO SCH (20:00)
[2022-06-09] MEDS ORDERED: CARBIDOPA/LEVODOPA 25/100 TAB PO SCH (20:00)
[2022-06-09] MEDS: CARBIDOPA/LEVODOPA 25/100 TAB PO SCH (20:10)
[2022-06-09] MEDS: GABAPENTIN 300 MG CAP PO SCH (20:10)
[2022-06-09] MEDS: APIXABAN 2.5 MG TABLET PO SCH (20:10)
[2022-06-09] MEDS: DOCUSATE NA/SENNA CONC 1 TAB PO SCH (20:10)
[2022-06-09] MEDS: DULOXETINE 20 MG CAP PO SCH (20:10)
[2022-06-09] MEDS: MELATONIN 5 MG TABLET PO PRN (20:10)
[2022-06-09] MEDS: ATORVASTATIN 20 MG TAB PO SCH (20:10)
[2022-06-10 02:35] LABS: Specific Gravity < 1.005 (1.005-1.030); Urine Bacteria <20 /HPF (<20); Urine Bilirubin NEGATIVE (Negative); Urine Blood Trace (Negative); Urine Clarity Clear (Clear); Urine Color Colorless (Yellow); Urine Glucose NEGATIVE (Negative); Urine Protein NEGATIVE (Negative); Urine RBC <5 /HPF (None Seen); Urine Urobilinogen Normal (Normal)
[2022-06-10] MEDS ORDERED: PANTOPRAZOLE 40MG TABLET PO SCH (06:30)
[2022-06-10] MEDS: DULOXETINE 20 MG CAP PO SCH ×2 (07:19→20:05)
[2022-06-10] MEDS: POTASSIUM CL SA 10 MEQ TAB PO SCH (07:19)
[2022-06-10] MEDS: levoFLOXacin 750 MG TAB PO SCH (07:19)
[2022-06-10] MEDS: GABAPENTIN 300 MG CAP PO SCH ×2 (07:19→20:05)
[2022-06-10] MEDS: CARBIDOPA/LEVODOPA 25/100 TAB PO SCH ×2 (07:20→20:05)
[2022-06-10] MEDS: allopurinoL 300 MG TAB PO SCH (07:20)
[2022-06-10] MEDS: PANTOPRAZOLE 40MG TABLET PO SCH (07:20)
[2022-06-10] MEDS: APIXABAN 2.5 MG TABLET PO SCH ×2 (07:20→20:05)
[2022-06-10 07:21] LABS: Absolute Lymphocytes (CBC) 0.6 K/uL (0.7-4.9); Hematocrit 36.9 % (39.6-49.0); Lymphocytes % 18.4 % (15.3-44.8); MCV 92.9 fL (80-100); RBC Red Blood Cell Count 3.97 M/uL (4.33-5.43)
[2022-06-10 07:39] LABS: Albumin 2.8 g/dL (3.4-5.0); Prealbumin 10.6 mg/dL (20-40)
[2022-06-10] MEDS ORDERED: levoFLOXacin 750 MG TAB PO SCH (08:00)
--- NOTE | 2022-06-10 08:50 | P.RH.PN ---
Estimated Length of Stay: 10 Expected Discharge Date: 06/17/22 Discharge Disposition Plan: Home Family Support: Yes Residential Goal: Mobility, Transfers, Self Care Vital Signs: Last Vital Signs Temp 97.0 F 06/10/22 08:00 Pulse 69 06/10/22 08:00 Resp 16 06/10/22 08:00 BP 140/76 06/10/22 08:00 Pulse Ox 96 06/10/22 08:00 Laboratory: Laboratory Last Values WBC 3.30 K/uL (4.3-10.9) L 06/10/22 06:45 RBC 3.97 M/uL (4.33-5.43) L 06/10/22 06:45 Hgb 12.4 g/dL (13.6-17.9) L 06/10/22 06:45 Hct 36.9 % (39.6-49.0) L 06/10/22 06:45 MCV 92.9 fL (80-100) 06/10/22 06:45 MCH 31.3 pg (27.0-35.0) 06/10/22 06:45 MCHC 33.7 g/dL (32.0-36.0) 06/10/22 06:45 RDW 13.7 % (12.1-15.2) 06/10/22 06:45 Plt Count 137 K/uL (152-406) L 06/10/22 06:45 MPV 9.0 fL (7.6-11.3) 06/10/22 06:45 Neutrophils % 58.0 % (41.7-73.7) 06/10/22 06:45 Lymphocytes % 18.4 % (15.3-44.8) 06/10/22 06:45 Monocytes % 16.7 % (3.3-12.3) H 06/10/22 06:45 Eosinophils % 6.3 % (0-4.4) H 06/10/22 06:45 Basophils % 0.6 % (0-1.3) 06/10/22 06:45 Absolute Neutrophils 1.9 K/uL (1.8-8.0) 06/10/22 06:45 Absolute Lymphocytes 0.6 K/uL (0.7-4.9) L 06/10/22 06:45 Absolute Monocytes 0.5 K/uL (0.1-1.3) 06/10/22 06:45 Absolute Eosinophils 0.2 K/uL (0-0.5) 06/10/22 06:45 Absolute Basophils 0.0 K/uL (0-0.5) 06/10/22 06:45 Sodium 139 mmol/L (136-145) 06/10/22 06:45 Potassium 4.0 mmol/L (3.5-5.1) 06/10/22 06:45 Chloride 104 mmol/L (98-107) 06/10/22 06:45 Carbon Dioxide 29 mmol/L (21-32) 06/10/22 06:45 Anion Gap 10.0 mEq/L (5.0-15.0) 06/10/22 06:45 BUN 17 mg/dL (7-18) 06/10/22 06:45 Creatinine 0.91 mg/dL (0.70-1.30) 06/10/22 06:45 Est GFR (CKD-EPI) 87 ml/min (=/>90) L 06/10/22 06:45 Glucose 122 mg/dL (74-106) H 06/10/22 06:45 Calcium 9.2 mg/dL (8.5-10.1) 06/10/22 06:45 Magnesium 2.0 mg/dL (1.6-2.4) 06/10/22 06:45 Albumin 2.8 g/dL (3.4-5.0) L 06/10/22 06:45 Prealbumin 10.6 mg/dL (20-40) L 06/10/22 06:45 Urine Color Cancelled 06/10/22 02:15 Urine Color Colorless (Yellow) 06/10/22 02:15 Urine Clarity Cancelled 06/10/22 02:15 Urine Clarity Clear (Clear) 06/10/22 02:15 Urine pH 6.0 (5.0-7.0) 06/10/22 02:15 Urine pH Cancelled 06/10/22 02:15 Ur Specific [place] < 1.005 (1.005-1.030) L 06/10/22 02:15 Ur Specific [place] Cancelled 06/10/22 02:15 Glucose (UA)(Auto) Cancelled 06/10/22 02:15 Glucose (UA)(Auto) Negative (Negative) 06/10/22 02:15 Urine Ketones Cancelled 06/10/22 02:15 Urine Ketones Negative (Negative) 06/10/22 02:15 Urine Blood Cancelled 06/10/22 02:15 Urine Blood Trace (Negative) H 06/10/22 02:15 Urine Nitrite Cancelled 06/10/22 02:15 Urine Nitrite Negative (Negative) 06/10/22 02:15 Urine Bilirubin Cancelled 06/10/22 02:15 Urine Bilirubin Negative (Negative) 06/10/22 02:15 Urine Urobilinogen Cancelled 06/10/22 02:15 Urine Urobilinogen Normal (Normal) 06/10/22 02:15 Ur Leukocyte Esterase 250 Blanquita/uL (Negative) H 06/10/22 02:15 Ur Leukocyte Esterase Cancelled 06/10/22 02:15 Urine RBC <5 /HPF (None Seen) 06/10/22 02:15 Urine RBC Cancelled 06/10/22 02:15 Urine Red Cell Clumps Cancelled 06/10/22 02:15 Urine WBC 10-20 /HPF (<5) H 06/10/22 02:15 Urine WBC Cancelled 06/10/22 02:15 Urine WBC Clumps Cancelled 06/10/22 02:15 Ur Squamous Epith Cells <5 /HPF (None Seen) 06/10/22 02:15 Ur Squamous Epith Cells Cancelled 06/10/22 02:15 U Non-Squamous Epi Cells <5 /HPF (None Seen) 06/10/22 02:15 U Non-Squamous Epi Cells Cancelled 06/10/22 02:15 Ur Transition Epith Cell Cancelled 06/10/22 02:15 Ur Renal Epithelial Cell Cancelled 06/10/22 02:15 Calcium Carbonate Cryst Cancelled 06/10/22 02:15 Calcium Oxalate Crystal Cancelled 06/10/22 02:15 Leucine Crystals Cancelled 06/10/22 02:15 Cystine Crystals Cancelled 06/10/22 02:15 Uric Acid Crystals Cancelled 06/10/22 02:15 Triple Phos Crystals Cancelled 06/10/22 02:15 Tyrosine Crystals Cancelled 06/10/22 02:15 Unidentified Crystals Cancelled 06/10/22 02:15 Amorphous Crystals Cancelled 06/10/22 02:15 Urine Bacteria <20 /HPF (<20) 06/10/22 02:15 Urine Bacteria Cancelled 06/10/22 02:15 Hyaline Casts Cancelled 06/10/22 02:15 Granular Casts Cancelled 06/10/22 02:15 Waxy Casts Cancelled 06/10/22 02:15 RBC Casts Cancelled 06/10/22 02:15 WBC Casts Cancelled 06/10/22 02:15 Urine Mucus Cancelled 06/10/22 02:15 Urine Trichomonas Cancelled 06/10/22 02:15 Ur Yeast w Hyphae Cancelled 06/10/22 02:15 Urine Yeast (Budding) Cancelled 06/10/22 02:15 Urine Sperm Cancelled 06/10/22 02:15 Ur Oval Fat Bodies Cancelled 06/10/22 02:15 Urine Culture Reflexed Cancelled 06/10/22 02:15 Urine Culture Reflexed Reflexed 06/10/22 02:15 Urine Total Protein Cancelled 06/10/22 02:15 Urine Total Protein Negative (Negative) 06/10/22 02:15 Urine Ascorbic Acid Cancelled 06/10/22 02:15 Urine Fat Cancelled 06/10/22 02:15 Weight: 271 lb 1.6 oz Wound Present: No Closed Surgical Incision Present: No Negative Pressure Wound Therapy Present: No Physician Update: He is doing well with all therapy so far. His labs were reviewed. His is on Levaquin 750 mg every 24 hours. Walking 250' with a walker at [facility]. Will encourage him to be compliant. Summary: Patient's care plan and snf goals have been reviewed and revised as necessary. Please see the Rehabilitation Signature page for all necessary signatures.
[2022-06-10] MEDS ORDERED: DIPHENHYDRAMINE 25 MG TAB/CAP PO PRN (12:05)
[2022-06-10] MEDS: AMINO ACIDS/PROTEIN HYDROLYS 30 ML LIQUID.PKT PO SCH (20:00)
[2022-06-10] MEDS: DOCUSATE NA/SENNA CONC 1 TAB PO SCH (20:06)
[2022-06-10] MEDS: MELATONIN 5 MG TABLET PO PRN (20:06)
[2022-06-10] MEDS: ATORVASTATIN 20 MG TAB PO SCH (20:06)
[2022-06-11] MEDS: PANTOPRAZOLE 40MG TABLET PO SCH (07:16)
[2022-06-11] MEDS: AMINO ACIDS/PROTEIN HYDROLYS 30 ML LIQUID.PKT PO SCH ×3 (08:00→20:17)
[2022-06-11] MEDS ORDERED: DIPHENHYDRAMINE 25 MG TAB/CAP PO SCH (08:00)
[2022-06-11] MEDS: CARBIDOPA/LEVODOPA 25/100 TAB PO SCH ×2 (08:22→20:17)
[2022-06-11] MEDS: allopurinoL 300 MG TAB PO SCH (08:23)
[2022-06-11] MEDS: DULOXETINE 20 MG CAP PO SCH ×2 (08:23→20:17)
[2022-06-11] MEDS: GABAPENTIN 300 MG CAP PO SCH ×2 (08:23→20:17)
[2022-06-11] MEDS: APIXABAN 2.5 MG TABLET PO SCH ×2 (08:23→20:17)
[2022-06-11] MEDS: POTASSIUM CL SA 10 MEQ TAB PO SCH (08:24)
--- NOTE | 2022-06-11 19:35 | PN ---
Date of Progress Note: 06/11/2022 Time Of Service: 12:00 p.m. Subjective: Mr. Brasher is doing very well. He is in bed today and has no new complaints. Review of Systems: No fevers or chills. No nausea, vomiting, myalgias, no arthralgias. No rash, headache, weight jaquez e. He has improved stiffness and his movement is better while taking his Parkinson's medications. Physical Examination: Vital Signs: Blood pressure orthostatic 126/64, pulse 68 lying; sitting 115/62, pulse 67; standing 1 10/56, pulse of 77. Temperature 97.4, oxygen saturation 96%, and respiratory rate 16. Weight 267 po unds, height 6 feet 1 inch, BMI 35. General: Mr. Brasher is resting in bed. He is in no acute distress. He is slightly bradykinetic. H e does not have any resting tremor. HEENT: He is normocephalic, atraumatic. Sclerae anicteric. Oropharynx is moist. Neck: Supple. Extremities: There is mild diffuse weakness in upper and lower extremities with increased tone. Laboratory Studies: No new laboratory studies since yesterday. X-ray Imaging: No new x-rays. Medications: Unchanged since his visit yesterday. He is still on DVT prophylaxis with Eliquis 2.5 m g twice daily. He has amino acid supplementation for malnutrition, allopurinol for gout, Sinemet 2 t wice daily for Parkinson's, continuing Levaquin for urinary tract infection, gabapentin for neuropath ic pain, Cymbalta for depression, Senokot for constipation, Protonix for reflux, and potassium replac ement is given. Current Functional Status: Currently, he ambulated 600 feet splitting it up to 300 twice and another 500 feet 2 times as 1000 feet with contact guard assistance using a rolling walker. He ascended and descended 15 steps twice with contact guard assistance using bilateral handrails and mobilized the w heelchair 150 feet with improved strength and endurance to palpation. Progress Towards Rehabilitation Goals: He is making excellent progress towards his rehabilitation go als. As noted, he is working on improving his ability to do transfers, to dress upper and lower body and to put his shoe and his footwear off and on, also to ambulate now over 500 feet, goal will be do it independently. Assessment: Mr. Brasher is a 77-year-old patient in the rehabilitation unit with Parkinson disease. He has comorbid hypertension. There is a right ischium fracture. Degenerative disk disease at L4-L5 , L5-S1, and L3-L4. In addition to heart disease, dyslipidemia, and kidney stones. Plan: For his Parkinson's and being off his medications, will have aggressive physical and occupatio nal therapy to be continued. Also for the fracture in his back, which is actually addressed with the lidocaine patch and he is doing well. His comorbidities, which is the hypertension, urinary tract i nfection that is residual, all those will be addressed by continuing his current treatments as indica brandy. Comorbidities That Continue To Impact Rehabilitation Process: At this point, he does have the Levaqu in every 48 hours, continuing for few more doses till he finishes off treatment of his urinary tract infection, but that is not limiting factor for him. LB/MODL Voice ID: [id number] Report ID: [id number]
[2022-06-11] MEDS: DOCUSATE NA/SENNA CONC 1 TAB PO SCH ×2 (20:16→20:33)
[2022-06-11] MEDS: ATORVASTATIN 20 MG TAB PO SCH (20:17)
[2022-06-12] MEDS: PANTOPRAZOLE 40MG TABLET PO SCH (07:08)
[2022-06-12] MEDS: AMINO ACIDS/PROTEIN HYDROLYS 30 ML LIQUID.PKT PO SCH ×2 (08:00→20:00)
[2022-06-12 08:14] LABS: Potassium 4.1 mmol/L (3.5-5.1)
[2022-06-12] MEDS: GABAPENTIN 300 MG CAP PO SCH ×2 (08:29→20:11)
[2022-06-12] MEDS: CARBIDOPA/LEVODOPA 25/100 TAB PO SCH ×2 (08:30→20:11)
[2022-06-12] MEDS: allopurinoL 300 MG TAB PO SCH (08:30)
[2022-06-12] MEDS: APIXABAN 2.5 MG TABLET PO SCH ×2 (08:30→20:11)
[2022-06-12] MEDS: DULOXETINE 20 MG CAP PO SCH ×2 (08:30→20:11)
[2022-06-12] MEDS: POTASSIUM CL SA 10 MEQ TAB PO SCH (08:32)
[2022-06-12] MEDS: levoFLOXacin 750 MG TAB PO SCH (09:49)
[2022-06-12] MEDS: ATORVASTATIN 20 MG TAB PO SCH (20:11)
[2022-06-12] MEDS: DOCUSATE NA/SENNA CONC 1 TAB PO SCH ×2 (20:11→20:15)
[2022-06-13] MEDS: AMINO ACIDS/PROTEIN HYDROLYS 30 ML LIQUID.PKT PO SCH ×3 (08:00→20:00)
[2022-06-13] MEDS: PANTOPRAZOLE 40MG TABLET PO SCH (08:13)
[2022-06-13] MEDS: GABAPENTIN 300 MG CAP PO SCH ×2 (08:24→20:11)
[2022-06-13] MEDS: DULOXETINE 20 MG CAP PO SCH ×2 (08:24→20:11)
[2022-06-13] MEDS: POTASSIUM CL SA 10 MEQ TAB PO SCH (08:25)
[2022-06-13] MEDS: APIXABAN 2.5 MG TABLET PO SCH ×2 (08:25→20:12)
[2022-06-13] MEDS: allopurinoL 300 MG TAB PO SCH (08:25)
[2022-06-13] MEDS: CARBIDOPA/LEVODOPA 25/100 TAB PO SCH ×2 (08:25→20:11)
--- NOTE | 2022-06-13 19:19 | PN ---
Date of Progress Note: 06/13/2022 [facility] Progress Note. Time Of Service: 12 noon. Subjective: Mr. Brasher is doing very well. He is actually in great shape and asking when it is time to go home. He has no new complaints. Review of Systems: No fevers, chills, nausea, vomiting, myalgias, arthralgias, rash, headache, or weight change. No psy chiatric issues or gastrointestinal issues. Physical Examination: Vital Signs: Blood pressure 145/74 and pulse of 65 when lying. When sitting, blood pressure 130/78 and pulse of 77. When standing, blood pressure 109/68 and pulse of 87. Neuro: He is ambulating around his room independently and in terms of deficits, he does not have a f ocal motor, coordination, or sensory deficits. He does have slight increase in tone in the upper and lower extremities, but he is doing very well since he has been back on medicines for Parkinson disea se. Laboratory Studies: No new blood work. Yesterday he did have sodium 144, potassium 4.1, chloride 10 3, carbon dioxide 31, and BUN 8.1. His glucose was 109, calcium 8.8. He has no new imaging studies. Medications: Tylenol 500 mg every 6 hours, allopurinol 300 mg daily, amino acid supplementation 30 m L twice daily, Eliquis 2.5 mg twice daily, Lipitor 20 mg at bedtime, Sinemet 25/100 two tablets twice daily, Benadryl 25 mg daily, Cymbalta 25 mg twice daily, gabapentin 600 mg twice daily, and Levaquin 750 mg every 48 hours. The patient will continue Protonix 40 mg daily, potassium 10 mEq twice daily , and Senokot-S 2 at bedtime. Current Level Of Functioning: Currently, Mr. Brasher is able to ambulate 300 feet twice, 500 feet onc e, and 800 feet once with contact guard assistance using a single prong cane. He did ascend and desc end 25 steps once at one point and then 15 steps at 1 trial with standby assistance using bilateral h and rails. He is able to do toileting and showering with a rolling walker independently and did all ADLs and transfers independently. Progress Over His Rehabilitation Goals: He is making excellent progress and should be ready for disc harge, which will be by Monday, that is in 2 days and likely will continue outpatient physical the rapy. Assessment: Mr. Brasher is in the rehabilitation unit with Parkinson disease, hypertension, right isc hium fracture, degenerative disk disease in lumbar spine, dyslipidemia, and kidney stones and he is d oing very well with physical and occupational therapy. Plan: 1.Continue with physical and occupational therapy as indicated. 2.Medications for his comorbid conditions as listed above will be continued. Comorbidities That Continue To Impact Rehabilitation Process: At this point, a possibility of infect ion such as a lung infection is there and he will be continued on Levaquin every 48 hours for few mor e doses and that will be for the urinary tract infection, which he was already started treatment. Af ter discharge, he will follow up in Dr. Carrillo's clinic. PELON/RADHA Voice ID: [id number] Report ID: [id number]
[2022-06-13] MEDS: DOCUSATE NA/SENNA CONC 1 TAB PO SCH ×2 (20:11→20:23)
[2022-06-13] MEDS: MELATONIN 5 MG TABLET PO PRN (20:12)
[2022-06-13] MEDS: ATORVASTATIN 20 MG TAB PO SCH (20:12)
[2022-06-13] MEDS: CRANBERRY FRUIT EXTRACT 200 MG CAP PO SCH (20:12)
[2022-06-14] MEDS: CRANBERRY FRUIT EXTRACT 200 MG CAP PO SCH ×2 (07:31→20:09)
[2022-06-14] MEDS: CARBIDOPA/LEVODOPA 25/100 TAB PO SCH ×2 (07:31→20:09)
[2022-06-14] MEDS: POTASSIUM CL SA 10 MEQ TAB PO SCH (07:32)
[2022-06-14] MEDS: DULOXETINE 20 MG CAP PO SCH ×2 (07:32→20:09)
[2022-06-14] MEDS: PANTOPRAZOLE 40MG TABLET PO SCH (07:32)
[2022-06-14] MEDS: GABAPENTIN 300 MG CAP PO SCH ×2 (07:32→20:09)
[2022-06-14] MEDS: allopurinoL 300 MG TAB PO SCH (07:32)
[2022-06-14] MEDS: APIXABAN 2.5 MG TABLET PO SCH ×2 (07:32→20:09)
[2022-06-14] MEDS: levoFLOXacin 750 MG TAB PO SCH (07:33)
[2022-06-14] MEDS: AMINO ACIDS/PROTEIN HYDROLYS 30 ML LIQUID.PKT PO SCH ×2 (07:33→20:00)
[2022-06-14] MEDS: MELATONIN 5 MG TABLET PO PRN (20:09)
[2022-06-14] MEDS: DOCUSATE NA/SENNA CONC 1 TAB PO SCH (20:09)
[2022-06-14] MEDS: ATORVASTATIN 20 MG TAB PO SCH (20:09)
[2022-06-14 20:29] VITALS: TEMP 97
--- NOTE | 2022-06-14 21:58 | PN ---
Date of Progress Note: 06/14/2022 [facility] Progress Note Visit Time Of Service: 12 noon. Subjective: Mr. Brasher is doing very well. He is excited about going home in the morning and he say s he is ready. Review of Systems: No fevers, chills, nausea, vomiting, myalgias, arthralgias, headache, weight change, or rash. No psy chiatric complaints. No gastrointestinal complaints. Physical Examination: Vital Signs: Blood pressure 140/74, pulse 71, respiratory rate 18, temperature 97, and oxygen satura tion 96%. General: Mr. Brasher is resting comfortably in bed. He has no focal neurological deficits. Lungs: Clear to auscultation. Heart: Regular. Abdomen: Soft. Extremities: He does have increased freedom of movement since being on his Parkinson's medications. Laboratory Studies: No new laboratory studies. X-ray/imaging: No new x-ray or imaging. Medications: Unchanged compared to yesterday. He is on Eliquis 2.5 mg twice daily for DVT risk redu ction. He takes Lipitor 20 mg at bedtime, Sinemet 25/100 two tablets twice daily, Cymbalta for depre ssion, and Senokot for constipation. Current Functional Status: Currently he ambulated 300 feet twice and 1000 feet once with independenc e using a rolling walker and then another 300 feet with a single prong cane with standby assistance. He went up and down 25 steps once with independence using bilateral handrails. Progress Towards Rehabilitation Goals: At this point, he has met and exceeded all rehabilitation goa ls and he is in excellent shape and is ready for discharge home. Assessment: Mr. Brasher is a 77-year-old patient admitted with Parkinson disease that has worsened. He had comorbid hypertension, right ischium fracture, lumbar spine degenerative disk disease, dyslipi demia, and kidney stones and he has done excellent with all therapy and is ready for discharge home i n the morning. Plan: 1.He will be discharged home in the morning. 2.Continue all of his medications as appropriate. 3.He will follow up with Dr. Carrillo's clinic within a month. Also follow up with his primary care doctor within a month. Barriers To Discharge: None. LB/MODL Voice ID: [id number] Report ID: [id number]
[2022-06-15 07:19] VITALS: BP 119/70
[2022-06-15] MEDS: AMINO ACIDS/PROTEIN HYDROLYS 30 ML LIQUID.PKT PO SCH (08:00)
[2022-06-15] MEDS: DULOXETINE 20 MG CAP PO SCH (08:15)
[2022-06-15] MEDS: PANTOPRAZOLE 40MG TABLET PO SCH (08:15)
[2022-06-15] MEDS: APIXABAN 2.5 MG TABLET PO SCH (08:15)
[2022-06-15] MEDS: POTASSIUM CL SA 10 MEQ TAB PO SCH (08:15)
[2022-06-15] MEDS: CARBIDOPA/LEVODOPA 25/100 TAB PO SCH (08:15)
[2022-06-15] MEDS: GABAPENTIN 300 MG CAP PO SCH (08:15)
[2022-06-15] MEDS: CRANBERRY FRUIT EXTRACT 200 MG CAP PO SCH (08:15)
[2022-06-15] MEDS: allopurinoL 300 MG TAB PO SCH (08:15)
--- NOTE | 2022-07-04 08:04 | DS ---
Date of Discharge: 06/15/2022 Discharge Condition: Good. Discharge Diagnoses: Parkinson disease, dyslipidemia, class 2 obesity, hypertension, kidney stones, and subacute fracture of right ischium. Medications: Tylenol 500 mg every 6 hours, allopurinol 300 mg daily, Lipitor 20 mg at bedtime. Carb idopa levodopa 25/100 twice daily, duloxetine 20 mg twice daily, gabapentin 400 mg twice daily, potas sium 20 mEq daily, and Protonix 40 mg daily. X-ray/imaging: No x-ray or imaging done while hospitalized. Diet: Heart healthy. Hospital Course: Mr. Brasher is a 77-year-old patient who came to [facility] with worsening Parkinson disease along with hypertension, right ischium fracture, lumbar spine degenerative disk dis ease, dyslipidemia, and kidney stones and he did very well throughout this hospitalization, maintaini ng afebrile status. White blood cell count remained normal. Hemoglobin was slightly low at 12.4, pl atelets slightly low at 137. Kidney function remained normal. Creatinine 0.91 on the 13th and 0.97 on the 15th. Blood glucose was slightly elevated ranging 109 to 122. Prealbumin was low at 10.6, al bumin low at 2.8. Urinalysis did show trace blood, 10 to 20 white blood cells, [address] ms of his medications by discharge, he was on carbidopa/levodopa mg twice daily, Cymbalta 20 mg twice daily. He had completed Levaquin. He received potassium and Senokot-S along with allopu rinol and Lipitor. Progress Made With His Physical And Occupational Therapy: By discharge, he was able to mobilize in a standard hospital bed with bed rails without limitations and did so independently. His gait, he cov ered over a 1000 feet with good tolerance and independence and this was on carpeted floor and on outd oor surfaces. He also ascended and descended 35 steps with independence. SUV transfer was done with independence. It was recommended that since he met all his functional goals for inpatient physical and occupational therapy that he continue with outpatient physical therapy and he did not require any durable medical equipment. In terms of occupational therapy, he is toileting with modified independ ence, eating with modified independence, and showering with modified independence. However, he did h ave poor safety awareness, but he still was independent with all activities of daily living and he di d require some significant assistance to perform his transfers and mobilization tasks properly to min imize the risk of falling. Followup: Will be in my office, Dr. Carrillo's office within the month and his primary care physicia n also within a month. PELON/RADHA Voice ID: [id number] Report ID: [id number]
== END 2022-06-15 14:00 | disposition home or self-care (01) | DRG 948 ==
LOC: 5TH 14:15
PROVIDERS: ADMIT Psychiatry & Neurology Neurology with Special Qualifications in Child Neurology; ATTEND Psychiatry & Neurology Neurology with Special Qualifications in Child Neurology
DX: R53.81 Other malaise (principal); N39.0 Urinary tract infection, site not specified; E87.1 Hypo-osmolality and hyponatremia; S32.601D Unspecified fracture of right ischium, subsequent encounter for fracture with routine healing; E87.6 Hypokalemia; E86.0 Dehydration; M51.36 Other intervertebral disc degeneration, lumbar region; G20 Parkinson's disease; I10 Essential (primary) hypertension; E78.5 Hyperlipidemia, unspecified; K59.00 Constipation, unspecified; W19.XXXD Unspecified fall, subsequent encounter; M79.10 Myalgia, unspecified site; M25.50 Pain in unspecified joint; M10.9 Gout, unspecified; F32.A Depression, unspecified; G62.9 Polyneuropathy, unspecified; E66.9 Obesity, unspecified; Z68.35 Body mass index [BMI] 35.0-35.9, adult; Z91.81 History of falling
CPT/HCPCS: 36415; 80048; 81001; 82040; 83735; 84134; 85025; 97110; 97116; 97161; 97165; 97530; 97542; Q0162

== ENCOUNTER 2023-07-18 09:59 | Day surgery (SDC) | payer BC, OTHER ==
[2023-07-17 09:34] LABS: Specific Gravity 1.019 (1.005-1.030); Urine Bacteria None Seen /HPF (<20); Urine Bilirubin NEGATIVE (Negative); Urine Blood Negative (Negative); Urine Clarity Clear (Clear); Urine Color Light-Yellow (Yellow); Urine Glucose NEGATIVE (Negative); Urine Mucus Slight /HPF (None Seen); Urine Protein NEGATIVE (Negative); Urine RBC <5 /HPF (None Seen); Urine Urobilinogen Normal (Normal)
[2023-07-17 09:43] LABS: Potassium 4.1 mEq/L (3.5-5.1)
--- NOTE | 2023-07-17 09:44 | RAD REPORT ---
EXAM DESCRIPTION: Elizabeth Quintero (2 Views)07/17/2023 9:32 am CLINICAL HISTORY: Preop for bladder surgery COMPARISON: 2022 FINDINGS: The lungs appear clear of acute infiltrate. The heart is normal size IMPRESSION: No acute abnormalities displayed
[2023-07-17 09:59] LABS: Absolute Lymphocytes (CBC) 1.1 K/uL (0.7-4.9); Hematocrit 41.6 % (39.6-49.0); Lymphocytes % 24.6 % (15.3-44.8); MCV 93.1 fL (80-100); MPV 9.9 fL (7.6-11.3); Platelets 145 thou/uL (152-406); RBC Red Blood Cell Count 4.47 M/uL (4.33-5.43)
--- NOTE | 2023-07-17 10:54 | EKG ---
Test Date: 2023-07-17 Test Time: 09:59:17 Contact Lens Edge Buffer: ROSA MEASUREMENT RESULTS: Intervals: Rate: 86 OK: 178 QRSD: 150 QT: 426 QTc: 509 [place]: P: -7 OK: 178 QRS: -53 T: 51 INTERPRETIVE STATEMENTS: Normal sinus rhythm Right bundle branch block Left anterior fascicular block Bifascicular block Minimal voltage criteria for LVH, may be normal variant Septal infarct, age undetermined Abnormal ECG Compared to ECG 11/21/2022 14:06:02 Myocardial infarct finding now present Bifascicular block still present Electronically Signed On 07-17-23 10:54:12 HEALTH CARE / MEDICAL JOB TITLES by Cachorro Asencio
[2023-07-18] MEDS ORDERED: Ringers Lactate 1,000 ML IV ONE (10:07)
[2023-07-18 10:44] LABS: Protime INR 1.18
[2023-07-18] MEDS ORDERED: ONDANSETRON 4 MG/2 ML VIAL ONE (11:57)
[2023-07-18] MEDS ORDERED: FENTANYL CITR 100 MCG/2 ML ONE (11:57)
[2023-07-18] MEDS ORDERED: propofoL 200 MG/20 ML VIAL IV ONE (11:57)
[2023-07-18] MEDS: CEFAZOLIN SODIUM 2 GM/VIAL ONE (12:18)
[2023-07-18] MEDS ORDERED: dexAMETHasone 10 MG/ML VIAL ONE (12:21)
[2023-07-18] MEDS: TRIAMCINOLONE ACETON 40 MG/ML VIAL ONE (12:37)
[2023-07-18] MEDS ORDERED: PHENAZOPYRIDINE 100MG TAB PO ONE (13:58)
[2023-07-18] MEDS ORDERED: CODEINE 30MG/APAP 300MG TAB PO PRN (13:58)
[2023-07-18 14:41] VITALS: BP 121/64; TEMP 96.7; O2SAT 99
--- NOTE | 2023-07-19 03:26 | OP ---
Surgeon: ZULY CESPEDES Preoperative Diagnoses: 1.Recurrent bulbar urethral stricture. 2.History of radiation therapy for prostate cancer. Postoperative Diagnoses: 1.Recurrent bulbar urethral stricture. 2.History of radiation therapy for prostate cancer. Principal Procedures: 1.Direct vision internal urethrotomy. 2.Cystoscopy. 3.Intralesional Kenalog injection 40 mg in 2 cc normal saline. 4.Insertion of 20-Comoran urethral Rand catheter. Indication For Procedure: Mr. Brasher is a 78-year-old gentleman who underwent radiation therapy for his prostate cancer and had complications of urethral stricture thereafter. He had previously underg one direct vision internal urethrotomy of an extended length of the pendulous urethral stricture as w ell as the membranous bulbar urethral stricture with stability of the pendulous urethral strictured a sam, but recurrence of the bulbar urethral stricture. He thus presents today for definitive manageme nt as it was causing obstruction, urinary symptoms, recurrent infection, and bothersome LUTS. Procedure In Detail: The patient was consented in the preoperative holding area before being transfe rred to the operative suite where general anesthesia was induced. He was given Ancef IV antimicrobia l prophylaxis, and pneumo boots were provided for DVT prophylaxis. He was placed in the lithotomy po sition, padded, and secured to the table appropriately. His genitalia were prepped with Hibiclens an d he was draped in standard fashion. The case was begun using a 24-Comoran direct-vision internal ure throtome as well as the obturator to simply place the sheath into the urethra beyond the fossa navicu ravi. I then switched the obturator for the working element and a 0 degree lens, and using a cold k nife, I navigated the scope down to the level of the bulbar urethra where the strictured area was not ed. I then used the cold knife to incise the stricture at the 12 o'clock position, the 5 o'clock pos ition, and the 7 o'clock position sufficient to be able to navigate the scope beyond the stricture an d visualize the region of the striated urethral sphincter to ensure it remained uninjured. I then co ntinued to incise the strictured area until there was slight bleeding and the stricture was widely pa tent. At this point, I was able to navigate the 24-Comoran urethrotome via the remainder of the ureth ra through the prostatic urethra, which was nonobstructive in appearance, and into his bladder. I de compressed his bladder of fluid and old stale smelling urine. I then filled the bladder with saline and surveyed in its entirety. There were no papillary mucosal lesions, foreign bodies, or stones thr oughout. As a result, I loaded the cystoscopic injector needle with 40 mg of Kenalog diluted to 2 cc with normal saline. I then backed up to the area of the incised stricture where I placed the inject or needle into each of the cut regions of the stricture and injected 0.5 cc of the Kenalog. An addit ional 0.5 cc was injected inferiorly at the 6 o'clock position until all of the Kenalog had been admi nistered. I then retracted the urethrotome and removed the scope. I then placed a 20-Comoran coude t ipped urethral Rand catheter via his urethra into his bladder with ease. Approximately 25 cc of miladis rile water was placed in the balloon, and the catheter was connected to a leg bag. The drainage was clear, and so the patient was taken out of the lithotomy position, transferred to a stretcher, and th en transferred to the recovery room in good condition. Complications: None. Discharge Disposition: I will discharge him with a week of antimicrobial, and he can reasonably have a voiding trial in about 5 days or Monday of next week. Subsequent followup should be established i n about 3 months' time where we will perform a cystoscopy interval reassessment of the potential for recurrence of the stricture disease. TERRIE/RADHA Voice ID: [id number] Report ID: [id number]
== END 2023-07-18 14:56 | disposition home or self-care (01) ==
LOC: OR 09:59
PROVIDERS: ATTEND Urology
PROC: 3E0K83Z Introduction of Anti-inflammatory into Genitourinary Tract, Via Natural or Artificial Opening Endoscopic (ICD-10-PCS; 2023-07-18)
PROC: 0T7D8ZZ Dilation of Urethra, Via Natural or Artificial Opening Endoscopic (ICD-10-PCS; principal; 2023-07-18 11:30)
DX: N35.913 Unspecified membranous urethral stricture, male (principal); N35.912 Unspecified bulbous urethral stricture, male
CPT/HCPCS: 36415; 71046; 80048; 81001; 85025; 85610; 87086; 87088; 93005; J1100; J2405; J2704; J3010; J3301; J7120

== ENCOUNTER 2024-04-29 11:57 | Emergency (ER) | payer BC ==
--- NOTE | 2024-04-29 12:57 | RAD REPORT ---
EXAM: CT Head Brain Wo Cont HISTORY: GLF COMPARISON: 06/07/2022 TECHNIQUE: Multiple contiguous axial images were obtained for a CT of the brain without contrast. Sag ittal and coronal reformats were performed. One or more of the following dose reduction techniques were used: Automated exposure control, adjus tment of the mA and kV according to patient size, and iterative reconstruction. Unless otherwise specified, incidental findings do not require dedicated imaging follow-up. FINDINGS: No evidence of hydrocephalus, intracranial hemorrhage, or extra-axial fluid collection. Moderate brain atrophy with moderate periventricular and deep white matter chronic microvascular isc hemic changes present. Findings are stable. The calvarium is intact. The visualized paranasal sinuses and mastoid air cells are essentially clear . Left occipital scalp swelling and small hematoma. IMPRESSION: No evidence of acute intracranial abnormality, with stable findings as above. Left occipital scalp swelling and small hematoma.
--- NOTE | 2024-04-29 14:16 | ER ---
Nurse's Notes [facility] [place] Name: Abel Brasher Age: 79 yrs Sex: Male : 1945 Arrival Date: 04/29/2024 Time: 11:57 Bed 14 Private MD: Diagnosis: Scalp Hematoma Presentation: 04/29 12:07 Chief complaint: Patient states: Hx of Parkinson's, had unwitnessed fall this morning aa5 outside of his house. Hematoma noted to left side of back of head, dry blood noted to teeth. Pt's states "I found him out by the sidewalk on the ground". Pt reports he takes baby ASA daily. Pt reports generalized weakness. Coronavirus screen: At this time, the client does not indicate any symptoms associated with coronavirus-19. Ebola Screen: Patient denies travel to an Ebola-affected area in the 21 days before illness onset. Initial Sepsis Screen: Does the patient meet any 2 criteria? No. Patient's initial sepsis screen is negative. Does the patient have a suspected source of infection? No. Patient's initial sepsis screen is negative. Risk Assessment: Do you want to hurt yourself or someone else? Patient reports no desire to harm self or others. Onset of symptoms was April 29, 2024. 12:07 Acuity: BETTYE 2 aa5 12:07 Method Of Arrival: Wheelchair aa5 Historical: - Allergies: 12:10 No Known Allergies; aa5 - PMHx: 12:06 Hyperlipidemia; Hypertension; Kidney stones; aa5 12:10 Skin cancer; Prostate cancer; Heart problems; Parkinson's disease; aa5 - PSHx: 12:10 Heart stents; aa5 - Immunization history:: Last tetanus immunization: < 5 years ago. - Infectious Disease History:: Denies. - Social history:: Smoking status: Patient denies any tobacco usage or history of. Screenin:15 [facility] ED Fall Risk Assessment (Adult) History of falling in the last 3 months, kc6 including since admission Yes- single mechanical fall (1 pt) Confusion or Disorientation No (0 pts) Intoxicated or Sedated No (0 pts) Impaired Gait Yes (1 pt) Mobility Assist Device Used Yes (1 pt) Altered Elimination No (0 pt) Score/Fall Risk Level 3 or more points = High Risk Oriented to surroundings, Maintained a safe environment, Educated pt \\T\\ family on fall prevention, incl call for assistance when getting out of bed. Abuse screen: Denies threats or abuse. Denies injuries from another. Nutritional screening: No deficits noted. Tuberculosis screening: No symptoms or risk factors identified. Assessment: 12:15 General: Appears in no apparent distress. comfortable, well groomed, well developed, kc6 Behavior is calm, cooperative, appropriate for age. Pain: Complains of pain in scalp. Neuro: Level of Consciousness is awake, alert, obeys commands, Oriented to person, place, time, situation, Appropriate for age Reports weakness. Cardiovascular: Capillary refill < 3 seconds. Respiratory: Airway is patent Trachea midline Respiratory effort is even, unlabored, Respiratory pattern is regular, symmetrical. GI: No signs and/or symptoms were reported involving the gastrointestinal system. : No signs and/or symptoms were reported regarding the genitourinary system. EENT: No signs and/or symptoms were reported regarding the EENT system. Derm: No signs and/or symptoms reported regarding the dermatologic system. Skin is intact, is healthy with good turgor, Skin is pink, warm \\T\\ dry. Bruising that is dark purple, on scalp. Musculoskeletal: No signs and/or symptoms reported regarding the musculoskeletal system. Circulation, motion, and sensation intact. Capillary refill < 3 seconds, Range of motion: intact in all extremities. 13:15 Reassessment: Patient appears in no apparent distress at this time. No changes from kc6 previously documented assessment. Patient and/or family updated on plan of care and expected duration. Pain level reassessed. Patient is alert, oriented x 3, equal unlabored respirations, skin warm/dry/pink. Vital Signs: 12:07 BP 127 / 66; Pulse 66; Resp 18 S; Temp 97.5(TE); Pulse Ox 96% on R/A; Weight 120.2 kg aa5 (R); Height 6 ft. 1 in. (R); 12:07 Body Mass Index 34.96 (120.20 kg, 185.42 cm) aa5 ED Course: 12:03 Patient arrived in ED. aa5 12:03 George Avilez MD is Attending Physician. ec2 12:06 Arm band placed on. aa5 12:09 Triage completed. aa5 12:15 Patient has correct armband on for positive identification. Bed in low position. Call kc6 light in reach. Side rails up X2. Adult w/ patient. Pulse ox on. NIBP on. Door closed. Noise minimized. Lights dimmed. Warm blanket given. Pillow given. 12:15 Patient maintains SpO2 saturation greater than 95% on room air. kc6 12:20 Assisted to bathroom. kc6 12:36 CT Head Brain wo Cont In Process Unspecified. EDMS 13:12 Selam Ware, RN is Primary Nurse. kc6 13:20 CXR XRAY In Process Unspecified. EDMS 13:20 Pelvis XRAY In Process Unspecified. EDMS 14:29 No provider procedures requiring assistance completed. Patient did not have IV access kc6 during this emergency room visit. Administered Medications: No medications were administered Medication: 14:29 VIS not applicable for this client. kc6 Outcome: 14:16 Discharge ordered by . ec2 14:29 Discharged to home via wheelchair, with significant other, kc6 14:29 Condition: good 14:29 Discharge instructions given to patient, significant other, Instructed on discharge instructions, follow up and referral plans. Demonstrated understanding of instructions, follow-up care, 14:29 Patient left the ED. kc6 Signatures: Dispatcher [employer] Mandy Clancy RN RN aa5 Selam Ware, GUILLE RN kc6 George Avilez MD MD ec2
--- NOTE | 2024-04-29 14:16 | EDPHYS ---
Physician Documentation [facility] Name: Abel Brasher Age: 79 yrs Sex: Male : 1945 Arrival Date: 04/29/2024 Time: 11:57 Bed 14 Private MD: ED Physician George Avilez HPI: 04/29 12:11 This 79 yrs old Male presents to ER via Wheelchair with complaints of Fall ec2 Injury. 12:11 Patient arrives today for evaluation after ground-level fall. Reports history of ec2 parkinsonism and is unstable on his feet, subsequently causing him to fall. Unsure if he had LOC. Not on blood thinners. Complaining of head pain. He sustained a contusion to the left occiput, also an abrasion. Reports he is up-to-date on his tetanus shot as recently as last year.. Historical: - Allergies: 12:10 No Known Allergies; aa5 - PMHx: 12:06 Hyperlipidemia; Hypertension; Kidney stones; aa5 12:10 Skin cancer; Prostate cancer; Heart problems; Parkinson's disease; aa5 - PSHx: 12:10 Heart stents; aa5 - Immunization history:: Last tetanus immunization: < 5 years ago. - Infectious Disease History:: Denies. - Social history:: Smoking status: Patient denies any tobacco usage or history of. ROS: 12:12 Constitutional: as per hpi ec2 Exam: 12:12 Constitutional: GEN: No acute distress HEENT: -Head: no deformities -Eyes: EOMI CV: ec2 regular rate LUNGS: no respiratory distress ABD: non-tender SKIN: Contusion to left occiput, abrasion identified MSK: No C/T/L spine deformities RUE w/o bony deformity LUE w/o bony deformity RLE w/o bony deformity LLE w/o bony deformity NEURO: moves all extremities equally, GCS 15 (E4, V5, M6) Vital Signs: 12:07 BP 127 / 66; Pulse 66; Resp 18 S; Temp 97.5(TE); Pulse Ox 96% on R/A; Weight 120.2 kg aa5 (R); Height 6 ft. 1 in. (R); 12:07 Body Mass Index 34.96 (120.20 kg, 185.42 cm) aa5 MDM: 12:12 Data reviewed: vital signs, nurses notes. ED course: Patient arrives today for a ec2 contusion to the left occiput. Examination is revealing for well-appearing nontoxic individuals otherwise in no acute distress. Will obtain CT scan of the head and C-spine as well as chest x-ray and pelvis x-ray. Differential diagnosis includes concussion, intracranial brain bleed, C-spine fracture given the patient's age.. 12:33 Medical Screening Exam initiated ec2 14:15 ED course: Chest x-ray and pelvis x-ray independently reviewed and interpreted by me, ec2 shows no bony fracture. Will discharge home. Return precautions given.. 04/29 12:12 Order name: CT Head Brain wo Cont; Complete Time: 13:03 ec2 04/29 12:12 Order name: CXR XRAY ec2 04/29 12:12 Order name: Pelvis XRAY ec2 Administered Medications: No medications were administered Disposition Summary: 04/29/24 14:16 Discharge Ordered Notes: Location: Home ec2 Condition: Stable ec2 Diagnosis - Scalp Hematoma ec2 Followup: ec2 - With: Private Physician - When: - Reason: Re-evaluation by your physician Discharge Instructions: - Discharge Summary Sheet ec2 - Facial or Scalp Contusion, [id number] ec2 Forms: - Medication Reconciliation Form ec2 - Antibiotic Education ec2 - Prescription Opioid Use ec2 - Patient Portal Instructions ec2 - Leadership Thank You Letter ec2 Signatures: Dispatcher [employer] Mandy Clancy RN RN aa5 George Avilez MD MD ec2 Corrections: (The following items were deleted from the chart) 12:12 12:11 Patient arrives today for evaluation after ground-level fall. Reports history of ec2 parkinsonism and is unstable on his feet, subsequently causing him to fall. Unsure if he had LOC. Not on blood thinners. Complaining of head pain.. ec2
[2024-04-29 14:34] VITALS: BP 127/66; TEMP 97.5; O2SAT 96
--- NOTE | 2024-04-29 15:37 | RAD REPORT ---
EXAMINATION: XR PELVIS CLINICAL INDICATION: Male, 79 years old. [facility] MA[facility] fall Bed Name: [id number] TECHNIQUE: AP Pelvis radiograph was obtained. COMPARISON: CT abdomen pelvis 06/07/2022 FINDINGS: No evidence of fracture or dislocation. Normal alignment. No evidence of AVN. Asymmetric mo derate right and severe left hip osteoarthritic changes with joint space loss on the left, probably stable allowing for differences in technique. Soft tissues are unremarkable. IMPRESSION: No acute osseous abnormalities. Bilateral hip osteoarthritic changes worse on the left.
--- NOTE | 2024-04-29 15:37 | RAD REPORT ---
EXAMINATION: ONE VIEW CHEST XR CLINICAL INDICATION: Male, 79 years old.,fall TECHNIQUE: Frontal chest projection is submitted. Examination is limited by patient positioning and t echnique. COMPARISON: 07/17/2023 FINDINGS: The lungs are clear, although mildly reduced penetration limits evaluation. Stable tortuosity of the thoracic aorta. No pneumothorax or sizable effusion. The heart is normal in size. Mediastinal contours are unremarkable. IMPRESSION: No acute intrathoracic abnormalities.
== END 2024-04-29 14:29 | disposition home or self-care (01) ==
LOC: ER 11:57
DX: S00.03XA Contusion of scalp, initial encounter (principal); W18.30XA Fall on same level, unspecified, initial encounter; G20.A1 Parkinson's disease without dyskinesia, without mention of fluctuations
CPT/HCPCS: 70450; 71045; 72170; 99283

== ENCOUNTER 2025-01-21 23:07 | Emergency (ER) | payer OTHER ==
[2025-01-22 00:18] LABS: Absolute Lymphocytes (CBC) 0.9 K/uL (0.7-4.9); Hematocrit 45.7 % (39.6-49.0); Hemoglobin 15.6 g/dL (13.6-17.9); MCH 30.9 pg (27.0-35.0); MCHC 34.1 g/dL (32.0-36.0); MCV 90.7 fL (80-100); MPV 9.5 fL (7.6-11.3); Nucleated RBC Absolute Count 0.0 (0-0); Nucleated Red Blood Cells % 0.1 % (0-0); RBC Red Blood Cell Count 5.04 M/uL (4.33-5.43); White Blood Count 6.10 thou/uL (4.3-10.9)
[2025-01-22 01:03] LABS: ALT/SGPT 54.0 U/L (16-61); AST/SGOT 54.0 U/L (15-37); Albumin 3.8 g/dL (3.4-5.0); Albumin/Globulin Ratio 1.0 (1.1-1.8); Alkaline Phosphatase 161.0 U/L (45-117); Anion Gap 8.9 mEq/L (5.0-15.0); BUN Blood Urea Nitrogen 12.0 mg/dL (7-18); Bilirubin Indirect, Calculated 0.6 mg/dL (0.2-0.8); Globulin 3.7 g/dL (2.3-3.5); Glucose Level 149.0 mg/dL (74-106); Magnesium 2.1 mg/dL (1.6-2.4); NT PRO-BNP 116.0 pg/mL (<450); Potassium 3.9 mEq/L (3.5-5.1); Troponin High Sensitivity 8.0 pg/mL (<58.9)
[2025-01-22] MEDS ORDERED: ONDANSETRON 4 MG/2 ML VIAL ONE (02:02)
[2025-01-22] MEDS ORDERED: NA CHLORIDE 0.9% 500 ML ONE (02:02)
--- NOTE | 2025-01-22 03:21 | RAD REPORT ---
EXAM DESCRIPTION: CT HEAD WITHOUT IV CONTRAST 01/22/2025 2:28 AM CDT CLINICAL HISTORY: 80 years, Male, Mental status change. COMPARISON: CT Head 04/29/2024. FINDINGS: Multiple transaxial tomograms of the brain were obtained from the base of the skull to the vertex wit hout contrast. An individualized dose optimization technique, Automated Exposure Control, was utilized for the perfo rmed procedure. Brain: The brain demonstrate prominence of the sulci and gyri corresponding to mild brain atrophy. Th ere is minimal periventricular white matter changes of microvascular ischemia. No acute intracranial hemorrhage. No midline shift and/or mass effect. Ventricles: Lateral ventricles and cisterns displace normal appearance. Vasculature: No visualized abnormalities in the arteries or dural venous sinuses. Scalp/skull: The calvarium demonstrate to be intact with no evidence for acute bony injuries. Sinuses: The visualized paranasal sinuses and mastoid air cells demonstrate to be clear. Orbits: No significant abnormalities in the visualized orbital structures. IMPRESSION: No acute intracranial hemorrhage. Mild brain atrophy with minimal periventricular white matter changes of microvascular ischemia. Electronically signed by: Torsten Saenz MD 01/22/2025 02:37 AM CDT Due to temporary technical issues with the PACS/[employer] reporting system, reports are being kelsey d by the in-house radiologist without review as a courtesy to ensure prompt reporting the interpreting radiologist is fully responsible for the content of the report. Transcribed Date/Time: 01/22/2025 3:21 AM
--- NOTE | 2025-01-22 03:22 | RAD REPORT ---
CLINICAL HISTORY: Abdominal pain. COMPARISON: CT Chest Abdomen Pelvis 06/07/2022. TECHNIQUE: CT ABDOMEN PELVIS WITH IV CONTRAST on 01/21/2025 11:50 PM CDT This exam was performed according to our departmental dose-optimization program, which includes autom ated exposure control, adjustment of the mA and/or kV according to patient size and/or use of iterative reconstruction technique. FINDINGS: Lower lungs are clear. Abdomen: Liver contains a small cyst in the anterior right lobe. There is no biliary dilatation. Gall bladder is normal in appearance. The pancreas and spleen are normal in appearance. Adrenal glands are normal. Mid pole left renal simple cyst measures 2.2 cm. Right kidney contains at least 2 calculi measuring up to 2 mm. There is no hydronephrosis. Abdominal aorta is normal in course and caliber without aneurysm. There is no free air. There is no r etroperitoneal adenopathy. Pelvis: There is mild distal colonic diverticulosis. Urinary bladder is unremarkable. There is no flor[place] e fluid. Appendix is not clearly seen. Skeleton: There is an old fracture through a heterogeneous appearing bone within the medial lower rig ht pubic arch. This is slightly progressive but similar to prior study from 2022. IMPRESSION: No definite acute inflammatory process. Right nephrolithiasis without hydronephrosis. Left Bosniak I benign renal cyst measuring 2.2 cm. No follow-up imaging is recommended. JACR 2018 Jun ; [id number], Management of the Incidental Renal Mass on CT, [employer] 2020; [id number], Bosniak Classification of Cystic Renal Masses, Version 2019. Electronically signed by: Haseeb Crump MD 01/22/2025 02:48 AM CDT Due to temporary technical issues with the PACS/[employer] reporting system, reports are being kelsey d by the in-house radiologist without review as a courtesy to ensure prompt reporting the interpreting radiologist is fully responsible for the content of the report. Transcribed Date/Time: 01/22/2025 3:28 AM
--- NOTE | 2025-01-22 04:21 | ER ---
Nurse's Notes [facility] Name: Abel Brasher Age: 80 yrs Sex: Male : 1945 Arrival Date: 01/21/2025 Time: 23:07 Bed 13 Private MD: Diagnosis: Muscle weakness (generalized) Presentation: 01/21 23:20 Chief complaint: Spouse and/or significant other states: STATES 3 HOURS AGO HE jj7 STARTED GETTING CONFUSED AFTER DINNER AND SPEAKING JIBBERISH. COULD NOT REMEMBER HIS AGE OR THEIR AGE. COULD NOT REMEMBER HIS . STATES HE HAS FORGETFULNESS BECAUSE HE IS 80 BUT NOT THIS BAD. VOMITED X3. Coronavirus screen: At this time, the client does not indicate any symptoms associated with coronavirus-19. Ebola Screen: No symptoms or risks identified at this time. No acute neurological deficit is noted. Initial Sepsis Screen: Does the patient meet any 2 criteria? HR > 90 bpm. Yes Does the patient have a suspected source of infection? No. Patient's initial sepsis screen is negative. Risk Assessment: Do you want to hurt yourself or someone else? Patient reports no desire to harm self or others. Onset of symptoms was January 21, 2025 at 20:30. 23:20 Method Of Arrival: Ambulatory [facility] 23:20 Acuity: BETTYE 3 [facility] Triage Assessment: 23:20 The onset of the patients symptoms was more than three but less than six hours ago. The [facility] onset of the patients symptoms was January 21, 2025 at 20:30. General: Appears in no apparent distress. comfortable, Behavior is calm, cooperative, appropriate for age. Pain: Denies pain. Neuro: Level of Consciousness is awake, alert, obeys commands, confused, Oriented to person, place, situation, Mechanical Research Engineer are equal bilaterally Moves all extremities. Reports headache. Cardiovascular: No deficits noted. Respiratory: No deficits noted. GI: Reports nausea, Parent/caregiver reports the patient having vomiting. : No deficits noted. Derm: No deficits noted. Musculoskeletal: No deficits noted. Historical: - Allergies: 23:48 No Known Allergies; jj7 - PMHx: 23:48 heart problems; Hyperlipidemia; Hypertension; Kidney stones; Parkinson's disease; jj7 Prostate Cancer; skin cancer; - PSHx: 23:48 Heart Stents; jj7 - Immunization history:: Adult Immunizations up to date. - Infectious Disease History:: Denies. - Social history:: Smoking status: Patient denies any tobacco usage or history of. Patient uses alcohol, but reports only rare drinking. Patient/guardian denies using street drugs, IV drugs. Screenin:30 [facility] ED Fall Risk Assessment (Adult) History of falling in the last 3 months, kt5 including since admission No falls in past 3 months (0 pts) Confusion or Disorientation No (0 pts) Intoxicated or Sedated No (0 pts) Impaired Gait No (0 pts) Mobility Assist Device Used No (0 pt) Altered Elimination No (0 pt) Score/Fall Risk Level 0 - 2 = Low Risk. [facility] ED Fall Risk Assessment (Adult) Confusion or Disorientation Impaired Gait Yes (1 pt) Mobility Assist Device Used Yes (1 pt) Score/Fall Risk Level 0 - 2 = Low Risk Oriented to surroundings, Maintained a safe environment. Abuse screen: Denies threats or abuse. Denies injuries from another. Nutritional screening: No deficits noted. Tuberculosis screening: No symptoms or risk factors identified. Assessment: 23:30 General: Appears in no apparent distress. comfortable, Behavior is calm, cooperative. kt5 Pain: Denies pain. 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 Cardiovascular: No deficits noted. Reports None Denies chest pain, Heart tones S1 S2 present Capillary refill < 3 seconds Clubbing of nail beds is absent JVD is absent Pulses are all present. Edema is 2+ to left midcalf, left ankle, left foot, right midcalf, right ankle and right foot. Respiratory: No deficits noted. Airway is patent Trachea midline Respiratory effort is even, unlabored, Respiratory pattern is regular, symmetrical. GI: No deficits noted. No signs and/or symptoms were reported involving the gastrointestinal system. Abdomen is round non-distended, Bowel sounds present X 4 quads. Abd is soft and non tender X 4 quads. : Reports incontinence. EENT: No deficits noted. No signs and/or symptoms were reported regarding the EENT system. Derm: No deficits noted. No signs and/or symptoms reported regarding the dermatologic system. Skin is intact, is healthy with good turgor, Skin is dry, Skin is pink, warm \T\ dry. Musculoskeletal: No deficits noted. No signs and/or symptoms reported regarding the musculoskeletal system. 01/22 00:46 Reassessment: Patient appears in no apparent distress at this time. No changes from kt5 previously documented assessment. Patient is alert, oriented x 3, equal unlabored respirations, skin warm/dry/pink. Patient denies pain at this time. Patient states feeling better. Patient states symptoms have improved. 01:54 Reassessment: Patient appears in no apparent distress at this time. Patient is alert, kt5 oriented x 3, equal unlabored respirations, skin warm/dry/pink. per ct pt with n/v throughout ct, provider aware, waiting new orders. 03:02 Reassessment: Patient appears in no apparent distress at this time. No changes from kt5 previously documented assessment. Patient is alert, oriented x 3, equal unlabored respirations, skin warm/dry/pink. Patient denies pain at this time. Patient states feeling better. Patient states symptoms have improved. 03:18 [place] Swallow Protocol Exclusion Criteria: Brief Cognitive Screen What is your name? kt5 Normal, Where are you right now? Normal, What year is it? Normal. Oral Mechanism Examination Facial Symmetry: Normal, Motion: Normal, Lip Closure: Normal, Oral Mechanism Result: Normal. 3 oz Water Swallow Challenge: Pt able to drink all water without stopping, coughing, choking or throat clearing: Yes Result: DERIK CUENCA Notified: Ramírez Berry MD. 03:19 General: pt sitting up in bed drinking w/o complications. kt5 04:13 Reassessment: Patient appears in no apparent distress at this time. No changes from kt5 previously documented assessment. Patient denies pain at this time. Patient states feeling better. Patient states symptoms have improved. 04:42 VAN Scoring: Neglect:. TNKase (Tenecteplase) Screening: Not Applicable. kt5 Vital Signs: 01/21 23:20 BP 144 / 75; Pulse 90; Resp 20; Temp 98.3; Pulse Ox 94% on R/A; Weight 108.86 kg; jj7 Height 5 ft. 9 in. ; 01/22 00:45 BP 135 / 85; Pulse 69; Resp 18; Pulse Ox 100% ; kt5 01:56 BP 122 / 63; Pulse 72; Resp 18 S; Pulse Ox 96% on R/A; kt5 03:02 BP 124 / 66; Pulse 80; Resp 18; Pulse Ox 98% ; kt5 04:13 BP 122 / 72; Pulse 78; Resp 16; Pulse Ox 97% ; kt5 01/21 23:20 Body Mass Index 35.44 (108.86 kg, 175.26 cm) [facility] NIH Stroke Scale Scores: 01/21 23:30 NIHSS Score: 0 ED Course: 23:08 Patient arrived in ED. mr 23:20 Arm band placed on right wrist. Patient placed in an exam room, in the treatment room, j on a stretcher. 23:30 Patient has correct armband on for positive identification. Fall risk band placed. kt5 Placed in gown. Bed in low position. Call light in reach. Side rails up X 1. Adult w/ patient. Client placed on continuous cardiac and pulse oximetry monitoring. NIBP monitoring applied. tub operator on. Door closed. Noise minimized. Warm blanket given. Pillow given. Family accompanied patient. 23:36 Ramírez Berry MD is Attending Physician. tw 23:45 Triage completed. jj7 23:55 Carmelita Booker, RN is Primary Nurse. 01/22 00:07 Basic Metabolic Panel Sent. kt5 00:07 CBC with Diff Sent. kt5 00:07 LFT's Sent. kt5 00:07 Magnesium Sent. kt5 00:07 NT PRO-BNP Sent. kt5 00:07 Troponin HS Sent. kt5 00:07 Inserted saline lock: 20 gauge in right antecubital area, using aseptic technique. kt5 Blood collected. Flushed with 10 mL NS. 00:44 XRAY Chest (1 view) In Process Unspecified. EDMS 01:42 CT Head Brain wo Cont In Process Unspecified. EDMS 01:43 CT Abd/Pelvis - IV Contrast Only In Process Unspecified. EDMS 03:02 No provider procedures requiring assistance completed. kt5 04:19 Oscar Vasques DO is Referral Physician. tw7 04:24 Primary Nurse role handed off by Carmelita Booker, RN jj7 04:40 IV discontinued, intact, bleeding controlled, No redness/swelling at site. Pressure kt5 dressing applied. 04:43 Provided Education on: medication and follow up. kt5 Administered Medications: 02:05 Drug: Ondansetron IVP 4 mg IVP once; over 2 minutes Route: IVP; Site: right antecubital;kt5 04:42 Follow up: Response: No adverse reaction; Nausea is decreased kt5 02:05 Drug: NS 0.9% IV 500 ml 500 ml IV at 1 bolus once; to be given as a bolus over 30 kt5 minutes Volume: 500 ml; Route: IV; Rate: 1 bolus; Site: right antecubital; 04:41 Follow up: Response: No adverse reaction; IV Status: Completed infusion; IV Intake: kt5 500ml Medication: 01/21 23:30 VIS not applicable for this client. kt5 Intake: 01/22 04:41 IV: 500ml; Total: 500ml. kt5 Outcome: 04:20 Discharge ordered by MD. tw7 04:21 Patient left the ED. tw7 04:40 Discharged to home with family, kt5 04:40 Condition: improved 04:40 Discharge instructions given to patient, family, Instructed on discharge instructions, follow up and referral plans. Demonstrated understanding of instructions, follow-up care, medications, Prescriptions given X 1, 04:43 Patient left the ED. kt5 NIH Stroke Scale - NIH Stroke Score Date: 01/21/2025 Time: 23:30 Total Score = 0 10. Dysarthria (speech clarity - read or repeat words) - 0(Normal) 11. Extinction and Inattention (visual/tactile/auditory/spatial/personal) - 0(No abnormality) 1a. Level of Consciousness (LOC) - 0(Alert) 1b. Level of Consciousness (LOC) (Month \T\ Age) - 0(Both) 1c. LOC Commands (Open \T\ Closes Eyes/Director Of Residence Life) - 0(Both) 2. Best Gaze (Lateral Gaze Paresis) - 0(Normal) 3. Visual Field Loss - 0(No visual loss) 4. Facial Palsy - 0(Normal) 5a. Left Arm: Motor (10-second hold) - 0(No drift) 5b. Right Arm: Motor (10-second hold) - 0(No drift) 6a. Left Leg: Motor (5-second hold - always test supine) - 0(No drift) 6b. Right Leg: Motor (5-second hold - always test supine) - 0(No drift) 7. Limb Ataxia (finger/nose \T\ heel/romano - test with eyes open) - 0(Absent) 8. Sensory Loss (pinprick arms/legs/face) - 0(Normal) 9. Best Language: Aphasia (description/naming/reading) - 0(No aphasia) Initials: kt5 Signatures: Dispatcher [employer] EDMS Janelle Delgado, Reg Reg mr Barnes Olga, RN RN jj7 Ramírez Berry MD MD tw7 Carmelita Booker RN RN kt5 Corrections: (The following items were deleted from the chart) 01:38 01/21 23:30 Neuro: Sebastian Agitation-Sedation Scale (RASS): 0 - Alert and Calm kt5 Level of Consciousness is awake, alert, obeys commands, Oriented to person, place, time, situation, Mechanical Research Engineer are equal bilaterally Gait is steady, Speech is normal, Facial symmetry appears normal, Pupils are PERRLA, Intact kt5
--- NOTE | 2025-01-22 04:21 | EDPHYS ---
Physician Documentation [facility] Name: Abel Brasher Age: 80 yrs Sex: Male : 1945 Arrival Date: 01/21/2025 Time: 23:07 Bed 13 Private MD: ED Physician Ramírez Berry HPI: 01/22 00:06 This 80 yrs old Male presents to ER via Ambulatory with complaints of Slurred Speech, tw7 confusion. 00:06 80-year-old male with a past medical history of hypertension, Parkinson disease, tw7 prostate cancer, skin cancer is brought in by and daughter for further evaluation of altered mental status. They report that the patient has been altered all evening tonight since approximately 7:30 PM. This seemed to start around the time they were eating dinner at when the patient was eating food he called the stuffing mashed potatoes, he tried to eat the remote control. Stated that he does not have any history of dementia. This is after dinner he started vomiting, patient reports associated diarrhea. Sounds like he had some fevers and chills. Reports generalized weakness. Again family says patient is not at his baseline mental status that he is confused. When asked the year patient said his 1987. He denies chest pain, shortness of breath, abdominal pain. reports that he has had a urinary tract infection before she is concerned about this. Patient has no focal arm or leg weakness, but does report generalized weakness. Apparently patient had slurred speech previously but does not have slurred speech now just confused speech/altered mental status.. Historical: - Allergies: 01/21 23:48 No Known Allergies; jj7 - PMHx: 23:48 heart problems; Hyperlipidemia; Hypertension; Kidney stones; Parkinson's disease; jj7 Prostate Cancer; skin cancer; - PSHx: 23:48 Heart Stents; jj7 - Immunization history:: Adult Immunizations up to date. - Infectious Disease History:: Denies. - Social history:: Smoking status: Patient denies any tobacco usage or history of. Patient uses alcohol, but reports only rare drinking. Patient/guardian denies using street drugs, IV drugs. ROS: 01/22 00:09 Constitutional: Negative for fever, chills, and weight loss, tw7 Abdomen/GI: Positive for nausea, vomiting, diarrhea, Neuro: Positive for altered mental status, gait disturbance, weakness, 00:09 ENT: Negative for injury, pain, and discharge, Neck: Negative for injury, pain, and tw7 swelling, Cardiovascular: Negative for chest pain, palpitations, and edema, Respiratory: Negative for shortness of breath, cough, wheezing, and pleuritic chest pain, 00:09 Abdomen/GI: Negative for abdominal pain, constipation, abdominal distension, hematemesis, black/tarry stool, rectal pain, rectal bleeding, Exam: 00:10 Constitutional: This is a well developed, well nourished patient who is awake, alert, tw7 and in no acute distress. Head/Face: Normocephalic, atraumatic. ENT: Nares patent. No nasal discharge, no septal abnormalities noted. Tympanic membranes are normal and external auditory canals are clear. Oropharynx with no redness, swelling, or masses, exudates, or evidence of obstruction, uvula midline. Mucous membranes moist. Neck: Trachea midline, no thyromegaly or masses palpated, and no cervical lymphadenopathy. Supple, full range of motion without nuchal rigidity, or vertebral point tenderness. No Meningismus. Chest/axilla: Normal chest wall appearance and motion. Nontender with no deformity. No lesions are appreciated. Cardiovascular: Regular rate and rhythm with a normal S1 and S2. No gallops, murmurs, or rubs. Normal PMI, no JVD. No pulse deficits. Respiratory: Lungs have equal breath sounds bilaterally, clear to auscultation and percussion. No rales, rhonchi or wheezes noted. No increased work of breathing, no retractions or nasal flaring. Abdomen/GI: Soft, non-tender, with normal bowel sounds. No distension or tympany. No guarding or rebound. No evidence of tenderness throughout. Negative Recinos's. Negative McBurney's Male : Normal genitalia with no discharge or lesions. MS/ Extremity: Pulses equal, no cyanosis. Neurovascular intact. Full, normal range of motion. 00:10 Neuro: Orientation: to person, Not oriented to time, situation, Mentation: responsive to voice able to follow commands, confused, Memory: Cranial nerves: grossly normal, Cerebellar function: is grossly normal, Motor: is normal, Sensation: is normal, 06:35 ECG was reviewed by the Attending Physician. tw7 Vital Signs: 01/21 23:20 BP 144 / 75; Pulse 90; Resp 20; Temp 98.3; Pulse Ox 94% on R/A; Weight 108.86 kg; jj7 Height 5 ft. 9 in. ; 01/22 00:45 BP 135 / 85; Pulse 69; Resp 18; Pulse Ox 100% ; kt5 01:56 BP 122 / 63; Pulse 72; Resp 18 S; Pulse Ox 96% on R/A; kt5 03:02 BP 124 / 66; Pulse 80; Resp 18; Pulse Ox 98% ; kt5 04:13 BP 122 / 72; Pulse 78; Resp 16; Pulse Ox 97% ; kt5 01/21 23:20 Body Mass Index 35.44 (108.86 kg, 175.26 cm) j7 NIH Stroke Scale Scores: 01/21 23:30 NIHSS Score: 0 MDM: 23:36 Medical Screening Exam initiated 01/22 00:12 Data reviewed: vital signs, nurses notes. 00:12 ED course: 80-year-old male with a past medical hypertension, diabetes, hyperlipidemia, tw7 prostate cancer, skin cancer, coronary disease status post stents presents ED today with complaints of altered mental status and generalized weakness. On my examination patient has no focal weakness, no pronator drift, no facial droop, I considered but not suspect acute stroke. Patient is confused and only oriented to person not place time or situation since 1987. Family denies that he has any history of dementia and says that this is not his baseline mental status. But. 00:19 ED course: Patient is moving all his extremities on exam, no pronator drift, no facial tw7 droop, no slurred speech. Patient does appear to be confused and have altered mental status. Will perform workup for altered mental status including blood work, CT brain, urinalysis, anticipate likely admission illness patient's mental status turns around.. 04:27 ED course: 80-year-old female presents evenings of generalized weakness and brief tw7 period of altered mental status. Patient reports some nausea and vomiting as well. On my examination patient is obese but otherwise well-appearing. He vomited 1 time here. labwork performed. Shows creatinine of 1.11 which is at patient's baseline kidney function. Normal electrolytes. Mild thrombocytopenia 125. CT brain performed shows no acute intracranial malady. CT abdomen pelvis performed shows no acute intra-abdominal process. Patient is given IV fluid and antiemetic in the ED. After which time he reports feeling much better. Patient observed in ED for multiple hours after which time feeling ports that he is at his baseline mental status now that he is behaving normally he has no evidence of infectious process. Patient discharged with outpatient PCP and neurology follow-up.. 01/21 23:50 Order name: Basic Metabolic Panel; Complete Time: 02:00 01/21 23:50 Order name: CBC with Diff; Complete Time: 02:00 01/21 23:50 Order name: LFT's; Complete Time: 02:00 01/21 23:50 Order name: Magnesium; Complete Time: 02:00 01/21 23:50 Order name: NT PRO-BNP; Complete Time: 02:00 01/21 23:50 Order name: Troponin HS; Complete Time: 02:00 01/21 23:50 Order name: CT Head Brain wo Cont; Complete Time: 04:08 01/21 23:50 Order name: CT Abd/Pelvis - IV Contrast Only; Complete Time: 04:08 01/21 23:50 Order name: XRAY Chest (1 view); Complete Time: 13:36 01/21 23:50 Order name: Cardiac monitoring; Complete Time: 00:07 01/21 23:50 Order name: EKG - Nurse/Tech; Complete Time: 00:26 01/21 23:50 Order name: IV Saline Lock; Complete Time: 00:01/21 23:50 Order name: Labs collected and sent; Complete Time: 00:01/21 23:50 Order name: O2 Per Protocol; Complete Time: 00:01/21 23:50 Order name: O2 Sat Monitoring; Complete Time: 00: EC:35 Rate is 76 beats/min. Rhythm is regular. QRS [place] is Normal. [place] interval is normal. QRS tw7 interval is prolonged. QT interval is normal. Q waves are Present. Clinical impression: LVH. Administered Medications: 02:05 Drug: Ondansetron IVP 4 mg IVP once; over 2 minutes Route: IVP; Site: right antecubital;kt5 04:42 Follow up: Response: No adverse reaction; Nausea is decreased kt5 02:05 Drug: NS 0.9% IV 500 ml 500 ml IV at 1 bolus once; to be given as a bolus over 30 kt5 minutes Volume: 500 ml; Route: IV; Rate: 1 bolus; Site: right antecubital; 04:41 Follow up: Response: No adverse reaction; IV Status: Completed infusion; IV Intake: kt5 500ml Disposition Summary: 01/22/25 04:20 Discharge Ordered Notes: Location: Home tw7 Problem: new tw7 Symptoms: are resolved tw7 Condition: Fair tw7 Diagnosis - Muscle weakness (generalized) tw7 Followup: tw7 - With: Oscar Vasques, DO - When: Tomorrow - Reason: Re-evaluation by your physician Discharge Instructions: - Discharge Summary Sheet tw7 - Weakness tw7 Forms: - Medication Reconciliation Form tw7 - Antibiotic Education tw7 - Prescription Opioid Use tw7 - Patient Portal Instructions tw7 - Leadership Thank You Letter tw7 Prescriptions: - Zofran 4 mg Oral Tablet - take 1 tablet ORAL route every 12 hours As needed; 20 tablet; Refills: 0, tw7 Product Selection Permitted NIH Stroke Scale - NIH Stroke Score Date: 01/21/2025 Time: 23:30 Total Score = 0 10. Dysarthria (speech clarity - read or repeat words) - 0(Normal) 11. Extinction and Inattention (visual/tactile/auditory/spatial/personal) - 0(No abnormality) 1a. Level of Consciousness (LOC) - 0(Alert) 1b. Level of Consciousness (LOC) (Month \T\ Age) - 0(Both) 1c. LOC Commands (Open \T\ Closes Eyes/Pathology Manager) - 0(Both) 2. Best Gaze (Lateral Gaze Paresis) - 0(Normal) 3. Visual Field Loss - 0(No visual loss) 4. Facial Palsy - 0(Normal) 5a. Left Arm: Motor (10-second hold) - 0(No drift) 5b. Right Arm: Motor (10-second hold) - 0(No drift) 6a. Left Leg: Motor (5-second hold - always test supine) - 0(No drift) 6b. Right Leg: Motor (5-second hold - always test supine) - 0(No drift) 7. Limb Ataxia (finger/nose \T\ heel/romano - test with eyes open) - 0(Absent) 8. Sensory Loss (pinprick arms/legs/face) - 0(Normal) 9. Best Language: Aphasia (description/naming/reading) - 0(No aphasia) Initials: kt5 Signatures: Dispatcher [employer] EDMS Moses Paulino DO DO ms3 Olga Barnes, RN RN jj7 Ramírez Berry MD MD tw7 Carmelita Booker RN RN kt5 Corrections: (The following items were deleted from the chart) 01/21 23:50 23:50 Abdomen Pelvis W Con+CT.RAD.BRZ ordered. EDMS EDMS 23:50 23:50 BASIC METABOLIC PANEL+C.LAB.BRZ ordered. EDMS EDMS 23:50 23:50 CBC+H.LAB.BRZ ordered. EDMS EDMS 23:50 23:50 HEPATIC FUNCTION+C.LAB.BRZ ordered. EDMS EDMS 23:50 23:50 MAGNESIUM+C.LAB.BRZ ordered. EDMS EDMS 23:50 23:50 PROBNP+C.LAB.BRZ ordered. EDMS EDMS 23:50 23:50 Troponin High Sensitivity+C.LAB.BRZ ordered. EDMS EDMS 23:50 23:50 Chest Single View+RAD.RAD.BRZ ordered. EDMS EDMS
--- NOTE | 2025-01-22 05:31 | RAD REPORT ---
TIME OF STUDY: 01/21/2025 11:50 PM CDT REASON FOR EXAM: COUGH COMPARISON: None. FINDINGS: AP view of the chest was obtained, chest 1 view. Lungs: The lungs are adequately inflated. Mild pulmonary vascular congestion is noted. There is no de nse airspace consolidation.. No significant bronchial wall thickening is noted. Pleura: No pneumothorax. Tiny left pleural effusion. Heart and Mediastinum: Cardiac silhouette is enlarged. The aorta is moderately tortuous. Bones: No acute bony abnormality.. IMPRESSION: 1. Cardiomegaly with mild pulmonary vascular congestion. 2. No bronchial wall thickening is noted. 3. No airspace opacities are seen to suggest consolidation from pneumonia. Electronically signed by: Steve Thayer MD 01/22/2025 01:22 AM CDT RP Due to temporary technical issues with the PACS/[employer] reporting system, reports are being kelsey d by the in-house radiologist without review as a courtesy to ensure prompt reporting the interpreting radiologist is fully responsible for the content of the report. Transcribed Date/Time: 01/22/2025 5:30 AM
[2025-01-22 07:55] VITALS: TEMP 98.3
[2025-01-22 12:20] VITALS: BP 122/72; O2SAT 97
== END 2025-01-22 04:43 | disposition home or self-care (01) ==
LOC: ER 23:07
DX: M62.81 Muscle weakness (generalized) (principal); R41.82 Altered mental status, unspecified; R11.2 Nausea with vomiting, unspecified; I10 Essential (primary) hypertension; G20.A1 Parkinson's disease without dyskinesia, without mention of fluctuations; Z95.818 Presence of other cardiac implants and grafts
CPT/HCPCS: 93005; 85025; 80048; 36415; 83735; 80076; 84484; 83880; 70450; 74177; 71045; Q9967; J2405; J7040